=== PATIENT | female | born 1950 | race Caucasian/White ===

== ENCOUNTER 2017-08-07 10:54 | Day surgery (SDC) | payer MEDICARE, SELFPAY ==
[2017-07-31 11:01] LABS: Hematocrit 42.6 % (37-47); Hemoglobin 13.5 g/dl (12.0-15.0); Mean Corp Hgb Conc 31.7 g/gl (32-36); Mean Corpuscular Hgb 29.3 pg (27.0-32.0); Mean Corpuscular Volume 92.4 fL (81-99); Mean Platelet Vol. 10.9 fl (6.2-12.0); Platelet Count 258 K/mm3 (150-450); RBC Distribution Width CV 15.4 % (11.6-14.6); RBC Distribution Width SD 50.4 fl (35.1-43.9); Red Blood Count 4.61 M/mm3 (4.2-5.4); White Blood Count 9.8 K/mm3 (4.4-11.0)
[2017-07-31 11:04] LABS: Scan Indicated on CBC? Y/N NO
[2017-07-31 11:08] LABS: Prothrombin Time (Protime)PT. 22.9 SECONDS (11.7-14.9)
[2017-07-31 11:31] LABS: Anion Gap 5 (5-15); BUN 12 mg/dL (7-18); BUN/Creat Ratio 19.1 RATIO (10-20); Calcium,Total 9.1 mg/dL (8.5-10.1); Chloride 100 mmol/L (98-107); Creatinine, Serum 0.63 mg/dL (0.55-1.02); EST Glomerular Filtration Rate 100 mL/min (>60); Est Glom Filt Rate - Afr Amer 121 mL/min (>60); Glucose 125 mg/dL (74-106); Potassium 3.4 mmol/L (3.5-5.1); Sodium Level 140 mmol/L (136-145)
--- NOTE | 2017-08-07 | EMB_PTH ---
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 Jaelyn Low MD : [id number] BED: DIS: 08/07/2017 SPEC #: [id number] RECD: 08/07/17 14:29 STATUS: FRACISCO DELFINA #: [id number] HARLAN: 08/07/17 00:[address]: Jaelyn Low DEPT: SURGICAL PATHOLOGY RECD BY: Alberto Woods ENTERED: 08/07/17 14:29 SP TYPE: ENDOM BX/C GIANLUCA DR: Dr. Laurie Bonilla MD Tissues: Endometrium, NOS Procedures: Surgery Specimen Level IV HEADER OPERATION: Hysteroscopy, dilation and curettage PRE-OP DIAGNOSIS: Atypical mucinous proliferation on endometrial biopsy, thickened endometrium on pelvic ultrasound TISSUE SUBMITTED: Endometrial curettings MICROSCOPIC DIAGNOSIS Endometrium, curettings: Scant strips of benign superficial endometrium and ectocervix. Rare strips of benign superficial endocervix. AM:linda 08/08/17 MICROSCOPIC DESCRIPTION Slides are reviewed. GROSS DESCRIPTION Received in fixative is one container labeled with the patient's name and designated endometrial curettings. The specimen consists of multiple fragments of hemorrhagic soft tissue that in aggregate measure 1 x 0.5 x 0.1 cm. A few fragments of hemorrhagic tissue are also noted adherent to the gauze tissue. The entire specimen including gauze is submitted in one cassette. / SJ:linda 08/07/17 TC:5 CPT: 52344
[2017-08-07 11:21] LABS: Prothrombin Time Fingerstick 17.3 SEC (11.9-14.4)
[2017-08-07 11:23] VITALS: BP 147/77; PULSE 67; RESP 16; TEMP 36.8; O2SAT 96; BMI 34.0
[2017-08-07] MEDS: Ketorolac 30 MG/ML Syringe IV (11:33)
[2017-08-07] MEDS: Acetaminophen 500 MG Tablet 1000 MG PO (11:33)
[2017-08-07 11:34] LABS: International Normalized Ratio 1.5; Prothrombin Time (Protime)PT. 17.7 SECONDS (11.7-14.9)
[2017-08-07 12:11] LABS: Bedside Glucose 91 mg/dL (70-110)
--- NOTE | 2017-08-07 12:57 | DCINST_ITS ---
Discharge Diet: No Restrictions Discharge Activity: Return to Normal Activity, May Not Drive - for 2 weeks, May not drive while taking narcotic pain medications., May Shower, May Take a Tub Bath - in 7 days. May resume sexual activity in: 4-6 weeks Lifting Restrictions: 20 pounds Additional Activity Instructions:: Nothing in the vagina for 4-6 weeks. You may return to work/school in 6 weeks. Call your doctor if your incision/area has: Continuous Slow Oozing, Sudden Increased Bleeding, Increased Pain/ Swelling, Increased Redness, Foul Smelling Discharge Call your doctor if you observe: Fever of 101 or Higher, Using more than one pad per hour - for 2 hours Suture Line Care: Avoid Pulling/Pushing, Avoid Pinching/Bending Cleanse incision/area with: Keep Dressing Clean & Dry Instructions: Discharge Instructions for Dilation and Curettage (D and C) Additional Instructions: If you experience any of the following, contact your healthcare provider. * Bleeding that soaks a pad every hour for 2 hours * Fever 100.4 or higher * Unrelieved incision or abdominal pain * Swelling, redness, discharge or bleeding from your incision or episiotomy site * Your incision begins to separate * Problems urinating (including inability to urinate or burning while urinating) . * Visual changes * Severe headache * Flu-like symptoms * Pain or redness in one of both of your breasts * Pain, warmth, tenderness or swelling in your legs, especially the calf area * Frequent nausea and vomiting * Symptoms of depression or anxiety If you experience any of the following, call 911 or go to the nearest Emergency Room. * Chest pain * Problems breathing * Seizure activity * Partial or complete paralysis of a body part, slurred speech, weakness or drooping of the face, or a sudden inability to walk or hold your balance Allergies/Adverse Reactions: Allergies doxycycline Allergy (Verified 07/30/17 14:26) Unknown etodolac [Etodolac] Allergy (Verified 07/30/17 14:26) Unknown guaifenesin [From Mucinex] Allergy (Verified 07/30/17 14:26) Unknown nabumetone Allergy (Verified 07/30/17 14:26) Unknown Penicillins Allergy (Verified 07/30/17 14:26) Unknown sulfamethoxazole [From Bactrim] Allergy (Verified 07/30/17 14:26) Hives trimethoprim [From Bactrim] Allergy (Verified 07/30/17 14:26) Hives Medications to take at Discharge Albuterol Aerosols [Ventolin Aerosols] 2.5 mg INHALATION Q4HWA.RT PRN 11/01/15 Budesonide/Formoterol 160/4.5 [Symbicort 160/4.5 Mcg Inhaler (SP)] 2 puff INHALATION BID 11/01/15 Metoprolol Tartrate [Lopressor] 50 mg PO BID 11/01/15 Furosemide [Lasix] 40 mg PO PRN PRN 06/07/17 Sulfasalazine [Azulfidine] 500 mg PO BID 06/07/17 Losartan Potassium [Cozaar] 25 mg PO DAILY 07/30/17 Warfarin [Coumadin] 2.5 mg PO SUTUTHSA 07/30/17 Warfarin [Coumadin] 5 mg PO MOWEFR 07/30/17 Follow-Up: Call to make an appointment with your doctor for an incision check in 1-2 weeks. You will also need a 6 week post- follow up appointment. Please Follow Up With: Jaelyn Low MD - Call to make an appointment for an incision check in 1-2 [phone] When: You will need a post check in 6 weeks. Primary Care Physician: Laurie Bonilla MD [Primary Care Provider] -
--- NOTE | 2017-08-07 13:15 | PCM.OPRPT ---
Report of Operation Date of Procedure: 08/07/17 Pre-Operative Diagnosis: Atypical cells on endometrial biopsy, thickened endometrium on ultrasound Post-Operative Diagnosis: Same Surgery/Procedure Performed:: Hysteroscopy dilation and curettage Description of Surgical Findings:: Appearing cervix, vagina, vulva and endometrial cavity. cotton program technician: elvis Type of Anesthesia:: MAC/Supplemental/Local Anesthesiologist: Santos Trevizo Special Medications: None Specimen's removed: Endometrial curettings Drains: None Estimated Blood Loss (mL): 10 cc Fluids Replaced: 700 cc of LR Description of Procedure: The patient was taken to the OR where she was prepped and draped in dorsal lithotomy position. The weighted speculum was placed in the vagina and the anterior lip of the cervix was grasped with a single-tooth tenaculum. A paracervical block was administered with 10 cc of 1% lidocaine with 1-100,000 epinephrine solution. The cervix was dilated serially with Hegar dilators. The 5mm hysteroscope was placed into the uterine cavity and the above findings were noted. Bilateral tubal ostia were identified. The hysteroscope was removed. A gentle sharp curettage was done of the uterine cavity. The instruments were removed from the vagina. The specimen was handed off and sent to pathology. All sponge and needle counts were correct. Vaginal sweep was performed by me. The patient was awakened and taken to the recovery room in stable condition. Hysteroscopic ins: 150 cc cc normal saline Hysteroscopic outs: 125 cc Findings: Endometrial cavity: normal, no fibroids or polyps noted, thin atrophic endometrium. Cervix: normal Vagina: normal Grafts/Implants Used: None - Complications None - Admit VTE Documentation VTE Present on Admission: No VTE Mechan Device Prophylaxis: SCD's VTE Pharm Prophylaxis ordered?: No Reason prophylaxis not ordered:: Procedure Not Indicated
[2017-08-07 13:21] VITALS: BP 113/53; BP 147/77; PULSE 78; RESP 16; TEMP 36.2; O2SAT 94
[2017-08-07 13:25] VITALS: BP 102/55; BP 147/77; PULSE 72; RESP 16; O2SAT 95
[2017-08-07 13:30] VITALS: BP 106/54; BP 147/77; PULSE 80; RESP 16; O2SAT 94
[2017-08-07 13:35] VITALS: BP 104/55; BP 147/77; PULSE 70; RESP 14; TEMP 36.3; O2SAT 96
[2017-08-07 14:51] VITALS: BP 147/77
== END 2017-08-07 14:52 | disposition home or self-care (01) ==
LOC: SDC 10:55 → AC 10:55
PROVIDERS: Family Provider Internal Medicine; PCP Internal Medicine; Visit Provider Obstetrics & Gynecology
PROC: 0UDB8ZZ Extraction of Endometrium, Via Natural or Artificial Opening Endoscopic (ICD-10-PCS; CPT 58558; principal; 2017-08-07 12:20)
DX: R93.8 Abnormal findings on diagnostic imaging of other specified body structures (principal); I48.91 Unspecified atrial fibrillation; R87.619 Unspecified abnormal cytological findings in specimens from cervix uteri; J44.9 Chronic obstructive pulmonary disease, unspecified; E11.9 Type 2 diabetes mellitus without complications; K21.9 Gastro-esophageal reflux disease without esophagitis; M17.0 Bilateral primary osteoarthritis of knee; M47.9 Spondylosis, unspecified; I27.20 Pulmonary hypertension, unspecified; I10 Essential (primary) hypertension; Z79.01 Long term (current) use of anticoagulants; Z79.51 Long term (current) use of inhaled steroids; Z79.84 Long term (current) use of oral hypoglycemic drugs; Z79.899 Other long term (current) drug therapy; Z87.891 Personal history of nicotine dependence
CPT/HCPCS: 58558; 36415; 36416; 80048; 82962; 85027; 85610; 88305; J3010; J7120; J2405

== ENCOUNTER 2018-12-13 17:08 | Emergency (ER) | payer MEDICARE, SELFPAY ==
[2018-12-13 17:10] VITALS: BP 154/94; PULSE 77; RESP 20; TEMP 36.9; O2SAT 95; BMI 36.3
--- NOTE | 2018-12-13 17:31 | RAD_ITS ---
STUDY: X-RAY - PELVIS AND LEFT HIP REASON FOR EXAM: Female, 68 years old. Left hip pain TECHNIQUE: 3 views of the pelvis and hip. COMPARISON: None. FINDINGS: No acute fracture or dislocation. Age-related degenerative changes of both hips and the lower lumbar spine. Normal surrounding soft tissues RAD/HIP, UNI W/ Pelvis 2-3 Views IMPRESSION: As above Electronically Signed: Manuel José DO at 18:36 EDT Tel , Service support ,
--- NOTE | 2018-12-13 17:33 | ED.VIS.GEN ---
History of Present Illness Chief Complaint: Lower Extremity Injury Informant: Patient Onset: - Friday Context: Sudden Onset Timing: Continuous Quality: Pain Location: Left hip Current Severity: Mild Maximum Severity: Severe Worsened by: Movement and palpation Relieved by: Rest Associated Symptoms: No associated symptoms Narrative: Patient is a 68-year-old woman who presents with atraumatic left hip pain. She localizes the pain over the left greater trochanteric region and buttocks. She denies history of osteoarthritis. She denies history of long-term steroid use. She denies history of trauma. She denies fever, chills night sweats. Denies weight gain or weight loss. She has not noticed a rash. Prior similar symptoms: No Recent Illness/Hospitalization: No - Past Medical History (1) CAP (community acquired pneumonia) Status: Acute (2) Anemia Status: Chronic (3) Atrial fibrillation Status: Chronic (4) Chronic obstructive pulmonary disease Status: Chronic (5) Hypertension Status: Chronic (6) Lichen planus Status: Chronic (7) Type II diabetes mellitus Status: Chronic Past Medical History - Allergies and Home Meds Allergies/Adverse Reactions: Allergies doxycycline Allergy (Verified 12/13/18 17:09) Unknown etodolac [Etodolac] Allergy (Verified 12/13/18 17:09) Unknown guaifenesin [From Mucinex] Allergy (Verified 12/13/18 17:09) Unknown nabumetone Allergy (Verified 12/13/18 17:09) Unknown Penicillins Allergy (Verified 12/13/18 17:09) Unknown sulfamethoxazole [From Bactrim] Allergy (Verified 12/13/18 17:09) Hives trimethoprim [From Bactrim] Allergy (Verified 12/13/18 17:09) Hives Primary Care Physician: Laurie Bonilla MD [Primary Care Provider] - Surgical History: - - R Carpal tunnel surgery, tubal ligation. Smoking Status: Former smoker - Family History Maternal Family History: Reports: No pertinent history Paternal Family History: Reports: No pertinent history Review of Systems General: Denies: Chills, Fever, Malaise, Subjective, Sweats, Weight loss Eyes: Denies: Visual changes - bilaterally, Blurred Vision - bilaterally, Diplopia Cardiovascular: Denies: Chest pain, Palpitations, Heart racing Respiratory: Denies: Dyspnea, Sputum, Dyspnea on exertion, Orthopnea, Paroxysmal nocturnal dyspnea Gastrointestinal: Denies: Abdominal pain, Nausea, Vomiting, Constipation, Hematochezia Genitourinary: Denies: Dysuria, Hematuria, Frequency Musculoskeletal: Denies: Myalgias, Arthralgias, Neck pain, Back pain, Extremity Pain Skin: Denies: Rash, Abrasions, Wounds Neurological: Denies: Headache, Weakness, Parasthesia, Numbness Hematologic: Denies: Easy bruising, Easy bleeding Allergy: Denies: Uticaria, Swelling of the mouth Physical Exam Vital Signs/Narrative: Vital Signs Temp Pulse Resp BP Pulse Ox 12/13/18 17:10 98.4 F 77 20 H 154/94 H 95 Inital Vital Signs reviewed: Yes General: Well nourished, Well developed, No Acute Distress Head: Normocephalic, Atraumatic Eyes: Perrl, EOMI. Negative for: Pale conjunctiva, Scleral icterus ENT: Moist mucous membranes, No rhinorrhea, TM's clear Cardiovascular: Regular rate, Regular rhythm, No murmurs, Normal S1, Normal S2 Back: Nontender, Normal Inspection. Negative for: CVA tenderness, Spinal tenderness Extremities: No edema, Tenderness. Negative for: Nontender, Edema Skin: Normal color, No rash. Negative for: Cyanosis, Diaphoresis, Jaundice, No Trauma Neurological: Alert, Oriented x3, Cranial nerves II-XII grossly intact, Normal Strength, Normal Sensation, Normal DTR, Normal Gait Psychological: Normal affect, Normal Mood Diagnostic/Tx/Re-eval Chest X-Ray - ED: Read by ED Physician, - Three-view x-ray of the left hip reveals arthritic changes over the inferior portion of the greater trochanteric prominence. No other demise noted per my interpretation. - Medical Decision Making Patient tenderness is over the left greater trochanteric bursa. There is no pain with logrolling. Will obtain x-ray to assess for osteoarthritis, occult fracture. ED Disposition - Plan for ED Patient: Disposition: Home or Assisted Living Diagnosis: Greater trochanteric pain syndrome of right lower extremity Instructions: Osteoarthritis Prescriptions: Hydrocodone Bitart/Apap 5-325 [[place] 5MG-325MG] 1 tab PO Q6H PRN PRN 3 Days #10 tab PRN Reason: Pain Prescription Printed Referrals: Laurie Bonilla MD [Primary Care Provider] - 3-5 Days if not improving
== END 2018-12-13 19:16 | disposition home or self-care (01) ==
PROVIDERS: Emergency Provider Emergency Medicine; Family Provider Internal Medicine; PCP Internal Medicine
DX: M25.552 Pain in left hip (principal); I48.91 Unspecified atrial fibrillation; I10 Essential (primary) hypertension; E11.9 Type 2 diabetes mellitus without complications; J44.9 Chronic obstructive pulmonary disease, unspecified; Z87.891 Personal history of nicotine dependence; Z79.51 Long term (current) use of inhaled steroids; Z79.01 Long term (current) use of anticoagulants; Z79.899 Other long term (current) drug therapy
CPT/HCPCS: 73502; 99282

== ENCOUNTER → 2019-10-13 15:41 | Outpatient (CLI) | payer MEDICARE, SELFPAY ==
[2019-10-13 12:36] VITALS: BMI 38.5
--- NOTE | 2019-10-13 15:55 | RAD_ITS ---
STUDY: X-RAY CHEST REASON FOR EXAM: Female, 69 years old. Left lower chest pain for several months. History of long-standing atrial fibrillation. TECHNIQUE: PA and lateral views of the chest. COMPARISON: June 07, 2017. FINDINGS: The lungs are well expanded. There is minimal bibasilar chronic atelectasis versus scarring which appears unchanged from previous study. No acute infiltrate or mass. There is no demonstrated pleural abnormality. Normal size heart. Normal mediastinum and tiffany. Normal visualized pulmonary arteries. There is atherosclerotic calcification of the aortic arch with tortuosity. Degenerative changes and levoscoliosis of the thoracic spine. There is degenerative osteoarthritis of the bilateral shoulders. There is no demonstrated abnormality of the visualized soft tissue structures of the upper abdomen. RAD/Chest PA and Lateral IMPRESSION: No acute cardiopulmonary disease. Electronically Signed: Anand Max DO at 16:18 EDT Tel [phone], Service support ,
[2019-10-13 16:07] LABS: Absolute Lymphocyte Count 2.33 X10^3/uL (0.83-4.51); Basophil# 0.05 X10^3/uL; Basophil% 0.3 % (0-1); Eosinophils% 1.8 % (0-5); Hematocrit 42.3 % (37-47); Hemoglobin 13.2 g/dL (12.0-15.0); Lymphocyte # 2.33 X10^3/ul (4.0); Mean Corp Hgb Conc 31.2 g/dL (32-36); Mean Corpuscular Volume 89.8 fL (81-99); Mean Platelet Vol. 10.4 fl (6.2-12.0); Monocyte# 0.84 X10^3/uL; Monocyte% 5.1 % (0-10); NRBC Flagged by Analyzer 0 % (0-5); Neutrophil # 12.99 X10^3/uL (2.7-7.7); Neutrophil % 78.3 % (47-70); Platelet Count 276 K/mm3 (150-450); RBC Distribution Width CV 15.1 % (11.6-14.6); Red Blood Count 4.71 M/mm3 (4.2-5.4); White Blood Count 16.6 K/mm3 (4.4-11.0)
[2019-10-13 16:11] LABS: International Normalized Ratio 1.8
[2019-10-13 16:35] LABS: Anion Gap 4 (5-15); BUN 13 mg/dL (7-18); BUN/Creat Ratio 20.9 RATIO (10-20); Calcium,Total 9.5 mg/dL (8.5-10.1); Chloride 105 mmol/L (98-107); Creatinine, Serum 0.62 mg/dL (0.55-1.02); EST Glomerular Filtration Rate 101 mL/min (>60); Est Glom Filt Rate - Afr Amer 122 mL/min (>60); Glucose 97 mg/dL (74-106); Potassium 3.9 mmol/L (3.5-5.1); Sodium Level 141 mmol/L (136-145)
== END ==
PROVIDERS: PCP Internal Medicine; Referring Provider Internal Medicine Cardiovascular Disease; Visit Provider Internal Medicine Cardiovascular Disease
DX: I10 Essential (primary) hypertension (principal); I48.11 Longstanding persistent atrial fibrillation; R06.00 Dyspnea, unspecified; R07.9 Chest pain, unspecified
CPT/HCPCS: 36415; 71046; 80048; 85025; 85610

== ENCOUNTER → 2019-10-22 12:40 | Outpatient (CLI) | payer MEDICARE, SELFPAY ==
[2019-10-13 12:36] VITALS: BMI 38.5
--- NOTE | 2019-10-22 12:43 | ECHOCS_ITS ---
Reason For Study: A. fib Procedure This was a 2D Doppler, Color Flow transthoracic echocardiogram. The study was technically difficult. Exam performed in department. Left Ventricle Normal LV size. Left ventricular systolic function is normal. The estimated ejection fraction is 55 %. No regional wall motion abnormalities noted. Atria The left atrium is moderately enlarged. Normal right atrium. Mitral Valve There is mild mitral annular calcification. Tricuspid Valve Normal tricuspid valve. Moderate (2+) tricuspid valve insufficiency. Pulmonary artery systolic pressure is 56 mmHg. Moderate pulmonary hypertension. Aortic Valve The aortic valve is not well visualized. Pulmonic Valve The pulmonic valve is not well visualized. Great Vessels Normal aortic root. The pulmonary artery is normal size. Normal inferior vena cava. Pericardium/Pleural No pericardial effusion. Medication 22 gauge I.V. with prn adaptor inserted into right arm. Diluted definity 2ml given slow IV push to enhance endocardial definition. Given permission by Dr. Almazan to administer Definity with RVSP above 50mmHg. MMode/2D Measurements & Calculations LVIDd: 4.6 cm IVSd: 1.0 cm Ao root diam: 3.2 cm LVIDs: 2.8 cm LVPWd: 1.2 cm RVDd: 3.2 cm FS: 39.3 % LAV(MOD-bp): 89.3 ml LA A4 area: 26.8 cm2 LA dimension(2D): 4.5 cm LAV(MOD-bp) Indexed: 45.4 ml/m2 LAV(MOD-sp2): 75.4 ml LAV(MOD-sp4): 85.8 ml RA A4 area: 18.4 cm2 Doppler Measurements & Calculations MV E max parker: 117.6 cm/sec Ao V2 max: 130.6 cm/sec LV V1 max: 83.0 cm/sec Ao max P.8 mmHg LV V1 max P.8 mmHg PA V2 max: 91.1 cm/sec TR max parker: 353.7 cm/sec TR max P.2 mmHg Interpretation Summary Normal LV size. Left ventricular systolic function is normal. The estimated ejection fraction is 55 %. Pulmonary artery systolic pressure is 56 mmHg. Moderate pulmonary hypertension. Contrast injection was performed. Ordering Physician: Aristeo Almazan Referring Physician: Luarie Bonilla M.D. Performed By: Luci Armijo RDCS
== END ==
PROVIDERS: PCP Internal Medicine; Referring Provider Internal Medicine Cardiovascular Disease; Visit Provider Internal Medicine Cardiovascular Disease
DX: R06.00 Dyspnea, unspecified (principal)
CPT/HCPCS: 93306; Q9957; A4216; C8929

== ENCOUNTER 2019-10-27 07:00 | Day surgery (SDC) | payer MEDICARE, SELFPAY ==
[2019-10-13 12:36] VITALS: BMI 38.5
[2019-10-26 09:57] VITALS: BMI 38.5
[2019-10-27 07:10] LABS: Prothrombin Time Fingerstick 13.7 SEC (11.9-14.4)
[2019-10-27 09:40] LABS: Base Excess 1 mmol/L (-2 to +2); Bicarbonate 25.9 mmol/L (22-26); Blood Gas Specimen Type ART; PO2 68 mmHG (75-100); SO2 93 % (95-99); Total Carbon Dioxide 27 mmol/L; pCO2 41.1 mmHg (35-45); pH 7.41 (7.35-7.45)
--- NOTE | 2019-10-27 10:38 | CL.D_ITS ---
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 CONCLUSIONS Normal coronary arteries Normal LV size, wall motion,and systolic function Right heart pressures - severely elevated RECOMMENDATIONS Medical therapy Refer to Health Information Technician DESCRIPTION OF PROCEDURE The patient arrived to the procedure lab. The risks and benefits of the procedure as well as a full d escription of our services here and current unavailability of surgical backup were fully explained to the patient and/or their significant other prior to the catheterization. The Timeout was completed, verifying the correct patient and procedure. The patient's procedural site was prepped and draped in the usual fashion. Local anesthetic was given subcutaneously to right groin region with Lidocaine 2%. Using a modified Seldinger technique, arterial access was obtained via the right femoral artery, a 5 Fr sheath was inserted. Venous access was obtained via the right femoral vein, a 7Fr sheath was inser cipriano. A 7Fr thermal dilution catheter was inserted and right heart pressures were recorded, it was the n advanced to PA position for cardiac outputs. Thermal dilution cardiac outputs were then recorded. O 2 saturations were then obtained. The Thermal dilution catheter was then removed. Left Coronary Artery selective angiography was performed in multiple views using a 5 Fr. JL4 catheter. [facility] Coronary Artery selective angiography was then performed in multiple views using a 5 Fr. 3DRC ([facility]) catheter. Left Ventriculography was performed in HECK projection using a 5 Fr. Pigtail catheter . LV to AO pullback pressures were then recorded.Contrast was injected through the sheath and the [facility] Iliac and Femoral artery were assessed for possible closure device.The arterial sheath was pulled and a Mynx closure device was deployed for hemostasis. The venous sheath was then pulled and manual c ompression applied until hemostasis achieved CORONARY ANGIOGRAPHY DOMINANCE: Right Dominant LEFT HEART ASSESSMENT Left Ventricular Ejection Fraction: by LV Gram 60 % Normal LV wall motion Normal Left Ventricular systolic function Normal Left Ventricular systolic function RIGHT HEART ASSESSMENT Thermal CO: 5.19 Thermal CI: 2.66 Frank CO: 4.66 Frank CI: 2.39 PW: 26 PA: 77/35 50 RV: 90/5 21 RA: 20 PVR: 370 SVR: 1387 Right Heart pressures - elevated Pulmonary Hypertension Severe LEFT MAIN: Angiographically normal LEFT ANTERIOR DESCENDING ARTERY: Angiographically normal CIRCUMFLEX ARTERY: Angiographically normal RIGHT CORONARY ARTERY: Angiographically normal COMPLICATIONS No Complications PROCEDURE MEDICATIONS Versed 1 mg IV Fentanyl 50 mcg IV Oxygen: 2 L/min via nasal cannula SUMMARY OF HEMODYNAMIC DATA Time AIR REST ECG 07:35:34 RA (20) SV 09:08:43 RV 90/5, 21 09:09:01 PW / (26) PV 09:10:39 PA 77/35 (50) PA 09:10:55 PA 89/35 (56) 09:14:17 RV 70/9, 20 09:14:38 RA (19) 09:14:45 AO 157/78 (110) SA 09:16:10 LV 159/16, 28 09:22:02 LV 156/16, 28 09:22:08 LV 137/20, 22 09:22:47 LVp 145/20, 24 09:22:51 AOp 154/81 (112) 09:22:56 ECG 09:52:02 Type SV CO (l/m) CI (l/m/ HR Time AIR REST Thermal 64.90 5.19 2.66 80 07:35:34 Farnk 58.30 4.66 2.39 80 07:35:34 Label % O2 Pres/Loc Time AIR REST AO 93 PV 09:20:14 PA 64 PA 09:20:24 RA 62 SV 09:20:29 Signed By Aristeo Almazan MD On 10/27/2019 10:37:28 Aristeo Almazan MD
[2019-10-29 07:11] LABS: VBG BASE EXCESS 3 mmol/L (-1.0-3.5); VBG Bicarbonate 28 mmol/L (22-26); VBG Oxygen Content 30 mmol/L (23-33); VBG PO2 33 mmHg (25-40); VBG SO2 62 % (50-70); VBG pCO2 47.9 mmHg (41-51); VBG pH 7.38 (7.32-7.42)
[2019-10-29 07:11] LABS: VBG BASE EXCESS 4 mmol/L (-1.0-3.5); VBG Bicarbonate 29 mmol/L (22-26); VBG Oxygen Content 31 mmol/L (23-33); VBG PO2 34 mmHg (25-40); VBG SO2 64 % (50-70); VBG pCO2 48.6 mmHg (41-51); VBG pH 7.39 (7.32-7.42)
== END 2019-10-27 13:00 | disposition home or self-care (01) ==
PROVIDERS: PCP Internal Medicine; Referring Provider Internal Medicine Cardiovascular Disease; Visit Provider Internal Medicine Cardiovascular Disease
DX: R07.89 Other chest pain (principal); R06.02 Shortness of breath; R60.0 Localized edema; Z79.01 Long term (current) use of anticoagulants; E66.9 Obesity, unspecified; G47.33 Obstructive sleep apnea (adult) (pediatric); Z68.38 Body mass index [BMI] 38.0-38.9, adult; Z79.899 Other long term (current) drug therapy; Z79.02 Long term (current) use of antithrombotics/antiplatelets; Z79.82 Long term (current) use of aspirin; I48.11 Longstanding persistent atrial fibrillation; I50.32 Chronic diastolic (congestive) heart failure; I11.0 Hypertensive heart disease with heart failure; J44.9 Chronic obstructive pulmonary disease, unspecified; Z87.891 Personal history of nicotine dependence; I27.21 Secondary pulmonary arterial hypertension
CPT/HCPCS: 36416; 82803; 85610; 93460; 99152; 99153; C1760; J7040; C1751; C1769; C1894; Q9967

== ENCOUNTER → 2021-05-22 14:36 | Outpatient (CLI) | payer MEDICARE, SELFPAY ==
[2021-05-22 15:55] LABS: Anion Gap 4 (5-15); BUN 11 mg/dL (7-18); BUN/Creat Ratio 19.7 RATIO (10-20); Calcium,Total 9.2 mg/dL (8.5-10.1); Chloride 107 mmol/L (98-107); Creatinine, Serum 0.56 mg/dL (0.55-1.02); EST Glomerular Filtration Rate 114 mL/min (>60); Est Glom Filt Rate - Afr Amer 137 mL/min (>60); Glucose 92 mg/dL (74-106); Magnesium 2.1 mg/dL (1.6-2.6); Potassium 3.6 mmol/L (3.5-5.1); Sodium Level 142 mmol/L (136-145); Thyroid Stim Hormone (TSH) 0.72 uIU/mL (0.358-3.74)
== END ==
PROVIDERS: PCP Internal Medicine; Referring Provider Internal Medicine Cardiovascular Disease; Visit Provider Internal Medicine Cardiovascular Disease
DX: I48.11 Longstanding persistent atrial fibrillation (principal); I10 Essential (primary) hypertension
CPT/HCPCS: 36415; 80048; 83735; 84443

== ENCOUNTER 2021-06-06 08:59 | Outpatient (CLI) | payer MEDICARE, SELFPAY ==
--- NOTE | 2021-06-06 09:01 | ECHOD_ITS ---
Reason For Study: Afib, Aflutter Procedure This was a 2D Doppler, Color Flow transthoracic echocardiogram. Did not use Definity due to increased PAP. Exam performed in department. Left Ventricle Normal LV size. The estimated ejection fraction is 53 %. Left ventricular systolic function is lower limits of normal. Infero-Basal: Hypokinetic. Right Ventricle Normal RV size. Mild global right ventricular systolic dysfunction. Atria The left atrium is mildly enlarged. Normal right atrium. Mitral Valve There is mild mitral annular calcification. Tricuspid Valve Normal tricuspid valve. Moderately severe (3+) tricuspid valve insufficiency. Severe pulmonary hypertension. Pulmonary artery systolic pressure is 90 mmHg. Aortic Valve Trisinus/trileaflet aortic valve. Pulmonic Valve Normal pulmonic valve. Great Vessels Normal aortic root. The pulmonary artery is normal size. and does not collapse. Pericardium/Pleural No pericardial effusion. MMode/2D Measurements & Calculations LVIDd: 5.0 cm IVSd: 1.1 cm Ao root diam: 2.7 cm LVIDs: 3.3 cm LVPWd: 1.2 cm RVDd: 4.1 cm FS: 34.9 % LAV(MOD-bp): 80.5 ml LVAd ap4: 18.8 cm2 SV(MOD-sp4): 28.9 ml LAV(MOD-bp) Indexed: 43.4 ml/m2 LVLd ap4: 5.7 cm LAV(MOD-sp2): 63.2 ml EDV(MOD-sp4): 51.9 ml LAV(MOD-sp4): 83.6 ml EDV(sp4-el): 52.4 ml LVAs ap4: 11.6 cm2 LVLs ap4: 5.1 cm ESV(MOD-sp4): 23.1 ml ESV(sp4-el): 22.5 ml EF(MOD-sp4): 55.6 % EF(sp4-el): 57.0 % SV(sp4-el): 29.9 ml LA A4 area: 25.8 cm2 LA dimension(2D): 5.0 cm RA A4 area: 18.5 cm2 Doppler Measurements & Calculations MV E max parker: 113.8 cm/sec Ao V2 max: 123.8 cm/sec LV V1 max: 93.5 cm/sec Ao max P.1 mmHg LV V1 max P.5 mmHg Ao V2 mean: 85.8 cm/sec Ao mean P.2 mmHg Ao V2 VTI: 27.9 cm PA V2 max: 81.6 cm/sec TR max parker: 460.5 cm/sec TR max P.8 mmHg ECHO/Echo Complete Interpretation Summary Normal LV size. The estimated ejection fraction is 53 %. Left ventricular systolic function is lower limits of normal. Severe pulmonary hypertension. Pulmonary artery systolic pressure is 90 mmHg. Ordering Physician: Aristeo Almazan Referring Physician: Laurie Bonilla Performed By: Leana Mcdonald, GU[place], RVT
== END 2021-06-06 23:59 | disposition short-term general hospital (02) ==
LOC: CVS 09:00
PROVIDERS: PCP Internal Medicine; Referring Provider Internal Medicine Cardiovascular Disease; Visit Provider Internal Medicine Cardiovascular Disease
DX: I48.11 Longstanding persistent atrial fibrillation (principal)
CPT/HCPCS: 93306

== ENCOUNTER → 2022-02-14 | Outpatient (CLI) | payer MEDICARE, SELFPAY ==
[2022-02-14 11:28] LABS: International Normalized Ratio 1.5
== END | disposition home or self-care (01) ==
LOC: LABSPEC 11:10
PROVIDERS: PCP Internal Medicine; Visit Provider Clinical Nurse Specialist
DX: I48.20 Chronic atrial fibrillation, unspecified (principal)
CPT/HCPCS: 85610

== ENCOUNTER → 2023-03-05 | Outpatient (CLI) | payer MEDICARE, SELFPAY ==
--- NOTE | 2023-03-05 13:48 | CT_ITS ---
STUDY: CT CHEST WITH CONTRAST REASON FOR EXAM: Female, 72 years old. LEFT VOCAL CORD PARALYSIS/EVALUATE THE COURSE OF THE LEFT RECURRE RADIATION DOSAGE (If Supplied By Facility): CTDIvol = ( 12.15 ) mGy, DLP = ( 909.45 ) mGycm TECHNIQUE: Transaxial imaging was performed following intravenous administration of IV 100mL Isovue-300. Multiplanar coronal and sagittal images were reformatted. Individualized dose optimization techniques were used for this CT. COMPARISON: No relevant priors. FINDINGS: CHEST Diffuse heterogeneous enlargement of both lobes of thyroid gland with a cystic nodule in the upper pole of the left lobe of the thyroid. Mild increased markings at the lung bases suggestive of a mild degree of scarring. There is no demonstrated pleural abnormality. There are calcifications of the coronary arteries. Cardiomegaly. Enlarged precarinal lymph node measuring 1.9 cm x 2.2 cm. Mildly enlarged right hilum. Normal unenhanced pulmonary arteries. Normal aorta arch and descending thoracic aorta. There are multi-level degenerative changes of the thoracic spine. There is no demonstrated abnormality of the visualized upper abdomen. CT/Chest WITH Contrast IMPRESSION: Enlarged precarinal lymph node. Mild enlargement of right hilar lymph nodes. Electronically Signed: Hubert Etienne MD at 11:16 EDT ,
--- NOTE | 2023-03-05 13:49 | CT_ITS ---
STUDY: CT SOFT TISSUE NECK WITH CONTRAST REASON FOR EXAM: Female, 72 years old. LEFT VOCAL CORD PARALYSIS/EVALUATE THE COURSE OF THE LEFT RECURRE RADIATION DOSAGE (If Supplied By Facility): CTDIvol = ( 12.15 ) mGy, DLP = ( 909.45 ) mGycm TECHNIQUE: The patient was scanned in a multi-detector CT scanner. High resolution transaxial imaging was performed following intravenous administration of IV 100mL Isovue-300. Sagittal and coronal images were reconstructed. Individualized dose optimization techniques were used for this CT. COMPARISON: None. FINDINGS: Enlarged precarinal lymph node measuring 2.1 cm x 2 cm. Normal bilateral parotid glands. Normal bilateral cnp spaces. Normal bilateral parapharyngeal spaces. Normal bilateral carotid spaces. Normal bilateral sublingual and submandibular glands and spaces. Normal visualized nasopharynx. Normal retropharyngeal space. Normal perivertebral space. Normal visualized bilateral faucial tonsils. The visualized tongue, tongue base and oropharynx are normal. The visualized cervical lymph nodes (levels I-) are within normal size limits, and maintain normal morphology. There is no demonstrated solid or cystic mass lesion. There is no abnormal contrast enhancement. Normal epiglottis, bilateral vallecula and hypopharynx. The pre-epiglottic and paraglottic adipose spaces are normal. Normal visualized bilateral piriform sinuses, aryepiglottic folds, vocal cords, and arytenoid-cricoid articulations. Normal subglottic trachea. Diffuse heterogeneous enlargement of the thyroid gland. There is a 1.5 cm x 1.1 cm cystic nodule in the upper pole of the left lobe of the thyroid. Normal visualized pulmonary apices. Mucosal thickening of the maxillary sinuses bilaterally. There is multilevel degenerative changes of the cervical spine. CT/Soft Tissue Neck WITH Contrast IMPRESSION: Heterogeneous diffuse enlargement of the thyroid with the a 1.5 cm by 1.1 cm cystic structure in the anterior upper pole of the left lobe of the thyroid. Enlarged precarinal lymph node. Electronically Signed: Hubert Etienne MD at 11:11 EDT ,
[2023-03-05 14:22] LABS: CREATININE FINGERSTICK < 0.9 mg/dL (0.55-1.02); EGFR FINGERSTICK > 60.0000 mL/min (>60)
== END | disposition home or self-care (01) ==
PROVIDERS: PCP Internal Medicine; Referring Provider Otolaryngology; Visit Provider Otolaryngology
DX: J38.01 Paralysis of vocal cords and larynx, unilateral (principal)
CPT/HCPCS: 70491; 71260; Q9967; A4216

== ENCOUNTER → 2023-03-20 | Outpatient (CLI) | payer MEDICARE, SELFPAY ==
--- NOTE | 2023-03-20 12:34 | US_ITS ---
INDICATION: NODULE EXAMINATION: Ultrasound US Thyroid (eg thyroid, parathyroid, parotid) TECHNIQUE: Morris scale and color doppler imaging was performed of the thyroid gland. COMPARISON: Prior study dated: CT from 03/05/2023. No prior ultrasound compare. FINDINGS: RIGHT THYROID LOBE: 6.7 x 3 x 3.6 cm, volume 37.8 mL. Parenchyma: The gland echotexture is heterogeneous. Thyroid vascularity is normal. LEFT THYROID LOBE: 5.3 x 3 x 2.5 cm, volume 21 mL. Parenchyma: The gland echotexture is heterogeneous. Thyroid vascularity is normal. ISTHMUS: 1 cm in maximum AP dimension. Estimated total number of nodules greater than equal to 1 cm: 3. Newswriter nodules are described as follows: 1. Location: Right mid Size: 1.2 x 1 x 1.1 cm, volume 0.7 mL. Nodule characteristics: Composition: Solid or almost completely solid (2). Echogenicity: Hyperechoic (1). Shape: Wider than tall (0). Margins: Smooth (0). Echogenic Foci: None (0). ACR TI-RADS total points: 3. ACR TI-RADS category: 3. 2. Location: Right posterior Size: 1.3 x 1.3 x 1 cm, volume 0.8 mL. Nodule characteristics: Composition: Solid or almost completely solid (2). Echogenicity: Hypoechoic (2). Shape: Wider than tall (0). Margins: Smooth (0). Echogenic Foci: None (0). ACR TI-RADS total points: 4. ACR TI-RADS category: 4. 3. Location: Left mid Size: 0.7 x 0.9 x 0.4 cm, volume 0.1 mL. Nodule characteristics: Composition: Solid or almost completely solid (2). Echogenicity: Hypoechoic (2). Shape: Wider than tall (0). Margins: Smooth (0). Echogenic Foci: None (0). ACR TI-RADS total points: 4. ACR TI-RADS category: 4. 4. Location: Left upper Size: 1.6 x 1.4 x 1.2 cm, volume 1.4 mL. Nodule characteristics: Composition: Mixed cystic and solid (1). Echogenicity: Isoechoic (1). Shape: Wider than tall (0). Margins: Smooth (0). Echogenic Foci: None (0). ACR TI-RADS total points: 2. . ACR TI-RADS category: 2. LYMPH NODES: 0.8 cm lymph node seen in the right neck, with ovoid appearance. US/Thyroid IMPRESSION: Heterogeneous enlarged thyroid gland with multiple thyroid nodules identified. Based on the size and appearance of these nodules, nodule #2 is appropriate for follow-up ultrasound in one year. ACR TI-RADS RECOMMENDATION REFERENCE: Ultrasound-guided fine-needle aspiration, follow-up ultrasound, no further follow-up. *TR 1 (0 points) and TR 2 (2 points): No FNA or follow-up. *TR 3 (3 points): FNA if more than or equal to 2.5 cm in maximum dimension. Follow-up ultrasound in 1, 3, and 5 years if 1.5 to 2.4 cm in maximum dimension. *TR 4 (4-6 points): FNA if more than or equal to 1.5 cm in maximum dimension. Follow-up ultrasound in 1, 2, 3, and 5 years if 1 to 1.4 cm in maximum dimension. *TR 5 (more than or equal to 7 points): FNA if more than or equal to 1 cm in maximum dimension. Follow-up ultrasound every year for 5 years if 0.5 to 0.9 cm in maximum dimension. *TR 3, TR 4, or TR 5 nodules that are below the size threshold for follow-up receive no follow-up. Electronically Signed: Oleg Lamb MD at 20:52 EDT ,
== END | disposition home or self-care (01) ==
LOC: US 12:33
PROVIDERS: PCP Internal Medicine; Referring Provider Otolaryngology; Visit Provider Otolaryngology
DX: D44.0 Neoplasm of uncertain behavior of thyroid gland (principal)
CPT/HCPCS: 76536

== ENCOUNTER 2023-04-07 07:34 | Day surgery (SDC) | payer MEDICARE, SELFPAY ==
[2023-04-01 15:58] LABS: Hematocrit 38.8 % (37-47); Hemoglobin 11.7 g/dL (12.0-15.0); Mean Corp Hgb Conc 30.2 g/dL (32-36); Mean Corpuscular Hgb 27.9 pg (27.0-32.0); Mean Corpuscular Volume 92.6 fL (81-99); Mean Platelet Vol. 12.1 fl (6.2-12.0); Platelet Count 176 K/mm3 (150-450); RBC Distribution Width CV 14.8 % (11.6-14.6); RBC Distribution Width SD 50.3 fl (35.1-43.9); Red Blood Count 4.19 M/mm3 (4.2-5.4); White Blood Count 5.9 K/mm3 (4.4-11.0)
[2023-04-01 16:36] LABS: Anion Gap 2 (5-15); BUN 9 mg/dL (7-18); BUN/Creat Ratio 15.9 RATIO (10-20); Calcium,Total 8.8 mg/dL (8.5-10.1); Chloride 108 mmol/L (98-107); Creatinine, Serum 0.56 mg/dL (0.55-1.02); EST Glomerular Filtration Rate 111 mL/min (>60); Est Glom Filt Rate - Afr Amer 134 mL/min (>60); Glucose 85 mg/dL (74-106); Potassium 3.4 mmol/L (3.5-5.1); Sodium Level 144 mmol/L (136-145)
[2023-04-07] VITALS (8 sets, daily range): BP systolic 130–152; BP diastolic 52–72; PULSE 65–75; RESP 16–18; TEMP 36.2–37; O2SAT 93–99; BMI 31.8
--- OUTSIDE RECORDS SUMMARY | 2023-04-07 07:43 | XMS RPT_ITS | CCD ---
Author Name Unknown Address [address] [place] [address] Organization [facility] Care Team Providers Care Director Organizational Name Role Phone DAVID THOMPSON Unavailable Unavailable [facility] Unavailable Unavailable TALAMPAS, BRUCE Unavailable Unavailable JAY, DAVID Unavailable Unavailable JAY, DAVID Unavailable Unavailable TALAMPAS, BRUCE Unavailable Unavailable JAY, DAVID Unavailable Unavailable JAY, DAVID Unavailable Unavailable TALAMPAS, BRUCE Unavailable Unavailable JAY, DAVID E Unavailable Unavailable GABE SÁNCHEZ Unavailable Unavailable JAY, DAVID E Unavailable Unavailable JAY DAVID E Unavailable Unavailable Bruce Bonilla MD Primary Care Provider Bruce Bonilla MD Primary Care Provider Bruce Bonilla MD Primary Care Provider TALAMPAS, BRUCE D Primary Care Unavailable FERN MERCADO Referring Unavailable KEILA WHITT Attending Unavailable TALAMPAS, BRUCE D Referring Unavailable TALAMPAS, BRUCE D Primary Care Unavailable TALAMPAS, BRUCE D Attending Unavailable TALAMPAS, BRUCE D Primary Care Unavailable DENISE ACUNA Attending Unavailable TALAMPAS, BRUCE D Primary Care Unavailable DENISE ACUNA Referring Unavailable TALAMPAS, BRUCE D Primary Care Unavailable TALAMPAS, BRUCE D Primary Care Unavailable TALAMPAS, BRUCE D Primary Care Unavailable TALAMPAS, BRUCE D Primary Care Unavailable FLORA PERDOMO Referring Unavailable TALAMPAS, BRUCE D Primary Care Unavailable TALAMPAS, BRUCE D Primary Care Unavailable TALAMPAS, BRUCE D Attending Unavailable TALAMPAS, BRUCE D Primary Care Unavailable TALAMPAS, BRUCE D Referring Unavailable TALAMPAS, BRUCE D Primary Care Unavailable TALAMPAS, BRUCE D Referring Unavailable TALAMPAS, BRUCE D Primary Care Unavailable TALAMPAS, BRUCE D Primary Care Unavailable TALAMPAS, BRUCE D Referring Unavailable O'SCAR, LISA Attending Unavailable TALAMPAS, BRUCE D Primary Care Unavailable O'SCAR, LISA Referring Unavailable O'SCAR, LISA Attending Unavailable TALAMPAS, BRUCE D Primary Care Unavailable TALAMPAS, BRUCE D Primary Care Unavailable O'SCAR, LISA Referring Unavailable O'SCAR, LISA Attending Unavailable TALAMPAS, BRUCE D Referring Unavailable TALAMPAS, BRUCE D Primary Care Unavailable TALAMPAS, BRUCE D Primary Care Unavailable TALAMPAS, BRUCE D Primary Care Unavailable TALAMPAS, BRUCE D Referring Unavailable TALAMPAS, BRUCE D Primary Care Unavailable TALAMPAS, BRUCE D Primary Care Unavailable LUIS CENTENOA Attending Unavailable TALAMPAS, BRUCE D Primary Care Unavailable MERCADO, FERN Referring Unavailable MERCADO, FERN Attending Unavailable TALAMPAS, BRUCE D Primary Care Unavailable TALAMPAS, BRUCE D Primary Care Unavailable MERCADO, FERN Referring Unavailable TALAMPAS, BRUCE D Primary Care Unavailable TALAMPAS, BRUCE D Primary Care Unavailable MERCADO, FERN Attending Unavailable TALAMPAS, BRUCE D Primary Care Unavailable TALAMPAS, BRUCE D Primary Care Unavailable TALAMPAS, BRUCE D Primary Care Unavailable TALAMPAS, BRUCE D Primary Care Unavailable TALAMPAS, BRUCE D Primary Care Unavailable TEJADA, LINNEA Referring Unavailable TALAMPAS, BRUCE D Primary Care Unavailable TALAMPAS, BRUCE D Referring Unavailable TALAMPAS, BRUCE D Primary Care Unavailable TALAMPAS, BRUCE D Primary Care Unavailable MERCADO, FERN Attending Unavailable TALAMPAS, BRUCE D Primary Care Unavailable MERCADO, FERN Referring Unavailable TALAMPAS, BRUCE D Primary Care Unavailable Allergies Allergy Classification Reported Allergen(s) Allergy Type Date of Onset Reaction(s) Facility (20 sources) albuterol; Translations: [ALBUTEROL] Drug Allergy 12-08-19 14 Other: See Comments [facility] Repository (20 sources) doxycycline; Translations: [DOXYCYCLINE] Drug Allergy 01-27-20 07 [facility] Repository (20 sources) etodolac; Translations: [ETODOLAC] Drug Allergy 01-25-20 06 Shortness of Breath [facility] Repository (20 sources) guaiFENesin; Translations: [GUAIFENESIN] Drug Allergy 12-31-19 13 Rash [facility] Repository (20 sources) nabumetone; Translations: [NABUMETONE] Drug Allergy 12-27-19 06 Hives [facility] Repository (20 sources) Penicillins; Translations: [PENICILLINS] Propensity to adverse reactions (disorder) 10-01-19 06 Rash [facility] Repository (20 sources) sulfamethoxazole / trimethoprim; Translations: [SULFAMETHOXAZOLE-T RIMETHOPRIM] Drug Allergy 01-09-20 17 Hives, Itching [facility] Repository (3 sources) OTHER; Translations: [OTHER] Propensity to adverse reactions (disorder) 10-02-19 06 [facility] Repository (20 sources) levoFLOXacin; Translations: [LEVOFLOXACIN] Drug Allergy 07-21-19 21 Angioedema [facility] Work Phone: (20 sources) environmental allergies [Other] Propensity to adverse reactions 10-02-19 06 [facility] Work Phone: Medications Current Medications Medication Drug Class(es) Dates Sig (Normalized) Sig (Original) azithromycin 250 mg oral tablet (2 sources) Macrolide Antimicrobial Start: 02-07-2023 End: 02-12-2023 take 2 tablets by mouth once daily, then take 1 tablet by mouth once daily azithromycin (ZITHROMAX) 250 mg tablet Take 2 tablets by mouth once daily for 1 day, THEN 1 tablet once daily for 4 days. 6 tablet 0 02/07/2023 02/12/2023 Active Completed/Discontinued Medications Medication Drug Class(es) Dates Sig (Normalized) Sig (Original) acetaminophen 500 mg oral tablet (20 sources) Start: 12-17-2018 take 2 tablets by mouth every eight hours as needed for pain acetaminophen (TYLENOL EXTRA STRENGTH) 500 mg tablet Indications: Left hip pain , Trochanteric bursitis of left hip Take 2 tablets by mouth every 8 hours as needed for Pain. 0 12/17/2018 Active Problems Active Problems Problem Classification Problem Date Documented Da te Episodic/Chronic Abdominal pain (1 source) Upper abdominal pain; Translations: [Upper abdominal pain, unspecified] 02-07-2023 Episodic Anxiety disorders (20 sources) Anxiety; Translations: [Anxiety disorder, unspecified] Onset: 09-01-2015 09-01-2015 Chronic Asthma (20 sources) Asthma; Translations: [Unspecified asthma, uncomplicated] Onset: 10-03-2005 03-05-2016 Chronic Cardiac dysrhythmias (20 sources) Paroxysmal atrial fibrillation; Translations: [Chronic atrial fibrillation] Onset: 10-29-2013 Chronic Chronic obstructive pulmonary disease and bronchiectasis (20 sources) Pulmonary emphysema; Translations: [Emphysema, unspecified] Onset: 11-14-2015 11-14-2015 Chronic Congestive heart failure; nonhypertensive (20 sources) Chronic diastolic heart failure; Translations: [Chronic diastolic (congestive) heart failure] 04-28-2020 Chronic Diabetes mellitus without complication (20 sources) Type 2 diabetes mellitus without complication; Translations: [Type 2 diabetes mellitus without complications] Onset: 06-21-2009 11-22-2020 Chronic Diseases of white blood cells (20 sources) White blood cell disorder; Translations: [Other specified disorders of white blood cells] 06-21-2009 Chronic Diverticulosis and diverticulitis (20 sources) Diverticulum of large intestine without hemorrhage; Translations: [Diverticulosis of large intestine without perforation or abscess without bleeding] Onset: 02-11-2018 02-11-2018 Chronic Essential hypertension (20 sources) Essential (primary) hypertension; Translations: [Essential hypertension] Onset: 03-08-2015 03-08-2015 Chronic Heart valve disorders (20 sources) Rheumatic tricuspid insufficiency; Translations: [Diseases of tricuspid valve] Onset: 09-01-2015 09-01-2015 Chronic Immunizations and screening for infectious disease (5 sources) Requires varicella vaccination; Translations: [Encounter for immunization] Onset: 02-27-2023 Episodic Menopausal disorders (20 sources) Postmenopausal bleeding; Translations: [Postmenopausal bleeding] Onset: 05-28-2012 05-28-2012 Chronic Nutritional deficiencies (20 sources) Vitamin D deficiency; Translations: [Vitamin D deficiency, unspecified] Onset: 05-22-2011 05-22-2011 Chronic Other aftercare (3 sources) Anticoagulant effect; Translations: [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] 11-26-2022 Episodic Other lower respiratory disease (2 sources) Dyspnea on exertion; Translations: [Other forms of dyspnea] Episodic Other non-traumatic joint disorders (2 sources) Charcot's arthropathy; Translations: [Charcot's joint, left ankle and foot] Chronic Other non-traumatic joint disorders (1 source) Charcot's joint, left ankle and foot; Translations: [Charcot ankle, left] Onset: 04-30-2022 Chronic Other non-traumatic joint disorders (2 sources) Acute ankle pain; Translations: [Pain in left ankle and joints of left foot] Episodic Other non-traumatic joint disorders (2 sources) Hip pain; Translations: [Pain in left hip] Episodic Other non-traumatic joint disorders (17 sources) Bilateral greater trochanteric pain syndrome of lower limbs; Translations: [Pain in right hip] Onset: 12-25-2022 12-25-2022 Episodic Other non-traumatic joint disorders (1 source) Pain in right hip; Translations: [Greater trochanteric pain syndrome of both lower extremities] Onset: 12-25-2022 Episodic Other non-traumatic joint disorders (2 sources) Pain in left hip; Translations: [Greater trochanteric pain syndrome of both lower extremities] Onset: 07-04-2022 Episodic Other nutritional; endocrine; and metabolic disorders (20 sources) Obese class I; Translations: [Obesity, unspecified] Onset: 12-05-2020 12-05-2020 Chronic Other upper respiratory disease (1 source) Allergic rhinitis; Translations: [Allergic rhinitis, unspecified] Chronic Other upper respiratory disease (1 source) Nasal discharge; Translations: [Other specified disorders of nose and nasal sinuses] Episodic Other upper respiratory disease (1 source) Hoarse; Translations: [Dysphonia] 02-07-2023 Episodic Other upper respiratory infections (1 source) Acute upper respiratory infection, unspecified; Translations: [Viral URI with cough] Onset: 03-04-2023 Episodic Pulmonary heart disease (20 sources) Secondary pulmonary hypertension; Translations: [Other secondary pulmonary hypertension] 06-08-2021 Chronic Respiratory failure; insufficiency; arrest (adult) (8 sources) Acute on chronic hypoxemic respiratory failure; Translations: [Acute and chronic respiratory failure with hypoxia] Onset: 02-07-2023 02-07-2023 Chronic Thyroid disorders (20 sources) Thyrotoxicosis; Translations: [Thyrotoxicosis, unspecified without thyrotoxic crisis or storm] 03-06-2010 Chronic Unclassified (1 source) Unknown / UNK(Unknown) Onset: 03-08-2015 Unclassified (1 source) Chronic atrial fibrillation, unspecified; Translations: [Chronic atrial fibrillation (HCC)] Onset: 09-18-2017 Past or Other Problems Problem Classification Problem Date Documented Date Episodic/Chronic Allergic reactions (20 sources) Contact dermatitis; Translations: [Unspecified contact dermatitis, unspecified cause] Onset: 10-03-2005 10-03-2005 Episodic Nonspecific chest pain (20 sources) Chest pain; Translations: [Chest pain, unspecified] Onset: 02-21-2014 02-21-2014 Episodic Other aftercare (20 sources) Long-term current use of anticoagulant; Translations: [penitentiary (current) use of anticoagulants] Onset: 09-01-2015 09-01-2015 Episodic Other aftercare (1 source) 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; Translations: [Chronic anticoagulation] Onset: 09-01-2015 Episodic Other aftercare (1 source) Other usp (current) drug therapy; Translations: [Encounter for long-term current use of medication] Onset: 09-23-2022 Episodic Other and unspecified benign neoplasm (20 sources) Benign neoplasm of colon; Translations: [Benign neoplasm of colon, unspecified] Onset: 11-14-2009 11-14-2009 Episodic Other and unspecified benign neoplasm (20 sources) History of polyp of colon; Translations: [Personal history of colonic polyps] Onset: 02-11-2018 02-11-2018 Episodic Other connective tissue disease (20 sources) Enthesopathy of hip region; Translations: [Other specified enthesopathies of unspecified lower limb, excluding foot] Onset: 01-07-2006 01-07-2006 Episodic Other connective tissue disease (20 sources) Spasm; Translations: [Other muscle spasm] Onset: 09-05-2014 09-05-2014 Episodic Other connective tissue disease (20 sources) Trochanteric bursitis of left hip; Translations: [Trochanteric bursitis, left hip] Onset: 02-26-2019 02-26-2019 Episodic Other connective tissue disease (1 source) Other specified enthesopathies of right lower limb, excluding foot; Translations: [Enthesopathy of right hip region] Onset: 01-07-2006 Episodic Other inflammatory condition of skin (20 sources) Lichen planus; Translations: [Lichen planus, unspecified] Onset: 01-06-2007 01-06-2007 Episodic Other inflammatory condition of skin (20 sources) Seborrheic dermatitis; Translations: [Other seborrheic dermatitis] Onset: 01-06-2007 01-06-2007 Episodic Other non-traumatic joint disorders (1 source) Pain in left ankle and joints of left foot; Translations: [Acute left ankle pain] Onset: 04-30-2022 Episodic Other screening for suspected conditions (not mental disorders or infectious disease) (20 sources) Thallium stress test abnormal; Translations: [Abnormal result of other cardiovascular function study] Onset: 02-14-2015 02-14-2015 Episodic Spondylosis; intervertebral disc disorders; other back problems (20 sources) Neck pain; Translations: [Cervicalgia] Onset: 09-07-2014 09-07-2014 Episodic Sprains and strains (20 sources) Shoulder strain; Translations: [Strain of unspecified muscle, fascia and tendon at shoulder and upper arm level, right arm, sequela] Onset: 01-07-2006 01-14-2018 Episodic Results Test Name Value Interpretation Reference Range Facil ity Vital Signs Date Time Vital Sign Value Performing Clinician Alejandrina bang 02-07-2023 08:06-0400 Body temperature 96.4 [degF] Fern Mercado MATERIAL HANDLING WAREHOUSE SUPERVISOR[employer] Work Phone: [facility] 02-07-2023 08:06-0400 Body weight 78.47 kg Fern Eduardos MATERIAL HANDLING WAREHOUSE SUPERVISOR[employer] Work Phone: [facility] 02-07-2023 08:06-0400 Diastolic blood pressure 64 mm[Hg] Fern Mercado MATERIAL HANDLING WAREHOUSE SUPERVISOR[employer] Work Phone: [facility] 02-07-2023 08:06-0400 Heart rate 74 /min Fern Mercado MATERIAL HANDLING WAREHOUSE SUPERVISOR[employer] Work Phone: [facility] 02-07-2023 08:06-0400 Respiratory rate 16 /min Fern Mercado MATERIAL HANDLING WAREHOUSE SUPERVISOR[employer] Work Phone: [facility] 02-07-2023 08:06-0400 SaO2% (BldA) [Mass fraction] 97 % Fern Mercado MATERIAL HANDLING WAREHOUSE SUPERVISOR[employer] Work Phone: [facility] 02-07-2023 08:06-0400 Systolic blood pressure 120 mm[Hg] Fern Mercado MATERIAL HANDLING WAREHOUSE SUPERVISOR[employer] Work Phone: [facility] 11-26-2022 10:15-0400 Body temperature 98.49 [degF] Bruce Bonilla MD Work Phone: [facility] 11-26-2022 10:15-0400 Body weight 79.2 kg Brcue Bonilla MD Work Phone: [facility] 11-26-2022 10:15-0400 Diastolic blood pressure 82 mm[Hg] Bruce Bonilla MD Work Phone: [facility] 11-26-2022 10:15-0400 Heart rate 62 /min Bruce Bonilla MD Work Phone: [facility] 11-26-2022 10:15-0400 Respiratory rate 18 /min Bruce Bonilla MD Work Phone: [facility] 11-26-2022 10:15-0400 SaO2% (BldA) [Mass fraction] 96 % Bruce Bonilla MD Work Phone: [facility] 11-26-2022 10:15-0400 Systolic blood pressure 162 mm[Hg] Bruce Bonilla MD Work Phone: [facility] 06-20-2022 10:01-0500 Body temperature 98.29 [degF] Fern Mercado MATERIAL HANDLING WAREHOUSE SUPERVISOR[employer] Work Phone: [facility] 06-20-2022 10:01-0500 Body weight 79.38 kg Fern Mercado MATERIAL HANDLING WAREHOUSE SUPERVISOR[employer] Work Phone: [facility] 06-20-2022 10:01-0500 Diastolic blood pressure 68 mm[Hg] Fern Mercado MATERIAL HANDLING WAREHOUSE SUPERVISOR[employer] Work Phone: [facility] 06-20-2022 10:01-0500 Heart rate 68 /min Fern Mercado MATERIAL HANDLING WAREHOUSE SUPERVISOR.[employer] Work Phone: [facility] 06-20-2022 10:01-0500 Respiratory rate 16 /min Fern Mercado MATERIAL HANDLING WAREHOUSE SUPERVISOR[employer] Work Phone: [facility] 06-20-2022 10:01-0500 SaO2% (BldA) [Mass fraction] 96 % Fern Mercado MATERIAL HANDLING WAREHOUSE SUPERVISOR.[employer] Work Phone: [facility] 06-20-2022 10:01-0500 Systolic blood pressure 136 mm[Hg] Fern Mercado MATERIAL HANDLING WAREHOUSE SUPERVISOR.[employer] Work Phone: [facility] 12-06-2021 09:22-0400 Diastolic blood pressure 74 mm[Hg] Fern Mercado MATERIAL HANDLING WAREHOUSE SUPERVISOR.[employer] Work Phone: [facility] 12-06-2021 09:22-0400 Heart rate 71 /min Fern Mercado MATERIAL HANDLING WAREHOUSE SUPERVISOR.[employer] Work Phone: [facility] 12-06-2021 09:22-0400 Systolic blood pressure 137 mm[Hg] Fern Mercado MATERIAL HANDLING WAREHOUSE SUPERVISOR.[employer] Work Phone: [facility] 12-06-2021 09:14-0400 Body weight 84.37 kg Fern Mercado MATERIAL HANDLING WAREHOUSE SUPERVISOR.[employer] Work Phone: [facility] 12-06-2021 09:14-0400 Respiratory rate 16 /min Fern Mercado MATERIAL HANDLING WAREHOUSE SUPERVISOR.[employer] Work Phone: [facility] 12-06-2021 09:14-0400 SaO2% (BldA) [Mass fraction] 97 % Fern Mercado MATERIAL HANDLING WAREHOUSE SUPERVISOR.[employer] Work Phone: [facility] 11-22-2021 09:26-0400 Body height 157.5 cm Linnea Tejada APRN.MACHINE LOADER Work Phone: [facility] 11-22-2021 [id number] Body weight 85.28 kg Linnea Tejada APRN.MACHINE LOADER Work Phone: [facility] 11-22-2021 09:26-0400 Diastolic blood pressure 72 mm[Hg] Linnea Tejada APRN.MACHINE LOADER Work Phone: [facility] 11-22-2021 09:26-0400 Systolic blood pressure 110 mm[Hg] Linnea Tejada APRN.MACHINE LOADER Work Phone: [facility] Encounters Encounter Date Encounter Type Care Provider Facility Start: 03-21-2023 End: 03-21-2023 ambulatory BRUCE BONILLA Facility:[facility] Start: 03-21-2023 End: 03-21-2023 Anticoagulant drug monitoring Anticoag [facility] Work Phone: [facility] Procedures Date Procedure Procedure Detail Performing Clinician Start: 11-25-2022 Mammography Anticoag W str Work Phone: Start: 04-30-2022 Radex ankle complete minimum 3 views Denise Acuna Work Phone: Start: 12-06-2021 Adult depression scr eening assessment Fern Mercado MATERIAL HANDLING W[employer]HOUSE SUPERVISOR[employer] Work Phone: Start: 11-22-2021 End: 11-22-2021 Mammography Linnea Tejada APRN.MACHINE LOADER Work Phone: Start: 11-15-2020 Mammography Anticoag W str Work Phone: Start: 04-01-2019 Adult depression scr eening assessment Anticoag Wstr Work Phone: Start: 02-24-2018 Colonoscopy Anticoag W str Work Phone: Plan of Treatment Date Care Activity Detail Author Start: 12-20-2027 Urine microalbumin profile [facility] Start: 02-29-2024 Hepatitis B surface antibody level LDL Cholesterol [facility] Start: 02-28-2024 3 comp foot exam completed Diabetic Foot Exam [facility] Start: 02-28-2024 BP Controlled (<130/80) BP Controlle d (<130/80) [facility] Start: 02-28-2024 Hepatitis B Vaccine (1 of 3 - Risk 3-dose series) Hepatitis B Vaccine (1 of 3 - Risk 3-dose series) [facility] Immunizations Immunization Date Immunization Notes Care Provider Luis mcrae 08-30-2016 pneumococcal polysaccharide vaccine, 23 valent Anticoag Wstr Work Phone: [facility] 04-24-2016 influenza virus vacc ine, unspecified formulation Bruce Bonilla MD Work Phone: [facility] 08-25-2015 pneumococcal conjuga te vaccine, 13 valent Anticoag Wstr Work Phone: [facility] 03-06-2010 influenza virus vacc ine, unspecified formulation Anticoag [facility]str Work Phone: [facility] 03-28-2009 influenza virus vacc ine, unspecified formulation Anticoag Wstr Work Phone: [facility] Payers Date Payer Category Payer Medicare HUMANA MEDICARE HU[employer]NA MEDICARE PPO [id number] 2021-Present [id number] [place] [address] PPO [id number] 2021 Medicare HUMANA MEDICARE HU[employer]NA MEDICARE PPO [id number] 2021-Present [phone] [place] [address] PPO [id number] 2021 Private Health Insurance [id number] Social History Date Type Detail Facility Start: 09-11-2018 End: 06-20-2022 Tobacco smoking status NHIS Ex-smoker [facility] Work Phone: End: 06-02-1989 History of tobacco use Current smoker [facility] End: 06-02-1989 History of tobacco use Cigarette Smoker [facility] Start: 06-08-2021 End: 04-30-2022 Alcohol intake Current non-drinker of alcohol (finding) [facility] Start: 09-11-2018 End: 06-20-2022 Tobacco Comment No smoking childhood home. No other smokers in adult homes. [facility] Start: 1950 Sex Assigned At Not on file [facility] Start: 08-24-2021 End: 04-30-2022 Exposure to SARS-CoV-2 (event) Not sure [facility] Work Phone: Start: 09-11-2018 End: 10-22-2021 Cigarettes smoked current (pack per day) - Reported 1.5 [facility] Work Phone: Start: 09-11-2018 End: 06-20-2022 Tobacco use and exposure Smokeless tobacco non-user [facility] Work Phone: Start: 10-22-2021 End: 08-01-2022 Tobacco use panel [facility] Work Phone: Adult Depression Screening Assessment 0 [facility] Work Phone: Medical Equipment Procedure Code Equipment Code Equipment Origin al Text Equipment Identifier Dates Start: 12-01-2020 End: 02-07-2023 Clinical Notes 09-01-2015 to 03-21-2023 Fern Mercado APRN.CNS - 03/21/2023 3:46 PM EDAlva Kellogg RN - 03/21/2023 12:48 PM EDTTelephone Encounter - Fern Mercado APRN.CNS - 03/07/2023 3:41 PM EDTPatient Instructions Note Date & Type Note Facility 03-21-2023 Note HNO ID: [id number] Author: Fern Mercado APRN.CNS Service: ? Author Type: Nurse Specialist Type: Progress Notes Filed: 03/21/2023 3:51 PM Note Text: Continue with Coumadin dose unchanged and check INR in 4 weeks [facility] 03-21-2023 History of Presen t illness Narrative Continue with Coumadin dose unchanged and check INR in 4 weeks patient had inr completed at [facility] patients inr is 2.6 (patients inr range is 2.0-3.0) patient is currently taking 5mg Mon,Wed,Fri and 2.5mg all other days patients last dose change was on 02/21/23 due to a low level of 1.8 (dose at that time was 5mg Wed,Fri and 2.5mg all other days) patient has had no changes in medication and no missed doses and no change in diet Advised patient to continue on the same dose(s) and that they would only be contacted regarding dosage and follow up instructions after review with provider, if a change is needed. Written instructions given and patient verbalized understanding. Presently scheduled in 4 weeks (04/15/23) for follow up INR. documented in this encounter [facility] 03-21-2023 Note HNO ID: [id number] Author: Alva Fleming RN Service: ? Author Type: ? Type: Progress Notes Filed: 03/21/2023 3:51 PM Note Text: patient had inr completed at [facility] patients inr is 2.6 (patients inr range is 2.0-3.0) patient is currently taking 5mg Mon,Wed,Fri and 2.5mg all other days patients last dose change was on 02/21/23 due to a low level of 1.8 (dose at that time was 5mg Wed,Fri and 2.5mg all other days) patient has had no changes in medication and no missed doses and no change in diet Advised patient to continue on the same dose(s) and that they would only be contacted regarding dosage and follow up instructions after review with provider, if a change is needed. Written instructions given and patient verbalized understanding. Presently scheduled in 4 weeks (04/15/23) for follow up INR. [facility] 03-07-2023 Miscellaneous Notes ok patients orders for coumadin clinic inr's has at this time. new order has been pended for approval if possible so that patient can continue to get inr's completed thru the coumadin clinic. coumadin clinic nurse only needs called if order can not be approved. documented in this encounter [facility] 03-07-2023 Note HNO ID: [id number] Author: Alva Fleming RN Service: ? Author Type: ? Type: Progress Notes Filed: 03/07/2023 2:52 PM Note Text: patient had inr completed at [facility] patients inr is 2.4 (patients inr range is 2.0-3.0) patient is currently taking 5mg Mon,Wed,Fri and 2.5mg all other days patients last dose change was on 02/21/23 due to a low level of 1.8 (dose at that time was 5mg Wed,Fri and 2.5mg all other days) patient has had no changes in medication and no missed doses and no change in diet Advised patient to continue on the same dose(s) and that they would only be contacted regarding dosage and follow up instructions after review with provider, if a change is needed. Written instructions given and patient verbalized understanding. Presently scheduled in 2 weeks (03/21/23) for follow up INR since this is the first normal reading since dose change [facility] 03-07-2023 History of Presen t illness Narrative patient had inr completed at [facility] patients inr is 2.4 (patients inr range is 2.0-3.0) patient is currently taking 5mg Mon,Wed,Fri and 2.5mg all other days patients last dose change was on 02/21/23 due to a low level of 1.8 (dose at that time was 5mg Wed,Fri and 2.5mg all other days) patient has had no changes in medication and no missed doses and no change in diet Advised patient to continue on the same dose(s) and that they would only be contacted regarding dosage and follow up instructions after review with provider, if a change is needed. Written instructions given and patient verbalized understanding. Presently scheduled in 2 weeks (03/21/23) for follow up INR since this is the first normal reading since dose change documented in this encounter [facility] 03-04-2023 Note HNO ID: [id number] Author: Flora Perdomo APRN.MACHINE LOADER Service: ? Author Type: Nurse Practitioner Type: Progress Notes Filed: 03/04/2023 4:14 PM Note Text: Subjective Headache Associated symptoms include a fever, palpitations (chronic) and shortness of breath. Audrey Redd is a 72 year old female who presents with cough, chest congestion, sore throat, right ear pain. Has had these symptoms x 1 week. Has history of chronic Afib, last EKG on record here shows Afib. Patient states she is always in Afib, Coreg was recently increased to 12.5 mg. Problem list includes: Asthma Contact Dermatitis and Other Eczema, Due to Unspecified Cause Enthesopathy of Hip Region Right Shoulder Strain, Sequela Lichen Planus Other Seborrheic Dermatitis Idiopathic Urticaria Other Specified Disease of White Blood Cells Controlled Type 2 Diabetes Mellitus Without Complication, Without Long-Term Current Use of Insulin (Hcc) Benign Neoplasm of Colon Essential Hypertension Thyrotoxicosis Without Mention of Goiter Or Other Cause, Without Mention of Thyrotoxic Crisis Or Storm Vitamin D Deficiency Postmenopausal Bleeding Chronic Atrial Fibrillation (Hcc) Chest Pain of Uncertain Etiology Spasm of Muscle Cervicalgia Abnormal Nuclear Stress Test Moderate Tricuspid Regurgitation Chronic Anticoagulation Anxiety Pulmonary Emphysema (Hcc) Copd, Severe (Hcc) History of Colonic Polyps Diverticulosis of Large Intestine Without Hemorrhage Radicular Pain of Left Lower Extremity Trochanteric Bursitis of Left Hip Chronic Diastolic Heart Failure (Hcc) Other Secondary Pulmonary Hypertension (Hcc) Obesity, Class I, Bmi 30-34.9 Greater 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 Continues on OAC warfarin for atrial fibrillation.No bleeding difficulties reported. Review of Systems Constitutional: Positive for fever. HENT: Positive for ear pain, sinus pain and sore throat. Respiratory: Positive for cough, sputum production and shortness of breath. Cardiovascular: Positive for palpitations (chronic). Negative for chest pain. Neurological: Positive for headaches. BP 164/79 Pulse 81 Temp 37.2 ?C (99 ?F) Resp 22 Wt 79.8 kg (176 lb) SpO2 93% BMI 32.19 kg/m? PAST MEDICAL HISTORY Diagnosis Date Benign neoplasm of colon Chronic atrial fibrillation (HCC) 10/29/2013 [facility], 04/13/2020 Chronic diastolic heart failure (HCC) [facility], 04/13/2020 COPD, severe (HCC) Follows with Pulmonology (Dr. Nix) Degeneration of intervertebral disc, site unspecified Back DM w/o Complication Type II 06/21/2009 Endometriosis, site unspecified Esophageal reflux Essential hypertension [facility], 04/13/2020 Idiopathic urticaria Improved with cutting back significantly on Nickel in diet Lichen planus Osteoarthrosis, unspecified whether generalized or localized, other specified sites NECK, knees and back Other bursitis disorders TROCHANTERIC Other secondary pulmonary hypertension (HCC) libby Almazan MD. Other specified disease of white blood cells Other specified disorder of female genital organs Oxygen dependent 2 liters at hs only Postmenopausal bleeding 04/2001 Postmenop. bleeding Pulmonary emphysema (HCC) 11/14/2015 Pulmonary hypertension (HCC) Thyrotoxicosis without mention of goiter or other cause, without mention of thyrotoxic crisis or storm PAST SURGICAL HISTORY Procedure Laterality Date COLONOSCOPY FLX DX W/COLLJ SPEC WHEN PFRMD 11/14/2009 Colonoscopy COLONOSCOPY FLX DX W/COLLJ SPEC WHEN PFRMD 03/05/2013 Colonoscopy COLONOSCOPY FLX DX W/COLLJ SPEC WHEN PFRMD 02/24/2018 Colonoscopy - 10 yr interval HYSTEROSCOPY DX 08/07/2017 hysteroscopy DANDC LIG/TRNSXJ FLP TUBE ABDL/VAG APPR UNI/BI Tubal ligation NEUROPLASTY AND/TRANSPOS MEDIAN NRV CARPAL TUNNE Right Carpal tunnel decomp ALLERGIES Albuterol, Levaquin [Levofloxacin], Bactrim [Sulfamethoxazole-Trimethoprim], Doxycycline, Environmental Allergies [Other], Etodolac, Mucinex [Guaifenesin], Nabumetone, and Penicillins MEDICATIONS albuterol (PROVENTIL) 2.5 mg /3 mL (0.083 %) nebulizer solution Use 3 mL via nebulizer every 4 hours as needed for wheezing/shortness of breath. Use over 5-15minutes. Dispense 200 vials with 5 refills carvedilol (COREG) 12.5 mg tablet Take 1 tablet by mouth twice daily with meals. (cardiology) omeprazole (PRILOSEC) 40 mg capsule Take 1 capsule by mouth daily before breakfast. warfarin (COUMADIN) 5 mg tablet Take 1 tablet by mouth every Friday,Friday,Friday. Adjust dose as directed based on lab / INR results warfarin (COUMADIN) 2.5 mg tablet Adjust dose as directed based on INRs (Currently takes 5 mg Fri, Fri and Fri). And 2.5mg , , Fri and Sun Adjust dose as directed based on lab / INR results Nebulizer and Compressor For Neb 1 Each every 6 hour (more content not included)... [facility] 03-04-2023 Note HNO ID: [id number] Author: Nasima Linn RT(R) Service: Radiology Author Type: Technologist Type: Progress Notes Filed: 03/04/2023 3:33 PM Note Text: Radiology Service Progress Note PATIENT NAME: Audrey Redd DATE OF SERVICE: March 04, 2023 TIME: 3:22 PM PATIENT IDENTITY VERIFICATION COMPLETED USING TWO (2) IDENTIFIERS: Name and Date of confirmed by patient verbally. FALL SCREENING: Has the patient had 2 falls in the last year or 1 fall with injury or currently using an Ambulatory Assistive Device (Walker, Cane, Wheelchair, Crutches, etc.)? No PATIENT GENDER DATA: Female. status: : No status: NO. PATIENT RELEVANT IMPLANT DATA REVIEWED: Not Applicable RADIOLOGY DEPARTMENT: General X-ray: Exam(s) Completed: Chest X-Ray PERIPHERAL IV DATA: Not applicable SIGNED BY: RT Linette(R) March 04, 2023 3:22 PM [facility] 02-27-2023 Note HNO ID: [id number] Author: Fern Mercado APRN.CITY CONSTABLE Service: ? Author Type: Nurse Specialist Type: Progress Notes Filed: 02/28/2023 7:38 AM Note Text: Subjective HPI Audrey Redd is a 72 year old female. 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 Or Other Cause, Without Mention of Thyrotoxic Crisis Or Storm Vitamin D Deficiency Postmenopausal Bleeding Chronic Atrial Fibrillation (Hcc) Chest Pain of Uncertain Etiology Spasm of Muscle Cervicalgia Abnormal Nuclear Stress Test Moderate Tricuspid Regurgitation Chronic Anticoagulation Anxiety Pulmonary Emphysema (Hcc) Copd, Severe (Hcc) History of Colonic Polyps Diverticulosis of Large Intestine Without Hemorrhage Radicular Pain of Left Lower Extremity Trochanteric Bursitis of Left Hip Chronic Diastolic Heart Failure (Hcc) Other Secondary Pulmonary Hypertension (Hcc) Obesity, Class I, Bmi 30-34.9 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 Continues on OAC warfarin for atrial fibrillation.No bleeding difficulties reported. Dr. Stokes, hand woven carpet and rug mender; continues to follow Appliance Installer, Dr Solorzano, follows with him for asthma, COPD, no recent exacerbations or ER visits noted. Presents today regarding hoarseness. Present for 2 weeks Recent illness or fever: States no, no sick contacts. Cough: Increased Wheeze: Increased SOB: Increased Sputum: Increased GERD: No Heartburn: No Left upper quadrant discomfort following meals. Former smoker, [id number] history. Current smoking: States no Current engineering intern: Dr Solorzano [facility] Last visit: within last 3 months Current treatments: Cough drops seem to help She request a new nebulizer and nebulizer solution. States she does not obtain this from her engineering intern. States she has been using routinely. Wearing oxygen at night. She reports ongoing hip pain, would like to see alternate orthopedic provider. She was treated for URI / COPD exacerbation with azithromycin and prednisone at previous visits. Has noted decreased cough wheeze sputum production and shortness of breath. Followed by Dr. Solorzano engineering intern [facility]. She was started on PPI at her last visit for hoarseness. She was referred to ENT due to smoking history. She reports she has been seen and a scan has been ordered at [facility], she will then follow up with Dr Baldwin. She reports no remarkable findings and no change in medications at that visit. She reports left upper quadrant pain persists on PPI. Would like to see tractor trailer mechanic. She reports [facility] increased her dose of carvedilol, has not yet had a visit, scheduled for next week. Now with bradycardia and fatigue. Review of Systems Constitutional: Negative. HENT: Positive for ear pain and rhinorrhea. Respiratory: Positive for cough, shortness of breath and wheezing. Gastrointestinal: Positive for abdominal pain. Musculoskeletal: Positive for arthralgias and back pain. Objective BP 158/58 Pulse (!) 47 Resp 16 Wt 78.9 kg (174 lb) BMI 31.83 kg/m? Physical Exam Vitals and nursing note reviewed. Constitutional: General: She is not in acute distress. Appearance: Normal appearance. She is well-developed. She is not diaphoretic. HENT: Head: Normocephalic and atraumatic. Right Ear: Tympanic membrane and ear canal normal. Left Ear: Tympanic membrane and ear canal normal. Nose: Mucosal edema and rhinorrhea present. Mouth/Throat: Lips: [place]. Mouth: Mucous membranes are moist. Pharynx: Oropharynx is clear. Tonsils: No tonsillar exudate. Eyes: Conjunctiva/sclera: Conjunctivae normal. Cardiovascular: Rate and Rhythm: Regular rhythm. Bradycardia present. Heart sounds: Normal heart sounds. Pulmonary: Effort: Pulmonary effort is normal. No respiratory distress. Breath sounds: Normal breath sounds. Abdominal: General: Bowel sounds are normal. There is no distension. Palpations: Abdomen is soft. There is no mass. Tenderness: There is no abdominal tenderness (mild TTP LUQ). There is no guarding or rebound. Musculoskeletal: Left hip: Tenderness and bony tenderness present. Decreased range of motion. Comments: increased pain with walking, ataxic gait, TTP L trochanter, increased pain with L hip abduction, adduction Skin: General: Skin is warm and dry. Neurological: Mental St (more content not included)... [facility] 02-21-2023 Note HNO ID: [id number] Author: Alva Fleming RN Service: ? Author Type: ? Type: Progress Notes Filed: 02/21/2023 11:43 AM Note Text: pcp agrees with recommendation PATIENT NOTIFIED OF INFORMATION [facility] 02-21-2023 Note HNO ID: [id number] Author: Alva Fleming RN Service: ? Author Type: ? Type: Progress Notes Filed: 02/21/2023 11:43 AM Note Text: patient had inr completed at [facility] patients inr is 1.8 (patients inr range is 2.0-3.0) patient is currently taking 5mg Wed,Fri and 2.5mg all other days patients last dose change was on 11/26/22 due to a high level of 3.7 (dose at that time was 5mg Mon,Wed,Fri and 2.5mg all other days) patient has had no changes in medication and no missed doses and no change in diet recommend: patient change coumadin to 5mg Mon,wed,Fri and 2.5mg all other days and recheck inr in 2 weeks patient has been scheduled for a 2 week follow up inr on 03/07/23 please review and advise on recommendation [facility] 02-21-2023 History of Presen t illness Narrative pcp agrees with recommendation PATIENT NOTIFIED OF INFORMATION patient had inr completed at [facility] patients inr is 1.8 (patients inr range is 2.0-3.0) patient is currently taking 5mg Wed,Fri and 2.5mg all other days patients last dose change was on 11/26/22 due to a high level of 3.7 (dose at that time was 5mg Mon,Wed,Fri and 2.5mg all other days) patient has had no changes in medication and no missed doses and no change in diet recommend: patient change coumadin to 5mg Mon,wed,Fri and 2.5mg all other days and recheck inr in 2 weeks patient has been scheduled for a 2 week follow up inr on 03/07/23 please review and advise on recommendation documented in this encounter [facility] 02-12-2023 Miscellaneous Notes Noted. 90 day supply was sent on 02/07/23. Leana Leroy MA Patient called said she received a letter from [facility] saying they will only cover 90 days of Warfarin 5mg Please advise documented in this encounter [facility] 02-07-2023 Note HNO ID: [id number] Author: Fern Mercado APRN.CITY CONSTABLE Service: ? Author Type: Nurse Specialist Type: Progress Notes Filed: 02/07/2023 8:50 AM Note Text: Subjective HPI Audrey Redd is a 72 year old female. 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 Or Other Cause, Without Mention of Thyrotoxic Crisis Or Storm Vitamin D Deficiency Postmenopausal Bleeding Chronic Atrial Fibrillation (Hcc) Chest Pain of Uncertain Etiology Spasm of Muscle Cervicalgia Abnormal Nuclear Stress Test Moderate Tricuspid Regurgitation Chronic Anticoagulation Anxiety Pulmonary Emphysema (Hcc) Copd, Severe (Hcc) History of Colonic Polyps Diverticulosis of Large Intestine Without Hemorrhage Radicular Pain of Left Lower Extremity Trochanteric Bursitis of Left Hip Chronic Diastolic Heart Failure (Hcc) Other Secondary Pulmonary Hypertension (Hcc) Obesity, Class I, Bmi 30-34.9 Greater 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 Continues on OAC warfarin for atrial fibrillation.No bleeding difficulties reported. Dr. Stokes, hand woven carpet and rug mender; continues to follow Appliance Installer, Dr Solorzano, follows with him for asthma, COPD, no recent exacerbations or ER visits noted. Presents today regarding hoarseness. Present for 2 weeks Recent illness or fever: States no, no sick contacts. Cough: Increased Wheeze: Increased SOB: Increased Sputum: Increased GERD: No Heartburn: No Left upper quadrant discomfort following meals. Former smoker, [id number] history. Current smoking: States no Current engineering intern: Dr Solorzano [facility] Last visit: within last 3 months Current treatments: Cough drops seem to help She request a new nebulizer and nebulizer solution. States she does not obtain this from her engineering intern. States she has been using routinely. Wearing oxygen at night. She reports ongoing hip pain, would like to see alternate orthopedic provider. Hemoglobin A1C (%) Date Value 09/23/2022 5.5 10/23/2021 6.1 03/19/2021 6.0 11/24/2020 6.4 ) Review of Systems Constitutional: Negative. HENT: Positive for rhinorrhea. Respiratory: Positive for cough, shortness of breath and wheezing. Musculoskeletal: Positive for arthralgias and back pain. Objective BP 120/64 Pulse 74 Temp (!) 35.8 ?C (96.4 ?F) Resp 16 Wt 78.5 kg (173 lb) SpO2 97% BMI 31.64 kg/m? Physical Exam Vitals and nursing note reviewed. Constitutional: General: She is not in acute distress. Appearance: Normal appearance. She is well-developed. She is not diaphoretic. HENT: Head: Normocephalic and atraumatic. Right Ear: Tympanic membrane and ear canal normal. Left Ear: Tympanic membrane and ear canal normal. Nose: Mucosal edema and rhinorrhea present. Mouth/Throat: Lips: [place]. Mouth: Mucous membranes are moist. Pharynx: Oropharynx is clear. Tonsils: No tonsillar exudate. Eyes: Conjunctiva/sclera: Conjunctivae normal. Cardiovascular: Rate and Rhythm: Normal rate and regular rhythm. Pulmonary: Effort: Pulmonary effort is normal. No respiratory distress. Breath sounds: Wheezing present. Abdominal: General: Bowel sounds are normal. There is no distension. Palpations: Abdomen is soft. There is no mass. Tenderness: There is no abdominal tenderness. There is no guarding or rebound. Musculoskeletal: Left hip: Tenderness and bony tenderness present. Decreased range of motion. Comments: increased pain with walking, ataxic gait, TTP L trochanter, increased pain with L hip abduction, adduction Skin: General: Skin is warm and dry. Neurological: Mental Status: She is alert. Sensory: No sensory deficit. ALLERGIES Allergen Reactions Albuterol Other: See Comments MDI: High heart rate, high BP, dizzy. Nebulizer: tolerates well. Levaquin [Levofloxa* Angioedema face swelling, trouble breathing; did not go to ER. Itching and hives too Bactrim [Sulfametho* Hives, Itching Itching starting 15 to 20 minutes after took 1 pill; hives broke out an hour later; had tolerated in the past. Gone by next AM Doxycycline Lip and eyelid swelling Environmental Aller* Etodolac Shortness of Breath Mucinex [Guaifenesi* Rash Nabumetone Hives swelling lips,and ankles Penicillins Rash Childhood. Current Outpatient Medications Medication Sig carvedilol (COREG) 6.25 mg tablet Take 1 tablet by mouth twice daily. (cardiology) furosemide (LASIX) 20 mg tablet Take 1 tablet by mouth once brian (more content not included)... [facility] 02-07-2023 History of Presen t illness Narrative Subjective HPI Audrey Redd is a 72 year old female. 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 Or Other Cause, Without Mention of Thyrotoxic Crisis Or Storm Vitamin D Deficiency Postmenopausal Bleeding Chronic Atrial Fibrillation (Hcc) Chest Pain of Uncertain Etiology Spasm of Muscle Cervicalgia Abnormal Nuclear Stress Test Moderate Tricuspid Regurgitation Chronic Anticoagulation Anxiety Pulmonary Emphysema (Hcc) Copd, Severe (Hcc) History of Colonic Polyps Diverticulosis of Large Intestine Without Hemorrhage Radicular Pain of Left Lower Extremity Trochanteric Bursitis of Left Hip Chronic Diastolic Heart Failure (Hcc) Other Secondary Pulmonary Hypertension (Hcc) Obesity, Class I, Bmi 30-34.9 Greater 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 Continues on OAC warfarin for atrial fibrillation.No bleeding difficulties reported. Dr. Stokes, hand woven carpet and rug mender; continues to follow Appliance Installer, Dr Solorzano, follows with him for asthma, COPD, no recent exacerbations or ER visits noted. Presents today regarding hoarseness. Present for 2 weeks Recent illness or fever: States no, no sick contacts. Cough: Increased Wheeze: Increased SOB: Increased Sputum: Increased GERD: No Heartburn: No Left upper quadrant discomfort following meals. Former smoker, [id number] history. Current smoking: States no Current engineering intern: Dr Solorzano [facility] Last visit: within last 3 months Current treatments: Cough drops seem to help She request a new nebulizer and nebulizer solution. States she does not obtain this from her engineering intern. States she has been using routinely. Wearing oxygen at night. She reports ongoing hip pain, would like to see alternate orthopedic provider. Hemoglobin A1C (%) Date Value 09/23/2022 5.5 10/23/2021 6.1 03/19/2021 6.0 11/24/2020 6.4 ) Review of Systems Constitutional: Negative. HENT: Positive for rhinorrhea. Respiratory: Positive for cough, shortness of breath and wheezing. Musculoskeletal: Positive for arthralgias and back pain. Objective BP 120/64 Pulse 74 Temp (!) 35.8 C (96.4 F) Resp 16 Wt 78.5 kg (173 lb) SpO2 97% BMI 31.64 kg/m Physical Exam Vitals and nursing note reviewed. Constitutional: General: She is not in acute distress. Appearance: Normal appearance. She is well-developed. She is not diaphoretic. HENT: Head: Normocephalic and atraumatic. Right Ear: Tympanic membrane and ear canal normal. Left Ear: Tympanic membrane and ear canal normal. Nose: Mucosal edema and rhinorrhea present. Mouth/Throat: Lips: [place]. Mouth: Mucous membranes are moist. Pharynx: Oropharynx is clear. Tonsils: No tonsillar exudate. Eyes: Conjunctiva/sclera: Conjunctivae normal. Cardiovascular: Rate and Rhythm: Normal rate and regular rhythm. Pulmonary: Effort: Pulmonary effort is normal. No respiratory distress. Breath sounds: Wheezing present. Abdominal: General: Bowel sounds are normal. There is no distension. Palpations: Abdomen is soft. There is no mass. Tenderness: There is no abdominal tenderness. There is no guarding or rebound. Musculoskeletal: Left hip: Tenderness and bony tenderness present. Decreased range of motion. Comments: increased pain with walking, ataxic gait, TTP L trochanter, increased pain with L hip abduction, adduction Skin: General: Skin is warm and dry. Neurological: Mental Status: She is alert. Sensory: No sensory deficit. ALLERGIES Allergen Reactions Albuterol Other: See Comments MDI: High heart rate, high BP, dizzy. Nebulizer: tolerates well. Levaquin [Levofloxa* Angioedema face swelling, trouble breathing; did not go to ER. Itching and hives too Bactrim [Sulfametho* Hives, Itching Itching starting 15 to 20 minutes after took 1 pill; hives broke out an hour later; had tolerated in the past. Gone by next AM Doxycycline Lip and eyelid swelling Environmental Aller* Etodolac Shortness of Breath Mucinex [Guaifenesi* Rash Nabumetone Hives swelling lips,and ankles Penicillins Rash Childhood. Current Outpatient Medications Medication Sig carvedilol (COREG) 6.25 mg tablet Take 1 tablet by mouth twice daily. (cardiology) furosemide (LASIX) 20 mg tablet Take 1 tablet by mouth once daily. (Patient taking differently: Take 20 mg by mouth once daily as needed.) dupilumab (DUPIXENT PEN) 300 mg/2 mL pen Inject 300 mg subcutaneously every 2 weeks. albuterol (PROVENTIL) 2.5 mg /3 mL (0.083 %) nebulizer solution Use 3 mL via nebulizer every 4 hours as needed for wheezing/shortness of breath. Use over 5-15minutes. Dispense 200 vials with 5 refills alcohol swabs (ALCOHOL PREP PADS) Apply 1 application to affected area twice daily. Blood-Glucose Meter (TRUE METRIX GLUCOSE METER) 1 Kit as directed. Use as directed. Test blood sugar(s) 2 times daily. Dx: Type 2 DM - Controlled E11.9 Insulin: No Blood Glucose Control, Low (TRUE METRIX LEVEL 1) 1 Each as directed. Use as Directed with Jeet Metrix Meter and Strips. Dx: Type 2 DM - Controlled E11.9 Insulin: No Lancets lancets 33 gauge preferred. Test blood sugar(s) 2 times daily. Dx: Type 2 DM - Controlled E11.9 Insulin: No budesonide-formoterol (SYMBICORT) 80-4.5 mcg/actuation inhaler Inhale 2 Puffs as instructed twice daily. loratadine (CLARITIN) 10 mg tablet Take 1 tablet by mouth once daily as needed for Cold/Allergy Symptoms (also for dermatitis and itching). FOR ALLERGY SYMPTOMS acetaminophen (TYLENOL EXTRA STRENGTH) 500 mg tablet Take 2 tablets by mouth every 8 hours as needed for Pain. OXYGEN, HOME THERAPY, Inhale 2 L/min as instructed daily at bedtime. COMPOUNDED PRESCRIPTION Please perform nocturnal oximetry on room air. Fax results to [phone] Diagnosis: Hypoxia. Nebulizer and Compressor For Neb 1 Each every 6 hours as needed. warfarin (COUMADIN) 5 mg tablet Take 1 tablet by mouth every Friday,Friday,Friday. Or as directed based on labs warfarin (COUMADIN) 2.5 mg tablet Take 1 tablet by mouth once daily. Adjust dose as directed based on INRs (Currently takes 5 mg on Fridays) blood sugar diagnostic (TRUE METRIX GLUCOSE TEST STRIP) test strip Test blood sugar(s) 2 times daily. Dx: Type 2 DM - Controlled E11.9 Insulin: No azithromycin (ZITHROMAX) 250 mg tablet Take 2 tablets by mouth once daily for 1 day, THEN 1 tablet once daily for 4 days. predniSONE (DELTASONE) 10 mg tablet Take 4 tabs daily x 3 days, then 3 tabs x 3 days, 2 tabs x 3 days, then 1 tab x3 days with food. omeprazole (PRILOSEC) 20 mg capsule Take 1 capsule by mouth daily before breakfast. No current facility-administered medications for this visit. 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 Nix) Degeneration of intervertebral disc, site unspecified Back DM w/o Complication Type II 06/21/2009 Endometriosis, site unspecified Esophageal reflux Essential hypertension [facility], 04/13/2020 Idiopathic urticaria Improved with cutting back significantly on Nickel in diet Lichen planus Osteoarthrosis, unspecified whether generalized or localized, other specified sites NECK, knees and back Other bursitis disorders TROCHANTERIC Other secondary pulmonary hypertension (HCC) libby Almazan MD. Other specified disease of white blood cells Other specified disorder of female genital organs Oxygen dependent 2 liters at hs only Postmenopausal bleeding 04/2001 Postmenop. bleeding Pulmonary emphysema (HCC) 11/14/2015 Pulmonary hypertension (HCC) Thyrotoxicosis without mention of goiter or other cause, without mention of thyrotoxic crisis or storm reports that she quit smoking about 33 years ago. Her smoking use included cigarettes. She has a 30.00 pack-year smoking history. She has never used smokeless tobacco. She reports that she does not drink alcohol and does not use drugs. Component Latest Ref Rng & Units 09/23/2022 Protein, Total 6.3 - 8.0 g/dL 7.2 Albumin 3.9 - 4.9 g/dL 4.0 Calcium 8.5 - 10.2 mg/dL 9.5 Bilirubin, Total 0.2 - 1.3 mg/dL 0.4 Alkaline Phosphatase 34 - 123 U/L 99 AST 13 - 35 U/L 25 ALT 7 - 38 U/L 13 Glucose 74 - 99 mg/dL 85 BUN 7 - 21 mg/dL 9 Creatinine 0.58 - 0.96 mg/dL 0.60 Sodium 136 - 144 mmol/L 141 Potassium 3.7 - 5.1 mmol/L 4.0 Chloride 97 - 105 mmol/L 102 CO2 22 - 30 mmol/L 29 Anion Gap 9 - 18 mmol/L 10 eGFR >=60 mL/min/1.73m 94 WBC 3.70 - 11.00 k/uL 7.57 RBC 3.90 - 5.20 m/uL 4.63 Hemoglobin 11.5 - 15.5 g/dL 13.1 Hematocrit 36.0 - 46.0 % 41.8 MCV 80.0 - 100.0 fL 90.3 MCH 26.0 - 34.0 pg 28.3 MCHC 30.5 - 36.0 g/dL 31.3 RDW-CV 11.5 - 15.0 % 14.3 Platelet Count 150 - 400 k/uL 238 MPV 9.0 - 12.7 fL 11.3 Absolute nRBC <0.01 k/uL <0.01 Cholesterol, Total <200 mg/dL 144 Triglyceride <150 mg/dL 112 HDL Cholesterol >39 mg/dL 34 (L) Non HDL Cholesterol <130 mg/dL 110 Fasting Time hrs 16 VLDL Cholesterol <30 mg/dL 22 TC:HDL Ratio <5.10 4.24 LDL Cholesterol <100 mg/dL 88 LDL:HDL Ratio <2.54 2.59 (H) Creatinine, Ur Random (UCRR) 20.0 - 300.0 mg/dL 110.7 Albumin, Urine Random mg/L 13.1 Albumin/Creat Ratio <30 mg/g 12 Hemoglobin A1C 4.3 - 5.6 % 5.5 Estimated Average Glucose mg/dL 111 Vitamin D 25 Hydroxy 31.0 - 80.0 ng/mL 50.0 ASSESSMENT/PLAN: 1. Hoarseness of voice - ICD9: 784.42, ICD10: R49.0 (primary diagnosis) Unclear if this is related to exacerbation of COPD or GERD. She has increased shortness of breath wheezing and sputum production. Will treat as COPD exacerbation. Also reports left upper quadrant abdominal pain. Will add PPI for 1 to 3 months to see if this helps. If symptoms persist beyond 3 weeks with the above treatments then would recommend ENT appointment for further evaluation and treatment Former smoker, risk for cancer. - CONSULT TO ENT 2. Chronic obstructive pulmonary disease, unspecified COPD type (HCC) - ICD9: 496, ICD10: J44.9 7. RIVERA (dyspnea on exertion) - ICD9: 786.09, ICD10: R06.09 She notes increased RIVERA recently 8. Anticoagulated on Coumadin - ICD9: V58.61, ICD10: Z79.01 - WARFARIN 5 MG TABLET - WARFARIN 2.5 MG TABLET 9. Controlled type 2 diabetes mellitus without complication, without long-term current use of insulin (HCC) - ICD9: 250.00, ICD10: E11.9 - TRUE METRIX GLUCOSE TEST STRIP 10. COPD with exacerbation (HCC) - ICD9: 491.21, ICD10: J44.1 - NEBULIZER AND COMPRESSOR 11. Upper abdominal pain - ICD9: 789.09, ICD10: R10.10 This may be related to GERD, possible cause for hoarseness. PPI x1 to 3 months. 12. Greater trochanteric pain syndrome of both lower extremities - ICD9: 719.45, ICD10: M25.551, M25.552 13. Enthesopathy of right hip region - ICD9: 726.5, ICD10: M76.891 She notes persisting hip pain, would like to see alternate orthopedic provider - CONSULT TO ORTHOPAEDICS 14. Acute on chronic respiratory failure with hypoxemia ([facility]) - ICD9: 518.84, ICD10: J96.[address] Solorzano [facility] Fern Mercado APRN.[facility] Medical Decision Making: Problems: Low: Acute, uncomplicated illness or injury Moderate: 2+ stable chronic illnesses Risk: Moderate: Drug management Medical Decision Making Level: 4 - Moderate documented in this encounter [facility] 01-31-2023 Note HNO ID: [id number] Author: Alva Fleming RN Service: ? Author Type: ? Type: Progress Notes Filed: 01/31/2023 3:32 PM Note Text: pcp agrees with information [facility] 01-31-2023 History of Presen t illness Narrative pcp agrees with information patient had inr completed at [facility] patients inr is 1.9 (patients inr range is 2.0-3.0) patient is currently taking 5mg Wed,Fri and 2.5mg all other days patients last dose change was on 11/26/22 due to a high level of 3.7 (dose at that time was 5mg Mon,Wed,Fri and 2.5mg all other days) patient has had no changes in medication and no missed doses and no change in diet Recommend: patient continue on the same dose and recheck inr in 3 weeks. last inr 2 weeks ago was at the high end of normal at 3.0 patient has been scheduled for a 3 week inr on 02/20/23 please review and advise on recommendation documented in this encounter [facility] 01-31-2023 Note HNO ID: [id number] Author: Alva Fleming RN Service: ? Author Type: ? Type: Progress Notes Filed: 01/31/2023 3:32 PM Note Text: patient had inr completed at [facility] patients inr is 1.9 (patients inr range is 2.0-3.0) patient is currently taking 5mg Wed,Fri and 2.5mg all other days patients last dose change was on 11/26/22 due to a high level of 3.7 (dose at that time was 5mg Mon,Wed,Fri and 2.5mg all other days) patient has had no changes in medication and no missed doses and no change in diet Recommend: patient continue on the same dose and recheck inr in 3 weeks. last inr 2 weeks ago was at the high end of normal at 3.0 patient has been scheduled for a 3 week inr on 02/20/23 please review and advise on recommendation [facility] 01-10-2023 Note HNO ID: [id number] Author: Alva Fleming RN Service: ? Author Type: ? Type: Progress Notes Filed: 01/10/2023 11:35 AM Note Text: pcp agrees with information [facility] 01-10-2023 Note HNO ID: [id number] Author: Alva Fleming RN Service: ? Author Type: ? Type: Progress Notes Filed: 01/10/2023 11:35 AM Note Text: patient had inr completed at [facility] patients inr is 3.0 (patients inr range is 2.0-3.0) patient is currently taking 5mg Wed,Fri and 2.5mg all other days patients last dose change was on 11/26/22 due to a high level of 3.7 (dose at that time was 5mg Mon,Wed,Fri and 2.5mg all other days) patient has had no changes in medication and no missed doses and no change in diet Advised patient to continue on the same dose(s) and that they would only be contacted regarding dosage and follow up instructions after review with provider, if a change is needed. Written instructions given and patient verbalized understanding. Presently scheduled in 3 weeks (01/31/23 - due to the cc is closed at the 4-5 week jodee) for follow up INR. [facility] 01-10-2023 History of Presen t illness Narrative pcp agrees with information patient had inr completed at [facility] patients inr is 3.0 (patients inr range is 2.0-3.0) patient is currently taking 5mg Wed,Fri and 2.5mg all other days patients last dose change was on 11/26/22 due to a high level of 3.7 (dose at that time was 5mg Mon,Wed,Fri and 2.5mg all other days) patient has had no changes in medication and no missed doses and no change in diet Advised patient to continue on the same dose(s) and that they would only be contacted regarding dosage and follow up instructions after review with provider, if a change is needed. Written instructions given and patient verbalized understanding. Presently scheduled in 3 weeks (01/31/23 - due to the cc is closed at the 4-5 week jodee) for follow up INR. documented in this encounter [facility] 01-09-2023 Note HNO ID: [id number] Author: Lisa Stevenson PT Service: ? Author Type: Physical Therapist Type: Progress Notes Filed: 02/05/2023 8:45 AM Note Text: 02/05/2023 [facility] PHYSICAL THERAPY DISCONTINUANCE OF CARE Plan of Care Period: Start of Care Date: 12/25/22 Last Visit Date: 01/09/2023 Therapy Program: The following is a summary of the interventions provided for this episode of care; Therapeutic exercise, Manual therapy, Therapeutic activities, and Self-mcc management Assessment: Based on most recent visit, patient was progressing slower than expected toward functional goals based on pain levels and documented subjective information on progress. Unable to formally assess goal achievement, as patient has not returned to therapy or scheduled additional follow-up appointments. Reason for Discontinuation of Care: Patient has not returned to therapy or scheduled additional follow-up appointments. Lisa Stevenson, PT Episode Visit Count: 3 Therapist That Will Accept/Oversee The Plan Of Care: Lisa Stevenson Start of Care Date: 12/25/22 Onset Date: 06/27/22 Plan of Care Certification Date: 12/25/22 Next Certification Due Date: 01/29/23 [facility] PHYSICAL THERAPY TREATMENT NOTE ASSESSMENT: Audrey Redd tolerated the session with decreased symptoms. She demonstrated improvements in activity tolerance, with seated TA stabilization strengthening using elastic band and extremity movements as added resistance. The patient will continue to benefit from ongoing skilled physical therapy to progress toward set goals. PLAN FOR NEXT VISIT: Pt. refused manual traction today, continue lumbar stabilization strengthening in seated and progress to standing. Add seated TA exercises to HEP SUBJECTIVE: Pt. reports that the modifications to the HEP exercises provided last visit are working well. She planted shrubs yesterday (x5) and this was not good to do because of all the digging. Patient Goals: ADLs including standing and carrying items Pain: Pain Pain Level: 5 Pain Location: Low Back/Lumbar Spine - Right Description: Aching Frequency: At rest Post Treatment Pain Post Treatment Pain Level: 5 Post Treatment Pain Location: Low Back/Lumbar Spine - Right Post Treatment Pain Description: Aching OBJECTIVE MEASURES WITH LEVEL OF FUNCTION: TREATMENT: Therapeutic Exercise: 1: seated lumbar flexion 2x10 +1x10 following complaints of pulling in the right lower back with seated TA bugs 2: seated TA activation with 55 cm physioball 2x15 3: seated TA activation 5x10 sec hold, press down in to 55 cm physioball 4: seated TA activation, stir the pot 30 sec CW and 30 sec CCW each side 2 sets each side yellow elastic band 5: seated TA activation with alt LE raises in chair, 2x12 6: seated TA activation, alt UE raises 2x12 alt 7: seated TA activation, alt UE/LE raises 1x12 - dc due to pulling felt in the right lower back 8: seated HS stretch 3x30 sec each side 9: seated Sciatic nerve glides 1x5 each side Skilled Intervention: Patient was educated in proper exercise technique and purpose for exercises. Reviewed and educated patient on additions/changes for home exercise program as above (*). Skilled judgment was provided in selection of appropriate interventions. Correct performance of therapeutic exercises was facilitated with verbal, visual, and tactile cuing. Educated patient on rationale for performing exercises in regards to decreasing fatigue , increase ease of ADL, and ROM and function . Patient education as noted. Billing Therapeutic Exercise Treatment Minutes: 40 Total Treatment Time Minutes (timed/untimed): 40 Session Start Time : 929 Session Stop Time : 1009 Lisa Stevenson, PT [facility] 01-09-2023 History of Presen t illness Narrative Episode Visit Count: 3 Therapist That Will Accept/Oversee The Plan Of Care: Lisa Stevenson Start of Care Date: 12/25/22 Onset Date: 06/27/22 Plan of Care Certification Date: 12/25/22 Next Certification Due Date: 01/29/23 [facility] PHYSICAL THERAPY TREATMENT NOTE ASSESSMENT: Audrey Redd tolerated the session with decreased symptoms. She demonstrated improvements in activity tolerance, with seated TA stabilization strengthening using elastic band and extremity movements as added resistance. The patient will continue to benefit from ongoing skilled physical therapy to progress toward set goals. PLAN FOR NEXT VISIT: Pt. refused manual traction today, continue lumbar stabilization strengthening in seated and progress to standing. Add seated TA exercises to HEP SUBJECTIVE: Pt. reports that the modifications to the HEP exercises provided last visit are working well. She planted shrubs yesterday (x5) and this was not good to do because of all the digging. Patient Goals: ADLs including standing and carrying items Pain: Pain Pain Level: 5 Pain Location: Low Back/Lumbar Spine - Right Description: Aching Frequency: At rest Post Treatment Pain Post Treatment Pain Level: 5 Post Treatment Pain Location: Low Back/Lumbar Spine - Right Post Treatment Pain Description: Aching OBJECTIVE MEASURES WITH LEVEL OF FUNCTION: TREATMENT: Therapeutic Exercise: 1: seated lumbar flexion 2x10 +1x10 following complaints of pulling in the right lower back with seated TA bugs 2: seated TA activation with 55 cm physioball 2x15 3: seated TA activation 5x10 sec hold, press down in to 55 cm physioball 4: seated TA activation, stir the pot 30 sec CW and 30 sec CCW each side 2 sets each side yellow elastic band 5: seated TA activation with alt LE raises in chair, 2x12 6: seated TA activation, alt UE raises 2x12 alt 7: seated TA activation, alt UE/LE raises 1x12 - dc due to pulling felt in the right lower back 8: seated HS stretch 3x30 sec each side 9: seated Sciatic nerve glides 1x5 each side Skilled Intervention: Patient was educated in proper exercise technique and purpose for exercises. Reviewed and educated patient on additions/changes for home exercise program as above (*). Skilled judgment was provided in selection of appropriate interventions. Correct performance of therapeutic exercises was facilitated with verbal, visual, and tactile cuing. Educated patient on rationale for performing exercises in regards to decreasing fatigue , increase ease of ADL, and ROM and function . Patient education as noted. Billing Therapeutic Exercise Treatment Minutes: 40 Total Treatment Time Minutes (timed/untimed): 40 Session Start Time : 929 Session Stop Time : 1010 Lisa Stevenson PT documented in this encounter [facility] 01-01-2023 Note HNO ID: [id number] Author: Lisa Stevenson PT Service: ? Author Type: Physical Therapist Type: Progress Notes Filed: 01/01/2023 5:17 PM Note Text: Episode Visit Count: 2 Therapist That Will Accept/Oversee The Plan Of Care: Lisa Stevenson Start of Care Date: 12/25/22 Onset Date: 06/27/22 Plan of Care Certification Date: 12/25/22 Next Certification Due Date: 01/29/23 [facility] PHYSICAL THERAPY TREATMENT NOTE ASSESSMENT: Audery Redd tolerated the session with increased symptoms. She demonstrated difficulty with tolerating single KTC, BLE KTC stretch, and pelvic rotations - modifying to single bent knee fall outs which were all dc from HEP. Pt. Reports feeling some relief in the hook lying position as compared to laying supine with the B knees extended. Reports no change in low back symptoms with repeated lumbar flexion seated. The patient will continue to benefit from ongoing skilled physical therapy to progress toward set goals. PLAN FOR NEXT VISIT: Continue core stabilization in seated SUBJECTIVE: Subjective: Pt. reports no improvement. Pt. used a SC Friday and Friday but reports it does not provide any relief. She presents without a cane today. She describes her HEP exercises as rough Pain: Pain Pain Level: 8 Pain Location: Low Back/Lumbar Spine - Right Description: Aching Frequency: At rest Post Treatment Pain Post Treatment Pain Level: 7 Post Treatment Pain Location: Low Back/Lumbar Spine - Right Post Treatment Pain Description: Aching OBJECTIVE MEASURES WITH LEVEL OF FUNCTION: TREATMENT: Therapeutic Exercise: 1: single KTC 1x30 sec - no change in symptoms better or worse L side, stretch felt with the R 3x30 sec hold -- no change (keep on HEP) 2: pelvic rotations 1x10 each side - unable to tolerate and dc 3: *seated TA activation with 55 cm physioball BUE press down [id number], twice daily ( this one does'nt feel too bad. I have a ball like this one at home. ) 4: B KTC stretch 1x10 sec - dc due to increased symptoms and limited tolerance 5: seated lumbar flexion 1x10 -- reports no change in symptoms but does state that she feels a stretch in the right lumbar paraspinals (continue) 6: *seated TA activation, hands on knees [id number] reps (2nd option without ball) Skilled Intervention: Patient was educated in proper exercise technique and purpose for exercises. Skilled judgment was provided in selection of appropriate interventions. Provided written instruction for home exercise program to facilitate proper performance and compliance. Educated patient on rationale for performing exercises in regards to decreasing fatigue , increase ease of ADL, and ROM and function . Patient education as noted. Therapeutic Activity: 1: log roll 1x without need for cues Skilled Intervention: Activity progression based on professional judgment. Assisted proper completion of task with no cueing and correction of abnormal movement patterns. Billing Therapeutic Exercise Treatment Minutes: 39 Therapeutic Activity Treatment Minutes: 1 Total Treatment Time Minutes (timed/untimed): 40 Session Start Time : 1630 Session Stop Time : 1710 Lisa Stevenson, PT [facility] 01-01-2023 History of Presen t illness Narrative Episode Visit Count: 2 Therapist That Will Accept/Oversee The Plan Of Care: Lisa Stevenson Start of Care Date: 12/25/22 Onset Date: 06/27/22 Plan of Care Certification Date: 12/25/22 Next Certification Due Date: 01/29/23 [facility] PHYSICAL THERAPY TREATMENT NOTE ASSESSMENT: Audrey Redd tolerated the session with increased symptoms. She demonstrated difficulty with tolerating single KTC, BLE KTC stretch, and pelvic rotations - modifying to single bent knee fall outs which were all dc from HEP. Pt. Reports feeling some relief in the hook lying position as compared to laying supine with the B knees extended. Reports no change in low back symptoms with repeated lumbar flexion seated. The patient will continue to benefit from ongoing skilled physical therapy to progress toward set goals. PLAN FOR NEXT VISIT: Continue core stabilization in seated SUBJECTIVE: Subjective: Pt. reports no improvement. Pt. used a SC Friday and Friday but reports it does not provide any relief. She presents without a cane today. She describes her HEP exercises as rough Pain: Pain Pain Level: 8 Pain Location: Low Back/Lumbar Spine - Right Description: Aching Frequency: At rest Post Treatment Pain Post Treatment Pain Level: 7 Post Treatment Pain Location: Low Back/Lumbar Spine - Right Post Treatment Pain Description: Aching OBJECTIVE MEASURES WITH LEVEL OF FUNCTION: TREATMENT: Therapeutic Exercise: 1: single KTC 1x30 sec - no change in symptoms better or worse L side, stretch felt with the R 3x30 sec hold -- no change (keep on HEP) 2: pelvic rotations 1x10 each side - unable to tolerate and dc 3: *seated TA activation with 55 cm physioball BUE press down [id number], twice daily ( this one does'nt feel too bad. I have a ball like this one at home. ) 4: B KTC stretch 1x10 sec - dc due to increased symptoms and limited tolerance 5: seated lumbar flexion 1x10 -- reports no change in symptoms but does state that she feels a stretch in the right lumbar paraspinals (continue) 6: *seated TA activation, hands on knees [id number] reps (2nd option without ball) Skilled Intervention: Patient was educated in proper exercise technique and purpose for exercises. Skilled judgment was provided in selection of appropriate interventions. Provided written instruction for home exercise program to facilitate proper performance and compliance. Educated patient on rationale for performing exercises in regards to decreasing fatigue , increase ease of ADL, and ROM and function . Patient education as noted. Therapeutic Activity: 1: log roll 1x without need for cues Skilled Intervention: Activity progression based on professional judgment. Assisted proper completion of task with no cueing and correction of abnormal movement patterns. Billing Therapeutic Exercise Treatment Minutes: 39 Therapeutic Activity Treatment Minutes: 1 Total Treatment Time Minutes (timed/untimed): 40 Session Start Time : 1630 Session Stop Time : 1710 Lisa Stevenson PT documented in this encounter [facility] 12-25-2022 Note HNO ID: [id number] Author: Lisa Stevenson PT Service: ? Author Type: Physical Therapist Type: Progress Notes Filed: 12/25/2022 5:08 PM Note Text: Episode Visit Count: 1 Therapist That Will Accept/Oversee The Plan Of Care: Lisa Stevenson Start of Care Date: 12/25/22 Onset Date: 06/27/22 Plan of Care Certification Date: 12/25/22 Next Certification Due Date: 01/29/23 Patient Identified by Name and Date of : Yes REHABILITATION AND SPORTS THERAPY PHYSICAL THERAPY EVALUATION PLAN OF CARE: Assessment: Audrey Redd presents with diagnosis of greater trochanteric pain syndrome of both lower extremities that interferes with standing, carrying, rising from a chair, bed mobility ( walking does not bother me that much. ) . She presents with impairments in ADL's, gait, independence in exercise, joint mobility, overall function, patient reported outcome measures, range of motion, strength, and symptom management. PROMIS? (Patient-Reported Outcomes Measurement Information System) scores were reviewed and physical function domain and self efficacy domain identified as a rehabilitation concern. Prognosis for therapy is Fair due to: chronic nature of impairments, clinical presentation, multiple co- morbidities, limited tolerance to activity . She will benefit from skilled therapy services to meet the goals established for this plan of care as noted below. Classification Low Back Pain Subgroup Classification: Specific exercise subgroup: recommended visits 8. Specific Exercies Subgroup Classification based on: centralization, directional preference Goals for Episode of Care: created on 12/25/22 through 02/05/23 Independent in home exercises. Patient will decrease pain rating by 2 points to meet minimal clinical important difference for numeric pain rating scale. Restore pain-free lumbar ROM to moderate limitation AROM to allow for transitional movements. Stand 15-20 minutes without increased pain/symptoms. Sleep through night without pain/symptoms. Patient Goals: ADLs including standing and carrying items Planned Interventions, Frequency, and Duration: Current Frequency: 1x/week Duration: 6 weeks Total Number of Visits Planned: 6 Planned Treatment Interventions: Therapeutic exercise (00765), Neuromuscular re-education (89330), Manual therapy (89974), Therapeutic activities (49710), Self-mcc management (64671), Gait Training (12415) PLAN FOR NEXT VISIT: assess symptom response to repeated flexion directional preference exercises Patient demonstrates good understanding of plan of care and treatment. The above goals and plan of care were discussed and agreed upon by patient/family. SUBJECTIVE: Audrey Redd is a 72 year old female seen today for for L hip pain that onset about 6 mo. Pt. tried prednisone in 2022 that helped some. Pt. reports having right hip and low back pain that developed in September 2022. Pt. referred by PCP at her 6 mo. f/u. She now uses tylenol and a pain patch to manage her symptoms. She has had this problem in the past about 7-8 years ago. She had PT at this time and this helped. Patient Goals: ADLs including standing and carrying items Functional Limitations: standing, carrying, rising from a chair, bed mobility ( walking does not bother me that much. ) Prior Level of Function: Independent without limitations Relevant History Past Relevant Medical Conditions: Hypertension, COPD, Cardiac, Atrial Fibrillation Intake Information: Prescription present Previous Treatment: Physical Therapy , Chiropractor , Heat (prednisone) Falls Interview: No positive findings with falls interview Red Flags Vertebral Fracture Red Flags: Female, Age >70 Vertebral Fracture Clinical Reasoning: Proceed with caution due to the above (1-2) risk factors Abdominal Aortic Aneurysm Red Flags: Age >60 Abdominal Aortic Aneurysm Clinical Reasoning: Proceed with caution Cancer Red Flags: Age >50 or <20 Cancer Clinical Reasoning: Proceed with caution Infection Clinical Reasoning: No identified risk factors. Cauda Equina Syndrome Clinical Reasoning: No identified risk factors. Red Flags - Cervical Cancer Red Flags: Age >50 or <20 Cancer Clinical Reasoning: Proceed with caution Infection Clinical Reasoning: No identified risk factors. Spine History Symptoms Location at Onset: Back Symptoms Since Onset: Worsening Pain is Worse Always: Standing, Prolonged positions (lifting) Pain is Better Always: No position Sleep Affected by Pain: Not affected by pain Pain: Pain Pain Level: 7 Pain Location: Low Back/Lumbar Spine - Right Description: Aching Frequency: At rest Post Treatment Pain Post Treatment Pain Level: Better Post Treatment Pain Location: Low Back/Lumbar Spine - Right Post Treatment Pain Description: Aching Post Treatment Symptoms: denies hip pain, symptoms centralized to the low back PROMIS Scales Higher is Better 7/ (more content not included)... 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 ) . She presents with impairments in ADL's, gait, independence in exercise, joint mobility, overall function, patient reported outcome measures, range of motion, strength, and symptom management. PROMIS (Patient-Reported Outcomes Measurement Information System) scores were reviewed and physical function domain and self efficacy domain identified as a rehabilitation concern. Prognosis for therapy is Fair due to: chronic nature of impairments, clinical presentation, multiple co- morbidities, limited tolerance to activity . She will benefit from skilled therapy services to meet the goals established for this plan of care as noted below. Classification Low Back Pain Subgroup Classification: Specific exercise subgroup: recommended visits 8. Specific Exercies Subgroup Classification based on: centralization, directional preference Goals for Episode of Care: created on 12/25/22 through 02/05/23 Independent in home exercises. Patient will decrease pain rating by 2 points to meet minimal clinical important difference for numeric pain rating scale. Restore pain-free lumbar ROM to moderate limitation AROM to allow for transitional movements. Stand 15-20 minutes without increased pain/symptoms. Sleep through night without pain/symptoms. Patient Goals: ADLs including standing and carrying items Planned Interventions, Frequency, and Duration: Current Frequency: 1x/week Duration: 6 weeks Total Number of Visits Planned: 6 Planned Treatment Interventions: Therapeutic exercise (13358), Neuromuscular re-education (41916), Manual therapy (50980), Therapeutic activities (40380), Self-mcc management (97657), Gait Training (61385) PLAN FOR NEXT VISIT: assess symptom response to repeated flexion directional preference exercises Patient demonstrates good understanding of plan of care and treatment. The above goals and plan of care were discussed and agreed upon by patient/family. SUBJECTIVE: Audrey Redd is a 72 year old female seen today for for L hip pain that onset about 6 mo. Pt. tried prednisone in 2022 that helped some. Pt. reports having right hip and low back pain that developed in September 2022. Pt. referred by PCP at her 6 mo. f/u. She now uses tylenol and a pain patch to manage her symptoms. She has had this problem in the past about 7-8 years ago. She had PT at this time and this helped. Patient Goals: ADLs including standing and carrying items Functional Limitations: standing, carrying, rising from a chair, bed mobility ( walking does not bother me that much. ) Prior Level of Function: Independent without limitations Relevant History Past Relevant Medical Conditions: Hypertension, COPD, Cardiac, Atrial Fibrillation Intake Information: Prescription present Previous Treatment: Physical Therapy , Chiropractor , Heat (prednisone) Falls Interview: No positive findings with falls interview Red Flags Vertebral Fracture Red Flags: Female, Age >70 Vertebral Fracture Clinical Reasoning: Proceed with caution due to the above (1-2) risk factors Abdominal Aortic Aneurysm Red Flags: Age >60 Abdominal Aortic Aneurysm Clinical Reasoning: Proceed with caution Cancer Red Flags: Age >50 or <20 Cancer Clinical Reasoning: Proceed with caution Infection Clinical Reasoning: No identified risk factors. Cauda Equina Syndrome Clinical Reasoning: No identified risk factors. Red Flags - Cervical Cancer Red Flags: Age >50 or <20 Cancer Clinical Reasoning: Proceed with caution Infection Clinical Reasoning: No identified risk factors. Spine History Symptoms Location at Onset: Back Symptoms Since Onset: Worsening Pain is Worse Always: Standing, Prolonged positions (lifting) Pain is Better Always: No position Sleep Affected by Pain: Not affected by pain Pain: Pain Pain Level: 7 Pain Location: Low Back/Lumbar Spine - Right Description: Aching Frequency: At rest Post Treatment Pain Post Treatment Pain Level: Better Post Treatment Pain Location: Low Back/Lumbar Spine - Right Post Treatment Pain Description: Aching Post Treatment Symptoms: denies hip pain, symptoms centralized to the low back PROMIS Scales Higher is Better 12/25/2022 Phys Func - Score 35 (moderate dysfunction) Phys Func - Percentile 7 % Self-Eff Symptom - Score 40 (Average) Self-Eff Symptom - Percentile 16 % T-scores: mean of general population = 50. 5 points is clinically meaningfully difference Percentiles provide an indication of how the patient's score ranks in relation to the general population. Higher percentile rankings indicate better function/quality of life. 50th percentile is the average of the general population and indicates half of respondents had a worse score. OBJECTIVE MEASURES WITH LEVEL OF FUNCTION: Posture / Alignment Posture: Increased thoracic kyphosis, Forward head Sitting Posture: Sits on right ischial tuberosity Effects of Posture Correction: worse Spine Observations R Lumbar Spine Palpation Tenderness: Greater trochanter L Lumbar Spine Palpation Tenderness: Greater trochanter Sensation - Lumbar Sensation: Grossly Intact Lumbar Spine AROM Lumbar Flexion: Normal Lumbar Extension: Major limitation Repeated Test Movements - Lumbar RFIS - Symptoms During: centralizing Static Testing - Lumbar Sit Erect: worse LE Flexibility Flexibility: Hip Internal Rotation Flexibility, Hip External Rotation Flexibility, Piriformis Flexibility R Piriformis Flexibility: limited L Piriformis Flexibility: limited Special Tests - Hip and Spine Hip and Spine Special Tests: FADDIR Test, Scour Test, TESFAYE Test, SLR Test SLR Test: Left Positive, Right Positive TESFAYE Test: Left Negative, Right Negative FADDIR Test: Right Negative, Left Negative Scour Test: Left Positive, Right Positive (low back pain) Gait Gait: Independent Gait Distance (feet): 100 Gait Device: None Gait Deviations: General Deviations General Deviations/Observations: Shuffling Gait, Flexed trunk posture, Leena decreased, Wide base of support Education: Education Learning Preferences: Demonstration, Explanation, Printed Materials, Performance Barriers: Desire and Motivation Learning/educational needs: Plan of Care, Home exercise program, Gait Training, Posture Education Provided: Yes, see treatment interventions for education provided Education Provided To: Patient Education Mode/Type: Demonstration, Explanation/Discussion, Literature/Printed Materials, Performance Response to Education/Teach Back: Requires Review/Additional Education, States/Identifies TREATMENT: PT Treatment Interventions: Therapeutic Exercise, Self-Halfway Management, Therapeutic Activity Evaluation Therapeutic Exercise: 1: *single KTC stretch 3x30 sec each side, 3 times day 2: *hook lying pelvic rotations 2x20, 3 times daily 3: *HEP 3x/dauy 4: *double KTC stretch 3x30 sec each side, 3 times day 5: *seated lumbar flexion 2x10, 3x/day Skilled Intervention: Patient was educated in proper exercise technique and purpose for exercises. Skilled judgment was provided in selection of appropriate interventions. Provided written instruction for home exercise program to facilitate proper performance and compliance. Correct performance of therapeutic exercises was facilitated with verbal, visual, and tactile cuing. Educated patient on rationale for performing exercises in regards to decreasing fatigue , increase ease of ADL, and ROM and function . Patient education as noted. Therapeutic Activity: 1: *log roll 2x with CGA and verbal cues Skilled Intervention: Maximum verbal cues for maintaining neutral spine alignment. Activity progression based on professional judgment. Assisted proper completion of task with verbal, visual, and tactile cueing and correction of abnormal movement patterns. Self-Halfway Management: 1: *postural education 2: *discussed directional preference and spine biomechanics with flexion 3: *discussed how pain may refer from the lumbar spine to the hip, but hip muscles and other structures may cause hip pain Skilled Intervention: Skilled judgment in the selection of proper modification for activity of daily living/home management based on clinical presentation, deficits, and needs. Provided written instruction for activities of daily living techniques to facilitate proper performance and compliance. Reviewed patient specific diagnosis in relation to activities of daily living/home management. Activity progression based on professional judgement. Maximum verbal cues for maintaining neutral spine alignment. Provided written instruction for home program to facilitate proper performance and compliance. Correct performance of home program was facilitated with verbal, visual, and tactile cueing. Billing * Evaluation Low Complexity: 1 Unit Therapeutic Exercise Treatment Minutes: 10 Therapeutic Activity Treatment Minutes: 5 Self-Care/Home Management Treatment Minutes: 10 Total Treatment Time Minutes (timed/untimed): 45 Session Start Time : 1530 Session Stop Time : 1615 Lisa Stevenson, PT documented in this encounter [facility] 12-13-2022 Note HNO ID: [id number] Author: Alva Fleming RN Service: ? Author Type: ? Type: Progress Notes Filed: 12/13/2022 4:12 PM Note Text: pcp agrees with information [facility] 12-13-2022 History of Presen t illness Narrative pcp agrees with information patient had inr completed at [facility] patients inr is 2.8 (patients inr range is 2.0-3.0) patient is currently taking 5mg Wed,Fri and 2.5mg all other days patients last dose change was on 11/26/22 due to a high level of 3.7 (dose at that time was 5mg Mon,Wed,Fri and 2.5mg all other days) patient has had no changes in medication and no missed doses and no change in diet Advised patient to continue on the same dose(s) and that they would only be contacted regarding dosage and follow up instructions after review with provider, if a change is needed. Written instructions given and patient verbalized understanding. Presently scheduled in 4 weeks (01/10/23) for follow up INR. documented in this encounter [facility] 12-13-2022 Note HNO ID: [id number] Author: Alva Fleming RN Service: ? Author Type: ? Type: Progress Notes Filed: 12/13/2022 4:12 PM Note Text: patient had inr completed at [facility] patients inr is 2.8 (patients inr range is 2.0-3.0) patient is currently taking 5mg Wed,Fri and 2.5mg all other days patients last dose change was on 11/26/22 due to a high level of 3.7 (dose at that time was 5mg Mon,Wed,Fri and 2.5mg all other days) patient has had no changes in medication and no missed doses and no change in diet Advised patient to continue on the same dose(s) and that they would only be contacted regarding dosage and follow up instructions after review with provider, if a change is needed. Written instructions given and patient verbalized understanding. Presently scheduled in 4 weeks (01/10/23) for follow up INR. [facility] 12-05-2022 Note HNO ID: [id number] Author: Fern Mercado APRN.CNS Service: ? Author Type: Nurse Specialist Type: Progress Notes Filed: 12/06/2022 7:44 AM Note Text: Continue with Coumadin dose unchanged and check INR in 1 week [facility] 12-05-2022 History of Presen t illness Narrative Continue with Coumadin dose unchanged and check INR in 1 week patient had inr completed at [facility] patients inr is 2.7 (patients inr range is 2.0-3.0) patient is currently taking 5mg Wed,Fri and 2.5mg all other days patients last dose change was on 11/26/22 due to a high level of 3.7 (dose at that time was 5mg Mon,Wed,Fri and 2.5mg all other days) patient has had no changes in medication except for coumadin and no uninstructed missed doses and no change in diet Advised patient to continue on the same dose(s) and that they would only be contacted regarding dosage and follow up instructions after review with provider, if a change is needed. Written instructions given and patient verbalized understanding. Presently scheduled in 1 weeks (12/13/22) for follow up INR due to patient is out of town at the 2 week jodee and this is the first normal reading since dose change documented in this encounter [facility] 12-05-2022 Note HNO ID: [id number] Author: Alva Fleming RN Service: ? Author Type: ? Type: Progress Notes Filed: 12/06/2022 7:44 AM Note Text: patient had inr completed at [facility] patients inr is 2.7 (patients inr range is 2.0-3.0) patient is currently taking 5mg Wed,Fri and 2.5mg all other days patients last dose change was on 11/26/22 due to a high level of 3.7 (dose at that time was 5mg Mon,Wed,Fri and 2.5mg all other days) patient has had no changes in medication except for coumadin and no uninstructed missed doses and no change in diet Advised patient to continue on the same dose(s) and that they would only be contacted regarding dosage and follow up instructions after review with provider, if a change is needed. Written instructions given and patient verbalized understanding. Presently scheduled in 1 weeks (12/13/22) for follow up INR due to patient is out of town at the 2 week jodee and this is the first normal reading since dose change [facility] 11-26-2022 Note HNO ID: [id number] Author: Alva Fleming RN Service: ? Author Type: ? Type: Progress Notes Filed: 11/26/2022 5:16 PM Note Text: pcp agrees with information [facility] 11-26-2022 History of Presen t illness Narrative pcp agrees with information patient had inr completed at [facility] patients inr is 3.7 (patients inr range is 2.0-3.0) patient is currently taking 5mg Mon,Wed,Fri and 2.5mg all other days patients last dose change was on 10/31/22 due to a low level of 1.9 (dose at that time was 5mg Mon,Fri and 2.5mg all other days) patient has had no changes in medication and no missed doses and no change in diet FYI - patient has been instructed to hold coumadin until contacted Advised patient that they would be contacted regarding medication dose and when to follow up after information is reviewed by provider. After provider review please contact the patient with information and schedule follow up appointment with coumadin clinic. ok to leave a detailed message if no answer FYI- patient has been scheduled for a 1 week follow up inr on 12/05/22 documented in this encounter [facility] 11-26-2022 Note HNO ID: [id number] Author: Bruce Bonilla MD Service: ? Author Type: Physician Type: Progress Notes Filed: 12/26/2022 11:52 PM Note Text: This note was created using [employer]ahootify[employer]. Subjective Audrey Redd is a 72 year old female. Patient presents with: F/U 6 months SUBJECTIVE: Audrey Redd is a 72 year old year old lady here today for 6 month follow up appointment for review of medical conditions. Back pain and hip pain. Posterior left hip pain (buttocks) Started 5 to 6 months ago. Getting worse. Woke up one AM and could not get out of bed. Saw Fern after 3 weeks of pain. Prednisone with minimal relief. Greater trochanteric bursitis was diagnosed by Dr. Whitt but she was not told abo referral for PT. Rarely needs Symbicort. Carvedilol increased since BP was running high at cardiology appointment. Discussed issues with INR and coumadin. Eats 1 meal a day and then picks a lot. Starting to get more Vitamin K foods as instructed. Depression Screening 01/08/2017 01/14/2018 04/01/2019 11/26/2022 PHQ-2 Score 3 0 0 0 PHQ-9 Score 6 - - - CHERELLE-2 Total Score 0 - - - Depression screening tool completed and reviewed. Based on score and interview, patient is not at risk for depression. Screening tool discussed with patient, and I recommended no further intervention at this time. PAST MEDICAL HISTORY Diagnosis Date Benign neoplasm of colon Chronic atrial fibrillation (HCC) 10/29/2013 [facility], 04/13/2020 Chronic diastolic heart failure (HCC) [facility], 04/13/2020 COPD, severe (HCC) Follows with Pulmonology (Dr. 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 Other specified disease of white blood cells Other specified disorder of female genital organs Oxygen dependent 2 liters at hs only Postmenopausal bleeding 04/2001 Postmenop. bleeding Pulmonary emphysema (HCC) 11/14/2015 Pulmonary hypertension (HCC) Thyrotoxicosis without mention of goiter or other cause, without mention of thyrotoxic crisis or storm Current Outpatient Medications Medication Sig carvedilol (COREG) 3.125 mg tablet Take 3.125 mg by mouth twice daily. warfarin (COUMADIN) 2.5 mg tablet Take 1 tablet by mouth once daily. Adjust dose as directed based on INRs (Currently takes 5 mg on Fridays) furosemide (LASIX) 20 mg tablet Take 1 tablet by mouth once daily. dupilumab (DUPIXENT PEN) 300 mg/2 mL pen Inject 300 mg subcutaneously every 2 weeks. albuterol (PROVENTIL) 2.5 mg /3 mL (0.083 %) nebulizer solution Use 3 mL via nebulizer every 4 hours as needed for wheezing/shortness of breath. Use over 5-15minutes. Dispense 200 vials with 5 refills blood sugar diagnostic (TRUE METRIX GLUCOSE TEST STRIP) test strip Test blood sugar(s) 2 times daily. Dx: Type 2 DM - Controlled E11.9 Insulin: No warfarin (COUMADIN) 5 mg tablet Take 1 tablet by mouth every Friday,Friday,Friday. Or as directed based on labs (Patient taking differently: Take 5 mg by mouth every Friday. Or as directed based on labs) Blood-Glucose Meter (TRUE METRIX GLUCOSE METER) 1 Kit as directed. Use as directed. Test blood sugar(s) 2 times daily. Dx: Type 2 DM - Controlled E11.9 Insulin: No Blood Glucose Control, Low (TRUE METRIX LEVEL 1) 1 Each as directed. Use as Directed with Jeet Metrix Meter and Strips. Dx: Type 2 DM - Controlled E11.9 Insulin: No Lancets lancets 33 gauge preferred. Test blood sugar(s) 2 times daily. Dx: Type 2 DM - Controlled E11.9 Insulin: No budesonide-formoterol (SYMBICORT) 80-4.5 mcg/actuation inhaler Inhale 2 Puffs as instructed twice daily. loratadine (CLARITIN) 10 mg tablet Take 1 tablet by mouth once daily as needed for Cold/Allergy Symptoms (also for dermatitis and itching). FOR ALLERGY SYMPTOMS acetaminophen (TYLENOL EXTRA STRENGTH) 500 mg tablet Take 2 tablets by mouth every 8 hours as needed for Pain. OXYGEN, HOME THERAPY, Inhale 2 L/min as instructed daily at bedtime. COMPOUNDED PRESCRIPTION Please perform nocturnal oximetry on room air. Fax results to [phone] Diagnosis: Hypoxia. predniSONE (DELTASONE) 10 mg tablet 20 mg Daily with breakfast for 5 days, 10 mg daily with breakfast for 5 days (Patient not taking: Reported on 07/04/2022) triamcinolone acetonide (KENALOG) 0.1 % cream APPLY TO AFFECTED AREA TWICE DAILY NEEDED, NOT FOR FACE OR SKIN FOLDS (Patient not taking: Reported on 06/20/2022) alcohol swabs (ALCOHOL PREP PADS) Apply 1 application to affected area twi (more content not included)... [facility] 11-26-2022 Note HNO ID: [id number] Author: Alva Fleming RN Service: ? Author Type: ? Type: Progress Notes Filed: 11/26/2022 5:16 PM Note Text: patient had inr completed at [facility] patients inr is 3.7 (patients inr range is 2.0-3.0) patient is currently taking 5mg Mon,Wed,Fri and 2.5mg all other days patients last dose change was on 10/31/22 due to a low level of 1.9 (dose at that time was 5mg Mon,Fri and 2.5mg all other days) patient has had no changes in medication and no missed doses and no change in diet FYI - patient has been instructed to hold coumadin until contacted Advised patient that they would be contacted regarding medication dose and when to follow up after information is reviewed by provider. After provider review please contact the patient with information and schedule follow up appointment with coumadin clinic. ok to leave a detailed message if no answer FYI- patient has been scheduled for a 1 week follow up inr on 12/05/22 [facility] 11-26-2022 Instructions Bruce Bonilla MD - 11/26/2022 11:28 AM EDT Since INR up to 3.7 on 5 mg MWF and 2.5 mg rest of the week, will hold today's dose and take 2.5 mg daily except MF 5 mg Check INR as scheduled 12/05 Work on getting same amount of Vitamin K in diet on a weekly basis. Plans for 3 days a week of spinach. documented in this encounter [facility] 11-26-2022 Miscellaneous Notes November 27, 2022 PID: [id number] Audrey Redd [address] [place] [address] Dear Ms. Redd, We are pleased to inform you that the results of your recent breast imaging exam on 11/25/2022 are normal. Early detection of cancer is very important. We also understand recommendations regarding breast cancer screening are controversial. Please discuss with your primary care provider which strategy is best for you and whether a mammogram is right for you. Your imaging studies and report will be kept on file at [facility] as part of your permanent medical record and are available for your continuing care. Thank you for allowing us to help in meeting your health care needs. Sincerely, Dr. Guo Interpreting Radiologist [facility] (Normal over 40) documented in this encounter [facility] 11-26-2022 History of Presen t illness Narrative This note was created using Cahootifyriter. Subjective Audrey Redd is a 72 year old female. Patient presents with: F/U 6 months SUBJECTIVE: Audrey Redd is a 72 year old year old lady here today for 6 month follow up appointment for review of medical conditions. Back pain and hip pain. Posterior left hip pain (buttocks) Started 5 to 6 months ago. Getting worse. Woke up one AM and could not get out of bed. Saw Fern after 3 weeks of pain. Prednisone with minimal relief. Greater trochanteric bursitis was diagnosed by Dr. Whitt but she was not told abo referral for PT. Rarely needs Symbicort. Carvedilol increased since BP was running high at cardiology appointment. Discussed issues with INR and coumadin. Eats 1 meal a day and then picks a lot. Starting to get more Vitamin K foods as instructed. Depression Screening 01/08/2017 01/14/2018 04/01/2019 11/26/2022 PHQ-2 Score 3 0 0 0 PHQ-9 Score 6 - - - CHERELLE-2 Total Score 0 - - - Depression screening tool completed and reviewed. Based on score and interview, patient is not at risk for depression. Screening tool discussed with patient, and I recommended no further intervention at this time. PAST MEDICAL HISTORY Diagnosis Date Benign neoplasm of colon Chronic atrial fibrillation (HCC) 10/29/2013 [facility], 04/13/2020 Chronic diastolic heart failure (HCC) [facility], 04/13/2020 COPD, severe ([facility]) Follows with Pulmonology (Dr. 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 Other specified disease of white blood cells Other specified disorder of female genital organs Oxygen dependent 2 liters at hs only Postmenopausal bleeding 04/2001 Postmenop. bleeding Pulmonary emphysema (HCC) 11/14/2015 Pulmonary hypertension (HCC) Thyrotoxicosis without mention of goiter or other cause, without mention of thyrotoxic crisis or storm Current Outpatient Medications Medication Sig carvedilol (COREG) 3.125 mg tablet Take 3.125 mg by mouth twice daily. warfarin (COUMADIN) 2.5 mg tablet Take 1 tablet by mouth once daily. Adjust dose as directed based on INRs (Currently takes 5 mg on Fridays) furosemide (LASIX) 20 mg tablet Take 1 tablet by mouth once daily. dupilumab (DUPIXENT PEN) 300 mg/2 mL pen Inject 300 mg subcutaneously every 2 weeks. albuterol (PROVENTIL) 2.5 mg /3 mL (0.083 %) nebulizer solution Use 3 mL via nebulizer every 4 hours as needed for wheezing/shortness of breath. Use over 5-15minutes. Dispense 200 vials with 5 refills blood sugar diagnostic (TRUE METRIX GLUCOSE TEST STRIP) test strip Test blood sugar(s) 2 times daily. Dx: Type 2 DM - Controlled E11.9 Insulin: No warfarin (COUMADIN) 5 mg tablet Take 1 tablet by mouth every Friday,Friday,Friday. Or as directed based on labs (Patient taking differently: Take 5 mg by mouth every Friday. Or as directed based on labs) Blood-Glucose Meter (TRUE METRIX GLUCOSE METER) 1 Kit as directed. Use as directed. Test blood sugar(s) 2 times daily. Dx: Type 2 DM - Controlled E11.9 Insulin: No Blood Glucose Control, Low (TRUE METRIX LEVEL 1) 1 Each as directed. Use as Directed with Jeet Metrix Meter and Strips. Dx: Type 2 DM - Controlled E11.9 Insulin: No Lancets lancets 33 gauge preferred. Test blood sugar(s) 2 times daily. Dx: Type 2 DM - Controlled E11.9 Insulin: No budesonide-formoterol (SYMBICORT) 80-4.5 mcg/actuation inhaler Inhale 2 Puffs as instructed twice daily. loratadine (CLARITIN) 10 mg tablet Take 1 tablet by mouth once daily as needed for Cold/Allergy Symptoms (also for dermatitis and itching). FOR ALLERGY SYMPTOMS acetaminophen (TYLENOL EXTRA STRENGTH) 500 mg tablet Take 2 tablets by mouth every 8 hours as needed for Pain. OXYGEN, HOME THERAPY, Inhale 2 L/min as instructed daily at bedtime. COMPOUNDED PRESCRIPTION Please perform nocturnal oximetry on room air. Fax results to [phone] Diagnosis: Hypoxia. predniSONE (DELTASONE) 10 mg tablet 20 mg Daily with breakfast for 5 days, 10 mg daily with breakfast for 5 days (Patient not taking: Reported on 07/04/2022) triamcinolone acetonide (KENALOG) 0.1 % cream APPLY TO AFFECTED AREA TWICE DAILY NEEDED, NOT FOR FACE OR SKIN FOLDS (Patient not taking: Reported on 06/20/2022) alcohol swabs (ALCOHOL PREP PADS) Apply 1 application to affected area twice daily. No current facility-administered medications for this visit. Review of Systems Objective BP 162/82 Pulse 62 Temp 36.9 C (98.5 F) Resp 18 Wt 79.2 kg (174 lb 9.6 oz) SpO2 96% BMI 31.93 kg/m Physical Exam Constitutional: Appearance: Normal appearance. HENT: Head: Normocephalic. Eyes: Conjunctiva/sclera: Conjunctivae normal. Cardiovascular: Rate and Rhythm: Normal rate and regular rhythm. Heart sounds: Normal heart sounds. Pulmonary: Effort: Pulmonary effort is normal. Breath sounds: Normal breath sounds. Musculoskeletal: Right upper leg: Tenderness (Greater trochanteric area) present. Left upper leg: Tenderness (greater trochanteric area) present. Skin: General: Skin is warm and dry. Neurological: General: No focal deficit present. Mental Status: She is alert and oriented to person, place, and time. Psychiatric: Mood and Affect: Mood normal. Behavior: Behavior normal. Thought Content: Thought content normal. Judgment: Judgment normal. Tender lower rib cage below breast. Component Latest Ref Rng & Units 09/23/2022 Protein, Total 6.3 - 8.0 g/dL 7.2 Albumin 3.9 - 4.9 g/dL 4.0 Calcium 8.5 - 10.2 mg/dL 9.5 Bilirubin, Total 0.2 - 1.3 mg/dL 0.4 Alkaline Phosphatase 34 - 123 U/L 99 AST 13 - 35 U/L 25 ALT 7 - 38 U/L 13 Glucose 74 - 99 mg/dL 85 BUN 7 - 21 mg/dL 9 Creatinine 0.58 - 0.96 mg/dL 0.60 Sodium 136 - 144 mmol/L 141 Potassium 3.7 - 5.1 mmol/L 4.0 Chloride 97 - 105 mmol/L 102 CO2 22 - 30 mmol/L 29 Anion Gap 9 - 18 mmol/L 10 eGFR >=60 mL/min/1.73m 94 WBC 3.70 - 11.00 k/uL 7.57 RBC 3.90 - 5.20 m/uL 4.63 Hemoglobin 11.5 - 15.5 g/dL 13.1 Hematocrit 36.0 - 46.0 % 41.8 MCV 80.0 - 100.0 fL 90.3 MCH 26.0 - 34.0 pg 28.3 MCHC 30.5 - 36.0 g/dL 31.3 RDW-CV 11.5 - 15.0 % 14.3 Platelet Count 150 - 400 k/uL 238 MPV 9.0 - 12.7 fL 11.3 Absolute nRBC <0.01 k/uL <0.01 Cholesterol, Total <200 mg/dL 144 Triglyceride <150 mg/dL 112 HDL Cholesterol >39 mg/dL 34 (L) Non HDL Cholesterol <130 mg/dL 110 Fasting Time hrs 16 VLDL Cholesterol <30 mg/dL 22 TC:HDL Ratio <5.10 4.24 LDL Cholesterol <100 mg/dL 88 LDL:HDL Ratio <2.54 2.59 (H) Creatinine, Ur Random (UCRR) 20.0 - 300.0 mg/dL 110.7 Albumin, Urine Random mg/L 13.1 Albumin/Creat Ratio <30 mg/g 12 Hemoglobin A1C 4.3 - 5.6 % 5.5 Estimated Average Glucose mg/dL 111 Vitamin D 25 Hydroxy 31.0 - 80.0 ng/mL 50.0 Component Latest Ref Rng & Units 12/27/2016 01/13/2018 04/01/2019 01/19/2020 10/23/2021 09/23/2022 Triglyceride <150 mg/dL 89 99 104 103 76 112 Cholesterol, Total <200 mg/dL 169 164 167 172 181 144 HDL Cholesterol >39 mg/dL 47 (L) 39 (L) 45 41 49 34 (L) VLDL Cholesterol <30 mg/dL 18 20 21 21 15 22 LDL Cholesterol <100 mg/dL 104 105 (H) 101 (H) 110 (H) 117 (H) 88 Fasting Time hrs 16 12 7 12 17 16 TC:HDL Ratio <5.10 3.60 4.21 3.71 4.20 3.69 4.24 LDL:HDL Ratio <2.54 2.21 2.69 (H) 2.24 2.68 (H) 2.39 2.59 (H) Non HDL Cholesterol <130 mg/dL 122 125 122 131 (H) 132 (H) 110 Assessment and Plan Encounter Diagnosis ICD-10-CM 1. Greater trochanteric pain syndrome of both lower extremities M25.551 CONSULT TO PHYSICAL THERAPY M25.552 2. Controlled type 2 diabetes mellitus without complication, without long-term current use of insulin (HCC) E11.9 3. Anticoagulated on Coumadin Z79.01 4. Essential hypertension I10 5. COPD, severe (HCC) J44.9 6. Chronic congestive heart failure, unspecified heart failure type (HCC) I50.9 7. Chronic atrial fibrillation (HCC) I48.20 Above issues addressed with patient. Patient involved in shared decision making for management of medical issues. History and medications reviewed. Epic updated as needed Refills and/or prescriptions taken care of and meds adjusted as indicated after reviewed history, exam and labs. Health Maintenance reviewed. Updated record and/or ordered tests as recorded. Encouraged on efforts at healthy diet and regular exercise and adequate sleep. I spent a total of 42 minutes on the date of the service which included [id number] patient care, completing clinical documentation, performing a medically appropriate examination, counseling and educating the patient/family/caregiver, and ordering medications, tests, or procedures. Bruce Bonilla MD documented in this encounter [facility] 11-25-2022 Note HNO ID: [id number] Author: Madiha Cardoza Service: ? Author Type: Nutritional Services Cook Type: Progress Notes Filed: 11/25/2022 11:56 AM Note Text: Radiology Service Progress Note PATIENT NAME: Audrey Redd DATE OF SERVICE: November 25, 2022 TIME: 11:55 AM PATIENT IDENTITY VERIFICATION COMPLETED USING TWO (2) IDENTIFIERS: Name and Date of confirmed by patient verbally. FALL SCREENING: Has the patient had 2 falls in the last year or 1 fall with injury or currently using an Ambulatory Assistive Device (Walker, Cane, Wheelchair, Crutches, etc.)? No PATIENT GENDER DATA: Female. status: : No status: NO. PATIENT RELEVANT IMPLANT DATA REVIEWED: Not Applicable RADIOLOGY DEPARTMENT: Mammography PERIPHERAL IV DATA: Not applicable SIGNED BY: Madiha Cardoza November 25, 2022 11:55 AM [facility] 11-14-2022 Note HNO ID: [id number] Author: Alva Fleming RN Service: ? Author Type: ? Type: Progress Notes Filed: 11/14/2022 4:32 PM Note Text: per field application engineer provider (dr rgay's verbal order) patient is to continue same PATIENT NOTIFIED OF INFORMATION [facility] 11-14-2022 Note HNO ID: [id number] Author: Alva Fleming RN Service: ? Author Type: ? Type: Progress Notes Filed: 11/14/2022 4:32 PM Note Text: patient had inr completed at [facility] patients inr is 3.1 (patients inr range is 2.0-3.0) patient is currently taking 5mg Fri,Fri,Fri and 2.5mg all other days patients last dose change was on 10/31/22 due to a low level of 1.9 (dose at that time was 5mg Mon,Fri and 2.5mg all other days) patient has had no changes in medication except for coumadin and no missed doses and no change in diet Advised patient to continue on the same dose(s) and that they would only be contacted regarding dosage and follow up instructions after review with provider, if a change is needed. Written instructions given and patient verbalized understanding. Presently scheduled in 1.5 weeks (11/26/22 - pt has appt with pcp also this day) for follow up INR. HELENA patient will increase green slightly as she decreased them when level was low [facility] 10-31-2022 Miscellaneous Notes Patient notified of Coumadin dosage change, read back, verbalized understanding. Anticoag Tracker updated. Josselyn Pickard LPN called pt with no answer. Recommend Coumadin 5 mg Friday and 2.5 mg all other days. Recheck INR in 2 weeks Last INR: 1.9 10/31/2022 Current dose of coumadin is: . 5mg Mon,Fri and 2.5mg all other days Last date of dose change: 10/07/22 . Previous INR (date and result): 10/07/22 was 1.9 Additional Clinical Information or narrative: INR goal is 2-3. Pt findings are negative documented in this encounter [facility] 10-07-2022 Note HNO ID: [id number] Author: Alva Fleming RN Service: ? Author Type: ? Type: Progress Notes Filed: 10/07/2022 4:13 PM Note Text: per pcp patient is to go to 5mg Mon,Fri and 2.5mg all other days PATIENT NOTIFIED OF INFORMATION [facility] 10-07-2022 History of Presen t illness Narrative per pcp patient is to go to 5mg Mon,Fri and 2.5mg all other days PATIENT NOTIFIED OF INFORMATION patient had inr completed at [facility] patients inr is 1.9 (patients inr range is 2.0-3.0) patient is currently taking 5mg Fri and 2.5mg all other days patients last dose change unknown patient has had no changes in medication and no missed doses and no change in diet Advised patient that they would be contacted regarding medication dose and when to follow up after information is reviewed by provider. After provider review please contact the patient with information and schedule follow up appointment with coumadin clinic. FYI- patient has been scheduled for a 2 week follow up inron 10/22/22 documented in this encounter [facility] 10-07-2022 Note HNO ID: [id number] Author: Alva Fleming RN Service: ? Author Type: ? Type: Progress Notes Filed: 10/07/2022 4:13 PM Note Text: patient had inr completed at [facility] patients inr is 1.9 (patients inr range is 2.0-3.0) patient is currently taking 5mg Fri and 2.5mg all other days patients last dose change unknown patient has had no changes in medication and no missed doses and no change in diet Advised patient that they would be contacted regarding medication dose and when to follow up after information is reviewed by provider. After provider review please contact the patient with information and schedule follow up appointment with coumadin clinic. FYI- patient has been scheduled for a 2 week follow up inron 10/22/22 [facility] 09-23-2022 Note HNO ID: [id number] Author: Alva Fleming RN Service: ? Author Type: ? Type: Progress Notes Filed: 09/23/2022 2:12 PM Note Text: field application engineer provider dr garcia agrees with information [facility] 09-23-2022 History of Presen t illness Narrative field application engineer provider dr garcia agrees with information patient had inr completed at [facility] patients inr is 1.8 (patients inr range is 2.0-3.0) patient is currently taking 5mg Fri and 2.5mg all other days patients last dose change unknown patient has had no changes in medication and no missed doses and no change in diet FYI- patient was sick for 3 days last week Advised patient to continue on the same dose(s) and that they would only be contacted regarding dosage and follow up instructions after review with provider, if a change is needed. Written instructions given and patient verbalized understanding. Presently scheduled in 2 weeks (10/07/22) for follow up INR since patient was ill last week and level is just slightly low documented in this encounter [facility] 09-23-2022 Note HNO ID: [id number] Author: Alva Fleming RN Service: ? Author Type: ? Type: Progress Notes Filed: 09/23/2022 2:12 PM Note Text: patient had inr completed at [facility] patients inr is 1.8 (patients inr range is 2.0-3.0) patient is currently taking 5mg Fri and 2.5mg all other days patients last dose change unknown patient has had no changes in medication and no missed doses and no change in diet FYI- patient was sick for 3 days last week Advised patient to continue on the same dose(s) and that they would only be contacted regarding dosage and follow up instructions after review with provider, if a change is needed. Written instructions given and patient verbalized understanding. Presently scheduled in 2 weeks (10/07/22) for follow up INR since patient was ill last week and level is just slightly low [facility] 08-27-2022 Note HNO ID: [id number] Author: Alva Fleming RN Service: ? Author Type: ? Type: Progress Notes Filed: 08/27/2022 4:10 PM Note Text: pcp agrees [facility] 08-27-2022 History of Presen t illness Narrative pcp agrees patient had inr completed at [facility] patients inr is 2.0 (patients inr range is 2.0-3.0) patient is currently taking 5mg Fri and 2.5mg all other days patients last dose change unknowns as pt changed doses patient has had no changes in medication and no missed doses and no change in diet Advised patient to continue on the same dose(s) and that they would only be contacted regarding dosage and follow up instructions after review with provider, if a change is needed. Written instructions given and patient verbalized understanding. Presently scheduled in 4 weeks (09/24/22) for follow up INR. documented in this encounter [facility] 08-27-2022 Note HNO ID: [id number] Author: Alva Fleming RN Service: ? Author Type: ? Type: Progress Notes Filed: 08/27/2022 4:10 PM Note Text: patient had inr completed at [facility] patients inr is 2.0 (patients inr range is 2.0-3.0) patient is currently taking 5mg Fri and 2.5mg all other days patients last dose change unknowns as pt changed doses patient has had no changes in medication and no missed doses and no change in diet Advised patient to continue on the same dose(s) and that they would only be contacted regarding dosage and follow up instructions after review with provider, if a change is needed. Written instructions given and patient verbalized understanding. Presently scheduled in 4 weeks (09/24/22) for follow up INR. [facility] 07-30-2022 Note HNO ID: [id number] Author: Alva Fleming RN Service: ? Author Type: ? Type: Progress Notes Filed: 07/30/2022 4:12 PM Note Text: pcp agrees with information [facility] 07-30-2022 History of Presen t illness Narrative pcp agrees with information patient had inr completed at [facility] patients inr is 2.2 (patients inr range is 2.0-3.0) patient is currently taking 5mg Fri and 3mg all other days patients last dose change unknown patient has had no changes in medication and no missed doses and no change in diet Advised patient to continue on the same dose(s) and that they would only be contacted regarding dosage and follow up instructions after review with provider, if a change is needed. Written instructions given and patient verbalized understanding. Presently scheduled in 4 weeks (08/27/22) for follow up INR. documented in this encounter [facility] 07-30-2022 Note HNO ID: [id number] Author: Alva Fleming RN Service: ? Author Type: ? Type: Progress Notes Filed: 07/30/2022 4:12 PM Note Text: patient had inr completed at [facility] patients inr is 2.2 (patients inr range is 2.0-3.0) patient is currently taking 5mg Fri and 3mg all other days patients last dose change unknown patient has had no changes in medication and no missed doses and no change in diet Advised patient to continue on the same dose(s) and that they would only be contacted regarding dosage and follow up instructions after review with provider, if a change is needed. Written instructions given and patient verbalized understanding. Presently scheduled in 4 weeks (08/27/22) for follow up INR. [facility] 07-04-2022 Note HNO ID: [id number] Author: Keila Whitt MD Service: ? Author Type: Physician Type: Progress Notes Filed: 08/01/2022 9:52 AM Note Text: Keila Whitt MD Department of Orthopaedics Orthopaedics [address] [facility] [address] Dept: [phone] Dept July 04, 2022 CHIEF COMPLAINT: Established Patient and Pain of the Left Hip HPI Patient here today at the request of Fern Mercado for left hip pain x 1 month. Patient reports she finished prednisone yesterday and has been doing some exercises. Her pain pain has decreased. X-ray at [facility] on 06/20/2022. ASSESSMENT: M70.62 Trochanteric bursitis of left hip (primary encounter diagnosis) M25.552 Acute hip pain, left PLAN: Appears trochanteric bursitis to me. Medication, icing program, stretching and strengthening may be formal physical therapy. FOLLOW UP INSTRUCTIONS: Nonsurgical provider for possible trochanteric injection, if necessary. Ms. Audrey Redd was advised as to contrast therapies and/or to take analgesics/anti-inflammatories as needed and all contraindications were reviewed. OBJECTIVE: Ms. Audrey Redd is a pleasant 72 year old in no apparent distress. Gen:There were no vitals taken for this visit. nl development, non obese, no deformities ENT: Normocephalic, normal hearing, moist mucosa CV: Pulses:DP/PT= 2+ and symmetric, capillary refill < 2 secs, no peripheral edema/varicosities Skin: no rash, bruising or lesions. Good turgor. Psych: cooperative and appropriate, alert and oriented x 3, good mood and affect. Musculoskeletal: Patient with some mild antalgia. Tenderness to palpation over the greater trochanter and short external rotators with some mild pain on resisted abduction. Flexion and internal rotation are not painful. Neurovascular exams intact in lower extremity IMAGING: IMPRESSION: Left hip within normal limits. Nursing Tech: PSCB Transcribe Date/Time: Jun 21 2022 8:07A Dictated by : MICHELLE SAMUEL MD This examination was interpreted and the report reviewed and electronically signed by: MICHELLE SAMUEL MD on Jun 21 2022 8:09AM EST Results-Findings * * *Final Report* * * DATE OF EXAM: Jun 20 2022 11:07AM [id number] - XR HIP 3V PELV+ AP/LAT LT / PROCEDURE REASON: Acute hip pain, left * * * * Physician Interpretation * * * * HISTORY: Posterior to lateral left hip pain x 1 month without injury. Acute hip pain, left . TECHNIQUE: XR HIP 3V PELV+ AP/LAT LT Laterality: LEFT Number of different views (projections): 3 COMPARISON: None RESULT: Left hip maintained with normal shape of the femoral head. No fracture identified. Bony pelvis intact. Right hip is maintained. Degenerative changes in the lower lumbar spine. Supporting Subjective Information Below: Past Medical History: PAST MEDICAL HISTORY Diagnosis Date Benign neoplasm of colon Chronic atrial fibrillation (HCC) 10/29/2013 [facility], 04/13/2020 Chronic diastolic heart failure (HCC) [facility], 04/13/2020 COPD, severe (HCC) Follows with Pulmonology (Dr. 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 Other specified disease of white blood cells Other specified disorder of female genital organs Oxygen dependent 2 liters at hs only Postmenopausal bleeding 04/2001 Postmenop. bleeding Pulmonary emphysema (HCC) 11/14/2015 Pulmonary hypertension (HCC) Thyrotoxicosis without mention of goiter or other cause, without mention of thyrotoxic crisis or storm Past Surgical History: PAST SURGICAL HISTORY Procedure Laterality Date COLONOSCOPY FLX DX W/COLLJ SPEC WHEN PFRMD 11/14/2009 Colonoscopy COLONOSCOPY FLX DX W/COLLJ SPEC WHEN PFRMD 03/05/2013 Colonoscopy COLONOSCOPY FLX DX W/COLLJ SPEC WHEN PFRMD 02/24/2018 Colonoscopy - 10 yr interval HYSTEROSCOPY DX 08/07/2017 hysteroscopy DANDC LIG/TRNSXJ FLP TUBE ABDL/VAG APPR UNI/BI Tubal ligation NEUROPLASTY AND/TRANSPOS MEDIAN NRV CARPAL TUNNE Right Carpal tunnel decomp Family History: FAMILY HISTORY Problem Relation Age of Onset Asthma Mother Heart Father [place] COPD Sister Smoker. Lung Cancer Sister Breast Cancer Sister Age 47 other (LIVER DISEASE) Brother other (THROMBOCYTIC EVENT) Brother AMPUTATION Social History: Social History Tobacco Use Smoking status: Former Packs/day: 1.50 Years: 20.00 Pack years: 30.00 Types: Cigarettes Quit date: 06/02/1989 Years since quitt (more content not included)... [facility] 07-04-2022 History of Presen t illness Narrative Keila Whitt MD Department of Orthopaedics Orthopaedics [address] [place] [address] Dept: [phone] Dept July 04, 2022 CHIEF COMPLAINT: Established Patient and Pain of the Left Hip HPI Patient here today at the request of Fern Mercado for left hip pain x 1 month. Patient reports she finished prednisone yesterday and has been doing some exercises. Her pain pain has decreased. X-ray at [facility] on 06/20/2022. ASSESSMENT: M70.62 Trochanteric bursitis of left hip (primary encounter diagnosis) M25.552 Acute hip pain, left PLAN: Appears trochanteric bursitis to me. Medication, icing program, stretching and strengthening may be formal physical therapy. FOLLOW UP INSTRUCTIONS: Nonsurgical provider for possible trochanteric injection, if necessary. Ms. Audrey Redd was advised as to contrast therapies and/or to take analgesics/anti-inflammatories as needed and all contraindications were reviewed. OBJECTIVE: Ms. Audrey Redd is a pleasant 72 year old in no apparent distress. Gen:There were no vitals taken for this visit. nl development, non obese, no deformities ENT: Normocephalic, normal hearing, moist mucosa CV: Pulses:DP/PT= 2+ and symmetric, capillary refill < 2 secs, no peripheral edema/varicosities Skin: no rash, bruising or lesions. Good turgor. Psych: cooperative and appropriate, alert and oriented x 3, good mood and affect. Musculoskeletal: Patient with some mild antalgia. Tenderness to palpation over the greater trochanter and short external rotators with some mild pain on resisted abduction. Flexion and internal rotation are not painful. Neurovascular exams intact in lower extremity IMAGING: IMPRESSION: Left hip within normal limits. Nursing Tech: MIKE Transcribe Date/Time: Jun 21 2022 8:07A Dictated by : MICHELLE SAMUEL MD This examination was interpreted and the report reviewed and electronically signed by: MICHELLE SAMUEL MD on Jun 21 2022 8:09AM EST Results-Findings * * *Final Report* * * DATE OF EXAM: Jun 20 2022 11:07AM [id number] - XR HIP 3V PELV+ AP/LAT LT / PROCEDURE REASON: Acute hip pain, left * * * * Physician Interpretation * * * * HISTORY: Posterior to lateral left hip pain x 1 month without injury. Acute hip pain, left . TECHNIQUE: XR HIP 3V PELV+ AP/LAT LT Laterality: LEFT Number of different views (projections): 3 COMPARISON: None RESULT: Left hip maintained with normal shape of the femoral head. No fracture identified. Bony pelvis intact. Right hip is maintained. Degenerative changes in the lower lumbar spine. Supporting Subjective Information Below: Past Medical History: PAST MEDICAL HISTORY Diagnosis Date Benign neoplasm of colon Chronic atrial fibrillation (HCC) 10/29/2013 [facility], 04/13/2020 Chronic diastolic heart failure (HCC) [facility], 04/13/2020 COPD, severe (HCC) Follows with Pulmonology (Dr. 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 Other specified disease of white blood cells Other specified disorder of female genital organs Oxygen dependent 2 liters at hs only Postmenopausal bleeding 04/2001 Postmenop. bleeding Pulmonary emphysema (HCC) 11/14/2015 Pulmonary hypertension (HCC) Thyrotoxicosis without mention of goiter or other cause, without mention of thyrotoxic crisis or storm Past Surgical History: PAST SURGICAL HISTORY Procedure Laterality Date COLONOSCOPY FLX DX W/COLLJ SPEC WHEN PFRMD 11/14/2009 Colonoscopy COLONOSCOPY FLX DX W/COLLJ SPEC WHEN PFRMD 03/05/2013 Colonoscopy COLONOSCOPY FLX DX W/COLLJ SPEC WHEN PFRMD 02/24/2018 Colonoscopy - 10 yr interval HYSTEROSCOPY DX 08/07/2017 hysteroscopy D&C LIG/TRNSXJ FLP TUBE ABDL/VAG APPR UNI/BI Tubal ligation NEUROPLASTY &/TRANSPOS MEDIAN NRV CARPAL TUNNE Right Carpal tunnel decomp Family History: FAMILY HISTORY Problem Relation Age of Onset Asthma Mother Heart Father [place] COPD Sister Smoker. Lung Cancer Sister Breast Cancer Sister Age 47 other (LIVER DISEASE) Brother other (THROMBOCYTIC EVENT) Brother AMPUTATION Social History: Social History Tobacco Use Smoking status: Former Packs/day: 1.50 Years: 20.00 Pack years: 30.00 Types: Cigarettes Quit date: 06/02/1989 Years since quittin.1 Smokeless tobacco: Never Tobacco comments: No smoking childhood home. No other smokers in adult homes. Vaping Use Vaping Use: Never used Substance Use Topics Alcohol use: No Drug use: No Medications: Current Outpatient Medications Medication Sig carvedilol (COREG) 3.125 mg tablet Take 3.125 mg by mouth twice daily. fluticasone (FLONASE) 50 mcg/actuation nasal spray Use 2 Sprays in each nostril once daily. Rinse mouth after use. For nasal drainage and allergy symptoms warfarin (COUMADIN) 2.5 mg tablet Take 1 tablet by mouth once daily. Adjust dose as directed based on INRs (Currently takes 5 mg on Fridays) furosemide (LASIX) 20 mg tablet Take 1 tablet by mouth once daily. dupilumab (DUPIXENT PEN) 300 mg/2 mL pen Inject 300 mg subcutaneously every 2 weeks. albuterol (PROVENTIL) 2.5 mg /3 mL (0.083 %) nebulizer solution Use 3 mL via nebulizer every 4 hours as needed for wheezing/shortness of breath. Use over 5-15minutes. Dispense 200 vials with 5 refills warfarin (COUMADIN) 5 mg tablet Take 1 tablet by mouth every Friday,Friday,Friday. Or as directed based on labs (Patient taking differently: Take 5 mg by mouth every Friday. Or as directed based on labs) budesonide-formoterol (SYMBICORT) 80-4.5 mcg/actuation inhaler Inhale 2 Puffs as instructed twice daily. loratadine (CLARITIN) 10 mg tablet Take 1 tablet by mouth once daily as needed for Cold/Allergy Symptoms (also for dermatitis and itching). FOR ALLERGY SYMPTOMS acetaminophen (TYLENOL EXTRA STRENGTH) 500 mg tablet Take 2 tablets by mouth every 8 hours as needed for Pain. OXYGEN, HOME THERAPY, Inhale 2 L/min as instructed daily at bedtime. predniSONE (DELTASONE) 10 mg tablet 20 mg Daily with breakfast for 5 days, 10 mg daily with breakfast for 5 days (Patient not taking: Reported on 07/04/2022) triamcinolone acetonide (KENALOG) 0.1 % cream APPLY TO AFFECTED AREA TWICE DAILY NEEDED, NOT FOR FACE OR SKIN FOLDS (Patient not taking: Reported on 06/20/2022) alcohol swabs (ALCOHOL PREP PADS) Apply 1 application to affected area twice daily. blood sugar diagnostic (TRUE METRIX GLUCOSE TEST STRIP) test strip Test blood sugar(s) 2 times daily. Dx: Type 2 DM - Controlled E11.9 Insulin: No Blood-Glucose Meter (TRUE METRIX GLUCOSE METER) 1 Kit as directed. Use as directed. Test blood sugar(s) 2 times daily. Dx: Type 2 DM - Controlled E11.9 Insulin: No Blood Glucose Control, Low (TRUE METRIX LEVEL 1) 1 Each as directed. Use as Directed with Jeet Metrix Meter and Strips. Dx: Type 2 DM - Controlled E11.9 Insulin: No Lancets lancets 33 gauge preferred. Test blood sugar(s) 2 times daily. Dx: Type 2 DM - Controlled E11.9 Insulin: No COMPOUNDED PRESCRIPTION Please perform nocturnal oximetry on room air. Fax results to [phone] Diagnosis: Hypoxia. No current facility-administered medications for this visit. Allergies: Albuterol, Levaquin [Levofloxacin], Bactrim [Sulfamethoxazole-Trimethoprim], Doxycycline, Environmental Allergies [Other], Etodolac, Mucinex [Guaifenesin], Nabumetone, and Penicillins ROS: General (negative for fatigue, malaise, weight loss/gain) HEENT (negative for headache, earache, recent vision changes, sinus pain, sore throat) Respiratory (no recent shortness of breath, hemoptysis) CV (negative for chest tightness, palpitations) Musculoskeletal (see HPI) Psych (no depression, anxiety) REFERRING PHYSICIAN: Consultation requested by Fern Mercado for an opinion regarding hip pain. My final recommendations will be communicated back to the requesting physician by way of shared Medical record or letter to requesting physician via US mail. Fern Mercado [address] [facility] [id number] Bruce Bonilla MD [address] [facility] [id number] Keila Whitt MD documented in this encounter [facility] 07-02-2022 Note HNO ID: [id number] Author: Alva Fleming RN Service: ? Author Type: ? Type: Progress Notes Filed: 07/02/2022 4:54 PM Note Text: pcp agrees with information [facility] 07-02-2022 History of Presen t illness Narrative pcp agrees with information patient had inr completed at [facility] patients inr is 2.9 (patients inr range is 2.0-3.0) patient is currently taking 5mg Fri and 3mg all other days patients last dose change unknown patient has had no changes in medication and no missed doses and no change in diet Advised patient to continue on the same dose(s) and that they would only be contacted regarding dosage and follow up instructions after review with provider, if a change is needed. Written instructions given and patient verbalized understanding. Presently scheduled in 4 weeks (07/30/22) for follow up INR. documented in this encounter [facility] 07-02-2022 Note HNO ID: [id number] Author: Alva Fleming RN Service: ? Author Type: ? Type: Progress Notes Filed: 07/02/2022 4:54 PM Note Text: patient had inr completed at [facility] patients inr is 2.9 (patients inr range is 2.0-3.0) patient is currently taking 5mg Fri and 3mg all other days patients last dose change unknown patient has had no changes in medication and no missed doses and no change in diet Advised patient to continue on the same dose(s) and that they would only be contacted regarding dosage and follow up instructions after review with provider, if a change is needed. Written instructions given and patient verbalized understanding. Presently scheduled in 4 weeks (07/30/22) for follow up INR. [facility] 06-20-2022 Note HNO ID: [id number] Author: RT Hue(R) Service: Radiology Author Type: Technologist Type: Progress Notes Filed: 06/20/2022 11:07 AM Note Text: Radiology Service Progress Note PATIENT NAME: Audrey Redd DATE OF SERVICE: June 20, 2022 TIME: 10:52 AM PATIENT IDENTITY VERIFICATION COMPLETED USING TWO (2) IDENTIFIERS: Name and Date of confirmed by patient verbally. FALL SCREENING: Has the patient had 2 falls in the last year or 1 fall with injury or currently using an Ambulatory Assistive Device (Walker, Cane, Wheelchair, Crutches, etc.)? No PATIENT GENDER DATA: Female. status: : No status: NO. PATIENT RELEVANT IMPLANT DATA REVIEWED: Yes RADIOLOGY DEPARTMENT: General X-ray: Exam(s) Completed: Pelvis X-Ray: Pelvis with Hip Left PERIPHERAL IV DATA: Not applicable SIGNED BY: RT Hue(R) June 20, 2022 10:52 AM [facility] 06-20-2022 Note HNO ID: [id number] Author: Fern Mercado APRN.[employer] Service: ? Author Type: Nurse Specialist Type: Progress Notes Filed: 06/21/2022 7:20 AM Note Text: Subjective HPI Audrey Redd is a 72 year old female. 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 Or Other Cause, Without Mention of Thyrotoxic Crisis Or Storm Vitamin D Deficiency Postmenopausal Bleeding Chronic Atrial Fibrillation (Hcc) Chest Pain of Uncertain Etiology Spasm of Muscle Cervicalgia Abnormal Nuclear Stress Test Moderate Tricuspid Regurgitation Chronic Anticoagulation Anxiety Pulmonary Emphysema (Hcc) Copd, Severe (Hcc) History of Colonic Polyps Diverticulosis of Large Intestine Without Hemorrhage Radicular Pain of Left Lower Extremity Trochanteric Bursitis of Left Hip Chronic Diastolic Heart Failure (Hcc) Other Secondary Pulmonary Hypertension (Hcc) Obesity, Class I, Bmi 30-34.9 Followed by [facility] cardiology. HPI excerpted from previous visit: DM: Follows a diabetic diet. No medication. Patient's last HgA1C was Hemoglobin A1C (%) Date Value 10/23/2021 6.1 03/19/2021 6.0 11/24/2020 6.4 Due for eye exam HTN: Without report headache, chest pain, palpitations, dyspnea, peripheral edema, orthopnea, fatigue and PND. Last 3 Encounter BP Readings: Date: BP: 11/22/2021 110/72 07/31/2021 134/72 05/04/2021 130/74 Continues on OAC warfarin for atrial fibrillation.No bleeding difficulties reported. Cardiology: [facility], Dr Almazan, has recently seen him Dr. Stokes, hand woven carpet and rug mender; continues to follow Appliance Installer, Dr Solorzano, follows with him for asthma, COPD, no recent exacerbations or ER visits noted. Hypothyroidism. She is doing well on her current dose of Synthroid. TSH (uU/mL) Date Value 11/24/2020 1.220 07/21/2020 0.984 ) Hyperlipidemia. Ms. Redd reports doing well . Tries to eat a healthy diet. No prior statin use, prefers to avoid for now. Concerned about possible AEs with use, spoke with her calderon about this. Her most recent lipid panels are: Cholesterol, Total (mg/dL) Date Value 10/23/2021 181 01/19/2020 172 04/01/2019 167 HDL Cholesterol (mg/dL) Date Value 10/23/2021 49 01/19/2020 41 04/01/2019 45 LDL Cholesterol (mg/dL) Date Value 10/23/2021 117 01/19/2020 110 04/01/2019 101 Triglyceride (mg/dL) Date Value 10/23/2021 76 01/19/2020 103 04/01/2019 104 The 10-year ASCVD risk score (Donal COOPER, et al., 2019) is: 36.7% Values used to calculate the score: Age: 72 years Sex: Female Is Non- : No Diabetic: Yes Tobacco smoker: No Systolic Blood Pressure: 136 mmHg Is BP treated: Yes HDL Cholesterol: 49 mg/dL Total Cholesterol: 181 mg/dL Presents today regarding hip and back discomfort and sinus infection symptoms. Presents today reporting left lateral hip pain present for 2 weeks. States no change in activities, no fall or injury that started the discomfort. Pain is primarily achy and dull, can be sharp at times. Worse with walking. Using heating pad and Tylenol has helped. Walking with a cane at home. Notes lots of stiffness in the morning. She feels chronic back pain is worse since her hip started hurting. Separately reports pressure at the bridge of her nose present for 1 month no fever, clear nasal drainage, history of allergies taking loratadine. Review of Systems Constitutional: Negative. HENT: Positive for rhinorrhea. Musculoskeletal: Positive for arthralgias and back pain. Objective BP 136/68 Pulse 68 Temp 36.8 ?C (98.3 ?F) Resp 16 Wt 79.4 kg (175 lb) SpO2 96% BMI 32.01 kg/m? Physical Exam Vitals and nursing note reviewed. Constitutional: General: She is not in acute distress. Appearance: Normal appearance. She is well-developed. She is not diaphoretic. HENT: Head: Normocephalic and atraumatic. Eyes: Conjunctiva/sclera: Conjunctivae normal. Cardiovascular: Rate and Rhythm: Normal rate. Pulmonary: Effort: Pulmonary effort is normal. Breath sounds: Normal breath sounds. Musculoskeletal: Left hip: Tenderness and bony tenderness present. Decreased range of motion. Comments: increased pain with walking, ataxic gait, TTP L trochanter, increased pain with L hip abduction, adduction Skin: General: Skin is warm and dry. Neurological: Mental Status: She is alert. Sensory: No sensory deficit. ALLERGIES Allergen Reactions Albuterol Other: See Comments MDI: High heart rate, high BP, d (more content not included)... [facility] 06-20-2022 History of Presen t illness Narrative Subjective HPI Audrey Redd is a 72 year old female. 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 Or Other Cause, Without Mention of Thyrotoxic Crisis Or Storm Vitamin D Deficiency Postmenopausal Bleeding Chronic Atrial Fibrillation (Hcc) Chest Pain of Uncertain Etiology Spasm of Muscle Cervicalgia Abnormal Nuclear Stress Test Moderate Tricuspid Regurgitation Chronic Anticoagulation Anxiety Pulmonary Emphysema (Hcc) Copd, Severe (Hcc) History of Colonic Polyps Diverticulosis of Large Intestine Without Hemorrhage Radicular Pain of Left Lower Extremity Trochanteric Bursitis of Left Hip Chronic Diastolic Heart Failure (Hcc) Other Secondary Pulmonary Hypertension (Hcc) Obesity, Class I, Bmi 30-34.9 Followed by [facility] cardiology. HPI excerpted from previous visit: DM: Follows a diabetic diet. No medication. Patient's last HgA1C was Hemoglobin A1C (%) Date Value 10/23/2021 6.1 03/19/2021 6.0 11/24/2020 6.4 Due for eye exam HTN: Without report headache, chest pain, palpitations, dyspnea, peripheral edema, orthopnea, fatigue and PND. Last 3 Encounter BP Readings: Date: BP: 11/22/2021 110/72 07/31/2021 134/72 05/04/2021 130/74 Continues on OAC warfarin for atrial fibrillation.No bleeding difficulties reported. Cardiology: [facility], Dr Almazan, has recently seen him Dr. Stokes, hand woven carpet and rug mender; continues to follow Appliance Installer, Dr Solorzano, follows with him for asthma, COPD, no recent exacerbations or ER visits noted. Hypothyroidism. She is doing well on her current dose of Synthroid. TSH (uU/mL) Date Value 11/24/2020 1.220 07/21/2020 0.984 ) Hyperlipidemia. Ms. Redd reports doing well . Tries to eat a healthy diet. No prior statin use, prefers to avoid for now. Concerned about possible AEs with use, spoke with her calderon about this. Her most recent lipid panels are: Cholesterol, Total (mg/dL) Date Value 10/23/2021 181 01/19/2020 172 04/01/2019 167 HDL Cholesterol (mg/dL) Date Value 10/23/2021 49 01/19/2020 41 04/01/2019 45 LDL Cholesterol (mg/dL) Date Value 10/23/2021 117 01/19/2020 110 04/01/2019 101 Triglyceride (mg/dL) Date Value 10/23/2021 76 01/19/2020 103 04/01/2019 104 The 10-year ASCVD risk score (Donal COOPER, et al., 2019) is: 36.7% Values used to calculate the score: Age: 72 years Sex: Female Is Non- : No Diabetic: Yes Tobacco smoker: No Systolic Blood Pressure: 136 mmHg Is BP treated: Yes HDL Cholesterol: 49 mg/dL Total Cholesterol: 181 mg/dL Presents today regarding hip and back discomfort and sinus infection symptoms. Presents today reporting left lateral hip pain present for 2 weeks. States no change in activities, no fall or injury that started the discomfort. Pain is primarily achy and dull, can be sharp at times. Worse with walking. Using heating pad and Tylenol has helped. Walking with a cane at home. Notes lots of stiffness in the morning. She feels chronic back pain is worse since her hip started hurting. Separately reports pressure at the bridge of her nose present for 1 month no fever, clear nasal drainage, history of allergies taking loratadine. Review of Systems Constitutional: Negative. HENT: Positive for rhinorrhea. Musculoskeletal: Positive for arthralgias and back pain. Objective BP 136/68 Pulse 68 Temp 36.8 C (98.3 F) Resp 16 Wt 79.4 kg (175 lb) SpO2 96% BMI 32.01 kg/m Physical Exam Vitals and nursing note reviewed. Constitutional: General: She is not in acute distress. Appearance: Normal appearance. She is well-developed. She is not diaphoretic. HENT: Head: Normocephalic and atraumatic. Eyes: Conjunctiva/sclera: Conjunctivae normal. Cardiovascular: Rate and Rhythm: Normal rate. Pulmonary: Effort: Pulmonary effort is normal. Breath sounds: Normal breath sounds. Musculoskeletal: Left hip: Tenderness and bony tenderness present. Decreased range of motion. Comments: increased pain with walking, ataxic gait, TTP L trochanter, increased pain with L hip abduction, adduction Skin: General: Skin is warm and dry. Neurological: Mental Status: She is alert. Sensory: No sensory deficit. ALLERGIES Allergen Reactions Albuterol Other: See Comments MDI: High heart rate, high BP, dizzy. Nebulizer: tolerates well. Levaquin [Levofloxa* Angioedema face swelling, trouble breathing; did not go to ER. Itching and hives too Bactrim [Sulfametho* Hives, Itching Itching starting 15 to 20 minutes after took 1 pill; hives broke out an hour later; had tolerated in the past. Gone by next AM Doxycycline Lip and eyelid swelling Environmental Aller* Etodolac Shortness of Breath Mucinex [Guaifenesi* Rash Nabumetone Hives swelling lips,and ankles Penicillins Rash Childhood. Current Outpatient Medications Medication Sig warfarin (COUMADIN) 2.5 mg tablet Take 1 tablet by mouth once daily. Adjust dose as directed based on INRs (Currently takes 5 mg on Fridays) furosemide (LASIX) 20 mg tablet Take 1 tablet by mouth once daily. dupilumab (DUPIXENT PEN) 300 mg/2 mL pen Inject 300 mg subcutaneously every 2 weeks. albuterol (PROVENTIL) 2.5 mg /3 mL (0.083 %) nebulizer solution Use 3 mL via nebulizer every 4 hours as needed for wheezing/shortness of breath. Use over 5-15minutes. Dispense 200 vials with 5 refills alcohol swabs (ALCOHOL PREP PADS) Apply 1 application to affected area twice daily. blood sugar diagnostic (TRUE METRIX GLUCOSE TEST STRIP) test strip Test blood sugar(s) 2 times daily. Dx: Type 2 DM - Controlled E11.9 Insulin: No metoprolol tartrate, short acting, (LOPRESSOR) 25 mg tablet Take 1 tablet by mouth twice daily. Blood-Glucose Meter (TRUE METRIX GLUCOSE METER) 1 Kit as directed. Use as directed. Test blood sugar(s) 2 times daily. Dx: Type 2 DM - Controlled E11.9 Insulin: No Blood Glucose Control, Low (TRUE METRIX LEVEL 1) 1 Each as directed. Use as Directed with Jeet Metrix Meter and Strips. Dx: Type 2 DM - Controlled E11.9 Insulin: No Lancets lancets 33 gauge preferred. Test blood sugar(s) 2 times daily. Dx: Type 2 DM - Controlled E11.9 Insulin: No budesonide-formoterol (SYMBICORT) 80-4.5 mcg/actuation inhaler Inhale 2 Puffs as instructed twice daily. loratadine (CLARITIN) 10 mg tablet Take 1 tablet by mouth once daily as needed for Cold/Allergy Symptoms (also for dermatitis and itching). FOR ALLERGY SYMPTOMS acetaminophen (TYLENOL EXTRA STRENGTH) 500 mg tablet Take 2 tablets by mouth every 8 hours as needed for Pain. OXYGEN, HOME THERAPY, Inhale 2 L/min as instructed daily at bedtime. COMPOUNDED PRESCRIPTION Please perform nocturnal oximetry on room air. Fax results to [phone] Diagnosis: Hypoxia. predniSONE (DELTASONE) 10 mg tablet 20 mg Daily with breakfast for 5 days, 10 mg daily with breakfast for 5 days fluticasone (FLONASE) 50 mcg/actuation nasal spray Use 2 Sprays in each nostril once daily. Rinse mouth after use. For nasal drainage and allergy symptoms triamcinolone acetonide (KENALOG) 0.1 % cream APPLY TO AFFECTED AREA TWICE DAILY NEEDED, NOT FOR FACE OR SKIN FOLDS (Patient not taking: Reported on 06/20/2022) warfarin (COUMADIN) 5 mg tablet Take 1 tablet by mouth every Friday,Friday,Friday. Or as directed based on labs (Patient taking differently: Take 5 mg by mouth every Friday. Or as directed based on labs) No current facility-administered medications for this visit. 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 Nix) Degeneration of intervertebral disc, site unspecified Back DM w/o Complication Type II 06/21/2009 Endometriosis, site unspecified Esophageal reflux Essential hypertension [facility], 04/13/2020 Idiopathic urticaria Improved with cutting back significantly on Nickel in diet Lichen planus Osteoarthrosis, unspecified whether generalized or localized, other specified sites NECK, knees and back Other bursitis disorders TROCHANTERIC Other secondary pulmonary hypertension (HCC) libby Almazan MD. Other specified disease of white blood cells Other specified disorder of female genital organs Oxygen dependent 2 liters at hs only Postmenopausal bleeding 04/2001 Postmenop. bleeding Pulmonary emphysema (HCC) 11/14/2015 Pulmonary hypertension (HCC) Thyrotoxicosis without mention of goiter or other cause, without mention of thyrotoxic crisis or storm reports that she quit smoking about 33 years ago. Her smoking use included cigarettes. She has a 30.00 pack-year smoking history. She has never used smokeless tobacco. She reports that she does not drink alcohol and does not use drugs. Component Latest Ref Rng & Units 03/19/2021 10/23/2021 10/24/2021 12/04/2021 Protein, Total 6.3 - 8.0 g/dL 7.2 7.2 Albumin 3.9 - 4.9 g/dL 3.7 (L) 3.9 Calcium 8.5 - 10.2 mg/dL 9.2 9.7 Bilirubin, Total 0.2 - 1.3 mg/dL 0.4 0.5 Alkaline Phosphatase 34 - 123 U/L 108 95 AST 13 - 35 U/L 14 15 Glucose 74 - 99 mg/dL 110 (H) 96 BUN 7 - 21 mg/dL 10 11 Creatinine 0.58 - 0.96 mg/dL 0.53 (L) 0.54 (L) Sodium 136 - 144 mmol/L 141 141 Potassium 3.7 - 5.1 mmol/L 3.8 3.9 Chloride 97 - 105 mmol/L 105 102 CO2 22 - 30 mmol/L 29 30 Anion Gap 9 - 18 mmol/L 7 (L) 9 ALT 7 - 38 U/L 12 16 eGFR- >60 eGFR-All Other Races . >60 eGFR >=60 mL/min/1.73m 97 WBC 3.70 - 11.00 k/uL 10.22 RBC 3.90 - 5.20 m/uL 4.46 Hemoglobin 11.5 - 15.5 g/dL 12.2 Hematocrit 36.0 - 46.0 % 41.1 MCV 80.0 - 100.0 fL 92.2 MCH 26.0 - 34.0 pG 27.4 MCHC 30.5 - 36.0 g/dL 29.7 (L) RDW-CV 11.5 - 15.0 % 14.9 Platelet Count 150 - 400 k/uL 297 MPV 9.0 - 12.7 fL 11.4 Absolute nRBC <0.01 k/uL <0.01 Cholesterol, Total <200 mg/dL 181 Triglyceride <150 mg/dL 76 HDL Cholesterol >39 mg/dL 49 Non HDL Cholesterol <130 mg/dL 132 (H) Fasting Time hrs 17 VLDL Cholesterol <30 mg/dL 15 TC:HDL Ratio <5.10 3.69 LDL Cholesterol <100 mg/dL 117 (H) LDL:HDL Ratio <2.54 2.39 Creatinine, Ur Random (UCRR) 20.0 - 300.0 mg/dL 80.1 Albumin, Urine Random mg/L <12.0 Albumin/Creat Ratio <30 mg/g <15 Hemoglobin A1C 4.3 - 5.6 % 6.0 (H) 6.1 (H) Estimated Average Glucose mg/dL 126 128 INR (POCT) 0.8 - 1.2 2.8 (H) Internal Quality Check Acceptable Vitamin D 25 Hydroxy 31.0 - 80.0 ng/mL 59.9 50.0 ASSESSMENT/PLAN: 1. Acute hip pain, left - ICD9: 719.45, ICD10: M25.552 (primary diagnosis) Chronic oral anticoagulation, prefers to avoid NSAIDs, reports prior intolerance. Exam and report most consistent with arthritis versus bursitis. Recommend x-ray of hip and orthopedic visit. Prednisone x 10 days, ok to continue with Tylenol and heating pad. XR tody Orthopedic appt at her earliest convenience Continue to use cane - XR HIP GENERAL 3V PELV/AP/LAT LEFT - CONSULT TO ORTHOPAEDICS - PREDNISONE 10 MG TABLET 2. Nasal and sinus discharge - ICD9: 478.19, ICD10: J34.89 3. Allergic rhinitis, unspecified seasonality, unspecified trigger - ICD9: 477.9, ICD10: J30.9 Symptoms most consistent with allergic rhinitis, continue with loratadine and add fluticasone nasal spray. - FLUTICASONE PROPIONATE 50 MCG/ACTUATION NASAL SPRAY,SUSPENSION Check INR in 1 week Fern Mercado APRN.CNS Medical Decision Making: Problems: Low: 2+ self-limited or minor problems Data: Unique test(s) ordered: 1 Risk: Moderate: Drug management Medical Decision Making Level: 3 - Low documented in this encounter [facility] 06-04-2022 Note HNO ID: [id number] Author: Alva Fleming RN Service: ? Author Type: ? Type: Progress Notes Filed: 06/04/2022 4:35 PM Note Text: pcp agrees with information [facility] 06-04-2022 History of Presen t illness Narrative pcp agrees with information patient had inr completed at [facility] patients inr is 2.9 (patients inr range is 2.0-3.0) patient is currently taking 5mg Fri and 3mg all other days patients last dose change unknown patient has had no changes in medication and no missed doses and no change in diet Advised patient to continue on the same dose(s) and that they would only be contacted regarding dosage and follow up instructions after review with provider, if a change is needed. Written instructions given and patient verbalized understanding. Presently scheduled in 4 weeks (07/02/22) for follow up INR. documented in this encounter [facility] 06-04-2022 Note HNO ID: [id number] Author: Alva Fleming RN Service: ? Author Type: ? Type: Progress Notes Filed: 06/04/2022 4:35 PM Note Text: patient had inr completed at [facility] patients inr is 2.9 (patients inr range is 2.0-3.0) patient is currently taking 5mg Fri and 3mg all other days patients last dose change unknown patient has had no changes in medication and no missed doses and no change in diet Advised patient to continue on the same dose(s) and that they would only be contacted regarding dosage and follow up instructions after review with provider, if a change is needed. Written instructions given and patient verbalized understanding. Presently scheduled in 4 weeks (07/02/22) for follow up INR. [facility] 05-03-2022 Note HNO ID: [id number] Author: Alva Fleming RN Service: ? Author Type: ? Type: Progress Notes Filed: 05/03/2022 3:40 PM Note Text: pcp agrees with information [facility] 05-03-2022 Note HNO ID: [id number] Author: Alva Fleming RN Service: ? Author Type: ? Type: Progress Notes Filed: 05/03/2022 3:40 PM Note Text: patient had inr completed at [facility] patients inr is 2.8 (patients inr range is 2.0-3.0) patient is currently taking 5mg Fri and 3mg all other days patients last dose change is unknown patient has had no changes in medication and no missed doses and no change in diet Advised patient to continue on the same dose(s) and that they would only be contacted regarding dosage and follow up instructions after review with provider, if a change is needed. Written instructions given and patient verbalized understanding. Presently scheduled in 3 weeks (05/24/22 - since the cc is closed at the 4 week jodee) for follow up INR. [facility] 04-30-2022 Note HNO ID: [id number] Author: Nasima Linn RT(R) Service: Nuclear Medicine Author Type: Technologist Type: Progress Notes Filed: 04/30/2022 4:26 PM Note Text: Radiology Service Progress Note PATIENT NAME: Audrey Redd DATE OF SERVICE: April 30, 2022 TIME14:03 PM PATIENT IDENTITY VERIFICATION COMPLETED USING TWO (2) IDENTIFIERS: Name and Date of confirmed by patient verbally. FALL SCREENING: Has the patient had 2 falls in the last year or 1 fall with injury or currently using an Ambulatory Assistive Device (Walker, Cane, Wheelchair, Crutches, etc.)? No PATIENT GENDER DATA: Female. status: : No status: NO. PATIENT RELEVANT IMPLANT DATA REVIEWED: Not Applicable RADIOLOGY DEPARTMENT: General X-ray: Exam(s) Completed: Lower Extremity X-Ray(s): Ankle, Left and Foot, Left PERIPHERAL IV DATA: Not applicable SIGNED BY: RT Mariola(R) April 30, 2022 4:25 PM [facility] 04-30-2022 Note HNO ID: [id number] Author: Denise Acuna Service: ? Author Type: Physician Type: Progress Notes Filed: 04/30/2022 7:03 PM Note Text: Initial Office Visit Subjective: This 71 year old female presents to clinic for diabetic foot check. Patient has the following complaints: left foot pain and swelling. Patient presents to clinic for evaluation of left foot. She has pain and swelling in the left foot and ankle. This has been going on for about one week. Patient denies any injury. Patient has pain in the ankle prompting her to take tylenol. Tylenol does not appear to be helping. Patient has been trying to stay off the foot. Patient admits to being diabetic for 15+ years now . Patient -B/T/N in feet at this time. Patient -pain in legs when walking. No other pedal complaints at this time. No change in medications or medical history since last visit. PAIN EVALUATION 04/30/2022 1314 Pain Level: 7 Pain Location: Foot-Left Description: Sore Duration Amount of Time: 1 Duration Units: Weeks Frequency: Continuous Intervention/Comfort measure: Reposition;Relaxation;Medication soaking Hemoglobin A1C (%) Date Value 10/23/2021 6.1 03/19/2021 6.0 11/24/2020 6.4 07/21/2020 6.3 01/19/2020 6.2 04/01/2019 6.6 PCP: Bruce Bonilla MD PAST MEDICAL HISTORY Diagnosis Date Benign neoplasm of colon Chronic atrial fibrillation (HCC) 10/29/2013 [facility], 04/13/2020 Chronic diastolic heart failure (HCC) [facility], 04/13/2020 COPD, severe ([facility]) Follows with Pulmonology (Dr. Nix) Degeneration of intervertebral disc, site unspecified Back DM w/o Complication Type II 06/21/2009 Endometriosis, site unspecified Esophageal reflux Essential hypertension [facility], 04/13/2020 Idiopathic urticaria Improved with cutting back significantly on Nickel in diet Lichen planus Osteoarthrosis, unspecified whether generalized or localized, other specified sites NECK, knees and back Other bursitis disorders TROCHANTERIC Other secondary pulmonary hypertension (HCC) libby Almazan MD. Other specified disease of white blood cells Other specified disorder of female genital organs Oxygen dependent 2 liters at only Postmenopausal bleeding 04/2001 Postmenop. bleeding Pulmonary emphysema (HCC) 11/14/2015 Pulmonary hypertension (HCC) Thyrotoxicosis without mention of goiter or other cause, without mention of thyrotoxic crisis or storm Current Outpatient Medications Medication Sig warfarin (COUMADIN) 2.5 mg tablet Take 1 tablet by mouth once daily. Adjust dose as directed based on INRs (Currently takes 5 mg on Fridays) furosemide (LASIX) 20 mg tablet Take 1 tablet by mouth once daily. triamcinolone acetonide (KENALOG) 0.1 % cream APPLY TO AFFECTED AREA TWICE DAILY NEEDED, NOT FOR FACE OR SKIN FOLDS dupilumab (DUPIXENT PEN) 300 mg/2 mL pen Inject 300 mg subcutaneously every 2 weeks. albuterol (PROVENTIL) 2.5 mg /3 mL (0.083 %) nebulizer solution Use 3 mL via nebulizer every 4 hours as needed for wheezing/shortness of breath. Use over 5-15minutes. Dispense 200 vials with 5 refills alcohol swabs (ALCOHOL PREP PADS) Apply 1 application to affected area twice daily. blood sugar diagnostic (TRUE METRIX GLUCOSE TEST STRIP) test strip Test blood sugar(s) 2 times daily. Dx: Type 2 DM - Controlled E11.9 Insulin: No metoprolol tartrate, short acting, (LOPRESSOR) 25 mg tablet Take 1 tablet by mouth twice daily. warfarin (COUMADIN) 5 mg tablet Take 1 tablet by mouth every Friday,Friday,Friday. Or as directed based on labs (Patient taking differently: Take 5 mg by mouth every Friday. Or as directed based on labs) Blood-Glucose Meter (TRUE METRIX GLUCOSE METER) 1 Kit as directed. Use as directed. Test blood sugar(s) 2 times daily. Dx: Type 2 DM - Controlled E11.9 Insulin: No Blood Glucose Control, Low (TRUE METRIX LEVEL 1) 1 Each as directed. Use as Directed with Jeet Metrix Meter and Strips. Dx: Type 2 DM - Controlled E11.9 Insulin: No Lancets lancets 33 gauge preferred. Test blood sugar(s) 2 times daily. Dx: Type 2 DM - Controlled E11.9 Insulin: No budesonide-formoterol (SYMBICORT) 80-4.5 mcg/actuation inhaler Inhale 2 Puffs as instructed twice daily. loratadine (CLARITIN) 10 mg tablet Take 1 tablet by mouth once daily as needed for Cold/Allergy Symptoms (also for dermatitis and itching). FOR ALLERGY SYMPTOMS acetaminophen (TYLENOL EXTRA STRENGTH) 500 mg tablet Take 2 tablets by mouth every 8 hours as needed for Pain. OXYGEN, HOME THERAPY, Inhale 2 L/min as instructed daily at bedtime. COMPOUNDED PRESCRIPTION Please perform nocturnal oximetry on room air. Fax results to [phone] Diagnosis: Hypoxia. No current facility-administered medications for this visit. ALLERGIES Allergen Reactions Albuterol Other: See Comments MDI: High heart rate, high BP, dizzy. Nebulizer: tolerates well. Levaquin [Lev (more content not included)... [facility] 04-30-2022 Note HNO ID: [id number] Author: Hailey Dorantes LPN Service: ? Author Type: LICENSED NURSE Type: Progress Notes Filed: 04/30/2022 7:03 PM Note Text: AMB ROOMING INTAKE FLOWSHEET DATA Risk Screening Do you have concerns about personal safety or safety in the home?: No Pain Pain Level: 7 Pain Location: Foot-Left Description: Sore Duration Amount of Time: 1 Duration Units: Weeks Frequency: Continuous Intervention/Comfort measure: Reposition, Relaxation, Medication (soaking) Patient presents with: Left Foot - Established Patient, Pain Hailey Dorantes LPN [facility] 04-30-2022 History of Presen t illness Narrative Radiology Service Progress Note PATIENT NAME: Audrey Redd DATE OF SERVICE: April 30, 2022 TIME14:03 PM PATIENT IDENTITY VERIFICATION COMPLETED USING TWO (2) IDENTIFIERS: Name and Date of confirmed by patient verbally. FALL SCREENING: Has the patient had 2 falls in the last year or 1 fall with injury or currently using an Ambulatory Assistive Device (Walker, Cane, Wheelchair, Crutches, etc.)? No PATIENT GENDER DATA: Female. status: : No status: NO. PATIENT RELEVANT IMPLANT DATA REVIEWED: Not Applicable RADIOLOGY DEPARTMENT: General X-ray: Exam(s) Completed: Lower Extremity X-Ray(s): Ankle, Left and Foot, Left PERIPHERAL IV DATA: Not applicable SIGNED BY: RT Mariola(R) April 30, 2022 4:25 PM documented in this encounter [facility] 04-30-2022 Instructions Denise Acuna - 04/30/2022 1:35 PM EST Use boot and cane. If you develop and shortness of breath or calf pain, present to ed. Get xrays as ordered documented in this encounter [facility] 04-30-2022 History of Presen t illness Narrative Images from the original note were not included. Initial Office Visit Subjective: This 71 year old female presents to clinic for diabetic foot check. Patient has the following complaints: left foot pain and swelling. Patient presents to clinic for evaluation of left foot. She has pain and swelling in the left foot and ankle. This has been going on for about one week. Patient denies any injury. Patient has pain in the ankle prompting her to take tylenol. Tylenol does not appear to be helping. Patient has been trying to stay off the foot. Patient admits to being diabetic for 15+ years now . Patient -B/T/N in feet at this time. Patient -pain in legs when walking. No other pedal complaints at this time. No change in medications or medical history since last visit. PAIN EVALUATION 04/30/2022 1314 Pain Level: 7 Pain Location: Foot-Left Description: Sore Duration Amount of Time: 1 Duration Units: Weeks Frequency: Continuous Intervention/Comfort measure: Reposition;Relaxation;Medication soaking Hemoglobin A1C (%) Date Value 10/23/2021 6.1 03/19/2021 6.0 11/24/2020 6.4 07/21/2020 6.3 01/19/2020 6.2 04/01/2019 6.6 PCP: rBuce Bonilla MD PAST MEDICAL HISTORY Diagnosis Date Benign neoplasm of colon Chronic atrial fibrillation (HCC) 10/29/2013 [facility], 04/13/2020 Chronic diastolic heart failure (HCC) [facility], 04/13/2020 COPD, severe (HCC) Follows with Pulmonology (Dr. 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 Other specified disease of white blood cells Other specified disorder of female genital organs Oxygen dependent 2 liters at hs only Postmenopausal bleeding 04/2001 Postmenop. bleeding Pulmonary emphysema (HCC) 11/14/2015 Pulmonary hypertension (HCC) Thyrotoxicosis without mention of goiter or other cause, without mention of thyrotoxic crisis or storm Current Outpatient Medications Medication Sig warfarin (COUMADIN) 2.5 mg tablet Take 1 tablet by mouth once daily. Adjust dose as directed based on INRs (Currently takes 5 mg on Fridays) furosemide (LASIX) 20 mg tablet Take 1 tablet by mouth once daily. triamcinolone acetonide (KENALOG) 0.1 % cream APPLY TO AFFECTED AREA TWICE DAILY NEEDED, NOT FOR FACE OR SKIN FOLDS dupilumab (DUPIXENT PEN) 300 mg/2 mL pen Inject 300 mg subcutaneously every 2 weeks. albuterol (PROVENTIL) 2.5 mg /3 mL (0.083 %) nebulizer solution Use 3 mL via nebulizer every 4 hours as needed for wheezing/shortness of breath. Use over 5-15minutes. Dispense 200 vials with 5 refills alcohol swabs (ALCOHOL PREP PADS) Apply 1 application to affected area twice daily. blood sugar diagnostic (TRUE METRIX GLUCOSE TEST STRIP) test strip Test blood sugar(s) 2 times daily. Dx: Type 2 DM - Controlled E11.9 Insulin: No metoprolol tartrate, short acting, (LOPRESSOR) 25 mg tablet Take 1 tablet by mouth twice daily. warfarin (COUMADIN) 5 mg tablet Take 1 tablet by mouth every Friday,Friday,Friday. Or as directed based on labs (Patient taking differently: Take 5 mg by mouth every Friday. Or as directed based on labs) Blood-Glucose Meter (TRUE METRIX GLUCOSE METER) 1 Kit as directed. Use as directed. Test blood sugar(s) 2 times daily. Dx: Type 2 DM - Controlled E11.9 Insulin: No Blood Glucose Control, Low (TRUE METRIX LEVEL 1) 1 Each as directed. Use as Directed with Jeet Metrix Meter and Strips. Dx: Type 2 DM - Controlled E11.9 Insulin: No Lancets lancets 33 gauge preferred. Test blood sugar(s) 2 times daily. Dx: Type 2 DM - Controlled E11.9 Insulin: No budesonide-formoterol (SYMBICORT) 80-4.5 mcg/actuation inhaler Inhale 2 Puffs as instructed twice daily. loratadine (CLARITIN) 10 mg tablet Take 1 tablet by mouth once daily as needed for Cold/Allergy Symptoms (also for dermatitis and itching). FOR ALLERGY SYMPTOMS acetaminophen (TYLENOL EXTRA STRENGTH) 500 mg tablet Take 2 tablets by mouth every 8 hours as needed for Pain. OXYGEN, HOME THERAPY, Inhale 2 L/min as instructed daily at bedtime. COMPOUNDED PRESCRIPTION Please perform nocturnal oximetry on room air. Fax results to [phone] Diagnosis: Hypoxia. No current facility-administered medications for this visit. ALLERGIES Allergen Reactions Albuterol Other: See Comments MDI: High heart rate, high BP, dizzy. Nebulizer: tolerates well. Levaquin [Levofloxa* Angioedema face swelling, trouble breathing; did not go to ER. Itching and hives too Bactrim [Sulfametho* Hives, Itching Itching starting 15 to 20 minutes after took 1 pill; hives broke out an hour later; had tolerated in the past. Gone by next AM Doxycycline Lip and eyelid swelling Environmental Aller* Etodolac Shortness of Breath Mucinex [Guaifenesi* Rash Nabumetone Hives swelling lips,and ankles Penicillins Rash Childhood. PAST SURGICAL HISTORY Procedure Laterality Date COLONOSCOPY FLX DX W/COLLJ SPEC WHEN PFRMD 11/14/2009 Colonoscopy COLONOSCOPY FLX DX W/COLLJ SPEC WHEN PFRMD 03/05/2013 Colonoscopy COLONOSCOPY FLX DX W/COLLJ SPEC WHEN PFRMD 02/24/2018 Colonoscopy - 10 yr interval HYSTEROSCOPY DX 08/07/2017 hysteroscopy D&C LIG/TRNSXJ FLP TUBE ABDL/VAG APPR UNI/BI Tubal ligation NEUROPLASTY &/TRANSPOS MEDIAN NRV CARPAL TUNNE Right Carpal tunnel decomp FAMILY HISTORY Problem Relation Age of Onset Asthma Mother Heart Father [place] COPD Sister Smoker. Lung Cancer Sister Breast Cancer Sister Age 47 other (LIVER DISEASE) Brother other (THROMBOCYTIC EVENT) Brother AMPUTATION Social History Tobacco Use Smoking status: Former Packs/day: 1.50 Years: 20.00 Pack years: 30.00 Types: Cigarettes Quit date: 06/02/1989 Years since quittin.9 Smokeless tobacco: Never Tobacco comments: No smoking childhood home. No other smokers in adult homes. Vaping Use Vaping Use: Never used Substance Use Topics Alcohol use: No Drug use: No REVIEW OF SYSTEMS GENERAL: Negative for Malaise, significant weight loss, fever RESPIRATORY: Negative for cough, wheezing and shortness of breath CARDIOVASCULAR: Negative for chest pain, leg swelling and palpitations GI: Negative for abdominal discomfort, blood in stools or black stools and change in bowel habits : Negative for dysuria, frequency and incontinence MUSCULOSKELETAL: Negative for joint pain or swelling, back pain, and muscle pain. SKIN: Negative for lesions, rash, and itching. HEMATOLOGY/LYMPHOLOGY Negative for prolonged bleeding, bruising easily, and swollen nodes. ENDOCRINE: Negative for cold or heat intolerance, polyuria, polydipsia and goiter. NEURO: negative The remainder of the review of systems is noncontributory. Objective: Patient presents to clinic ambulating in [facility] Constitutional: Pt is a well developed 71 year old female who is alert, oriented, cooperative and in no apparent distress. Eyes: Following during examination. No redness or drainage. Respiratory: RR normal and nonlabored. Even breathing. No evidence of distress. Psychology: Patient is engaged during conversation. Normal affect and mood. Does not appear depressed or anxious. Vasc: DP and PT pulses are palpable bilateral. CFT is less than 5 seconds bilateral. Skin temperature is warm to warm proximal to distal bilateral. There is + edema or varicosities noted. Hair growth present. Neuro: Protective sensation is intact to the foot and toes when tested with the 5.07 SWM bilateral. Vibratory sensation is intact at the hallux bilateral. No Significant neurological defecits. Derm: Inspection and palpation performed. Nails 1-5 b/l are normal in length and thickness. Skin is of normal turgor and texture. Hyperkeratosis noted to not present. NO ulcerations, scars, verruca or other lesions noted. Ortho: Ankle joint DF is full with the knee extended and full with knee flexed. No pain or crepitus noted. STJ, MTJ ROM are full and free of pain or crepitus. Muscle strength is 5/5 for dorsiflexors, plantarflexors, inverters, everters. + pain to lateral aspect of left calcaneus and left ankle Temperature of right foot: 89 degrees Temperature of left foot: 90 degrees. Assessment: (M25.572) Acute left ankle pain (primary encounter diagnosis) (M14.672) Charcot ankle, left (E11.9) Type 2 diabetes mellitus without (mention of) complications (HCC) Plan: 1. Patient was seen and evaluated. 2. Patient was instructed on the continued importance of diabetic foot care along with proper diet and keeping their blood sugar under control to prevent complications. Instructions given both oral and written. 3. Discussed this patien'ts acute lower extremity pain, swelling and redness. I have low index of suspicion for infection especially given the redness improves with elevation. I will place her on antbiiotic as precaution but I have low index to suspect an infection. I do have concerns however for possible underlying bony injury not limited to stress fracture vs possible charcot. Will place her in a boot. Will have her use cane for balance. Will get baseline xrays. 4. F/u in 2 weeks 5. Will call with results. Denise Acuna DPM AMB ROOMING INTAKE FLOWSHEET DATA Risk Screening Do you have concerns about personal safety or safety in the home?: No Pain Pain Level: 7 Pain Location: Foot-Left Description: Sore Duration Amount of Time: 1 Duration Units: Weeks Frequency: Continuous Intervention/Comfort measure: Reposition, Relaxation, Medication (soaking) Patient presents with: Left Foot - Established Patient, Pain Hailey Dorantes LPN documented in this encounter [facility] 04-02-2022 Note HNO ID: [id number] Author: Bruce Bonilla MD Service: ? Author Type: Physician Type: Progress Notes Filed: 04/28/2022 11:17 PM Note Text: This note was created using Cahootifyriter. Subjective Audrey Redd is a 71 year old female. Patient presents with: Follow Up SUBJECTIVE: Audrey Redd is a 71 year old year old lady here today for follow up appointment for review of medical conditions. Ongoing right sided pain behind right ear. Associated neck pain with stiff neck. Started 15 months ago with stiff neck; ear pain comes and goes. Pain come and goes. Discussed 01/19/2020. Then 06/28/2020. Right side of nose stays stuffed up a lot. Neck pain not associated with radiating pain to back or arm. Hard to turn neck. Heating pad does alleviate it. Rubs not helping Does have back lower back. Stable on current meds for a fib/CHF. PAST MEDICAL HISTORY Diagnosis Date Benign neoplasm of colon Chronic atrial fibrillation (HCC) 10/29/2013 [facility], 04/13/2020 Chronic diastolic heart failure (HCC) [facility], 04/13/2020 COPD, severe (HCC) Follows with Pulmonology (Dr. 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 Other specified disease of white blood cells Other specified disorder of female genital organs Oxygen dependent 2 liters at hs only Postmenopausal bleeding 04/2001 Postmenop. bleeding Pulmonary emphysema (HCC) 11/14/2015 Pulmonary hypertension (HCC) Thyrotoxicosis without mention of goiter or other cause, without mention of thyrotoxic crisis or storm Current Outpatient Medications Medication Sig warfarin (COUMADIN) 5 mg tablet Take 1 tablet by mouth every Friday,Friday,Friday. Or as directed based on labs (Patient taking differently: Take 5 mg by mouth every Friday. Or as directed based on labs) warfarin (COUMADIN) 2.5 mg tablet Take 1 tablet by mouth once daily. Adjust dose as directed based on INRs (Currently takes 5 mg on Fridays) furosemide (LASIX) 20 mg tablet Take 1 tablet by mouth once daily. triamcinolone acetonide (KENALOG) 0.1 % cream APPLY TO AFFECTED AREA TWICE DAILY NEEDED, NOT FOR FACE OR SKIN FOLDS albuterol (PROVENTIL) 2.5 mg /3 mL (0.083 %) nebulizer solution Use 3 mL via nebulizer every 4 hours as needed for wheezing/shortness of breath. Use over 5-15minutes. Dispense 200 vials with 5 refills alcohol swabs (ALCOHOL PREP PADS) Apply 1 application to affected area twice daily. blood sugar diagnostic (TRUE METRIX GLUCOSE TEST STRIP) test strip Test blood sugar(s) 2 times daily. Dx: Type 2 DM - Controlled E11.9 Insulin: No metoprolol tartrate, short acting, (LOPRESSOR) 25 mg tablet Take 1 tablet by mouth twice daily. Blood-Glucose Meter (TRUE METRIX GLUCOSE METER) 1 Kit as directed. Use as directed. Test blood sugar(s) 2 times daily. Dx: Type 2 DM - Controlled E11.9 Insulin: No Blood Glucose Control, Low (TRUE METRIX LEVEL 1) 1 Each as directed. Use as Directed with Jeet Metrix Meter and Strips. Dx: Type 2 DM - Controlled E11.9 Insulin: No Lancets lancets 33 gauge preferred. Test blood sugar(s) 2 times daily. Dx: Type 2 DM - Controlled E11.9 Insulin: No budesonide-formoterol (SYMBICORT) 80-4.5 mcg/actuation inhaler Inhale 2 Puffs as instructed twice daily. loratadine (CLARITIN) 10 mg tablet Take 1 tablet by mouth once daily as needed for Cold/Allergy Symptoms (also for dermatitis and itching). FOR ALLERGY SYMPTOMS acetaminophen (TYLENOL EXTRA STRENGTH) 500 mg tablet Take 2 tablets by mouth every 8 hours as needed for Pain. OXYGEN, HOME THERAPY, Inhale 2 L/min as instructed daily at bedtime. COMPOUNDED PRESCRIPTION Please perform nocturnal oximetry on room air. Fax results to [phone] Diagnosis: Hypoxia. No current facility-administered medications for this visit. Review of Systems Objective BP 130/78 Pulse 82 Wt 82.6 kg (182 lb) SpO2 96% BMI 33.29 kg/m? Physical Exam * * *Final Report* * * DATE OF EXAM: Sep 05 2014 11:14AM WOX 1358 - XR CERVICAL AP/LAT/OBL / PROCEDURE REASON: Cervicalgia * * * * Physician Interpretation * * * * RESULT: EXAM:XR CERVICAL AP/LAT/OBL HISTORY: Cervicalgia COMPARISON:None IMPRESSION: The alignment of the vertebra is anatomic. There is no loss of vertebral body height or evidence of destructive lesion. There are multilevel discogenic degenerative changes with narrowing of the disk spaces, endplate sclerosis and osteophyte format (more content not included)... [facility] 03-29-2022 Note HNO ID: [id number] Author: Fern Mercado APRN.[employer] [employer] Service: ? Author Type: Nurse Specialist Type: Progress Notes Filed: 03/29/2022 3:53 PM Note Text: Continue coumadin dose unchanged, check INR one month. [facility] 03-29-2022 History of Presen t illness Narrative Continue coumadin dose unchanged, check INR one month. patient had inr completed at [facility] patients inr is 2.6 (patients inr range is 2.0-3.0) patient is currently taking 5mg Fri and 3mg all other days patients last dose change unknown patient has had no changes in medication and no missed doses and no change in diet Advised patient to continue on the same dose(s) and that they would only be contacted regarding dosage and follow up instructions after review with provider, if a change is needed. Written instructions given and patient verbalized understanding. Presently scheduled in 1 month (05/03/22) for follow up INR. documented in this encounter [facility] 03-29-2022 Note HNO ID: [id number] Author: Alva Fleming RN Service: ? Author Type: ? Type: Progress Notes Filed: 03/29/2022 3:53 PM Note Text: patient had inr completed at [facility] patients inr is 2.6 (patients inr range is 2.0-3.0) patient is currently taking 5mg Fri and 3mg all other days patients last dose change unknown patient has had no changes in medication and no missed doses and no change in diet Advised patient to continue on the same dose(s) and that they would only be contacted regarding dosage and follow up instructions after review with provider, if a change is needed. Written instructions given and patient verbalized understanding. Presently scheduled in 1 month (05/03/22) for follow up INR. [facility] 03-06-2022 Miscellaneous Notes Patient has been identified by name and date of : Yes Patient phones for refill(s): Requested Prescriptions Pending Prescriptions Disp Refills albuterol (PROVENTIL) 2.5 mg /3 mL (0.083 %) nebulizer solution 3 mL 3 Sig: Use 3 mL via nebulizer every 4 hours as needed for wheezing/shortness of breath. Use over 5-15minutes. Dispense 150 vials with 5 refills alcohol swabs (ALCOHOL PREP PADS) 200 Each 3 Sig: Apply 1 application to affected area twice daily. blood sugar diagnostic (TRUE METRIX GLUCOSE TEST STRIP) test strip 200 Strip 3 Sig: Test blood sugar(s) 2 times daily. Dx: Type 2 DM - Controlled E11.9 Insulin: No Date of last office visit in primary care: 12/06/2021, has appt 04/02/2022 Last 2 Encounter Wt Readings: Date: Wt: 12/06/2021 84.4 kg (186 lb) 11/22/2021 85.3 kg (188 lb) Previous labs/tests for medication: Diabetes: Hemoglobin A1C (%) Date Value 10/23/2021 6.1 03/19/2021 6.0 11/24/2020 6.4 Please advise. Thank you. Francisca Silva LPN documented in this encounter [facility] 03-01-2022 History of Presen t illness Narrative Continue current dosing Coumadin check INR in 4 weeks patient had inr completed at [facility] patients inr is 2.2 (patients inr range is 2.0-3.0) patient is currently taking 3mg daily patients last dose change was on 02/06/22 due to a high level of 4.8 (dose at that time was 6mg Fri and 3mg all other days) patient has had no changes in medication and no missed doses and no change in diet Advised patient to continue on the same dose(s) and that they would only be contacted regarding dosage and follow up instructions after review with provider, if a change is needed. Written instructions given and patient verbalized understanding. Presently scheduled in 4 weeks (03/29/22) for follow up INR. documented in this encounter [facility] 03-01-2022 Miscellaneous Notes Filed order patients orders for coumadin clinic inr's has at this time. new order has been pended for approval if possible so that patient can continue to get inr's completed thru the coumadin clinic. coumadin clinic nurse only needs called if order can not be approved. documented in this encounter [facility] 02-16-2022 Miscellaneous Notes Patient called and provider instructions reviewed. Patient verbalizes understanding. Appointment scheduled for INR on 03/01/2022. Ryann Nicholas RN Take 6 mg today then resume 3ng daily Recheck in 2 weeks. Discussed that since held 2 doses and stopped the two days of 6 mg, taking time to see where her INR will end up on the 3 mg daily. Make sure gets INR scheduled in 2 weeks Patient asking for INR instructions. Please advise patient. Patient had INR drawn at [facility] Patient's INR is 1.5 range is 2.0-3.0 Patient's current dose 3mg Mon,Tues,Thurs,Fri,Sat; 6mg Wed,Sun No missed doses, no change in diet Patient advised last week to hold Coumadin for 2 days then take 3mg daily New med-Dupixent 300mg every 14 days, due to take again tomorrow 02/15/2022 Advised Patient office will be calling her this afternoon regarding medication dose and when to follow-up with Coumadin Clinic. Josselyn Pickard LPN documented in this encounter [facility] 01-22-2022 History of Presen t illness Narrative per pcp she agrees with information patient had inr completed at [facility] patients inr is 2.3 (patients inr range is 2.0-3.0) patient is currently taking 6mg Sun Wed and 3mg all other days patients last dose change was on 01/08/22 due to a low level of 1.8 (dose at that time was 6mg Sun and 3mg all other days) patient has had no changes in medication and no missed doses and no change in diet Advised patient to continue on the same dose(s) and that they would only be contacted regarding dosage and follow up instructions after review with provider, if a change is needed. Written instructions given and patient verbalized understanding. Presently scheduled in 2 weeks (02/06/22) for follow up INR since this is the first normal reading since dose change documented in this encounter [facility] 01-08-2022 History of Presen t illness Narrative per pcp patient is to take 6mg Sun Wed and 3mg all other days PATIENT NOTIFIED OF INFORMATION patient had inr completed at [facility] patients inr is 1.8 (patients inr range is 2.0-3.0) patient is currently taking 6mg Sun and 3mg all other days patients last dose change was on 11/26/21 due to a high level of 3.5 (dose at that time was 5mg Mon,Wed,Fri and 2.5mg all other days) patient has had a change in medication as pt was started on dupixent and no missed doses and no change in diet Advised patient that they would be contacted regarding medication dose and when to follow up after information is reviewed by provider. After provider review please contact the patient with information and schedule follow up appointment with coumadin clinic. FYI- patient has been scheduled for a 2 week follow up inr on 01/22/22 documented in this encounter [facility] 12-26-2021 History of Presen t illness Narrative POPULATION HEALTH NAVIGATION OUTREACH Action/FYI unable to lm, mychart sent for pt to call to schedule carmen, added notes to upcoming ov Pt identified by name and : NO Outreach Outcome/Action Unable to reach patient: Phone number not valid / voicemail full DocuTAPhart message sent Did you use a PCP flex slot to schedule this appointment? N/A Reason for Outreach Care Gap or Scheduling/Wellness visits Payer: Payor: [employer] MEDICARE / Plan: [employer] MEDICARE PPO / Product Type: PPO / Care Gap Reviewed:: Diabetic Eye Exam Reminder: Reminder note to check Health Maintenance for items below Health Maintenance items due: ALPHA-1 ANTITRYPSIN DEFICIENCY SCREENING Never done DILATED RETINAL EXAM due on 09/15/2021 Message Sent to Practice: No Navigation Signature: Courtney Cyr MA December 26, 2021 12:24 PM documented in this encounter [facility] 12-17-2021 History of Presen t illness Narrative Continue with Coumadin dose unchanged and check INR in 4 weeks patient had inr completed at [facility] patients inr is 2.8 (patients inr range is 2.0-3.0) patient is currently taking 6mg Sun and 3mg all other days patients last dose change was on 11/26/21 due to a high level of 3.5 (dose at that time was 5mg Mon,Wed,Fri and 2.5mg all other days) patient has had no changes in medication and no missed doses and no change in diet Advised patient to continue on the same dose(s) and that they would only be contacted regarding dosage and follow up instructions after review with provider, if a change is needed. Written instructions given and patient verbalized understanding. Presently scheduled in 4 weeks (01/14/22) for follow up INR. documented in this encounter [facility] 12-06-2021 History of Presen t illness Narrative Subjective HPI Audrey Redd is a 71 year old female. 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 Or Other Cause, Without Mention of Thyrotoxic Crisis Or Storm Vitamin D Deficiency Postmenopausal Bleeding Chronic Atrial Fibrillation (Hcc) Chest Pain of Uncertain Etiology Spasm of Muscle Cervicalgia Abnormal Nuclear Stress Test Moderate Tricuspid Regurgitation Chronic Anticoagulation Anxiety Pulmonary Emphysema (Hcc) Copd, Severe (Hcc) History of Colonic Polyps Diverticulosis of Large Intestine Without Hemorrhage Radicular Pain of Left Lower Extremity Trochanteric Bursitis of Left Hip Chronic Diastolic Heart Failure (Hcc) Other Secondary Pulmonary Hypertension (Hcc) Obesity, Class I, Bmi 30-34.9 DM: Follows a diabetic diet. No medication. Patient's last HgA1C was Hemoglobin A1C (%) Date Value 10/23/2021 6.1 03/19/2021 6.0 11/24/2020 6.4 Due for eye exam HTN: Without report headache, chest pain, palpitations, dyspnea, peripheral edema, orthopnea, fatigue and PND. Last 3 Encounter BP Readings: Date: BP: 11/22/2021 110/72 07/31/2021 134/72 05/04/2021 130/74 Continues on OAC warfarin for atrial fibrillation.No bleeding difficulties reported. Cardiology: [facility], Dr Almazan, has recently seen him Dr. Stokes, hand woven carpet and rug mender; continues to follow Appliance Installer, Dr Solorzano, follows with him for asthma, COPD, no recent exacerbations or ER visits noted. Hypothyroidism. She is doing well on her current dose of Synthroid. TSH (uU/mL) Date Value 11/24/2020 1.220 07/21/2020 0.984 ) Hyperlipidemia. Ms. Redd reports doing well . Tries to eat a healthy diet. No prior statin use, prefers to avoid for now. Concerned about possible AEs with use, spoke with her calderon about this. Her most recent lipid panels are: Cholesterol, Total (mg/dL) Date Value 10/23/2021 181 01/19/2020 172 04/01/2019 167 HDL Cholesterol (mg/dL) Date Value 10/23/2021 49 01/19/2020 41 04/01/2019 45 LDL Cholesterol (mg/dL) Date Value 10/23/2021 117 01/19/2020 110 04/01/2019 101 Triglyceride (mg/dL) Date Value 10/23/2021 76 01/19/2020 103 04/01/2019 104 The 10-year ASCVD risk score (Davion WILKERSON Jr., et al., 2013) is: 33.9% Values used to calculate the score: Age: 71 years Sex: Female Is Non- : No Diabetic: Yes Tobacco smoker: No Systolic Blood Pressure: 137 mmHg Is BP treated: Yes HDL Cholesterol: 49 mg/dL Total Cholesterol: 181 mg/dL Review of Systems Constitutional: Negative. Objective BP 137/74 Pulse 71 Resp 16 Wt 84.4 kg (186 lb) SpO2 97% BMI 34.02 kg/m Physical Exam Vitals and nursing note reviewed. Constitutional: General: She is not in acute distress. Appearance: She is well-developed. She is not diaphoretic. HENT: Head: Normocephalic and atraumatic. Eyes: Conjunctiva/sclera: Conjunctivae normal. Cardiovascular: Rate and Rhythm: Normal rate. Pulmonary: Effort: Pulmonary effort is normal. Neurological: Mental Status: She is alert. Sensory: No sensory deficit. ALLERGIES Allergen Reactions Albuterol Other: See Comments MDI: High heart rate, high BP, dizzy. Nebulizer: tolerates well. Levaquin [Levofloxa* Angioedema face swelling, trouble breathing; did not go to ER. Itching and hives too Bactrim [Sulfametho* Hives, Itching Itching starting 15 to 20 minutes after took 1 pill; hives broke out an hour later; had tolerated in the past. Gone by next AM Doxycycline Lip and eyelid swelling Environmental Aller* Etodolac Shortness of Breath Mucinex [Guaifenesi* Rash Nabumetone Hives swelling lips,and ankles Penicillins Rash Childhood. Current Outpatient Medications Medication Sig warfarin (COUMADIN) 5 mg tablet Take 1 tablet by mouth every Friday,Friday,Friday. Or as directed based on labs warfarin (COUMADIN) 2.5 mg tablet Take 1 tablet by mouth every Friday, Friday,Friday, Friday,Friday. Adjust dose as directed based on INRs furosemide (LASIX) 40 mg tablet Take 1-2 tablets by mouth twice daily. As directed albuterol (PROVENTIL) 2.5 mg /3 mL (0.083 %) nebulizer solution Use 3 mL via nebulizer every 4 hours as needed for wheezing/shortness of breath. Use over 5-15minutes. Dispense 150 vials with 5 refills Blood-Glucose Meter (TRUE METRIX GLUCOSE METER) 1 Kit as directed. Use as directed. Test blood sugar(s) 2 times daily. Dx: Type 2 DM - Controlled E11.9 Insulin: No blood sugar diagnostic (TRUE METRIX GLUCOSE TEST STRIP) test strip Test blood sugar(s) 2 times daily. Dx: Type 2 DM - Controlled E11.9 Insulin: No Blood Glucose Control, Low (TRUE METRIX LEVEL 1) 1 Each as directed. Use as Directed with Jeet Metrix Meter and Strips. Dx: Type 2 DM - Controlled E11.9 Insulin: No alcohol swabs (ALCOHOL PREP PADS) Apply 1 application to affected area twice daily. Lancets lancets 33 gauge preferred. Test blood sugar(s) 2 times daily. Dx: Type 2 DM - Controlled E11.9 Insulin: No metoprolol tartrate, short acting, (LOPRESSOR) 25 mg tablet Take 1 tablet by mouth twice daily. budesonide-formoterol (SYMBICORT) 80-4.5 mcg/actuation inhaler Inhale 2 Puffs as instructed twice daily. loratadine (CLARITIN) 10 mg tablet Take 1 tablet by mouth once daily as needed for Cold/Allergy Symptoms (also for dermatitis and itching). FOR ALLERGY SYMPTOMS triamcinolone acetonide (KENALOG) 0.1 % cream APPLY TO AFFECTED AREA TWICE DAILY NEEDED, NOT FOR FACE OR SKIN FOLDS (Dermatology fills now) acetaminophen (TYLENOL EXTRA STRENGTH) 500 mg tablet Take 2 tablets by mouth every 8 hours as needed for Pain. OXYGEN, HOME THERAPY, Inhale 2 L/min as instructed daily at bedtime. COMPOUNDED PRESCRIPTION Please perform nocturnal oximetry on room air. Fax results to [phone] Diagnosis: Hypoxia. No current facility-administered medications for this visit. PAST MEDICAL HISTORY Diagnosis Date Benign neoplasm of colon Chronic atrial fibrillation (HCC) 10/29/2013 [facility], 04/13/2020 Chronic diastolic heart failure (HCC) [facility], 04/13/2020 COPD, severe (HCC) Follows with Pulmonology (Dr. 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 Other specified disease of white blood cells Other specified disorder of female genital organs Oxygen dependent 2 liters at hs only Postmenopausal bleeding 04/2001 Postmenop. bleeding Pulmonary emphysema (HCC) 11/14/2015 Pulmonary hypertension (HCC) Thyrotoxicosis without mention of goiter or other cause, without mention of thyrotoxic crisis or storm reports that she quit smoking about 32 years ago. Her smoking use included cigarettes. She has a 30.00 pack-year smoking history. She has never used smokeless tobacco. She reports that she does not drink alcohol and does not use drugs. Component Latest Ref Rng & Units 03/19/2021 10/23/2021 10/24/2021 12/04/2021 Protein, Total 6.3 - 8.0 g/dL 7.2 7.2 Albumin 3.9 - 4.9 g/dL 3.7 (L) 3.9 Calcium 8.5 - 10.2 mg/dL 9.2 9.7 Bilirubin, Total 0.2 - 1.3 mg/dL 0.4 0.5 Alkaline Phosphatase 34 - 123 U/L 108 95 AST 13 - 35 U/L 14 15 Glucose 74 - 99 mg/dL 110 (H) 96 BUN 7 - 21 mg/dL 10 11 Creatinine 0.58 - 0.96 mg/dL 0.53 (L) 0.54 (L) Sodium 136 - 144 mmol/L 141 141 Potassium 3.7 - 5.1 mmol/L 3.8 3.9 Chloride 97 - 105 mmol/L 105 102 CO2 22 - 30 mmol/L 29 30 Anion Gap 9 - 18 mmol/L 7 (L) 9 ALT 7 - 38 U/L 12 16 eGFR- >60 eGFR-All Other Races . >60 eGFR >=60 mL/min/1.73m 97 WBC 3.70 - 11.00 k/uL 10.22 RBC 3.90 - 5.20 m/uL 4.46 Hemoglobin 11.5 - 15.5 g/dL 12.2 Hematocrit 36.0 - 46.0 % 41.1 MCV 80.0 - 100.0 fL 92.2 MCH 26.0 - 34.0 pG 27.4 MCHC 30.5 - 36.0 g/dL 29.7 (L) RDW-CV 11.5 - 15.0 % 14.9 Platelet Count 150 - 400 k/uL 297 MPV 9.0 - 12.7 fL 11.4 Absolute nRBC <0.01 k/uL <0.01 Cholesterol, Total <200 mg/dL 181 Triglyceride <150 mg/dL 76 HDL Cholesterol >39 mg/dL 49 Non HDL Cholesterol <130 mg/dL 132 (H) Fasting Time hrs 17 VLDL Cholesterol <30 mg/dL 15 TC:HDL Ratio <5.10 3.69 LDL Cholesterol <100 mg/dL 117 (H) LDL:HDL Ratio <2.54 2.39 Creatinine, Ur Random (UCRR) 20.0 - 300.0 mg/dL 80.1 Albumin, Urine Random mg/L <12.0 Albumin/Creat Ratio <30 mg/g <15 Hemoglobin A1C 4.3 - 5.6 % 6.0 (H) 6.1 (H) Estimated Average Glucose mg/dL 126 128 INR (POCT) 0.8 - 1.2 2.8 (H) Internal Quality Check Acceptable Vitamin D 25 Hydroxy 31.0 - 80.0 ng/mL 59.9 50.0 Assessment and Plan ASSESSMENT/PLAN 1. Uncomplicated asthma, un6. COPD, severe (HCC) - ICD9: 496, ICD10: J44.9 7. Pulmonary emphysema, unspecified emphysema type (HCC) - ICD9: 492.8, ICD10: J43.9specified asthma severity, unspecified whether persistent - ICD9: 493.90, ICD10: J45.909 (primary diagnosis) Stable, currently controlled, continue to monitor. Followed by engineering intern, Dr Solorzano 2. Need for shingles vaccine - ICD9: V04.89, ICD10: Z23 declined; reviewed 3. Screening for diabetic retinopathy - ICD9: V80.2, ICD10: Z13.5 4. Controlled type 2 diabetes mellitus without complication, without long-term current use of insulin (HCC) - ICD9: 250.00, ICD10: E11.9 good control, continue current treatment unchanged for now, continue to monitor. 5. Essential hypertension - ICD9: 401.9, ICD10: I10 Stable, currently controlled, continue to monitor. 8. Chronic anticoagulation - ICD9: V58.61, ICD10: Z79.01 No bleeding difficulties. INR (POCT) Date Value Ref Range Status 12/04/2021 2.8 (H) 0.8 - 1.2 Final follow up Apr 2022 PCP with labs Fern Mercado APRN.CNS Medical Decision Making: Problems: Moderate: 2+ stable chronic illnesses Risk: Moderate: Drug management Medical Decision Making Level: 4 - Moderate documented in this encounter [facility] 12-04-2021 History of Presen t illness Narrative per verbal order by field application engineer provider dr gray she agrees with information patient had inr completed at [facility] patients inr is 2.8 (patients inr range is 2.0-3.0) patient is currently taking 6mg Sun and 3mg all other days patients last dose change was on 11/26/21 due to a high level of 3.5 (dose at that time was 5mg Mon,Wed,Fri and 2.5mg all other days) patient has had no changes in medication except for coumadin and no missed doses and no change in diet Advised patient to continue on the same dose(s) and that they would only be contacted regarding dosage and follow up instructions after review with provider, if a change is needed. Written instructions given and patient verbalized understanding. Presently scheduled in 2 weeks (12/17/21) for follow up INR since this is the first normal reading since dose change documented in this encounter [facility] 11-26-2021 History of Presen t illness Narrative per pcp patient is to take 6mg Sun and 3mg all other days PATIENT NOTIFIED OF INFORMATION patient had inr completed at [facility] patients inr is 3.5 (patients inr range is 2.0-3.0) patient is currently taking 5mg Mon,Wed,Fri and 2.5mg all other days patients last dose change was on 10/01/21 due to a low level of 1.7 (dose at that time was 5mg Tues,Thurs and 2.5mg all other days) patient has had no changes in medication and no missed doses and mo change in diet Advised patient that they would be contacted regarding medication dose and when to follow up after information is reviewed by provider. After provider review please contact the patient with information and schedule follow up appointment with coumadin clinic. FYI- patient has been scheduled for a 1 week follow up inr on 12/04/21 documented in this encounter [facility] 11-22-2021 Miscellaneous Notes November 22, 2021 PID: [id number] Audrey Redd [address] [place] [address] Dear Ms. Redd, We are pleased to inform you that the results of your recent breast imaging exam on 11/22/2021 are normal. Early detection of cancer is very important. We also understand recommendations regarding breast cancer screening are controversial. Please discuss with your primary care provider which strategy is best for you and whether a mammogram is right for you. Your imaging studies and report will be kept on file at [facility] as part of your permanent medical record and are available for your continuing care. Thank you for allowing us to help in meeting your health care needs. Sincerely, Dr. Hirsch Interpreting Radiologist [facility] (Normal over 40) documented in this encounter [facility] 11-22-2021 History of Presen t illness Narrative Radiology Service Progress Note PATIENT NAME: Audrey Redd DATE OF SERVICE: November 22, 2021 TIME: 10:17 AM PATIENT IDENTITY VERIFICATION COMPLETED USING TWO (2) IDENTIFIERS: Name and Date of confirmed by patient verbally. FALL SCREENING: Has the patient had 2 falls in the last year or 1 fall with injury or currently using an Ambulatory Assistive Device (Walker, Cane, Wheelchair, Crutches, etc.)? No PATIENT GENDER DATA: Female. status: : No status: NO. PATIENT RELEVANT IMPLANT DATA REVIEWED: Not Applicable RADIOLOGY DEPARTMENT: Mammography PERIPHERAL IV DATA: Not applicable SIGNED BY: RT Levar(R) November 22, 2021 10:17 AM documented in this encounter [facility] 11-22-2021 History of Presen t illness Narrative Audrey is a 71 year old who presents for an annual gynecologic exam without complaints. Postmenopausal: Yes since age 46 HRT use: No. Last Pap: 2014 normal History of abnormal pap: No Last mammogram: today, pending History of abnormal mammogram: No Sexually active: No Hot flashes: No Night sweats: No Vaginal dryness: No Documentation from previous visit of 11/15/2020 was copied and pasted, documentation has been reviewed and edited as necessary for today's visit. OB History T3 L3 SAB0 IAB0 Ectopic0 Multiple0 Live Births0 [employer] History LMP: Postmenopausal Age at Menarche: Age at First : Age at Menopause: [employer] History Comments: Sexual Activity: Not Currently; Male; btl Contraception: Surgical PAST MEDICAL HISTORY Diagnosis Date Benign neoplasm of colon Chronic atrial fibrillation (HCC) 10/29/2013 [facility], 04/13/2020 Chronic diastolic heart failure (HCC) [facility], 04/13/2020 COPD, severe (HCC) Follows with Pulmonology (Dr. 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 Other specified disease of white blood cells Other specified disorder of female genital organs Oxygen dependent 2 liters at hs only Postmenopausal bleeding 04/2001 Postmenop. bleeding Pulmonary emphysema (HCC) 11/14/2015 Pulmonary hypertension (HCC) Thyrotoxicosis without mention of goiter or other cause, without mention of thyrotoxic crisis or storm PAST SURGICAL HISTORY Procedure Laterality Date COLONOSCOPY FLX DX W/COLLJ SPEC WHEN PFRMD 11/14/2009 Colonoscopy COLONOSCOPY FLX DX W/COLLJ SPEC WHEN PFRMD 03/05/2013 Colonoscopy COLONOSCOPY FLX DX W/COLLJ SPEC WHEN PFRMD 02/24/2018 Colonoscopy - 10 yr interval HYSTEROSCOPY DX 08/07/2017 hysteroscopy D&C LIG/TRNSXJ FLP TUBE ABDL/VAG APPR UNI/BI Tubal ligation NEUROPLASTY &/TRANSPOS MEDIAN NRV CARPAL TUNNE Right Carpal tunnel decomp FAMILY HISTORY Problem Relation Age of Onset Asthma Mother Heart Father FL COPD Sister Smoker. Lung Cancer Sister Breast Cancer Sister Age 47 other (LIVER DISEASE) Brother other (THROMBOCYTIC EVENT) Brother AMPUTATION SOCIAL HISTORY Social History Tobacco Use Smoking status: Former Smoker Packs/day: 1.50 Years: 20.00 Pack years: 30.00 Types: Cigarettes Quit date: 06/02/1989 Years since quittin.4 Smokeless tobacco: Never Used Tobacco comment: No smoking childhood home. No other smokers in adult homes. Vaping Use Vaping Use: Never used Substance Use Topics Alcohol use: No Drug use: No REVIEW OF SYSTEMS Abdomen: No abdominal pain, nausea, vomiting, diarrhea, or constipation. No bloating, early satiety, indigestion, or increased flatulence. Bladder: No dysuria, gross hematuria, urinary frequency, urinary urgency, or incontinence Breast: No breast lumps, nipple d/c, overlying skin changes, redness or skin retraction Allergies and current medication updated:Yes EXAM: BP 110/72 Ht 5' 2 (1.58m) Wt 188 lb (85.3kg) BMI 34.38 kg/(m^2). GENERAL: pleasant, female in no apparent distress HEENT: Normocephalic, mucus membranes moist and no lesions NECK: Supple, full range of motion, no adenopathy and thyroid normal DERMATOLOGY: Normal, without lesions, non-icteric and non-hirsute BREAST: soft, non-tender, symmetric, no dominant mass, normal nipple-areolar complex, no lymphadenopathy and no nipple discharge CHEST: Normal inspiratory effort ABDOMEN: soft, non-tender and no masses PELVIC: external genitalia normal, normal Bartholin's glands, urethra, Hemet's glands, no vulvar lesions, no cervical lesions, physiologic discharge present, normal appearing perineal body and perianal region BIMANUAL: uterus normal size, shape and consistency, no adnexal masses and non-tender RECTOVAGINAL: deferred. NEURO: alert and oriented x3,exam grossly non-focal EXTREMITIES: normal ASSESSMENT/PLAN: 1) Health maintenance: Pap/HPV screening no longer needed Mammogram ordered Mammogram up to date Nutrition, exercise and routine health maintenance exams reviewed. Calcium/Vitamin D supplementation information provided. Colon cancer screening: up to date with screening BMD: up to date, pt would like follow-up next year 2) Follow up one year or sooner as needed Linnea Tejada APRN.EMELIA documented in this encounter [facility] 11-05-2021 History of Presen t illness Narrative pcp agrees with information patient had inr completed at [facility] patients inr is 2.4 (patients inr range is 20.-3.0) patient is currently taking 5mg mon,Wed,Fri and 2.5mg all other days patients last dose change was on 10/01/21 due to a low level of 1.7 (dose at that time was 5mg Tues,Thurs and 2.5mg all other days) patient has had no changes in medication and no missed doses and no change in diet Advised patient to continue on the same dose(s) and that they would only be contacted regarding dosage and follow up instructions after review with provider, if a change is needed. Written instructions given and patient verbalized understanding. Presently scheduled in 3 weeks (11/26/21) for follow up INR. documented in this encounter [facility] 10-15-2021 History of Presen t illness Narrative pcp agrees with information patient had inr completed at [facility] patients inr is 2.9 (patients inr range is 2.0-3.0) patient is currently taking 5mg Mon,Wed,Fri and 2.5mg all other days patients last dose change was on 10/01/21 due to a low level of 1.7 (dose at that time was 5mg Tues,Thurs and 2.5mg all other days) patient has had no changes in medication except for coumadin and no missed doses and no change in diet Advised patient to continue on the same dose(s) and that they would only be contacted regarding dosage and follow up instructions after review with provider, if a change is needed. Written instructions given and patient verbalized understanding. Presently scheduled in 3 weeks (11/05/21) for follow up INR. documented in this encounter [facility] 10-01-2021 History of Presen t illness Narrative per pcp patient is to take 5mg Mon,Wed,Fri and 2.5mg all other days and eat green vegetables twice a week PATIENT NOTIFIED OF INFORMATION patient had inr completed at [facility] patients inr is 1.7 (patients inr range is 2.0-3.0) patient is currently taking 5mg Tues,Thurs, and 2.5mg all other days patients last dose change was on 09/21/21 due to a high level of 3.2 (dose at that time was 5mg Tues,Thurs,Sun and 2.5mg all other days) patient has had no changes in medication except for coumadin and no missed doses and no change in diet Advised patient that they would be contacted regarding medication dose and when to follow up after information is reviewed by provider. After provider review please contact the patient with information and schedule follow up appointment with coumadin clinic. FYI- patient has been scheduled for a 2 week follow up inr on 10/15/21 documented in this encounter [facility] 09-21-2021 History of Presen t illness Narrative per pcp pt is to take 5mg Tues,thurs and 2.5mg all other days PATIENT NOTIFIED OF INFORMATION patient had inr completed at [facility] patients inr is 3.2 (patients inr range is 2.0-3.0) patient is currently taking 5mg Tues,Thurs,Sun and 2.5mg all otherd days patients last dose change was on 07/03/21 due to patient changed dose due to high level of 4.3 (dose at that time was 2.5mg Mon,Wed,Fri and 5mg all other days) patient has had no changes in medication and no missed doses and no change in diet Advised patient that they would be contacted regarding medication dose and when to follow up after information is reviewed by provider. After provider review please contact the patient with information and schedule follow up appointment with coumadin clinic. ok to leave a detailed message if no answer FYI- patient has been scheduled for a 1 week follow up inr on 10/01/21 documented in this encounter [facility] 09-03-2021 History of Presen t illness Narrative per pcp she agrees with information patient had inr completed at [facility] patients inr is 1.9 (patients inr range is 2.0-3.0) patient is currently taking 5mg Tues,Thurs,Sun and 2.5mg all other days patients last dose change was on 07/31/21 due to a high level of 4.3 (dose at that time was 2.5mg Mon,Wed,Fri and 5mg all other days) patient has had no changes in medication and no missed doses and no change in diet Advised patient to continue on the same dose(s) and that they would only be contacted regarding dosage and follow up instructions after review with provider, if a change is needed. Written instructions given and patient verbalized understanding. Presently scheduled in 2 weeks (09/17/21) for follow up INR since level is just slightly low documented in this encounter [facility] documented as of this encounter (statuses as of 09/03/2021) [facility] History of Past illness Narrative* Problem Noted Date Resolved Date Obesity (BMI 30-39.9) 09/01/2015 07/27/2021 Pulmonary hypertension 02/21/2014 1 Atrial fibrillation 10/29/2013 11/22/2020 Overview: [facility], 04/21/20. Observation for suspected malignant neoplasm 11/22/2020 documented as of this encounter (statuses as of 09/21/2021) [facility] History of Past illness Narrative* Problem Noted Date Resolved Date Obesity (BMI 30-39.9) 09/01/2015 07/27/2021 Pulmonary hypertension 02/21/2014 1 Atrial fibrillation 10/29/2013 11/22/2020 Overview: [facility], 04/21/20. Observation for suspected malignant neoplasm 11/22/2020 documented as of this encounter (statuses as of 10/01/2021) [facility] History of Past illness Narrative* Problem Noted Date Resolved Date Obesity (BMI 30-39.9) 09/01/2015 07/27/2021 Pulmonary hypertension 02/21/2014 1 Atrial fibrillation 10/29/2013 11/22/2020 Overview: [facility], 04/21/20. Observation for suspected malignant neoplasm 11/22/2020 documented as of this encounter (statuses as of 10/15/2021) [facility] History of Past illness Narrative* Problem Noted Date Resolved Date Obesity (BMI 30-39.9) 09/01/2015 07/27/2021 Pulmonary hypertension 02/21/2014 1 Atrial fibrillation 10/29/2013 11/22/2020 Overview: [facility], 04/21/20. Observation for suspected malignant neoplasm 11/22/2020 documented as of this encounter (statuses as of 11/05/2021) [facility] History of Past illness Narrative* Problem Noted Date Resolved Date Obesity (BMI 30-39.9) 09/01/2015 07/27/2021 Pulmonary hypertension 02/21/2014 1 Atrial fibrillation 10/29/2013 11/22/2020 Overview: [facility], 04/21/20. Observation for suspected malignant neoplasm 11/22/2020 documented as of this encounter (statuses as of 11/22/2021) [facility] History of Past illness Narrative* Problem Noted Date Resolved Date Obesity (BMI 30-39.9) 09/01/2015 07/27/2021 Pulmonary hypertension 02/21/2014 1 Atrial fibrillation 10/29/2013 11/22/2020 Overview: [facility], 04/21/20. Observation for suspected malignant neoplasm 11/22/2020 documented as of this encounter (statuses as of 11/23/2021) [facility] History of Past illness Narrative* Problem Noted Date Resolved Date Obesity (BMI 30-39.9) 09/01/2015 07/27/2021 Pulmonary hypertension 02/21/2014 1 Atrial fibrillation 10/29/2013 11/22/2020 Overview: [facility], 04/21/20. Observation for suspected malignant neoplasm 11/22/2020 documented as of this encounter (statuses as of 11/24/2021) [facility] History of Past illness Narrative* Problem Noted Date Resolved Date Obesity (BMI 30-39.9) 09/01/2015 07/27/2021 Pulmonary hypertension 02/21/2014 1 Atrial fibrillation 10/29/2013 11/22/2020 Overview: [facility], 04/21/20. Observation for suspected malignant neoplasm 11/22/2020 documented as of this encounter (statuses as of 11/26/2021) [facility] History of Past illness Narrative* Problem Noted Date Resolved Date Obesity (BMI 30-39.9) 09/01/2015 07/27/2021 Pulmonary hypertension 02/21/2014 1 Atrial fibrillation 10/29/2013 11/22/2020 Overview: [facility], 04/21/20. Observation for suspected malignant neoplasm 11/22/2020 documented as of this encounter (statuses as of 12/04/2021) [facility] History of Past illness Narrative* Problem Noted Date Resolved Date Obesity (BMI 30-39.9) 09/01/2015 07/27/2021 Pulmonary hypertension 02/21/2014 1 Atrial fibrillation 10/29/2013 11/22/2020 Overview: [facility], 04/21/20. Observation for suspected malignant neoplasm 11/22/2020 documented as of this encounter (statuses as of 12/06/2021) [facility] History of Past illness Narrative* Problem Noted Date Resolved Date Obesity (BMI 30-39.9) 09/01/2015 07/27/2021 Pulmonary hypertension 02/21/2014 1 Atrial fibrillation 10/29/2013 11/22/2020 Overview: [facility], 04/21/20. Observation for suspected malignant neoplasm 11/22/2020 documented as of this encounter (statuses as of 12/17/2021) [facility] History of Past illness Narrative* Problem Noted Date Resolved Date Obesity (BMI 30-39.9) 09/01/2015 07/27/2021 Pulmonary hypertension 02/21/2014 1 Atrial fibrillation 10/29/2013 11/22/2020 Overview: [facility], 04/21/20. Observation for suspected malignant neoplasm 11/22/2020 documented as of this encounter (statuses as of 12/26/2021) [facility] History of Past illness Narrative* Problem Noted Date Resolved Date Obesity (BMI 30-39.9) 09/01/2015 07/27/2021 Pulmonary hypertension 02/21/2014 1 Atrial fibrillation 10/29/2013 11/22/2020 Overview: [facility], 04/21/20. Observation for suspected malignant neoplasm 11/22/2020 documented as of this encounter (statuses as of 01/08/2022) [facility] History of Past illness Narrative* Problem Noted Date Resolved Date Obesity (BMI 30-39.9) 09/01/2015 07/27/2021 Pulmonary hypertension 02/21/2014 1 Atrial fibrillation 10/29/2013 11/22/2020 Overview: [facility], 04/21/20. Observation for suspected malignant neoplasm 11/22/2020 documented as of this encounter (statuses as of 01/22/2022) [facility] History of Past illness Narrative* Problem Noted Date Resolved Date Obesity (BMI 30-39.9) 09/01/2015 07/27/2021 Pulmonary hypertension 02/21/2014 1 Atrial fibrillation 10/29/2013 11/22/2020 Overview: [facility], 04/21/20. Observation for suspected malignant neoplasm 11/22/2020 documented as of this encounter (statuses as of 02/14/2022) [facility] History of Past illness Narrative* Problem Noted Date Resolved Date Obesity (BMI 30-39.9) 09/01/2015 07/27/2021 Pulmonary hypertension 02/21/2014 1 Atrial fibrillation 10/29/2013 11/22/2020 Overview: [facility], 04/21/20. Observation for suspected malignant neoplasm 11/22/2020 documented as of this encounter (statuses as of 02/16/2022) [facility] History of Past illness Narrative* Problem Noted Date Resolved Date Obesity (BMI 30-39.9) 09/01/2015 07/27/2021 Pulmonary hypertension 02/21/2014 1 Atrial fibrillation 10/29/2013 11/22/2020 Overview: [facility], 04/21/20. Observation for suspected malignant neoplasm 11/22/2020 documented as of this encounter (statuses as of 03/01/2022) [facility] History of Past illness Narrative* Problem Noted Date Resolved Date Obesity (BMI 30-39.9) 09/01/2015 07/27/2021 Pulmonary hypertension 02/21/2014 1 Atrial fibrillation 10/29/2013 11/22/2020 Overview: [facility], 04/21/20. Observation for suspected malignant neoplasm 11/22/2020 documented as of this encounter (statuses as of 03/01/2022) [facility] History of Past illness Narrative* Problem Noted Date Resolved Date Obesity (BMI 30-39.9) 09/01/2015 07/27/2021 Pulmonary hypertension 02/21/2014 1 Atrial fibrillation 10/29/2013 11/22/2020 Overview: [facility], 04/21/20. Observation for suspected malignant neoplasm 11/22/2020 documented as of this encounter (statuses as of 03/07/2022) [facility] History of Past illness Narrative* Problem Noted Date Resolved Date Obesity (BMI 30-39.9) 09/01/2015 07/27/2021 Pulmonary hypertension 02/21/2014 1 Atrial fibrillation 10/29/2013 11/22/2020 Overview: [facility], 04/21/20. Observation for suspected malignant neoplasm 11/22/2020 documented as of this encounter (statuses as of 03/29/2022) [facility] of Past illness Narrative* Problem Noted Date Resolved Date Obesity (BMI 30-39.9) 09/01/2015 07/27/2021 Pulmonary hypertension 02/21/2014 1 Atrial fibrillation 10/29/2013 11/22/2020 Overview: [facility], 04/21/20. Observation for suspected malignant neoplasm 11/22/2020 documented as of this encounter (statuses as of 04/30/2022) [facility] History of Past illness Narrative* Problem Noted Date Resolved Date Obesity (BMI 30-39.9) 09/01/2015 07/27/2021 Pulmonary hypertension 02/21/2014 1 Atrial fibrillation 10/29/2013 11/22/2020 Overview: [facility], 04/21/20. Observation for suspected malignant neoplasm 11/22/2020 documented as of this encounter (statuses as of 06/06/2022) [facility] History of Past illness Narrative* Problem Noted Date Resolved Date Obesity (BMI 30-39.9) 09/01/2015 07/27/2021 Pulmonary hypertension 02/21/2014 1 Atrial fibrillation 10/29/2013 11/22/2020 Overview: [facility], 04/21/20. Observation for suspected malignant neoplasm 11/22/2020 documented as of this encounter (statuses as of 06/21/2022) [facility] History of Past illness Narrative* Problem Noted Date Resolved Date Obesity (BMI 30-39.9) 09/01/2015 07/27/2021 Pulmonary hypertension 02/21/2014 1 Atrial fibrillation 10/29/2013 11/22/2020 Overview: [facility], 04/21/20. Observation for suspected malignant neoplasm 11/22/2020 documented as of this encounter (statuses as of 07/03/2022) [facility] History of Past illness Narrative* Problem Noted Date Resolved Date Obesity (BMI 30-39.9) 09/01/2015 07/27/2021 Pulmonary hypertension 02/21/2014 1 Atrial fibrillation 10/29/2013 11/22/2020 Overview: [facility], 04/21/20. Observation for suspected malignant neoplasm 11/22/2020 documented as of this encounter (statuses as of 07/31/2022) [facility] History of Past illness Narrative* Problem Noted Date Resolved Date Obesity (BMI 30-39.9) 09/01/2015 07/27/2021 Pulmonary hypertension 02/21/2014 1 Atrial fibrillation 10/29/2013 11/22/2020 Overview: [facility], 04/21/20. Observation for suspected malignant neoplasm 11/22/2020 documented as of this encounter (statuses as of 08/01/2022) [facility] History of Past illness Narrative* Problem Noted Date Resolved Date Obesity (BMI 30-39.9) 09/01/2015 07/27/2021 Pulmonary hypertension 02/21/2014 1 Atrial fibrillation 10/29/2013 11/22/2020 Overview: [facility], 04/21/20. Observation for suspected malignant neoplasm 11/22/2020 documented as of this encounter (statuses as of 08/27/2022) [facility] History of Past illness Narrative* Problem Noted Date Resolved Date Obesity (BMI 30-39.9) 09/01/2015 07/27/2021 Pulmonary hypertension 02/21/2014 1 Atrial fibrillation 10/29/2013 11/22/2020 Overview: [facility], 04/21/20. Observation for suspected malignant neoplasm 11/22/2020 documented as of this encounter (statuses as of 09/23/2022) [facility] History of Past illness Narrative* Problem Noted Date Resolved Date Obesity (BMI 30-39.9) 09/01/2015 07/27/2021 Pulmonary hypertension 02/21/2014 1 Atrial fibrillation 10/29/2013 11/22/2020 Overview: [facility], 04/21/20. Observation for suspected malignant neoplasm 11/22/2020 documented as of this encounter (statuses as of 10/08/2022) [facility] History of Past illness Narrative* Problem Noted Date Resolved Date Obesity (BMI 30-39.9) 09/01/2015 07/27/2021 Pulmonary hypertension 02/21/2014 1 Atrial fibrillation 10/29/2013 11/22/2020 Overview: [facility], 04/21/20. Observation for suspected malignant neoplasm 06/ 11/22/2020 documented as of this encounter (statuses as of 11/01/2022) [facility] History of Past illness Narrative* Problem Noted Date Resolved Date Obesity (BMI 30-39.9) 09/01/2015 07/27/2021 Pulmonary hypertension 02/21/2014 Atrial fibrillation 10/29/2013 11/22/2020 Overview: [facility], 04/21/20. Observation for suspected malignant neoplasm 11/22/2020 documented as of this encounter (statuses as of 11/27/2022) [facility] History of Past illness Narrative* Problem Noted Date Resolved Date Obesity (BMI 30-39.9) 09/01/2015 07/27/2021 Pulmonary hypertension 02/21/2014 Atrial fibrillation 10/29/2013 11/22/2020 Overview: [facility], 04/21/20. Observation for suspected malignant neoplasm 11/22/2020 documented as of this encounter (statuses as of 11/28/2022) [facility] History of Past illness Narrative* Problem Noted Date Resolved Date Obesity (BMI 30-39.9) 09/01/2015 07/27/2021 Pulmonary hypertension 02/21/2014 Atrial fibrillation 10/29/2013 11/22/2020 Overview: [facility], 04/21/20. Observation for suspected malignant neoplasm 11/22/2020 documented as of this encounter (statuses as of 12/06/2022) [facility] History of Past illness Narrative* Problem Noted Date Diagnosed Date Resolved Date Obesity (BMI 30-39.9) 09/01/20152021 Pulmonary hypertension 02/21/201411/22 Atrial fibrillation 10/29/2013 11/23/19 21 Overview: [facility], 04/21/20. Observation for suspected malignant neoplasm 0 11/22/2020 documented as of this encounter (statuses as of 12/14/2022) [facility] History of Past illness Narrative* Problem Noted Date Diagnosed Date Resolved Date Obesity (BMI 30-39.9) 09/01/20152021 Pulmonary hypertension 02/21/201411/22 Atrial fibrillation 10/29/2013 11/23/19 21 Overview: [facility], 04/21/20. Observation for suspected malignant neoplasm 0 11/22/2020 documented as of this encounter (statuses as of 12/26/2022) [facility] History of Past illness Narrative* Problem Noted Date Diagnosed Date Resolved Date Obesity (BMI 30-39.9) 09/01/20152021 Pulmonary hypertension 02/21/201411/22 Atrial fibrillation 10/29/2013 11/23/19 21 Overview: [facility], 04/21/20. Observation for suspected malignant neoplasm 0 11/22/2020 documented as of this encounter (statuses as of 12/27/2022) [facility] History of Past illness Narrative* Problem Noted Date Diagnosed Date Resolved Date Obesity (BMI 30-39.9) 09/01/20152021 Pulmonary hypertension 02/21/201411/22 Atrial fibrillation 10/29/2013 11/23/19 21 Overview: [facility], 04/21/20. Observation for suspected malignant neoplasm 0 11/22/2020 documented as of this encounter (statuses as of 01/02/2023) [facility] History of Past illness Narrative* Problem Noted Date Diagnosed Date Resolved Date Obesity (BMI 30-39.9) 09/01/20152021 Pulmonary hypertension 02/21/201411/22 Atrial fibrillation 10/29/2013 11/23/19 21 Overview: [facility], 04/21/20. Observation for suspected malignant neoplasm 0 11/22/2020 documented as of this encounter (statuses as of 01/09/2023) [facility] History of Past illness Narrative* Problem Noted Date Diagnosed Date Resolved Date Obesity (BMI 30-39.9) 09/01/20152021 Pulmonary hypertension 02/21/201411/22 Atrial fibrillation 10/29/2013 11/23/19 21 Overview: [facility], 04/21/20. Observation for suspected malignant neoplasm 0 11/22/2020 documented as of this encounter (statuses as of 01/11/2023) [facility] History of Past illness Narrative* Problem Noted Date Diagnosed Date Resolved Date Obesity (BMI 30-39.9) 09/01/20152021 Pulmonary hypertension 02/21/201411/22 Atrial fibrillation 10/29/2013 11/23/19 21 Overview: [facility], 04/21/20. Observation for suspected malignant neoplasm 0 11/22/2020 documented as of this encounter (statuses as of 01/31/2023) [facility] History of Past illness Narrative* Problem Noted Date Diagnosed Date Resolved Date Obesity (BMI 30-39.9) 09/01/20152021 Pulmonary hypertension 02/21/201411/22 Atrial fibrillation 10/29/2013 11/23/19 21 Overview: [facility], 04/21/20. Observation for suspected malignant neoplasm 0 11/22/2020 documented as of this encounter (statuses as of 02/07/2023) [facility] History of Past illness Narrative* Problem Noted Date Diagnosed Date Resolved Date Obesity (BMI 30-39.9) 09/01/20152021 Pulmonary hypertension 02/21/201411/22 Atrial fibrillation 10/29/2013 11/23/19 21 Overview: [facility], 04/21/20. Observation for suspected malignant neoplasm 0 11/22/2020 documented as of this encounter (statuses as of 02/12/2023) [facility] History of Past illness Narrative* Problem Noted Date Diagnosed Date Resolved Date Obesity (BMI 30-39.9) 09/01/20152021 Pulmonary hypertension 02/21/201411/22 Atrial fibrillation 10/29/2013 11/23/19 21 Overview: [facility], 04/21/20. Observation for suspected malignant neoplasm 0 11/22/2020 documented as of this encounter (statuses as of 02/21/2023) [facility] History of Past illness Narrative* Problem Noted Date Diagnosed Date Resolved Date Obesity (BMI 30-39.9) 09/01/20152021 Pulmonary hypertension 02/21/201411/22 Atrial fibrillation 10/29/2013 11/23/19 21 Overview: [facility], 04/21/20. Observation for suspected malignant neoplasm 0 11/22/2020 documented as of this encounter (statuses as of 03/08/2023) [facility] History of Past illness Narrative* Problem Noted Date Diagnosed Date Resolved Date Obesity (BMI 30-39.9) 09/01/20152021 Pulmonary hypertension 02/21/201411/22 Atrial fibrillation 10/29/2013 11/23/19 21 Overview: [facility], 04/21/20. Observation for suspected malignant neoplasm 0 11/22/2020 documented as of this encounter (statuses as of 03/21/2023) [facility] History of Past illness Narrative* Problem Noted Date Diagnosed Date Resolved Date Obesity (BMI 30-39.9) 09/01/20152021 Pulmonary hypertension 02/21/201411/22 Atrial fibrillation 10/29/2013 11/23/19 21 Overview: [facility], 04/21/20. Observation for suspected malignant neoplasm 0 11/22/2020 documented as of this encounter (statuses as of 04/05/2023) [facility] note* Diagnosis Chronic atrial fibrillation (HCC) Atrial fibrillation [facility] Diagnosis Chronic atrial fibrillation (HCC) Atrial fibrillation [facility] Diagnosis Encounter for routine gynecologic examination in Medicare patient- Primary Encounter for screening mammogram for breast cancer [facility] Diagnosis Encounter for screening mammogram for breast cancer [facility] Diagnosis Uncomplicated asthma, unspecified asthma severity, unspecified whether persistent- Primary Need for shingles vaccine Need for prophylactic vaccination and inoculation against other viral diseases Screening for diabetic retinopathy Screening for other eye conditions Controlled type 2 diabetes mellitus without complication, without long-term current use of insulin (HCC) Essential hypertension Unspecified essential hypertension COPD, severe (HCC) Chronic airway obstruction, not elsewhere classified Pulmonary emphysema, unspecified emphysema type (HCC) Chronic anticoagulation Long-term (current) use of anticoagulants documented [facility] Diagnosis Chronic atrial fibrillation (HCC) Atrial fibrillation [facility] Diagnosis Chronic atrial fibrillation (HCC)- Primary Atrial fibrillation [facility] Diagnosis Chronic atrial fibrillation (HCC)- Primary Atrial fibrillation Chronic anticoagulation Long-term (current) use of anticoagulants [facility] Diagnosis RIVERA (dyspnea on exertion) Other dyspnea and respiratory abnormality Controlled type 2 diabetes mellitus without complication, without long-term current use of insulin (HCC) [facility] Diagnosis Acute left ankle pain- Primary Charcot ankle, left Type 2 diabetes mellitus without (mention of) complications (HCC) Type II or unspecified type diabetes mellitus without mention of complication, not stated as uncontrolled [facility] Diagnosis Chronic atrial fibrillation (HCC) Atrial fibrillation [facility] Diagnosis Acute hip pain, left- Primary Nasal and sinus discharge Other diseases of nasal cavity and sinuses Allergic rhinitis, unspecified seasonality, unspecified trigger [facility] Diagnosis Chronic atrial fibrillation (HCC) Atrial fibrillation [facility] Diagnosis Trochanteric bursitis of left hip- Primary Enthesopathy of hip region Acute hip pain, left [facility] Diagnosis Chronic atrial fibrillation (HCC) Atrial fibrillation [facility] Diagnosis Chronic atrial fibrillation (HCC)- Primary Atrial fibrillation [facility] Diagnosis Greater trochanteric pain syndrome of both lower extremities- Primary [facility] Diagnosis Greater trochanteric pain syndrome of both lower extremities- Primary Controlled type 2 diabetes mellitus without complication, without long-term current use of insulin (HCC) Anticoagulated on Coumadin Encounter for therapeutic drug monitoring Essential hypertension Unspecified essential hypertension COPD, severe (HCC) Chronic airway obstruction, not elsewhere classified Chronic congestive heart failure, unspecified heart failure type (HCC) Chronic atrial fibrillation (HCC) Atrial fibrillation [facility] Diagnosis Greater trochanteric pain syndrome of both lower extremities- Primary [facility] Diagnosis Greater trochanteric pain syndrome of both lower extremities- Primary [facility]* Diagnosis Chronic atrial fibrillation (HCC)- Primary Atrial fibrillation [facility] Diagnosis Hoarseness of voice- Primary Dysphonia Chronic obstructive pulmonary disease, unspecified COPD type (HCC) Need for shingles vaccine Need for prophylactic vaccination and inoculation against other viral diseases Screening for diabetic retinopathy Screening for other eye conditions Encounter for immunization Need for other specified prophylactic vaccination against single bacterial disease Screening for colon cancer Special screening for malignant neoplasms, colon RIVERA (dyspnea on exertion) Other dyspnea and respiratory abnormality Anticoagulated on Coumadin Encounter for therapeutic drug monitoring Controlled type 2 diabetes mellitus without complication, without long-term current use of insulin (HCC) COPD with exacerbation (HCC) Obstructive chronic bronchitis with exacerbation Upper abdominal pain Abdominal pain, other specified site Greater trochanteric pain syndrome of both lower extremities Enthesopathy of right hip region Acute on chronic respiratory failure with hypoxemia (HCC) [facility] Diagnosis Anticoagulated on Coumadin Encounter for therapeutic drug monitoring [facility] Diagnosis Chronic atrial fibrillation (HCC)- Primary Atrial fibrillation [facility] Diagnosis Chronic anticoagulation- Primary Long-term (current) use of anticoagulants [facility] Diagnosis Chronic atrial fibrillation (HCC)- Primary Atrial fibrillation documented in this encounter [facility] note* Diagnosis Acute left ankle pain Charcot ankle, left documented in this encounter [facility] for referral (narrative)* Diagnostic Procedure Only (Routine) - Authorized Specialty Diagnoses / Procedures Referred By Contac t Referred To Contact [facility] Diagnoses Encounter for routine gynecologic examination in Medicare patient Encounter for screening mammogram for breast cancer Procedures KALE SCREENING SCREENING MAMMOGRAPHY BI 2-VIEW BREAST INC Linnea Khoury APRN.CNP [address] [place] [address] [facility] [address] [place] [address] Referral ID Status Reason Start Date Expiration Date Visits Requested Visits Authorized [id number] Authorized Auto-Generat ed Referral 11/22/2021 12/22/2022 1 1 [facility] for referral (narrative)* Diagnostic Procedure Only (Routine) - Closed Specialty Diagnoses / Procedures Referred By Contac t Referred To Contact XR IMAGING Diagnoses Acute left ankle pain Charcot ankle, left Procedures XR ANKLE GENERAL 3V AP/LAT/OBL LEFT RADEX ANKLE COMPLETE MINIMUM 3 VIEWS Denise Acuna[address] [place] [address] Xr Imaging Referral ID Status Reason Start Date Expiration Date V isits Requested Visits Authorized [id number] Closed Auto-Generate d Referral 04/30/2022 05/30/2023 1 1 * Diagnostic Procedure Only (Routine) - Closed Specialty Diagnoses / Procedures Referred By Contac t Referred To Contact XR IMAGING Diagnoses Acute left ankle pain Charcot ankle, left Procedures XR FOOT GENERAL 3V AP/LAT/OBL LEFT RADEX FOOT COMPLETE MINIMUM 3 VIEWS Denise Acuna [address] [place] [address] Xr Imaging Referral ID Status Reason Start Date Expiration Date V isits Requested Visits Authorized [id number] Closed Auto-Generate d Referral 04/30/2022 05/30/2023 1 1 [facility] for referral (narrative)* Diagnostic Procedure Only (Routine) - Closed Specialty Diagnoses / Procedures Referred By Contac t Referred To Contact XR IMAGING Diagnoses Acute left ankle pain Charcot ankle, left Procedures XR ANKLE GENERAL 3V AP/LAT/OBL LEFT RADEX ANKLE COMPLETE MINIMUM 3 VIEWS Denise [address] [place] [address] [place] [address] Referral ID Status Reason Start Date Expiration Date V isits Requested Visits Authorized [id number] Closed Auto-Generate d Referral 04/30/2022 05/30/2023 1 1 * Diagnostic Procedure Only (Routine) - Closed Specialty Diagnoses / Procedures Referred By Contac t Referred To Contact XR IMAGING Diagnoses Acute left ankle pain Charcot ankle, left Procedures XR FOOT GENERAL 3V AP/LAT/OBL LEFT RADEX FOOT COMPLETE MINIMUM 3 VIEWS Denise [address] [place] [address] [place] [address] Referral ID Status Reason Start Date Expiration Date V isits Requested Visits Authorized [id number] Closed Auto-Generate d Referral 04/30/2022 05/30/2023 1 1 [facility] for visit Narrative* Diagnostic Procedure Only (Routine) - Closed Specialty Diagnoses / Procedures Referred By Contac t Referred To Contact XR IMAGING Diagnoses Acute left ankle pain Charcot ankle, left Procedures XR ANKLE GENERAL 3V AP/LAT/OBL LEFT RADEX ANKLE COMPLETE MINIMUM 3 VIEWS Denise [address] [place] [address] [place] [address] Referral ID Status Reason Start Date Expiration Date V isits Requested Visits Authorized [id number] Closed Auto-Generate d Referral 04/30/2022 05/30/2023 1 1 [facility] Summary Purpose Family History No Family History Records FoundNo Family History Records FoundNo Family History Records Found Advance Directives Documents on File Type Date Recorded 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 Advance Directive(s) 02/24/2018 6:10 AM Documents on File Type Date Recorded 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 Advance Directive(s) 02/24/2018 6:10 AM Reason for Referral Specialty Diagnoses / Procedures Referred By Contac t Referred To Contact Orthopedics Diagnoses Acute hip pain, left Procedures CONSULT TO ORTHOPAEDICS OFFICE/OUTPATIENT [facility] MDM 60-74 MINUTES Fern Mercado, [employer] SUPER[employer]OR[employer] [address] [place] [address] Referral ID Status Reason Start Date Expiration Date Visits Requested Visits Authorized [id number] Authorized PCP Requested Referral 06/20/2022 06/20/2023 1 1 Specialty Diagnoses / Procedures Referred By Contac t Referred To Contact XR IMAGING Diagnoses Acute hip pain, left Procedures XR HIP GENERAL 3V PELV/AP/LAT LEFT RADEX HIP UNILATERAL WITH PELVIS 2-3 VIEWS Fern Mercado, [employer] SUPER[employer]OR[employer] [address] [place] [address] Xr Imaging Referral ID Status Reason Start Date Expiration Date V isits Requested Visits Authorized [id number] Closed Auto-Generate d Referral 06/20/2022 07/20/2023 1 1 Specialty Diagnoses / Procedures Referred By Contac t Referred To Contact [facility] Diagnoses Greater trochanteric pain syndrome of both lower extremities Procedures PT REHAB FOLLOW UP ORDER THERAPEUTIC EXERCISES RE, EA 15 MIN. Lisa Stevenson, PT [facility] [address] [place] [address] Referral ID Status Reason Start Date Expiration Date Visits Requested Visits Authorized [id number] Pending Review PCP Requested Referral Auto-Generate d Referral 12/25/2022 03/25/2023 1 1 Specialty Diagnoses / Procedures Referred By Contac t Referred To Contact [facility] Diagnoses Greater trochanteric pain syndrome of both lower extremities Procedures CONSULT TO PHYSICAL THERAPY PHYSICAL THERAPY [facility] COMPLEX 45 MINS Bruce Bonilla MD [address] [place] [address] [facility] [address] [place] [address] Referral ID Status Reason Start Date Expiration Date V isits Requested Visits Authorized [id number] Closed Auto-Generate d Referral 11/28/2022 01/30/2023 1 1 Specialty Diagnoses / Procedures Referred By Contac t Referred To Contact Diagnoses Controlled type 2 diabetes mellitus without complication, without long-term current use of insulin (HCC) Fern Mercado, [employer] SUPER[employer]OR[employer] [address] [place] [address] Referral ID Status Reason Start Date Expiration Date V isits Requested Visits Authorized [id number] Pending Review 1 1 Specialty Diagnoses / Procedures Referred By Contac t Referred To Contact Diagnoses Anticoagulated on Coumadin Fern Mercado, [employer] SUPER[employer]OR[employer] [address] [place] [address] Referral ID Status Reason Start Date Expiration Date Visits Re quested Visits Authorized [id number] Denied 1 1 Specialty Diagnoses / Procedures Referred By Contac t Referred To Contact Orthopedics Diagnoses Greater trochanteric pain syndrome of both lower extremities Enthesopathy of right hip region Procedures CONSULT TO ORTHOPAEDICS OFFICE/OUTPATIENT [facility] 60-74 MINUTES Fern Mercado, [employer] SUPER[employer]OR[employer] [address] [place] [address] Referral ID Status Reason Start Date Expiration Date Visits Requested Visits Authorized [id number] Authorized PCP Requested Referral 02/07/2023 02/07/2024 1 1 Specialty Diagnoses / Procedures Referred By Contac t Referred To Contact Ent - Otolaryngology Diagnoses Hoarseness of voice Procedures CONSULT TO ENT OFFICE/OUTPATIENT [facility] 60-74 MINUTES Fern Mercado, [employer] SUPER[employer]OR[employer] [address] [place] [address] Referral ID Status Reason Start Date Expiration Date Visits Requested Visits Authorized [id number] Authorized PCP Requested Referral 02/07/2023 02/07/2024 1 1 Additional Source Comments INFORMATION SOURCE (unrecogn ized section and content) DATE CREATED AUTHOR AUTHOR'S ORGANIZ ATION 11/20/2017 [facility] DATE CREATED AUTHOR AUTHOR'S MIGUEL SZYMANSKI 03/23/2023 [facility] Source Comments (unrecognize d section and content) In the event this informatio n is protected by the Federal Confidentiality of Alcohol and Drug Abuse Patient Records regulations: The Federal rules restrict any use of the information to criminally investigate or prosecute any alcohol or drug abuse patient.[facility] the event this information is protected by the Federal Confidentiality of Alcohol and Drug Abuse Patient Records regulations: The Federal rules restrict any use of the information to criminally investigate or prosecute any alcohol or drug abuse patient.[facility] CenterIn the event this information is protected by the Federal Confidentiality of Alcohol and Drug Abuse Patient Records regulations: The Federal rules restrict any use of the information to criminally investigate or prosecute any alcohol or drug abuse patient.[facility] CenterIn the event this information is protected by the Federal Confidentiality of Alcohol and Drug Abuse Patient Records regulations: The Federal rules restrict any use of the information to criminally investigate or prosecute any alcohol or drug abuse patient.[facility] CenterIn the event this information is protected by the Federal Confidentiality of Alcohol and Drug Abuse Patient Records regulations: The Federal rules restrict any use of the information to criminally investigate or prosecute any alcohol or drug abuse patient.[facility] CenterIn the event this information is protected by the Federal Confidentiality of Alcohol and Drug Abuse Patient Records regulations: The Federal rules restrict any use of the information to criminally investigate or prosecute any alcohol or drug abuse patient.[facility] CenterIn the event this information is protected by the Federal Confidentiality of Alcohol and Drug Abuse Patient Records regulations: The Federal rules restrict any use of the information to criminally investigate or prosecute any alcohol or drug abuse patient.[facility] CenterIn the event this information is protected by the Federal Confidentiality of Alcohol and Drug Abuse Patient Records regulations: The Federal rules restrict any use of the information to criminally investigate or prosecute any alcohol or drug abuse patient.[facility] CenterIn the event this information is protected by the Federal Confidentiality of Alcohol and Drug Abuse Patient Records regulations: The Federal rules restrict any use of the information to criminally investigate or prosecute any alcohol or drug abuse patient.[facility] CenterIn the event this information is protected by the Federal Confidentiality of Alcohol and Drug Abuse Patient Records regulations: The Federal rules restrict any use of the information to criminally investigate or prosecute any alcohol or drug abuse patient.[facility] CenterIn the event this information is protected by the Federal Confidentiality of Alcohol and Drug Abuse Patient Records regulations: The Federal rules restrict any use of the information to criminally investigate or prosecute any alcohol or drug abuse patient.[facility] CenterIn the event this information is protected by the Federal Confidentiality of Alcohol and Drug Abuse Patient Records regulations: The Federal rules restrict any use of the information to criminally investigate or prosecute any alcohol or drug abuse patient.[facility] CenterIn the event this information is protected by the Federal Confidentiality of Alcohol and Drug Abuse Patient Records regulations: The Federal rules restrict any use of the information to criminally investigate or prosecute any alcohol or drug abuse patient.[facility] CenterIn the event this information is protected by the Federal Confidentiality of Alcohol and Drug Abuse Patient Records regulations: The Federal rules restrict any use of the information to criminally investigate or prosecute any alcohol or drug abuse patient.[facility] CenterIn the event this information is protected by the Federal Confidentiality of Alcohol and Drug Abuse Patient Records regulations: The Federal rules restrict any use of the information to criminally investigate or prosecute any alcohol or drug abuse patient.[facility] CenterIn the event this information is protected by the Federal Confidentiality of Alcohol and Drug Abuse Patient Records regulations: The Federal rules restrict any use of the information to criminally investigate or prosecute any alcohol or drug abuse patient.[facility] CenterIn the event this information is protected by the Federal Confidentiality of Alcohol and Drug Abuse Patient Records regulations: The Federal rules restrict any use of the information to criminally investigate or prosecute any alcohol or drug abuse patient.[facility] CenterIn the event this information is protected by the Federal Confidentiality of Alcohol and Drug Abuse Patient Records regulations: The Federal rules restrict any use of the information to criminally investigate or prosecute any alcohol or drug abuse patient.[facility] CenterIn the event this information is protected by the Federal Confidentiality of Alcohol and Drug Abuse Patient Records regulations: The Federal rules restrict any use of the information to criminally investigate or prosecute any alcohol or drug abuse patient.[facility] CenterIn the event this information is protected by the Federal Confidentiality of Alcohol and Drug Abuse Patient Records regulations: The Federal rules restrict any use of the information to criminally investigate or prosecute any alcohol or drug abuse patient.[facility] CenterIn the event this information is protected by the Federal Confidentiality of Alcohol and Drug Abuse Patient Records regulations: The Federal rules restrict any use of the information to criminally investigate or prosecute any alcohol or drug abuse patient.[facility] CenterIn the event this information is protected by the Federal Confidentiality of Alcohol and Drug Abuse Patient Records regulations: The Federal rules restrict any use of the information to criminally investigate or prosecute any alcohol or drug abuse patient.[facility] CenterIn the event this information is protected by the Federal Confidentiality of Alcohol and Drug Abuse Patient Records regulations: The Federal rules restrict any use of the information to criminally investigate or prosecute any alcohol or drug abuse patient.[facility] CenterIn the event this information is protected by the Federal Confidentiality of Alcohol and Drug Abuse Patient Records regulations: The Federal rules restrict any use of the information to criminally investigate or prosecute any alcohol or drug abuse patient.[facility] CenterIn the event this information is protected by the Federal Confidentiality of Alcohol and Drug Abuse Patient Records regulations: The Federal rules restrict any use of the information to criminally investigate or prosecute any alcohol or drug abuse patient.[facility] CenterIn the event this information is protected by the Federal Confidentiality of Alcohol and Drug Abuse Patient Records regulations: The Federal rules restrict any use of the information to criminally investigate or prosecute any alcohol or drug abuse patient.[facility] CenterIn the event this information is protected by the Federal Confidentiality of Alcohol and Drug Abuse Patient Records regulations: The Federal rules restrict any use of the information to criminally investigate or prosecute any alcohol or drug abuse patient.[facility] CenterIn the event this information is protected by the Federal Confidentiality of Alcohol and Drug Abuse Patient Records regulations: The Federal rules restrict any use of the information to criminally investigate or prosecute any alcohol or drug abuse patient.[facility] CenterIn the event this information is protected by the Federal Confidentiality of Alcohol and Drug Abuse Patient Records regulations: The Federal rules restrict any use of the information to criminally investigate or prosecute any alcohol or drug abuse patient.[facility] CenterIn the event this information is protected by the Federal Confidentiality of Alcohol and Drug Abuse Patient Records regulations: The Federal rules restrict any use of the information to criminally investigate or prosecute any alcohol or drug abuse patient.[facility] CenterIn the event this information is protected by the Federal Confidentiality of Alcohol and Drug Abuse Patient Records regulations: The Federal rules restrict any use of the information to criminally investigate or prosecute any alcohol or drug abuse patient.[facility] CenterIn the event this information is protected by the Federal Confidentiality of Alcohol and Drug Abuse Patient Records regulations: The Federal rules restrict any use of the information to criminally investigate or prosecute any alcohol or drug abuse patient.[facility] CenterIn the event this information is protected by the Federal Confidentiality of Alcohol and Drug Abuse Patient Records regulations: The Federal rules restrict any use of the information to criminally investigate or prosecute any alcohol or drug abuse patient.[facility] CenterIn the event this information is protected by the Federal Confidentiality of Alcohol and Drug Abuse Patient Records regulations: The Federal rules restrict any use of the information to criminally investigate or prosecute any alcohol or drug abuse patient.[facility] CenterIn the event this information is protected by the Federal Confidentiality of Alcohol and Drug Abuse Patient Records regulations: The Federal rules restrict any use of the information to criminally investigate or prosecute any alcohol or drug abuse patient.[facility] CenterIn the event this information is protected by the Federal Confidentiality of Alcohol and Drug Abuse Patient Records regulations: The Federal rules restrict any use of the information to criminally investigate or prosecute any alcohol or drug abuse patient.[facility] CenterIn the event this information is protected by the Federal Confidentiality of Alcohol and Drug Abuse Patient Records regulations: The Federal rules restrict any use of the information to criminally investigate or prosecute any alcohol or drug abuse patient.[facility] CenterIn the event this information is protected by the Federal Confidentiality of Alcohol and Drug Abuse Patient Records regulations: The Federal rules restrict any use of the information to criminally investigate or prosecute any alcohol or drug abuse patient.[facility] CenterIn the event this information is protected by the Federal Confidentiality of Alcohol and Drug Abuse Patient Records regulations: The Federal rules restrict any use of the information to criminally investigate or prosecute any alcohol or drug abuse patient.[facility] CenterIn the event this information is protected by the Federal Confidentiality of Alcohol and Drug Abuse Patient Records regulations: The Federal rules restrict any use of the information to criminally investigate or prosecute any alcohol or drug abuse patient.[facility] CenterIn the event this information is protected by the Federal Confidentiality of Alcohol and Drug Abuse Patient Records regulations: The Federal rules restrict any use of the information to criminally investigate or prosecute any alcohol or drug abuse patient.[facility] CenterIn the event this information is protected by the Federal Confidentiality of Alcohol and Drug Abuse Patient Records regulations: The Federal rules restrict any use of the information to criminally investigate or prosecute any alcohol or drug abuse patient.[facility] CenterIn the event this information is protected by the Federal Confidentiality of Alcohol and Drug Abuse Patient Records regulations: The Federal rules restrict any use of the information to criminally investigate or prosecute any alcohol or drug abuse patient.[facility] CenterIn the event this information is protected by the Federal Confidentiality of Alcohol and Drug Abuse Patient Records regulations: The Federal rules restrict any use of the information to criminally investigate or prosecute any alcohol or drug abuse patient.[facility] CenterIn the event this information is protected by the Federal Confidentiality of Alcohol and Drug Abuse Patient Records regulations: The Federal rules restrict any use of the information to criminally investigate or prosecute any alcohol or drug abuse patient.[facility] CenterIn the event this information is protected by the Federal Confidentiality of Alcohol and Drug Abuse Patient Records regulations: The Federal rules restrict any use of the information to criminally investigate or prosecute any alcohol or drug abuse patient.[facility] CenterIn the event this information is protected by the Federal Confidentiality of Alcohol and Drug Abuse Patient Records regulations: The Federal rules restrict any use of the information to criminally investigate or prosecute any alcohol or drug abuse patient.[facility] CenterIn the event this information is protected by the Federal Confidentiality of Alcohol and Drug Abuse Patient Records regulations: The Federal rules restrict any use of the information to criminally investigate or prosecute any alcohol or drug abuse patient.[facility] Reason for Visit (unrecogniz ed section and content) Reason Comments Yearly Exam With Mammogram Reason Comments 4 month f/u Reason Onset Date Comments Population Health Navigation Outreach 12/26/2021 [facility] gaps Reason Comments Orders protime Reason Onset Date Comments Refill Request 03/06/2022 Reason Comments Established Patient Pain Reason Comments Left Hip Pain x 2 weeks Reason Comments Established Patient Pain Specialty Diagnoses / Procedures Referred By Kimo gibbs Referred To Contact Orthopedics Diagnoses Acute hip pain, left Procedures CONSULT TO ORTHOPAEDICS OFFICE/OUTPATIENT [facility] MDM 60-74 MINUTES Fern Mercado, [employer]PER[employer] [address] [place] [address] Referral ID Status Reason Start Date Expiration Date V isits Requested Visits Authorized [id number] Closed PCP Requested Referral 06/20/2022 06/20/2023 1 1 Reason Onset Date Comments Anticoagulation 10/31/2022 Reason Comments PT Eval Specialty Diagnoses / Procedures Referred By Contac t Referred To Contact [facility] Diagnoses Greater trochanteric pain syndrome of both lower extremities Procedures CONSULT TO PHYSICAL THERAPY PHYSICAL THERAPY EVALUATION HIGH COMPLEX 45 MINS Bruce Bonilla MD [facility] [place] [address] [facility] [address] [place] [address] Referral ID Status Reason Start Date Expiration Date V isits Requested Visits Authorized [id number] Closed Auto-Generate d Referral 11/28/2022 01/30/2023 1 1 Reason Comments F/U 6 months Reason Comments Physical Therapy Specialty Diagnoses / Procedures Referred By Contac t Referred To Contact [facility] Diagnoses Greater trochanteric pain syndrome of both lower extremities Procedures PT REHAB FOLLOW UP ORDER THERAPEUTIC EXERCISES RE, EA 15 MIN. Lisa Stevenson, PT [facility] [address] [place] [address] Referral ID Status Reason Start Date Expiration Date Visits Requested Visits Authorized [id number] Authorized PCP Requested Referral Auto-Generate d Referral 12/27/2022 03/29/2023 6 6 Reason Comments losing voice Reason Comments Patient Question Care Teams (unrecognized sec tion and content) Director Organizational Relationship Specialty Start Date End Date Bruce Bonilla MD [facility] [place] [address] PCP - General 09/09/05 Director Organizational Relationship Specialty Start Date End Date Bruce Bonilla MD [address] [place] [address] PCP - General 09/09/05 Director Organizational Relationship Specialty Start Date End Date Bruce Bonilla MD [facility] [place] [address] PCP - General 09/09/05 Director Organizational Relationship Specialty Start Date End Date Bruce Bonilla MD [address] [place] [address] [id number] PCP - General 09/09/05 Director Organizational Relationship Specialty Start Date End Date Bruce Bonilla MD [address] [facility] [place] [address] PCP - General 09/09/05 Director Organizational Relationship Specialty Start Date End Date Bruce Bonilla MD [address] [facility] [place] [address] PCP - General 09/09/05 Director Organizational Relationship Specialty Start Date End Date Bruce Bonilla MD [address] [place] [address], [place] [address] PCP - General 09/09/05 Director Organizational Relationship Specialty Start Date End Date Bruce Bonilla MD [address] [place] [address], [place] [address] PCP - General 09/09/05 Director Organizational Relationship Specialty Start Date End Date Bruce Bonilla MD [address] [place] [address], [place] [address] PCP - General 09/09/05 Director Organizational Relationship Specialty Start Date End Date Bruce Bonilla MD [address] [place] [address], [place] [address] PCP - General 09/09/05 Director Organizational Relationship Specialty Start Date End Date Bruce Bonilla MD [address] [place] [address], [place] [address] PCP - General 09/09/05 Director Organizational Relationship Specialty Start Date End Date Bruce Bonilla MD [address] [place] [address], [place] [address] PCP - General 09/09/05 Director Organizational Relationship Specialty Start Date End Date Bruce Bonilla MD [address] [place] [address], [place] [address] PCP - General 09/09/05 Director Organizational Relationship Specialty Start Date End Date Bruce Bonilla MD [address] [place] [address] PCP - General 09/09/05 Director Organizational Relationship Specialty Start Date End Date Bruce Bonilla MD [address] [place] [address] PCP - General 09/09/05 Director Organizational Relationship Specialty Start Date End Date Bruce Bonilla MD [address] [place] [address] PCP - General 09/09/05 Director Organizational Relationship Specialty Start Date End Date Bruce Bonilla MD [address] [place] [address] PCP - General 09/09/05 Director Organizational Relationship Specialty Start Date End Date Bruce Bonilla MD [address] [place] [address] PCP - General 09/09/05 Director Organizational Relationship Specialty Start Date End Date Bruce Bonilla MD [address] [place] [address] PCP - General 09/09/05 Director Organizational Relationship Specialty Start Date End Date Bruce Bonilla MD [address] [place] [address] PCP - General 09/09/05 Director Organizational Relationship Specialty Start Date End Date Bruce Bonilla MD [address] [place] [address] PCP - General 09/09/05 Director Organizational Relationship Specialty Start Date End Date Bruce Bonilla MD [address] [place] [address] PCP - General 09/09/05 FOR RECORDS PERTAINING TO PATIENTS WHO ARE OR HAVE BEEN ENROLLED IN A CHEMICAL DEPENDENCY/SUBSTANCEABUSE PROGRAM, SOME INFORMATION MAY BE OMITTED. This clinical summary was aggregated from multiple sources. Caution should be exercised in using it in the provision of clinical care. This summary normalizes information from multiple sources, and as a consequence, information in this document may materially change the coding, format and clinical context of patient data. In addition, data may be omitted in some cases. CLINICAL DECISIONS SHOULD BE BASED ON THE PRIMARY CLINICAL RECORDS. [facility] [employer] [facility]. provides no warranty or guarantee of the accuracy or completeness of information in this document.
[2023-04-07 08:16] LABS: INR Fingerstick 1.3; Prothrombin Time Fingerstick 14.3 SEC (11.7-14.9)
[2023-04-07] MEDS: Lactated Ringers 1,000 ML 15 ML IV (08:52)
[2023-04-07 09:12] LABS: Bedside Glucose 102 mg/dL (74-106)
--- NOTE | 2023-04-07 09:30 | DS.PCM_ITS ---
Providers Primary Care Physician: Dr. Laurei Bonilla MD Reason For Visit: LARYNGOPLASTY LEFT SIDE Medications at Discharge Home Medications oxygen-air delivery systems ##1 10/12/19 budesonide-formoterol HFA 160 mcg-4.5 mcg/actuation aerosol inhaler 2 puff inhalation BID COPD 10/13/19 albuterol sulfate 2.5 mg/3 mL (0.083 %) solution for nebulization 2.5 mg continuous nebulization Q6H 05/22/21 warfarin 2.5 mg tablet 2.5 mg PO SUTUTHSA AFIB 05/22/21 warfarin 5 mg tablet 5 mg PO MOWEFR BLOOD THINNER 05/22/21 furosemide 40 mg tablet 40 mg PO DAILY Swelling 01/22/22 potassium chloride 10 mEq capsule,extended release 10 meq PO DAILY #90 caps 01/22/22 dupilumab 300 mg/2 mL subcutaneous pen injector (Dupixent) 300 mg subcut Q3W 11/22/22 carvedilol 12.5 mg tablet 12.5 mg PO BID this is a dose increase #180 tabs 02/06/23 loratadine 10 mg tablet (Allergy Relief (loratadine)) 10 mg PO DAILY 03/31/23 omeprazole 40 mg capsule,delayed release 40 mg PO DAILY 03/31/23 Weight / BMI Weight Weight: 79 kg Body Mass Index (BMI) 31.8 ABG / Lab / Microbiology Data 04/01/23 14:35 04/01/23 14:35 Laboratory: Laboratory Results - last 24 hr 04/07/23 08:33: POC Glucose 102 04/07/23 09:14: POC PT 14.3, INR 1.3 D/C Instructions Discharge Diet: Soft diet Additional Instructions: voice rest for 3 days Please Follow Up With: Ted Baldwin MD When: 2 weeks Meaningful Use Info Meaningful Use Diagnoses (Choose all that apply): None applicable Discharge Plan Admission Attending Provider: Ted Baldwin Primary Care Provider: Laurie Bonilla Discharge Orders/Prescriptions Prescriptions: No Action (DME) oxygen-air delivery systems device See Rx Instructions .ROUTE .MEDSUPPLY Qty: 1 Rx Instructions: As directed albuterol sulfate 2.5 mg /3 mL (0.083 %) solution for nebulization 2.5 mg continuous nebulization Q6H furosemide 40 mg tablet 40 mg PO DAILY potassium chloride 10 mEq capsule, extended release 10 meq PO DAILY Qty: 90 3RF Dupixent Pen 300 mg/2 mL pen injector 300 mg subcut Q3W budesonide-formoterol 160-4.5 mcg/actuation HFA aerosol inhaler 2 puff INHALATION BID Patient Comments: inhaler warfarin 5 mg tablet 5 mg PO MOWEFR Patient Comments: PCP managing Rx Instructions: PCP managing warfarin 2.5 mg tablet 2.5 mg PO [facility] Patient Comments: PCP managing Rx Instructions: PCP managing loratadine [Allergy Relief (loratadine)] 10 mg tablet 10 mg PO DAILY omeprazole 40 mg capsule,delayed release(DR/EC) 40 mg PO DAILY carvedilol 12.5 mg tablet 12.5 mg PO BID Qty: 180 3RF Rx Instructions: must administer with a meal/food Referrals / Follow Up: Laurie Bonilla MD [Primary Care Provider] - Disposition Disposition (needs filled in before D/C Order can be placed): Home, Self Care
--- NOTE | 2023-04-07 09:42 | PCM.OPRPT ---
Report of Operation Date of Procedure: 04/07/23 Pre-Operative Diagnosis: left vocal cord paralysis Post-Operative Diagnosis: same Surgery/Procedure Performed:: Microdirect laryngoscopy with Left vocal cord injection laryngoplasty Surgeon: Ted Baldwin Type of Anesthesia: General Anesthesiologist: Joseph Galaviz Estimated Blood Loss (mL): minimal Description of Procedure: The patient was taken to the operating room on 04/07/23. She was placed in the supine position on the OR table. She was given sufficient general endotracheal anesthesia. The table was turned 90 degrees clockwise. The patient was draped steriley. A gum guard was placed on the maxillary gingiva. A Dedo laryngoscope was inserted into the pharynx. The larynx was exposed and examined. No abnormalities were identified. A then placed the patient in supension with a Lewy suspension on a Lackey stand. The microscope was brought into use. I then examined the larynx. I inserted the needle of the Prolaryn plus into the mucosa just anterior and lateral to the left vocal process. I then injected 1 cc. This provided excellent medialization of the left vocal cord. Hemostasis was achieved with adrenaline pledgets. All instrumentation was then removed. She was turned back to the regular anesthesia position and awoken. She was brought the recovery room in stable condition. Blood loss minimal, replacement none. Sponge, needle and instrument count were correct at the end of the procedure.
== END 2023-04-07 12:41 | disposition home or self-care (01) ==
LOC: SDC 07:36 → AC 07:38
PROVIDERS: PCP Internal Medicine; Referring Provider Otolaryngology; Visit Provider Otolaryngology
PROC: (CPT 31571; principal; 2023-04-07 09:05)
DX: J38.01 Paralysis of vocal cords and larynx, unilateral (principal); I11.0 Hypertensive heart disease with heart failure; I50.32 Chronic diastolic (congestive) heart failure; I48.11 Longstanding persistent atrial fibrillation; E11.9 Type 2 diabetes mellitus without complications; R49.0 Dysphonia; K21.9 Gastro-esophageal reflux disease without esophagitis; G47.30 Sleep apnea, unspecified; Z79.01 Long term (current) use of anticoagulants; Z79.899 Other long term (current) drug therapy; Z87.891 Personal history of nicotine dependence; Z99.81 Dependence on supplemental oxygen
CPT/HCPCS: 31571; 00320; 36415; 36416; 80048; 82962; 85027; 85610; J7120; J2405

== ENCOUNTER → 2023-08-11 | Outpatient (CLI) | payer MEDICARE, SELFPAY ==
--- NOTE | 2023-08-11 06:51 | ECHOD_ITS ---
Reason For Study: Pre-op clearance Procedure This was a 2D Doppler, Color Flow transthoracic echocardiogram. Exam performed in department. Left Ventricle Normal LV size. The estimated ejection fraction is 55 %. Unable to assess diastolic dysfunction. No regional wall motion abnormalities noted. Right Ventricle Normal RV size. Normal systolic function. Atria The left atrium is moderately enlarged. The right atrium is mildly enlarged. No doppler evidence for ASD. Mitral Valve There is moderate mitral annular calcification. There is no mitral valve stenosis. Mild-Moderate (1- 2+) mitral valve insufficiency. Tricuspid Valve There is no tricuspid stenosis. Moderately severe (3+) tricuspid valve insufficiency. Severe pulmonary hypertension. Pulmonary artery systolic pressure is 85-90 mmHg. Aortic Valve Trisinus/trileaflet aortic valve. There is no aortic stenosis. No aortic valve insufficiency. Pulmonic Valve There is no pulmonic valvular stenosis. No pulmonic valve insufficiency. Great Vessels Normal aortic root. Pericardium/Pleural No pericardial effusion. MMode/2D Measurements & Calculations LVIDd: 4.7 cm IVSd: 0.78 cm Ao root diam: 2.6 cm LVIDs: 2.8 cm LVPWd: 1.3 cm RVDd: 4.2 cm FS: 40.5 % LAV(MOD-bp): 92.7 ml LVAd ap4: 24.2 cm2 SV(MOD-sp4): 45.1 ml LAV(MOD-bp) Indexed: 52.1 ml/m2 LVLd ap4: 6.1 cm LAV(MOD-sp2): 76.0 ml EDV(MOD-sp4): 82.3 ml LAV(MOD-sp4): 92.5 ml EDV(sp4-el): 80.8 ml LVAs ap4: 14.8 cm2 LVLs ap4: 5.4 cm ESV(MOD-sp4): 37.1 ml ESV(sp4-el): 34.2 ml EF(MOD-sp4): 54.9 % EF(sp4-el): 57.7 % SV(sp4-el): 46.6 ml LA A4 area: 27.8 cm2 LA dimension(2D): 4.5 cm RA A4 area: 19.8 cm2 Doppler Measurements & Calculations MV E max parker: 116.1 cm/sec Ao V2 max: 114.8 cm/sec LV V1 max: 87.6 cm/sec Ao max P.3 mmHg LV V1 max P.1 mmHg PA V2 max: 74.1 cm/sec TR max parker: 443.0 cm/sec TR max P.5 mmHg ECHO/Echo Complete Interpretation Summary The estimated ejection fraction is 55 %. Unable to assess diastolic dysfunction. The left atrium is moderately enlarged. The right atrium is mildly enlarged. Mild-Moderate (1-2+) mitral valve insufficiency. Severe pulmonary hypertension. Ordering Physician: BERRY MAY Referring Physician: Laurie Bonilla M.D. Performed By: Luci Armijo RDCS
--- OUTSIDE RECORDS SUMMARY | 2023-08-11 06:55 | XMS RPT_ITS | CCD ---
Author Name Unknown Address [address] [place] [address] Organization [facility] Care Team Providers Care Acetylene Gas Compressor Name Role Phone DAVID THOMPSON Unavailable Unavailable [facility] Unavailable Unavailable TALAMPAS, BRUCE Unavailable Unavailable JAY, DAVID Unavailable Unavailable JAY, DAVID Unavailable Unavailable TALAMPAS, BRUCE Unavailable Unavailable JAY, DAVID Unavailable Unavailable JAY, DAVID Unavailable Unavailable TALAMPAS, BRUCE Unavailable Unavailable JAY DAVID E Unavailable Unavailable GABE SÁNCHEZ Unavailable Unavailable JAY, DAVID E Unavailable Unavailable JAY, DAVID E Unavailable Unavailable Bruce Bonilla MD Primary Care Provider Bruce Bonilla MD Primary Care Provider Bruce Bonilla MD Primary Care Provider BERRY MAY Admitting Unavailable BERRY MAY Attending Unavailable TALAMPAS, BRUCE D Primary Care Unavailable TALAMPAS, BRUCE D Primary Care Unavailable TALAMPAS, BRUCE D Primary Care Unavailable TALAMPAS, BRUCE D Primary Care Unavailable MERCADO, JONNY Referring Unavailable O'SCAR, LATRICIA Referring Unavailable O'SCAR, LATRICIA Attending Unavailable TALAMPAS, BRUCE D Primary Care Unavailable TALAMPAS, BRUCE D Primary Care Unavailable TALAMPAS, BRUCE D Primary Care Unavailable TALAMPAS, BRUCE D Primary Care Unavailable TALAMPAS, BRUCE D Primary Care Unavailable FLORA PERDOMO Referring Unavailable TALAMPAS, BRUCE D Primary Care Unavailable TALAMPAS, BRUCE D Primary Care Unavailable O'SCAR, LATRICIA Referring Unavailable O'SCAR, LATRICIA Attending Unavailable TALAMPAS, BRUCE D Primary Care Unavailable MERCADO, JONNY Referring Unavailable TALAMPAS, BRUCE D Primary Care Unavailable ADRIANA CENTENO Attending Unavailable MERCDAO, JONNY Referring Unavailable TALAMPAS, BRUCE D Primary Care Unavailable TALAMPAS, BRUCE D Primary Care Unavailable TALAMPAS, BRUCE D Primary Care Unavailable LINNEA TEJADA Referring Unavailable TALAMPAS, BRUCE D Primary Care [...] Unavailable TALAMPAS, BRUCE D Primary Care Unavailable LATRICIA BLANK Attending Unavailable TALAMPAS, BRUCE D Primary Care Unavailable TALAMPAS, BRUCE D Referring Unavailable TALAMPAS, BRUCE D Attending Unavailable TALAMPAS, BRUCE D Primary Care Unavailable TALAMPAS, BRUCE D Primary Care Unavailable TALAMPAS, BRUCE D Primary Care Unavailable TALAMPAS, BRUCE D Primary Care Unavailable MERCADO, JONNY Attending Unavailable TALAMPAS, BRUCE D Primary Care Unavailable TALAMPAS, BRUCE D Primary Care Unavailable TALAMPAS, BRUCE D Referring Unavailable TALAMPAS, BRUCE D Primary Care Unavailable TALAMPAS, BRUCE D Primary Care Unavailable TALAMPAS, BRUCE D Primary Care Unavailable MERCADOJONNY Attending Unavailable TALAMPAS, BRUCE D Primary Care Unavailable Allergies Allergy Classification Reported Allergen(s) Allergy Type Date of Onset Reaction(s) Facility (20 sources) albuterol; Translations: [ALBUTEROL] Drug Allergy 12-08-19 14 Other: See Comments [facility] Repository (20 sources) doxycycline; Translations: [DOXYCYCLINE] Drug Allergy 01-27-20 07 [facility] Repository (20 sources) etodolac; Translations: [ETODOLAC] Drug Allergy 01-25-20 06 Shortness of Breath [facility] Repository (20 sources) guaiFENesin; Translations: [GUAIFENESIN] Drug Allergy 12-31-19 13 Rash [facility] Repository (20 sources) nabumetone; Translations: [NABUMETONE] Drug Allergy 12-27-19 06 Hives [facility] Repository (20 sources) Penicillins; Translations: [PENICILLINS] Propensity to adverse reactions (disorder) 10-01-19 06 Rash [facility] Repository (20 sources) sulfamethoxazole / trimethoprim; Translations: [SULFAMETHOXAZOLE-T RIMETHOPRIM] Drug Allergy 01-09-20 17 Hives, Itching [facility] Repository (3 sources) OTHER; Translations: [OTHER] Propensity to adverse reactions (disorder) 10-02-19 06 [facility] (20 sources) levoFLOXacin; Translations: [LEVOFLOXACIN] Drug Allergy 07-21-19 21 Angioedema [facility] Work Phone: (20 sources) environmental allergies [Other] Propensity to adverse reactions 10-02-19 06 [facility] Work Phone: Medications Current Medications Medication Drug [...] failure; Translations: [Chronic diastolic (congestive) heart failure] Onset: 07-01-2023 04-28-2020 Chronic Diabetes mellitus without complication (20 [...] Chronic Immunizations and screening for infectious disease (6 sources) Requires varicella vaccination; Translations: [Encounter for immunization] Onset: 02-27-2023 Episodic Menopausal disorders (20 sources) Postmenopausal bleeding; Translations: [Postmenopausal bleeding] Onset: 05-28-2012 05-28-2012 Chronic Nutritional deficiencies (20 sources) Vitamin D deficiency; Translations: [Vitamin D deficiency, unspecified] Onset: 05-22-2011 05-22-2011 Chronic Other aftercare (3 sources) Anticoagulant 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; 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] 11-26-2022 Episodic Other lower respiratory disease (2 sources) Dyspnea on exertion; Translations: [Other forms of dyspnea] Episodic Other lower respiratory disease (1 source) Dyspnea; Translations: [Dyspnea, unspecified] 08-01-2023 Episodic Other lower respiratory disease (1 source) Dyspnea, unspecified; Translations: [Dyspnea and respiratory abnormalities] Onset: 07-01-2023 Episodic Other lower respiratory disease (1 source) Other abnormalities of breathing; Translations: [Dyspnea and respiratory abnormalities] Onset: 07-01-2023 Episodic Other nervous system disorders (2 sources) Other chronic pain; Translations: [Chronic left SI joint pain] Onset: 07-01-2023 Chronic Other non-traumatic joint disorders (2 sources) Charcot's arthropathy; Translations: [Charcot's joint, left ankle and foot] Chronic Other non-traumatic joint disorders (2 sources) Acute ankle pain; Translations: [Pain in left ankle and joints of left foot] Episodic Other non-traumatic joint disorders (2 sources) Hip pain; Translations: [Pain in left hip] Episodic Other non-traumatic joint disorders (1 source) Greater trochanteric pain syndrome of left lower limb; Translations: [Pain in left hip] 08-01-2023 Episodic Other non-traumatic joint disorders (2 sources) Pain in left hip; Translations: [Greater trochanteric pain syndrome of left lower extremity] Onset: 12-25-2022 Episodic Other nutritional; endocrine; and metabolic disorders [...] Translations: [Dysphonia] 02-07-2023 Episodic Other upper respiratory disease (2 sources) Dysphonia; Translations: [Dysphonia] Onset: 07-28-2023 Episodic Pulmonary heart disease (20 sources) Secondary pulmonary hypertension; Translations: [Other secondary pulmonary hypertension] 06-08-2021 Chronic Residual codes; unclassified (2 sources) Encounter for procedure for purposes other than remedying health state, unspecified; Translations: [Encounter for procedure for purposes other than remedying health state, unspecified] Onset: 08-01-2023 Episodic Respiratory failure; insufficiency; arrest (adult) (16 sources) Acute on chronic hypoxemic respiratory failure; Translations: [Acute and chronic respiratory failure with hypoxia] Onset: 02-07-2023 02-07-2023 Chronic Spondylosis; intervertebral disc disorders; other back problems (20 sources) Neck pain; Translations: [Cervicalgia] Onset: 09-07-2014 09-07-2014 Episodic Thyroid disorders (20 sources) Thyrotoxicosis; Translations: [Thyrotoxicosis, unspecified without thyrotoxic crisis or storm] Onset: 05-16-2023 03-06-2010 Chronic Unclassified (1 source) Unknown / [...] sources) Long-term current use of anticoagulant; Translations: [correction (current) use of anticoagulants] Onset: 09-01-2015 09-01-2015 Episodic Other aftercare (1 source) 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; Translations: [Chronic anticoagulation] Onset: 09-01-2015 Episodic Other aftercare (1 source) 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; Translations: [Encounter for long-term [...] 01-06-2007 01-06-2007 Episodic Other non-traumatic joint disorders (20 sources) Bilateral greater trochanteric pain syndrome of lower limbs; Translations: [Pain in right hip] Onset: 12-25-2022 12-25-2022 Episodic Other non-traumatic joint disorders (1 source) Pain in right hip; Translations: [Greater trochanteric pain syndrome of both lower extremities] Onset: 12-25-2022 Episodic Other screening for suspected conditions (not mental disorders or infectious disease) (20 sources) Thallium stress test abnormal; Translations: [Abnormal result of other cardiovascular function study] Onset: 02-14-2015 02-14-2015 Episodic Other upper respiratory infections (1 source) Acute upper respiratory infection, unspecified; Translations: [Viral URI with cough] Onset: 03-04-2023 Episodic Sprains and strains (20 sources) Shoulder strain; Translations: [Strain of unspecified muscle, fascia and tendon at shoulder and upper arm level, right arm, sequela] Onset: 01-07-2006 01-14-2018 Episodic Results Test Name Value Interpretation Reference Range Facil ity Vital Signs Date Time Vital Sign Value Performing Clinician Alejandrina bang 07-01-2023 17:20-0500 Body height 157.5 cm Bruce Bonilla MD Work Phone: [facility] 07-01-2023 17:20-0500 Body temperature 98.1 [degF] Bruce Bonilla MD Work Phone: [facility] 07-01-2023 17:20-0500 Body weight 75.3 kg Bruce Bonilla MD Work Phone: [facility] 07-01-2023 17:20-0500 Diastolic blood pressure 82 mm[Hg] Bruce Bonilla MD Work Phone: [facility] 07-01-2023 17:20-0500 Heart rate 94 /min Bruce Bonilla MD Work Phone: [facility] 07-01-2023 17:20-0500 Respiratory rate 12 /min Bruce Bonilla MD Work Phone: [facility] 07-01-2023 17:20-0500 SaO2% (BldA) [Mass fraction] 95 % Bruce Bonilla MD Work Phone: [facility] 07-01-2023 17:20-0500 Systolic blood pressure 160 mm[Hg] Bruce Bonilla MD Work Phone: [facility] 02-07-2023 08:06-0400 Body temperature 96.4 [degF] Jonny Mercado INSURANCE WRITER.CD TECHNICIAN Work Phone: [facility] 02-07-2023 08:06-0400 Body weight 78.47 kg Jonny Mercado INSURANCE WRITER.CD TECHNICIAN Work Phone: [facility] 02-07-2023 08:06-0400 Diastolic blood pressure 64 mm[Hg] Jonny Mercado INSURANCE WRITER.CD TECHNICIAN Work Phone: [facility] 02-07-2023 08:06-0400 Heart rate 74 /min Jonny Mercado INSURANCE WRITER.CD TECHNICIAN Work Phone: [facility] 02-07-2023 08:06-0400 Respiratory rate 16 /min Jonny Mercado INSURANCE WRITER.CD TECHNICIAN Work Phone: [facility] 02-07-2023 08:06-0400 SaO2% (BldA) [Mass fraction] 97 % Jonny Mercado INSURANCE WRITER.CD TECHNICIAN Work Phone: [facility] 02-07-2023 08:06-0400 Systolic blood pressure 120 mm[Hg] Jonny Mercado INSURANCE WRITER.CD TECHNICIAN Work Phone: [facility] 11-26-2022 10:15-0400 Body temperature 98.49 [degF] Bruce Bonilla MD Work Phone: [facility] 11-26-2022 10:15-0400 Body weight 79.2 kg Bruce Bonilla MD Work Phone: [facility] 11-26-2022 10:15-0400 Diastolic blood pressure 82 mm[Hg] Bruce Bonilla MD Work Phone: [facility] 11-26-2022 10:15-0400 Heart rate 62 /min Bruce Bonilla MD Work Phone: [facility] 11-26-2022 10:15-0400 Respiratory rate 18 /min Bruce Bonilla MD Work Phone: [facility] 11-26-2022 10:15-0400 SaO2% (BldA) [Mass fraction] 96 % Bruce Bonilla MD Work Phone: [facility] 11-26-2022 10:15-0400 Systolic blood pressure 162 mm[Hg] Bruce Bonilla MD Work Phone: [facility] 06-20-2022 10:01-0500 Body temperature 98.29 [degF] Jonny Mercado INSURANCE WRITER.CD TECHNICIAN Work Phone: [facility] 06-20-2022 10:01-0500 Body weight 79.38 kg Jonny Mercado INSURANCE WRITER.CD TECHNICIAN Work Phone: [facility] 06-20-2022 10:01-0500 Diastolic blood pressure 68 mm[Hg] Jonny Mercado INSURANCE WRITER.CD TECHNICIAN Work Phone: [facility] 06-20-2022 10:01-0500 Heart rate 68 /min Jonny Mercado INSURANCE WRITER.CD TECHNICIAN Work Phone: [facility] 06-20-2022 10:01-0500 Respiratory rate 16 /min Jonny Mercado INSURANCE WRITER.CD TECHNICIAN Work Phone: [facility] 06-20-2022 10:01-0500 SaO2% (BldA) [Mass fraction] 96 % Jonny Mercado INSURANCE WRITER.CD TECHNICIAN Work Phone: [facility] 06-20-2022 10:01-0500 Systolic blood pressure 136 mm[Hg] Jonny Mercado INSURANCE WRITER.CD TECHNICIAN Work Phone: [facility] 12-06-2021 09:22-0400 Diastolic blood pressure 74 mm[Hg] Jonny Mercado INSURANCE WRITER.CD TECHNICIAN Work Phone: [facility] 12-06-2021 09:22-0400 Heart rate 71 /min Jonny Mercado INSURANCE WRITER.CD TECHNICIAN Work Phone: [facility] 12-06-2021 09:22-0400 Systolic blood pressure 137 mm[Hg] Jonny Mercado INSURANCE WRITER.CD TECHNICIAN Work Phone: [facility] 12-06-2021 09:14-0400 Body weight 84.37 kg Jonny Mercado INSURANCE WRITER.CD TECHNICIAN Work Phone: [facility] 12-06-2021 09:14-0400 Respiratory rate 16 /min Jonny Mercado INSURANCE WRITER.CD TECHNICIAN Work Phone: [facility] 12-06-2021 09:14-0400 SaO2% (BldA) [Mass fraction] 97 % Jonny Mercado INSURANCE WRITER.CD TECHNICIAN Work Phone: [facility] 11-22-2021 09:26-0400 Body height 157.5 cm Linnea Tejada APRN.EVENT OPERATIONS MANAGER Work Phone: [facility] 11-22-2021 09:26-0400 Body weight 85.28 kg Linnea Tejada APRN.EVENT OPERATIONS MANAGER Work Phone: [facility] 11-22-2021 09:26-0400 Diastolic blood pressure 72 mm[Hg] Linnea Tejada APRN.EVENT OPERATIONS MANAGER Work Phone: [facility] 11-22-2021 09:26-0400 Systolic blood pressure 110 mm[Hg] Linnea Tejada APRN.EVENT OPERATIONS MANAGER Work Phone: [facility] Encounters Encounter Date Encounter Type Care Provider Facility Start: 08-05-2023 End: 08-05-2023 ambulatory BRUCE BONILLA Facility:[facility] Start: 08-01-2023 Telephone encounter Bruce pressley MD Work Phone: [facility] [place] Procedures Date Procedure Procedure Detail Performing Clinician Start: 11-25-2022 Mammography Anticoag W str Work Phone: Start: 04-30-2022 Radex ankle complete minimum 3 views Edil Gibson Work Phone: Start: 12-06-2021 Adult depression scr eening assessment Jonnygiancarlo Mercado INSURANCE WRITER.CD TECHNICIAN Work Phone: Start: 11-22-2021 End: 11-22-2021 Mammography Linnea Tejada INSURANCE WRITER.EVENT OPERATIONS MANAGER Work Phone: Start: 11-15-2020 Mammography Anticoag W str Work Phone: Start: 04-01-2019 Adult depression scr eening assessment Anticoag Wstr Work Phone: Start: 02-24-2018 Colonoscopy Anticoag W str Work Phone: Plan of Treatment Date Care Activity Detail Author Start: 12-20-2027 Urine microalbumin profile [facility] Start: 07-01-2024 Annual PCP Team Consumer Electronics Merchandiser lacey Disease Visit Annual PCP Team Chronic Disease Visit [facility] Start: 05-30-2024 Glaucoma screening Dilated Retinal E xam [facility] Start: 02-29-2024 Hepatitis B surface antibody level LDL Cholesterol [facility] Start: 02-28-2024 3 comp foot exam completed Diabetic Foot Exam [facility] Start: 02-28-2024 BP Controlled (<130/80) BP Controlle d (<130/80) [facility] Start: 02-28-2024 Diabetic foot examination Diabetic F oot Exam [facility] Start: 02-28-2024 Glaucoma screening Dilated Retinal E xam [facility] Start: 02-28-2024 Hepatitis B Vaccine (1 of 3 - Risk 3-dose series) Hepatitis B Vaccine (1 of 3 - Risk 3-dose series) [facility] Immunizations Immunization Date Immunization Notes Care Provider Luis mcrae 08-30-2016 pneumococcal polysaccharide vaccine, 23 valent Anticoag Wstr Work Phone: [facility] 04-24-2016 influenza virus vacc ine, unspecified formulation Bruce Bonilla MD Work Phone: [facility] 08-25-2015 pneumococcal conjuga te vaccine, 13 valent Anticoag Wstr Work Phone: [facility] 03-06-2010 influenza virus vacc ine, unspecified formulation Anticoag Wstr Work Phone: [facility] 03-28-2009 influenza virus vacc ine, unspecified formulation Anticoag Wstr Work Phone: [facility] Payers Date Payer Category Payer Medicare HUMANA MEDICARE HU[employer]NA MEDICARE PPO [id number] 2021-Present [phone] [address] [place] [address] PPO [id number] 2021 Medicare HUMANA MEDICARE HU[employer]NA MEDICARE PPO [id number] 2021-Present [phone] [place] [address] PPO [id number] 2019 Private Health Insurance [id number] 1950 Unknown [id number] Social History Date Type Detail Facility Start: 09-11-2018 End: 06-20-2022 Tobacco smoking status NHIS Ex-smoker [facility] Work Phone: End: 06-02-1989 History of tobacco use Current smoker [facility] End: 06-02-1989 History of tobacco use Cigarette Smoker [facility] Start: 06-08-2021 End: 07-01-2023 Alcohol intake Current non-drinker of alcohol (finding) [facility] Start: 09-11-2018 End: 06-20-2022 Tobacco Comment No smoking childhood home. No other smokers in adult homes. [facility] Start: 1950 Sex Assigned At Not on file [facility] Start: 08-24-2021 End: 04-30-2022 Exposure to SARS-CoV-2 (event) Not sure [facility] Work Phone: Start: 09-11-2018 End: 10-07-2022 Cigarettes smoked current (pack per day) - Reported 1.5 [facility] Work Phone: Start: 09-11-2018 End: 06-20-2022 Tobacco use and exposure Smokeless tobacco non-user [facility] Work Phone: Start: 08-01-2022 End: 10-07-2022 Tobacco use panel [facility] Work Phone: Adult Depression Screening Assessment 0 [facility] Work Phone: Medical Equipment Procedure Code Equipment Code Equipment Origin al Text Equipment Identifier Dates Start: 12-01-2020 End: 02-07-2023 Clinical Notes 09-01-2015 to 08-05-2023 Telephone Encounter - Alex Caputo RN - 08/02/2023 8:58 AM ESTTelephone Encounter - Bruce Bonilla MD - 08/01/2023 6:48 PM Divya Espinoza RN - 07/29/2023 4:10 PM EST Note Date & Type Note Facility 08-05-2023 Note HNO ID: [id number] Author: DIVYA FLEMING RN Service: ? Author Type: Registered Nurse Type: Progress Notes Filed: 08/05/2023 16:12 Note Text: pcp agrees with information [facility] 08-05-2023 Note HNO ID: [id number] Author: DIVYA FLEMING RN Service: ? Author Type: Registered Nurse Type: Progress Notes Filed: 08/05/2023 16:12 Note Text: patient had inr completed at [facility] patients inr is 3.1 (patients inr range is 2.0-3.0) patient is currently taking 3mg Wed, and 5mg all other days patients last dose change was on 07/29/23 due to a high level of 3.1 (dose at that time was 3.75mg Wed and 5mg all other days) patient has had no changes in medication except for coumadin and no missed doses and no change in diet recommend: patient wants to increase greens and stay on same dose. patient is scheduled for surgery on 08/17 and will need to stop her coumadin for 2 days prior to procedure and 1 day after patient has been scheduled for a 1 week follow up inr on 08/13/23 to make sure level is coming down with diet and before procedure please review and advise on recommendation [facility] 08-02-2023 Miscellaneous Notes Left detailed vm on identified vm with provider's message below. Okay to follow the surgeon's protocol for holding coumadin 48 hours prior and 48 hours after procedure. Divya CAGE with [facility] calls to ask about recommendation for anticoagulation directions pre and post operatively for Microlaryngoscopy with fat injection which is scheduled for August 18. She said the procedure is scheduled to be about 60 minutes to move some fat around to help improve voice quality. The surgeon recommends to stop the Coumadin 48 hours prior to surgery with no bridging and resume the Coumadin 48 hours after the surgery but since provider manages anticoagulation they wanted providers recommendation. Please contact them back at [phone] Ok to leave a message with office as it is a secure voicemail. Ryann Nicholas RN documented in this encounter [facility] 07-29-2023 Note HNO ID: [id number] Author: DIVYA FLEMING RN Service: ? Author Type: Registered Nurse Type: Progress Notes Filed: 07/29/2023 16:10 Note Text: pcp agrees with information PATIENT NOTIFIED OF INFORMATION [facility] 07-29-2023 Note HNO ID: [id number] Author: DIVYA FLEMING RN Service: ? Author Type: Registered Nurse Type: Progress Notes Filed: 07/29/2023 16:10 Note Text: patient had inr completed at [facility] patients inr is 3.1 (patients inr range is 2.0-3.0) patient is currently taking 3.75mg Wed and 5mg all other days patients last dose change was on 06/23/23 due to a low level of 1.9 (dose at that time was 2.5mg Wed and 5mg all other days) patient has had no changes in medication and no missed doses and no change in diet recommend: patient change coumadin dose to 3mg Wed and 5mg all other days and recheck in 1 week patient has been scheduled for a 1 week follow up inr on 08/05/23 please review and advise on recommendation [facility] 07-29-2023 History of Presen t illness Narrative pcp agrees with information PATIENT NOTIFIED OF INFORMATION patient had inr completed at [facility] patients inr is 3.1 (patients inr range is 2.0-3.0) patient is currently taking 3.75mg Wed and 5mg all other days patients last dose change was on 06/23/23 due to a low level of 1.9 (dose at that time was 2.5mg Wed and 5mg all other days) patient has had no changes in medication and no missed doses and no change in diet recommend: patient change coumadin dose to 3mg Wed and 5mg all other days and recheck in 1 week patient has been scheduled for a 1 week follow up inr on 08/05/23 please review and advise on recommendation documented in this encounter [facility] 07-15-2023 Note HNO ID: [id number] Author: DIVYA FLEMING RN Service: ? Author Type: Registered Nurse Type: Progress Notes Filed: 07/15/2023 15:57 Note Text: pcp agrees with information [facility] 07-15-2023 Note HNO ID: [id number] Author: DIVYA FLEMING RN Service: ? Author Type: Registered Nurse Type: Progress Notes Filed: 07/15/2023 15:57 Note Text: patient had inr completed at [facility] patients inr is 2.6 (patients inr range is 2.0-3.0) patient is currently taking 3.75mg Wed and 5mg all other days patients last dose change was on 06/23/23 due to a low level of 1.9 (dose at that time was 2.5mg Wed and 5mg all other days) patient has [...] verbalized understanding. Presently scheduled in 2 weeks (07/29/23) for follow up INR since this is the first normal reading since dose change [facility] 07-15-2023 History of Presen t illness Narrative pcp agrees with information patient had inr completed at [facility] patients inr is 2.6 (patients inr range is 2.0-3.0) patient is currently taking 3.75mg Wed and 5mg all other days patients last dose change was on 06/23/23 due to a low level of 1.9 (dose at that time was 2.5mg Wed and 5mg all other days) patient has [...] verbalized understanding. Presently scheduled in 2 weeks (07/29/23) for follow up INR since this is the first normal reading since dose change documented in this encounter [facility] 07-07-2023 Note HNO ID: [id number] Author: ANGELA OVERTON RT(R) Service: ? Author Type: Channel Layer Type: Progress Notes Filed: 07/07/2023 11:22 Note Text: Radiology Service Progress Note PATIENT NAME: Audrey Draper DATE OF SERVICE: July 07, 2023 TIME: 11:01 AM PATIENT IDENTITY VERIFICATION COMPLETED USING TWO (2) IDENTIFIERS: Name and Date of confirmed by patient verbally. FALL SCREENING: Has the patient had 2 falls in the last year or 1 fall with injury or currently using an Ambulatory Assistive Device (Walker, Cane, Wheelchair, Crutches, etc.)? No PATIENT GENDER DATA: Female. status: : No status: NO. PATIENT RELEVANT IMPLANT DATA REVIEWED: Yes PATIENT PRESENTS WITH AN IMPLANTABLE OR ATTACHED CABIN CREW: No RADIOLOGY DEPARTMENT: General X-ray: Exam(s) Completed: Spine X-Ray(s): Lumbar AP / LAT / L5-S1 / FLEX-EXT No L5-S1 ordered PERIPHERAL IV DATA: Not applicable SIGNED BY: RT Brianna(R) July 07, 2023 11:01 AM [facility] 07-07-2023 History of Presen t illness Narrative Radiology Service Progress Note PATIENT NAME: Audrey Draper DATE OF SERVICE: July 07, 2023 TIME: 11:01 AM PATIENT IDENTITY VERIFICATION COMPLETED USING TWO (2) IDENTIFIERS: Name and Date of confirmed by patient verbally. FALL SCREENING: Has the patient had 2 falls in the last year or 1 fall with injury or currently using an Ambulatory Assistive Device (Walker, Cane, Wheelchair, Crutches, etc.)? No PATIENT GENDER DATA: Female. status: : No status: NO. PATIENT RELEVANT IMPLANT DATA REVIEWED: Yes PATIENT PRESENTS WITH AN IMPLANTABLE OR ATTACHED CABIN CREW: No RADIOLOGY DEPARTMENT: General X-ray: Exam(s) Completed: Spine X-Ray(s): Lumbar AP / LAT / L5-S1 / FLEX-EXT No L5-S1 ordered PERIPHERAL IV DATA: Not applicable SIGNED BY: RT Brianna(R) July 07, 2023 11:01 AM documented in this encounter [facility] 07-01-2023 Note HNO ID: [id number] Author: BRUCE BONILLA MD Service: ? Author Type: Physician Type: Progress Notes Filed: 08/01/2023 01:28 Note Text: Audrey Draper is a 73 year old female here for a Medicare wellness visit. Medicare Health Risk Assessment General Health Fair Exercise: Minutes/Day No due to back pain Exercise: Days/Week None Alcohol: Daily Use No Alcohol: Drinks/Day No Alcohol: 6 or more drinks No Feel off balance Yes Concerns: Teeth/Dentures Yes Concerns: Sexual function No Troubled by feelings None of the above Frequency: Eating healthy diet Several days ADLs requiring help None of the above Safety precautions in home/vehicle Yes Smoke, vape, chews tobacco No Difficulty hearing No Difficulty seeing Yes--getting cataract on left taken care of Current Providers Specialists: I have reviewed specialist-related care of the patient in the medical record. Outside specialists seen: Dr. Menjivar ([facility] Dr. Butler (instructional support technician) Medical/Family history review Reviewed and updated problem list, medical/surgical/family/social history, medications, and allergies. Opioid use review Opioid Medications (last 90 days) Some values may be hidden. Unless noted otherwise, only the newest values recorded on each date are displayed. Opioid Medications No data to display. Depression screening Depression Screening PHQ-2 Score PHQ-9 Score CHERELLE-2 Total Score 11/26/2022 0 - - Depression screening tool completed and reviewed. Based on score and interview, patient is not at risk for depression. Screening tool discussed with patient, and I recommended no further intervention at this time. Cognitive screening Mini Cog Score: 5 Cognitive screening reviewed and no further action needed (score 3-5) Functional Observation Was the patient's Timed Up AND Go test unsteady or ? 12 seconds? No Advance Care Planning Surrogate decision maker and/or advance care plan documented Daughter Bisi Hodges is her surrogate decision maker. Measurements BP 160/82 Pulse 94 Temp 98.1 Resp 12 Ht 5' 2 (1.58m) Wt 166 lb (75.3kg) SpO2 95% BMI 30.35 kg/(m2). Additional screenings: No results found. Assessment/Plan Medicare annual wellness visit, subsequent (Z00.00) - Counseled on healthy diet and regular exercise - Fall avoidance information provided - Personalized prevention plan provided Additional Concerns The following concerns were also discussed with the patient: HISTORY Audrey Draper is a 73 year old lady here for yearly exam and follow up appointment. Dr. Menjivar taking care lf left cataract in July. 4 nodules on thyroid found. Biopsy done on two. Will monitor with follow up Ultrasound with the surgeon in [place]. Will see someone in as referred by Dr. Baldwin for issues with voice. No cause for hoarseness and voice being too quiet. Low back pain ongoing. Worse on left than right. Muscle spasm and tightness noted worse on left. SI pain worse on left. Needs cane to get to bathroom. Hurts iin SI are of hip and in back. Already had PT and no help. Prednisone had helpd but just a little. Heat helps. Does not like cold. Dupixent routinely for rash on back--is better. Still has some itchy spots noted on back on exam. PAST MEDICAL HISTORY Diagnosis Date Benign neoplasm of colon Chronic atrial fibrillation (HCC) 10/29/2013 [facility], 04/13/2020 Chronic diastolic heart failure (HCC) [facility], 04/13/2020 COPD, severe ([facility]) Follows with Pulmonology (Dr. Nix) Degeneration of intervertebral disc, site unspecified Back DM w/o Complication Type II 06/21/2009 Endometriosis, site unspecified Esophageal reflux Essential hypertension [facility], 04/13/2020 Idiopathic urticaria Improved with [...] or storm Current Outpatient Medications Medication Sig albuterol (PROVENTIL) 2.5 mg /3 mL (0.083 [...] 5 mg tablet Take 1 tablet by mo (more content not included)... [facility] 07-01-2023 Instructions Bruce Bonilla MD - 07/01/2023 7:01 PM EST Screening schedule The following prevention plan is recommended: Shingrix Vaccine(1 of 2) Never done RSV Vaccine(1 - 1-dose 60+ series) Never done Advance Directive Discussion due on 06/02/2023 Depression Assessment due on 06/02/2023 WHAT YOU CAN DO TO PREVENT FALLS Many falls can be prevented. By making some changes, you can lower your chances of falling. Four things YOU can do to prevent falls for you* and your caregiver 1. Begin a regular exercise program Exercise is one of the most important ways to lower your chances of falling. It makes you stronger and helps you feel better. Exercises that improve balance and coordination (like David Chi) are the most helpful. Lack of exercise leads to weakness and increases your chances of falling. Ask your doctor or health care provider about the best type of exercise program for you. 2. Have your health care provider review your medicines Have your doctor or pharmacist review all the medicines you take, even uruv-see-vsejgzz medicines. As you get older, the way medicines work in your body can change. Some medicines, or combinations of medicines, can make you sleepy or dizzy and can cause you to fall. 3. Have your vision checked Have your eyes checked by an eye doctor at least once a year. You may be wearing the wrong glasses or have a condition like glaucoma or cataracts that limits your vision. Poor vision can increase your chances of falling. 4. Make your home safer About half of all falls happen at home. To make your home safer: Remove things you can trip over (like papers, books, clothes, and shoes) from stairs and places where you walk. Remove small throw rugs or use double-sided tape to keep the rugs from slipping. Keep items you use often in cabinets you can reach easily without using a step stool. Have grab bars put in next to your toilet and in the tub or shower. Use non-slip mats in the bathtub and on shower floors. Improve the lighting in your home. As you get older, you need brighter lights to see well. Hang light-weight curtains or shades to reduce glare. Have handrails and lights put in on all staircases. Wear shoes both inside and outside the house. Avoid going barefoot or wearing slippers. For more information, contact: Centers for Disease Control and Prevention www.cdc.gov/injury * This information may not apply if you have certain medical conditions. documented in this encounter [facility] 07-01-2023 History of Presen t illness Narrative Audrey Draper is a 73 year old female here for a Medicare wellness visit. Medicare Health Risk Assessment General Health Fair Exercise: Minutes/Day No due to back pain Exercise: Days/Week None Alcohol: Daily Use No Alcohol: Drinks/Day No Alcohol: 6 or more drinks No Feel off balance Yes Concerns: Teeth/Dentures Yes Concerns: Sexual function No Troubled by feelings None of the above Frequency: Eating healthy diet Several days ADLs requiring help None of the above Safety precautions in home/vehicle Yes Smoke, vape, chews tobacco No Difficulty hearing No Difficulty seeing Yes--getting cataract on left taken care of Current Providers Specialists: I have reviewed specialist-related care of the patient in the medical record. Outside specialists seen: Dr. Menjivar ([facility]). Dr. Butler (instructional support technician) Medical/Family history review Reviewed and updated problem list, medical/surgical/family/social history, medications, and allergies. Opioid use review Opioid Medications (last 90 days) Some values may be hidden. Unless noted otherwise, only the newest values recorded on each date are displayed. Opioid Medications No data to display. Depression screening Depression Screening PHQ-2 Score PHQ-9 Score CHERELLE-2 Total Score 11/26/2022 0 - - Depression screening tool completed and reviewed. Based on score and interview, patient is not at risk for depression. Screening tool discussed with patient, and I recommended no further intervention at this time. Cognitive screening Mini Cog Score: 5 Cognitive screening reviewed and no further action needed (score 3-5) Functional Observation Was the patient's Timed Up & Go test unsteady or ? 12 seconds? No Advance Care Planning Surrogate decision maker and/or advance care plan documented Daughter Bisi Hodges is her surrogate decision maker. Measurements BP 160/82 Pulse 94 Temp 98.1 Resp 12 Ht 5' 2 (1.58m) Wt 166 lb (75.3kg) SpO2 95% BMI 30.35 kg/(m^2). Additional screenings: No results found. Assessment/Plan Medicare annual wellness visit, subsequent (Z00.00) - Counseled on healthy diet and regular exercise - Fall avoidance information provided - Personalized prevention plan provided Additional Concerns The following concerns were also discussed with the patient: HISTORY Audrey Draper is a 73 year old lady here for yearly exam and follow up appointment. Dr. Menjivar taking care lf left cataract in July. 4 nodules on thyroid found. Biopsy done on two. Will monitor with follow up Ultrasound with the surgeon in [place]. Will see someone in as referred by Dr. Baldwin for issues with voice. No cause for hoarseness and voice being too quiet. Low back pain ongoing. Worse on left than right. Muscle spasm and tightness noted worse on left. SI pain worse on left. Needs cane to get to bathroom. Hurts iin SI are of hip and in back. Already had PT and no help. Prednisone had helpd but just a little. Heat helps. Does not like cold. Dupixent routinely for rash on back--is better. Still has some itchy spots noted on back on exam. PAST MEDICAL HISTORY Diagnosis Date Benign neoplasm of colon Chronic atrial fibrillation (HCC) 10/29/2013 [facility], 04/13/2020 Chronic diastolic heart failure (HCC) [facility], 04/13/2020 COPD, severe (HCC) Follows with Pulmonology (Dr. Nix) Degeneration of intervertebral disc, site unspecified Back DM w/o Complication Type II 06/21/2009 Endometriosis, site unspecified Esophageal reflux Essential hypertension [facility], 04/13/2020 Idiopathic urticaria Improved with [...] or storm Current Outpatient Medications Medication Sig albuterol (PROVENTIL) 2.5 mg /3 mL (0.083 [...] Fri). And 2.5mg , , Fri and Fri Adjust dose as directed based on lab / INR results Nebulizer and Compressor For Neb 1 Each every 6 hours as needed. blood sugar diagnostic (TRUE METRIX GLUCOSE TEST STRIP) test strip Test blood sugar(s) 2 times daily. Dx: Type 2 DM - Controlled E11.9 Insulin: No furosemide (LASIX) 20 mg tablet Take 1 tablet by mouth once daily. (Patient taking differently: Take 20 mg by mouth once daily as needed.) dupilumab (DUPIXENT PEN) 300 mg/2 mL pen Inject 300 mg subcutaneously every 2 weeks. alcohol swabs (ALCOHOL PREP PADS) Apply 1 [...] oximetry on room air. Fax results to [phone] Diagnosis: Hypoxia. No current facility-administered medications for [...] Hives swelling lips,and ankles Penicillins Rash Childhood. FAMILY HISTORY Problem Relation Age of Onset Asthma Mother Heart Father CA COPD Sister Smoker. Lung Cancer Sister Breast Cancer Sister Age 47 other (LIVER DISEASE) Brother other (THROMBOCYTIC EVENT) Brother AMPUTATION Social History Tobacco Use Smoking status: Former Packs/day: 1.50 Years: 20.00 Additional pack years: 0.00 Total pack years: 30.00 Types: Cigarettes Quit date: 06/02/1989 Years since quittin.1 Smokeless tobacco: Never Tobacco comments: No smoking childhood home. No other smokers in adult homes. Vaping Use Vaping Use: Never used Substance Use Topics Alcohol use: No Drug use: No PHYSICAL EXAM BP 160/82 (BP Site: Left Arm, BP Position: Sitting, BP Cuff Size: Large Adult) Pulse 94 Temp 36.7 C (98.1 F) Resp 12 Ht 157.5 cm (5' 2 ) Wt 75.3 kg (166 lb) SpO2 95% BMI 30.36 kg/m GENERAL: well appearing, alert, in no acute distress CARDIOVASCULAR: regular rate and rhythm. No murmur, rubs or gallops. PULMONARY: clear to auscultation, no wheezing, rhonchi, or crackles ABDOMEN: soft, non-tender, non-distended, no masses or organomegaly EXTREMITY: no lower extremity edema. No skin discoloration. Encounter Diagnosis ICD-10-CM 1. Medicare annual wellness visit, subsequent Z00.00 2. Chronic congestive heart failure, unspecified heart failure type (HCC) I50.9 furosemide (LASIX) 20 mg tablet Continue management. Lasix as discussed 3. Dyspnea and respiratory abnormalities R06.00 furosemide (LASIX) 20 mg tablet R06.89 Monitor and treat as indicated for issues with CHF, etc 4. Chronic left SI joint pain M53.3 XR LUMBAR MOTION 4V AP/LAT/ FLEX/EXT G89.29 Discussed management 5. Chronic left-sided low back pain with left-sided sciatica M54.42 XR LUMBAR MOTION 4V AP/LAT/ FLEX/EXT G89.29 Pain into SI joint area 6. Greater trochanteric pain syndrome of left lower extremity M25.552 Discussed management through PT and meds as needed 7. Encounter for immunization Z23 RSV PRINTED PHARMACY INSTRUCTIONS Patient here for Medicare wellness, yearly exam and follow up. Above issues addressed with patient. Patient involved in shared decision making for management of medical issues. History and medications reviewed. Epic updated as needed Refills taken care of and meds adjusted as indicated after reviewed history, exam and labs. Health Maintenance reviewed. Updated record and/or ordered tests as recorded. Encouraged on efforts at healthy diet and regular exercise and adequate sleep. Bruce Bonilla MD documented in this encounter [facility] 07-01-2023 Nurse Note Seeing tomorrow for cataract surgery left eye. Seen approx 2 weeks for routine eye exam documented in this encounter [facility] 06-23-2023 Note HNO ID: [id number] Author: DIVYA FLEMING RN Service: ? Author Type: Registered Nurse Type: Progress Notes Filed: 06/23/2023 16:15 Note Text: pcp agrees PATIENT NOTIFIED OF INFORMATION [facility] 06-23-2023 Note HNO ID: [id number] Author: DIVYA FLEMING RN Service: ? Author Type: Registered Nurse Type: Progress Notes Filed: 06/23/2023 16:15 Note Text: patient had inr completed at [facility] patients inr is 1.9 (patients inr range is 2.0-3.0) patient is currently taking 2.5mg Wed and 5mg all other days patients last dose change was on 06/03/23 due to a low level of 1.7 (dose at that time was 2.5mg Wed,Fri and 5mg all other days) patient has had no changes in medication except for coumadin and no missed doses and no change in diet recommend: patient change coumadin dose to 3.75mg Wed and 5mg all other days and recheck in 2 weeks patient has been scheduled for a 2 week follow up inr on 07/07/23 please review and advise on recommendation [facility] 06-05-2023 Note HNO ID: [id number] Author: ?, ?, ? Service: ? Author Type: ? Type: Progress Notes Filed: 06/05/2023 13:56 Note Text: POPULATION HEALTH NAVIGATION OUTREACH Action/HELENA ta Patient due for the following: Colorectal Cancer Screening Advance Directive discussion Call made to patient and she declined any scheduling needs Patient Identified by Name and : NO Outreach Outcome/Action Spoke to patient / parent / legal guardian: Patient declined. Busy, will call back later to schedule or asks for a call back Did you use a PCP flex slot to schedule this appointment? N/A Reason for Outreach Care Gap or Scheduling/Wellness visits Payer: Payor: [employer] MEDICARE / Plan: [employer] MEDICARE PPO / Product Type: PPO / Care Gap Reviewed:: Colorectal Cancer Screening Reminder: Reminder note to check Health Maintenance for items below Health Maintenance items due: Shingrix Vaccine(1 of 2) Never done RSV Vaccine(1 - 1-dose 60+ series) Never done Colorectal Cancer Screening due on 02/24/2023 Advance Directive Discussion due on 06/02/2023 Depression Assessment due on 06/02/2023 Navigation Signature: Aislinn Faustin June 05, 2023 1:42 PM [facility] 06-05-2023 Note Patient Outreach (NE TNAV) AUDREY DRAPER ([id number]) 1950 F Date Time Provider Department 06/05/23 AISLINN FAUSTIN During your visit today, we recorded the following information about you: Aislinn Faustin 06/05/2023 1:56 PM Signed POPULATION HEALTH NAVIGATION OUTREACH Action/HELENA ta Patient due for the following: Colorectal Cancer Screening Advance Directive discussion Call made to patient and she declined any scheduling needs Patient Identified by Name and : NO Outreach Outcome/Action Spoke to patient / parent / legal guardian: Patient declined. Busy, will call back later to schedule or asks for a call back Did you use a PCP flex slot to schedule this appointment? N/A Reason for Outreach Care Gap or Scheduling/Wellness visits Payer: Payor: [employer] MEDICARE / Plan: [employer] MEDICARE PPO / Product Type: PPO / Care Gap Reviewed:: Colorectal Cancer Screening Reminder: Reminder note to check Health Maintenance for items below Health Maintenance items due: Shingrix Vaccine(1 of 2) Never done RSV Vaccine(1 - 1-dose 60+ series) Never done Colorectal Cancer Screening due on 02/24/2023 Advance Directive Discussion due on 06/02/2023 Depression Assessment due on 06/02/2023 Navigation Signature: Aislinn Faustin June 05, 2023 1:42 PM Allergies As of Date: 06/05/2023 Noted Allergy Reaction ALBUTEROL 12/07/2013 14 - Other: See Comments Comments: MDI: High heart rate, high BP, dizzy. Nebulizer: tolerates well. LEVAQUIN (LEVOFLOXACIN) 07/21/2020 18 - Angioedema Comments: face swelling, trouble breathing; did not go to ER. Itching and hives too BACTRIM (SULFAMETHOXAZOLE-TRIMETH*2016 4 - Hives 9 - Itching Comments: Itching starting 15 to 20 minutes after took 1 pill; hives broke out an hour later; had tolerated in the past. Gone by next AM DOXYCYCLINE 01/26/2007 Comments: Lip and eyelid swelling environmental allergies [Other] 10/01/2005 ETODOLAC 01/24/2006 12 - Shortness of Breath MUCINEX (GUAIFENESIN) 12/30/2012 2 - Rash NABUMETONE 12/26/2005 4 - Hives Comments: swelling lips,and ankles PENICILLINS 09/30/2005 2 - Rash Comments: Childhood. Date Reviewed: 03/04/2023 Reviewed by: Yarely Moreno LPN - Fully Assessed Reason for Visit: Population Health Navigation Outreach [3910] Cmt: [employer] Medicare Prescriptions as of 06/05/2023 - albuterol (PROVENTIL) 2.5 mg /3 mL (0.083 %) nebulizer solution Use 3 mL via nebulizer every 4 hours as needed for wheezing/shortness of breath. Use over 5-15minutes. Dispense 200 vials with 5 refills - carvedilol (COREG) 12.5 mg tablet Take 1 tablet by mouth twice daily with meals. (cardiology) - omeprazole (PRILOSEC) 40 mg capsule Take 1 capsule by mouth daily before breakfast. - warfarin (COUMADIN) 5 mg tablet Take 1 tablet by mouth every Friday,Friday,Friday. Adjust dose as directed based on lab / INR results - warfarin (COUMADIN) 2.5 mg tablet Adjust dose as directed based on INRs (Currently takes 5 mg Fri, Fri and Fri). And 2.5mg , , Fri and Sun Adjust dose as directed based on lab / INR results - Nebulizer and Compressor For Neb 1 Each every 6 hours as needed. - blood sugar diagnostic (TRUE METRIX GLUCOSE TEST STRIP) test strip Test blood sugar(s) 2 times daily. Dx: Type 2 DM - Controlled E11.9 Insulin: No - furosemide (LASIX) 20 mg tablet Take 1 tablet by mouth once daily. - dupilumab (DUPIXENT PEN) 300 mg/2 mL pen Inject 300 mg subcutaneously every 2 weeks. - alcohol swabs (ALCOHOL PREP PADS) Apply 1 application to affected area twice daily. - Blood-Glucose Meter (TRUE METRIX GLUCOSE METER) 1 Kit as directed. Use as directed. Test blood sugar(s) 2 times daily. Dx: Type 2 DM - Controlled E11.9 Insulin: No - Blood Glucose Control, Low (TRUE METRIX LEVEL 1) 1 Each as directed. Use as Directed with Jeet Metrix Meter and Strips. Dx: Type 2 DM - Controlled E11.9 Insulin: No - Lancets lancets 33 gauge preferred. Test blood sugar(s) 2 times daily. Dx: Type 2 DM - Controlled E11.9 Insulin: No - budesonide-formoterol (SYMBICORT) 80-4.5 mcg/actuation inhaler Inhale 2 Puffs as instructed twice daily. - loratadine (CLARITIN) 10 mg tablet Take 1 tablet by mouth once daily as needed for Cold/Allergy Symptoms (also for dermatitis and itching). FOR ALLERGY SYMPTOMS - acetaminophen (TYLENOL EXTRA STRENGTH) 500 mg tablet Take 2 tablets by mouth every 8 hours as needed for Pain. - OXYGEN, HOME THERAPY, Inhale 2 L/min as instructed daily at bedtime. - COMPOUNDED PRESCRIPTION Please perform nocturnal oximetry on room air. Fax results to [phone] Diagnosis: Hypoxia. Problem List As Of Date 06/05/2023 Noted Resolved Asthma [J45.909] 10/03/2005 DERMATITIS NOS [L25.9] 10/03/2005 ENTHESOPATHY OF HIP [M76.899] 01/07/2006 Right shoulder strain, sequela [S46.911S] 01/07/2006 (more content not included)... [facility] 06-03-2023 Note HNO ID: [id number] Author: Divya Flemnig RN Service: ? Author Type: Registered Nurse Type: Progress Notes Filed: 06/03/2023 4:55 PM Note Text: pcp agrees with information PATIENT NOTIFIED OF INFORMATION [facility] 06-03-2023 Note HNO ID: [id number] Author: Divya Fleming RN Service: ? Author Type: Registered Nurse Type: Progress Notes Filed: 06/03/2023 4:55 PM Note Text: patient had inr completed at [facility] patients inr is 1.7 (patients inr range is 2.0-3.0) patient is currently taking 2.5mg Wed,Fri and 5mg all other days patients last dose change was on 05/12/23 due to a low level of 1.7 (dose at that time was 2.5mg Mon,Wed,Fri and 5mg all other days) patient has had no changes in medication and no missed doses and no change in diet recommend: patient change coumadin to 2.5mg Wed and 5mg all other days and recheck inr in 2 weeks patient has been scheduled for a 2 week follow up inr on 06/17/23 please review and advise on recommendation [facility] 05-19-2023 Note HNO ID: [id number] Author: Divya Fleming RN Service: ? Author Type: ? Type: Progress Notes Filed: 05/19/2023 4:35 PM Note Text: pcp agrees with information [facility] 05-19-2023 Note HNO ID: [id number] Author: Divya Fleming RN Service: ? Author Type: ? Type: Progress Notes Filed: 05/19/2023 4:35 PM Note Text: patient had inr completed at [facility] patients inr is 2.2 (patients inr range is 2.0-3.0) patient is currently taking 2.5mg Wed,Fri and 5mg all other days patients last dose change was on 05/12/23 due to a low level of 1.7 (dose at that time was 2.5mg Mon,Wed,Fri [...] verbalized understanding. Presently scheduled in 2 weeks (06/03/23) for follow up INR since this is the first normal reading since dose change [facility] 05-17-2023 Miscellaneous Notes Patient aware to remain on Coumadin 2.5mg on Wed/Fri and 5mg on other days and re-check INR in 3 days. Verbalizes understanding. Jacey Marshall LPN Continue Coumadin dose. INR in 3 days as scheduled. Last INR: PT INR 3.2 05/16/2023 Current dose of coumadin is: 2.5 mg on Wed and Fri and 5 mg all other days. Last date of dose change: 05/12/2023. Previous INR (date and result): 05/12/2023 1.7 Additional Clinical Information or narrative: Goal 2.0-3.0 Spoke with patient and confirmed dose. INR is 3.2. Please check current dose of Coumadin, any medication changes, any missed doses. She does have Friday Coumadin clinic appointment documented in this encounter [facility] 05-12-2023 Note HNO ID: [id number] Author: Divya Fleming RN Service: ? Author Type: ? Type: Progress Notes Filed: 05/12/2023 3:48 PM Note Text: pcp agrees with information PATIENT NOTIFIED OF INFORMATION [facility] 05-12-2023 History of Presen t illness Narrative pcp agrees with information PATIENT NOTIFIED OF INFORMATION patient had inr completed at [facility] patients inr is 1.7 (patients inr range is 2.0-3.0) patient is currently taking 2.5mg Mon,Wed,Fri and 5mg all other days patients last dose change was on 04/29/23 due to a low level of 1.8 (dose at that time was 5mg Mon,Wed,Fri and 2.5mg all other days) patient has had no changes in medication except for coumadin and no missed doses and no change in diet recommend: patient change coumadin to 2.5mg Wed,Fri and 5mg all other days and recheck inr in 1 week due to the holiday in 2 weeks patient has been scheduled for a 1 week follow up inr on 05/19/23 please review and advise on reocmmendation documented in this encounter [facility] 05-12-2023 Note HNO ID: [id number] Author: Divya Fleming RN Service: ? Author Type: ? Type: Progress Notes Filed: 05/12/2023 3:48 PM Note Text: patient had inr completed at [facility] patients inr is 1.7 (patients inr range is 2.0-3.0) patient is currently taking 2.5mg Mon,Wed,Fri and 5mg all other days patients last dose change was on 04/29/23 due to a low level of 1.8 (dose at that time was 5mg Mon,Wed,Fri and 2.5mg all other days) patient has had no changes in medication except for coumadin and no missed doses and no change in diet recommend: patient change coumadin to 2.5mg Wed,Fri and 5mg all other days and recheck inr in 1 week due to the holiday in 2 weeks patient has been scheduled for a 1 week follow up inr on 05/19/23 please review and advise on reocmmendation [facility] 04-29-2023 Note HNO ID: [id number] Author: Divya Fleming RN Service: ? Author Type: ? Type: Progress Notes Filed: 04/29/2023 4:25 PM Note Text: pcp agrees with information PATIENT NOTIFIED OF INFORMATION [facility] 04-29-2023 Note HNO ID: [id number] Author: Divya Fleming RN Service: ? Author Type: ? Type: Progress Notes Filed: 04/29/2023 4:25 PM Note Text: patient had inr completed at [facility] patients inr is 1.8 (patients inr range [...] change in diet recommend: patient change coumadin dose to 2.5mg Mon,Wed,Fri and 5mg all other days and recheck in 2 weeks patient is scheduled for a 2 week follow up inr on 05/12/23 please review and advise on recommendation [facility] 04-15-2023 Note HNO ID: [id number] Author: Divya Fleming RN Service: ? Author Type: ? Type: Progress Notes Filed: 04/15/2023 5:00 PM Note Text: pcp agrees with information PATIENT NOTIFIED OF INFORMATION [facility] 04-15-2023 Note HNO ID: [id number] Author: Divya Fleming RN Service: ? Author Type: ? Type: Progress Notes Filed: 04/15/2023 5:00 PM Note Text: patient had inr completed at [facility] patients inr is 1.6 (patients inr range is 2.0-3.0) patient is currently taking 5mg Mon,Wed,Fri and 2.5mg all other days patients last dose change was on 02/21/23 due to a low level of 1.8 (dose at that time was 5mg Wed,Fri and 2.5mg all other days) patient has had no changes in medication and patient missed 2 dose and no change in diet recommend: patient take 5mg coumadin today and then resume normal dosing schedule as listed above since patient missed 2 doses and recheck in 2 weeks patient has been scheduled for a 2 week follow up inr on 04/29/23 please review and advise on recommendation [facility] 04-15-2023 History of Presen t illness Narrative pcp agrees with information PATIENT NOTIFIED OF INFORMATION patient had inr completed at [facility] patients inr is 1.6 (patients inr range is 2.0-3.0) patient is currently taking 5mg Mon,Wed,Fri and 2.5mg all other days patients last dose change was on 02/21/23 due to a low level of 1.8 (dose at that time was 5mg Wed,Fri and 2.5mg all other days) patient has had no changes in medication and patient missed 2 dose and no change in diet recommend: patient take 5mg coumadin today and then resume normal dosing schedule as listed above since patient missed 2 doses and recheck in 2 weeks patient has been scheduled for a 2 week follow up inr on 04/29/23 please review and advise on recommendation documented in this encounter [facility] 03-21-2023 Note HNO ID: [id number] Author: Jonny Mercado APRN.CNS Service: ? Author Type: Nurse Specialist Type: Progress Notes Filed: 03/21/2023 3:51 PM Note Text: Continue with Coumadin dose unchanged and check INR in 4 weeks [facility] 03-21-2023 History of Presen t illness Narrative Continue with Coumadin dose unchanged and check INR in 4 weeks patient had inr completed at [facility] patients inr is 2.6 (patients inr [...] follow up INR. documented in this encounter [facility] 03-21-2023 Note HNO ID: [id number] Author: Divya Fleming RN Service: ? Author Type: ? Type: Progress Notes Filed: 03/21/2023 3:51 PM Note Text: patient had inr completed at [facility] patients inr is 2.6 (patients inr [...] 4 weeks (04/15/23) for follow up INR. [facility] 03-07-2023 Miscellaneous Notes ok patients orders for coumadin clinic inr's has at this time. new order has been pended for approval if possible so that patient can continue to get inr's completed thru the coumadin clinic. coumadin clinic nurse only needs called if order can not be approved. documented in this encounter [facility] 03-07-2023 Note HNO ID: [id number] Author: Divya Fleming RN Service: ? Author Type: ? Type: Progress Notes Filed: 03/07/2023 2:52 PM Note Text: patient had inr completed at [facility] patients inr is 2.4 (patients inr [...] the first normal reading since dose change [facility] 03-07-2023 History of Presen t illness Narrative patient had inr completed at [facility] patients inr is 2.4 (patients inr [...] since dose change documented in this encounter [facility] 03-04-2023 Note HNO ID: [id number] Author: Flora Perdomo APRN.EVENT OPERATIONS MANAGER Service: ? Author Type: Nurse Practitioner Type: Progress Notes Filed: 03/04/2023 4:14 PM Note Text: Subjective Headache Associated symptoms include a fever, palpitations (chronic) and shortness of breath. Audrey Draper is a 72 year old female who [...] Syndrome of Both Lower Extremities Followed by [facility] cardiology. Continues on OAC warfarin for atrial [...] of colon Chronic atrial fibrillation (HCC) 10/29/2013 [facility], 04/13/2020 Chronic diastolic heart failure (HCC) [facility], 04/13/2020 COPD, severe (HCC) Follows with Pulmonology (Dr. Nix) Degeneration of intervertebral disc, site unspecified Back DM w/o Complication Type II 06/21/2009 Endometriosis, site unspecified Esophageal reflux Essential hypertension [facility], 04/13/2020 Idiopathic urticaria Improved with [...] every 6 hour (more content not included)... [facility] 03-04-2023 Note HNO ID: [id number] Author: Nasima Linn RT(R) Service: Radiology Author Type: Technologist Type: Progress Notes Filed: 03/04/2023 3:33 PM Note Text: Radiology Service Progress Note PATIENT NAME: Audrey Draper DATE OF SERVICE: March 04, 2023 TIME: [...] RT Linette(R) March 04, 2023 3:22 PM [facility] 02-27-2023 Note HNO ID: [id number] Author: Jonny Mercado APRN.CD TECHNICIAN Service: ? Author Type: Nurse Specialist Type: Progress Notes Filed: 02/28/2023 7:38 AM Note Text: Subjective HPI Audrey Draper is a 72 year old female. PMH [...] HPI excerpted from previous visit: Followed by [facility] cardiology. Continues on OAC warfarin for atrial fibrillation.No bleeding difficulties reported. Dr. Stokes, director video; continues to follow Shield Installer, Dr Solorzano, follows with him for asthma, COPD, no recent exacerbations or ER visits noted. Presents today regarding hoarseness. Present for 2 weeks Recent illness or fever: States no, no sick contacts. Cough: Increased Wheeze: Increased SOB: Increased Sputum: Increased GERD: No Heartburn: No Left upper quadrant discomfort following meals. Former smoker, 68-[id number]-rjrb history. Current smoking: States no Current arc welder: Dr Rashad OLIVER Last visit: within last 3 months Current treatments: Cough drops seem to help She request a new nebulizer and nebulizer solution. States she does not obtain this from her arc welder. States she has been using routinely. Wearing oxygen at night. She reports ongoing hip pain, would like to see alternate orthopedic provider. She was treated for URI / COPD exacerbation with azithromycin and prednisone at previous visits. Has noted decreased cough wheeze sputum production and shortness of breath. Followed by Dr. Solorzano arc welder [facility]. She was started on PPI at her last visit for hoarseness. She was referred to ENT due to smoking history. She reports she has been seen and a scan has been ordered at [facility], she will then follow up with Dr Baldwin. She reports no remarkable findings and no change in medications at that visit. She reports left upper quadrant pain persists on PPI. Would like to see gluing pressman. She reports [facility] increased her dose of carvedilol, has not [...] Mucosal edema and rhinorrhea present. Mouth/Throat: Lips: [place]. Mouth: Mucous membranes are moist. Pharynx: Oropharynx [...] Neurological: Mental St (more content not included)... [facility] 02-21-2023 Note HNO ID: [id number] Author: Divya Fleming RN Service: ? Author Type: ? Type: Progress Notes Filed: 02/21/2023 11:43 AM Note Text: pcp agrees with recommendation PATIENT NOTIFIED OF INFORMATION [facility] 02-21-2023 Note HNO ID: [id number] Author: Divya Fleming RN Service: ? Author Type: ? Type: Progress Notes Filed: 02/21/2023 11:43 AM Note Text: patient had inr completed at [facility] patients inr is 1.8 (patients inr [...] 03/07/23 please review and advise on recommendation [facility] 02-21-2023 History of Presen t illness Narrative pcp agrees with recommendation PATIENT NOTIFIED OF INFORMATION patient had inr completed at [facility] patients inr is 1.8 (patients inr range [...] advise on recommendation documented in this encounter [facility] 02-12-2023 Miscellaneous Notes Noted. 90 day supply was sent on 02/07/23. Leana Leroy MA Patient called said she received a letter from ins saying they will only cover 90 days of Warfarin 5mg Please advise documented in this encounter [facility] 02-07-2023 Note HNO ID: [id number] Author: Jonny Mercado APRN.CD TECHNICIAN Service: ? Author Type: Nurse Specialist Type: Progress Notes Filed: 02/07/2023 8:50 AM Note Text: Subjective HPI Audrey Draper is a 72 year old female. PMH [...] Syndrome of Both Lower Extremities Followed by [facility] cardiology. Continues on OAC warfarin for atrial fibrillation.No bleeding difficulties reported. Dr. Stokes, director video; continues to follow Shield Installer, Dr Solorzano, follows with him for asthma, COPD, no recent exacerbations or ER visits noted. Presents today regarding hoarseness. Present for 2 weeks Recent illness or fever: States no, no sick contacts. Cough: Increased Wheeze: Increased SOB: Increased Sputum: Increased GERD: No Heartburn: No Left upper quadrant discomfort following meals. Former smoker, 16-esjf-kobf history. Current smoking: States no Current arc welder: Dr Solorzano [facility] Last visit: within last 3 months Current treatments: Cough drops seem to help She request a new nebulizer and nebulizer solution. States she does not obtain this from her arc welder. States she has been using routinely. Wearing [...] Mucosal edema and rhinorrhea present. Mouth/Throat: Lips: [place]. Mouth: Mucous membranes are moist. Pharynx: Oropharynx [...] mouth once brian (more content not included)... [facility] 02-07-2023 History of Presen t illness Narrative Subjective HPI Audrey Draper is a 72 year old female. PMH [...] Syndrome of Both Lower Extremities Followed by [facility] cardiology. Continues on OAC warfarin for atrial fibrillation.No bleeding difficulties reported. Dr. Stokes, director video; continues to follow Shield Installer, Dr Solorzano, follows with him for asthma, COPD, no recent exacerbations or ER visits noted. Presents today regarding hoarseness. Present for 2 weeks Recent illness or fever: States no, no sick contacts. Cough: Increased Wheeze: Increased SOB: Increased Sputum: Increased GERD: No Heartburn: No Left upper quadrant discomfort following meals. Former smoker, 12-ldpt-ryvt history. Current smoking: States no Current arc welder: Dr Solorzano [facility] Last visit: within last 3 months Current treatments: Cough drops seem to help She request a new nebulizer and nebulizer solution. States she does not obtain this from her arc welder. States she has been using routinely. Wearing [...] Mucosal edema and rhinorrhea present. Mouth/Throat: Lips: [place]. Mouth: Mucous membranes are moist. Pharynx: Oropharynx [...] oximetry on room air. Fax results to [phone] Diagnosis: Hypoxia. Nebulizer and Compressor For Neb [...] of colon Chronic atrial fibrillation (HCC) 10/29/2013 [facility], 04/13/2020 Chronic diastolic heart failure (HCC) [facility], 04/13/2020 COPD, severe (HCC) Follows with Pulmonology (Dr. Nix) Degeneration of intervertebral disc, site unspecified Back DM w/o Complication Type II 06/21/2009 Endometriosis, site unspecified Esophageal reflux Essential hypertension [facility], 04/13/2020 Idiopathic urticaria Improved with [...] on chronic respiratory failure with hypoxemia (HCC) - ICD9: 518.84, ICD10: J96.[address] Solorzano [facility] Jonny Mercado APRN.CD TECHNICIAN Medical Decision Making: Problems: Low: Acute, uncomplicated illness or injury Moderate: 2+ stable chronic illnesses Risk: Moderate: Drug management Medical Decision Making Level: 4 - Moderate documented in this encounter [facility] 01-31-2023 Note HNO ID: [id number] Author: Divya Fleming RN Service: ? Author Type: ? Type: Progress Notes Filed: 01/31/2023 3:32 PM Note Text: pcp agrees with information [facility] 01-31-2023 History of Presen t illness Narrative pcp agrees with information patient had inr completed at [facility] patients inr is 1.9 (patients inr [...] advise on recommendation documented in this encounter [facility] 01-31-2023 Note HNO ID: [id number] Author: Divya Fleming RN Service: ? Author Type: ? Type: Progress Notes Filed: 01/31/2023 3:32 PM Note Text: patient had inr completed at [facility] patients inr is 1.9 (patients inr [...] 02/20/23 please review and advise on recommendation [facility] 01-10-2023 Note HNO ID: [id number] Author: Divya Fleming RN Service: ? Author Type: ? Type: Progress Notes Filed: 01/10/2023 11:35 AM Note Text: pcp agrees with information [facility] 01-10-2023 Note HNO ID: [id number] Author: Divya Fleming RN Service: ? Author Type: ? Type: Progress Notes Filed: 01/10/2023 11:35 AM Note Text: patient had inr completed at [facility] patients inr is 3.0 (patients inr [...] 4-5 week jodee) for follow up INR. [facility] 01-10-2023 History of Presen t illness Narrative pcp agrees with information patient had inr completed at [facility] patients inr is 3.0 (patients inr [...] follow up INR. documented in this encounter [facility] 01-09-2023 Note HNO ID: [id number] Author: Latricia Blank PT Service: ? Author Type: Physical Therapist Type: Progress Notes Filed: 02/05/2023 8:45 AM Note Text: 02/05/2023 [facility] PHYSICAL THERAPY DISCONTINUANCE OF CARE Plan of Care Period: Start of Care Date: 12/25/22 Last Visit Date: 01/09/2023 Therapy Program: The following is a summary of the interventions provided for this episode of care; Therapeutic exercise, Manual therapy, Therapeutic activities, and Self-longterm management Assessment: Based on most recent visit, patient was progressing slower than expected toward functional goals based on pain levels and documented subjective information on progress. Unable to formally assess goal achievement, as patient has not returned to therapy or scheduled additional follow-up appointments. Reason for Discontinuation of Care: Patient has not returned to therapy or scheduled additional follow-up appointments. Latricia Blank, PT Episode Visit Count: 3 Therapist That Will Accept/Oversee The Plan Of Care: Latricia Blank Start of Care Date: 12/25/22 Onset Date: 06/27/22 Plan of Care Certification Date: 12/25/22 Next Certification Due Date: 01/29/23 [facility] PHYSICAL THERAPY TREATMENT NOTE ASSESSMENT: Audrey Draper tolerated the session with decreased symptoms. She [...] : 929 Session Stop Time : 1010 Latricia Blank, PT [facility] 01-09-2023 History of Presen t illness Narrative Episode Visit Count: 3 Therapist That Will Accept/Oversee The Plan Of Care: Latricia Blank Start of Care Date: 12/25/22 Onset Date: 06/27/22 Plan of Care Certification Date: 12/25/22 Next Certification Due Date: 01/29/23 [facility] PHYSICAL THERAPY TREATMENT NOTE ASSESSMENT: Audrey Draper tolerated the session with decreased symptoms. She [...] Time : 929 Session Stop Time : 0 Latricia Blank PT documented in this encounter [facility] 01-01-2023 Note HNO ID: [id number] Author: Latricia Blank PT Service: ? Author Type: Physical Therapist Type: Progress Notes Filed: 01/01/2023 5:17 PM Note Text: Episode Visit Count: 2 Therapist That Will Accept/Oversee The Plan Of Care: Latricia Blank Start of Care Date: 12/25/22 Onset Date: 06/27/22 Plan of Care Certification Date: 12/25/22 Next Certification Due Date: 01/29/23 [facility] PHYSICAL THERAPY TREATMENT NOTE ASSESSMENT: Audrey Draper tolerated the session with increased symptoms. She [...] with 55 cm physioball BUE press down [id number], twice daily ( this one does'nt feel [...] 6: *seated TA activation, hands on knees [id number] reps (2nd option without ball) Skilled Intervention: [...] Time : 1630 Session Stop Time : 0 Latricia Blank, PT [facility] 01-01-2023 History of Presen t illness Narrative Episode Visit Count: 2 Therapist That Will Accept/Oversee The Plan Of Care: Latricia Blank Start of Care Date: 12/25/22 Onset Date: 06/27/22 Plan of Care Certification Date: 12/25/22 Next Certification Due Date: 01/29/23 REHABIL[facility]ATION [facility]TS [facility] PHYSICAL THERAPY TREATMENT NOTE ASSESSMENT: Audrey Draper tolerated the session with increased symptoms. She [...] with 55 cm physioball BUE press down [id number], twice daily ( this one does'nt feel [...] 6: *seated TA activation, hands on knees [id number] reps (2nd option without ball) Skilled Intervention: [...] : 1630 Session Stop Time : 1710 Latricia Blank PT documented in this encounter [facility] 12-25-2022 Note HNO ID: [id number] Author: Latricia Blank PT Service: ? Author Type: Physical Therapist Type: Progress Notes Filed: 12/25/2022 5:08 PM Note Text: Episode Visit Count: 1 Therapist That Will Accept/Oversee The Plan Of Care: Latricia Blank Start of Care Date: 12/25/22 Onset Date: 06/27/22 Plan of Care Certification Date: 12/25/22 Next Certification Due Date: 01/29/23 Patient Identified by Name and Date of : Yes REHABILITATION AND SPORTS THERAPY PHYSICAL THERAPY EVALUATION PLAN OF CARE: Assessment: Audrey Draper presents with diagnosis of greater trochanteric pain [...] Planned: 6 Planned Treatment Interventions: Therapeutic exercise (52507), Neuromuscular re-education (05178), Manual therapy (35590), Therapeutic activities (08305), Self-longterm management (77823), Gait Training (01723) PLAN FOR NEXT VISIT: assess symptom response to repeated flexion directional preference exercises Patient demonstrates good understanding of plan of care and treatment. The above goals and plan of care were discussed and agreed upon by patient/family. SUBJECTIVE: Audrey Draper is a 72 year old female seen [...] is Better 7/ (more content not included)... [facility] 12-25-2022 History of Presen t illness Narrative Episode Visit Count: 1 Therapist That Will Accept/Oversee The Plan Of Care: Latricia Blank Start of Care Date: 12/25/22 Onset Date: 06/27/22 Plan of Care Certification Date: 12/25/22 Next Certification Due Date: 01/29/23 Patient Identified by Name and Date of : Yes REHABILITATION AND SPORTS THERAPY PHYSICAL THERAPY EVALUATION PLAN OF CARE: Assessment: Audrey Draper presents with diagnosis of greater trochanteric pain [...] Planned: 6 Planned Treatment Interventions: Therapeutic exercise (98418), Neuromuscular re-education (33288), Manual therapy (03137), Therapeutic activities (32300), Self-longterm management (62816), Gait Training (61393) PLAN FOR NEXT VISIT: assess symptom response to repeated flexion directional preference exercises Patient demonstrates good understanding of plan of care and treatment. The above goals and plan of care were discussed and agreed upon by patient/family. SUBJECTIVE: Audrey Draper is a 72 year old female seen [...] States/Identifies TREATMENT: PT Treatment Interventions: Therapeutic Exercise, Self-Group Home Management, Therapeutic Activity Evaluation Therapeutic Exercise: 1: [...] cueing and correction of abnormal movement patterns. Self-Group Home Management: 1: *postural education 2: *discussed directional [...] : 1530 Session Stop Time : 1615 Latricia Blank PT documented in this encounter [facility] 12-13-2022 Note HNO ID: [id number] Author: Divya Fleming RN Service: ? Author Type: ? Type: Progress Notes Filed: 12/13/2022 4:12 PM Note Text: pcp agrees with information [facility] 12-13-2022 History of Presen t illness Narrative pcp agrees with information patient had inr completed at [facility] patients inr is 2.8 (patients inr [...] follow up INR. documented in this encounter [facility] 12-13-2022 Note HNO ID: [id number] Author: Divya Fleming RN Service: ? Author Type: ? Type: Progress Notes Filed: 12/13/2022 4:12 PM Note Text: patient had inr completed at [facility] patients inr is 2.8 (patients inr [...] 4 weeks (01/10/23) for follow up INR. [facility] 12-05-2022 Note HNO ID: [id number] Author: Jonny Mercado APRN.DAFNE Service: ? Author Type: Nurse Specialist Type: Progress Notes Filed: 12/06/2022 7:44 AM Note Text: Continue with Coumadin dose unchanged and check INR in 1 week [facility] 12-05-2022 History of Presen t illness Narrative Continue with Coumadin dose unchanged and check INR in 1 week patient had inr completed at [facility] patients inr is 2.7 (patients inr [...] since dose change documented in this encounter [facility] 12-05-2022 Note HNO ID: [id number] Author: Divya Fleming RN Service: ? Author Type: ? Type: Progress Notes Filed: 12/06/2022 7:44 AM Note Text: patient had inr completed at [facility] patients inr is 2.7 (patients inr [...] the first normal reading since dose change [facility] 11-26-2022 Note HNO ID: [id number] Author: Divya Fleming RN Service: ? Author Type: ? Type: Progress Notes Filed: 11/26/2022 5:16 PM Note Text: pcp agrees with information [facility] 11-26-2022 History of Presen t illness Narrative pcp agrees with information patient had inr completed at [facility] patients inr is 3.7 (patients inr [...] inr on 12/05/22 documented in this encounter [facility] 11-26-2022 Note HNO ID: [id number] Author: Bruce Bonilla MD Service: ? Author Type: Physician Type: Progress Notes Filed: 12/26/2022 11:52 PM Note Text: This note was created using NoteWriter. Subjective Audrey Draper is a 72 year old female. Patient presents with: F/U 6 months SUBJECTIVE: Audrey Draper is a 72 year old year old lady here today for 6 month follow up appointment for review of medical conditions. Back pain and hip pain. Posterior left hip pain (buttocks) Started 5 to 6 months ago. Getting worse. Woke up one AM and could not get out of bed. Saw Jonny after 3 weeks of pain. Prednisone with minimal relief. Greater trochanteric bursitis was diagnosed by Dr. Crawford but she was not told abo referral [...] of colon Chronic atrial fibrillation (HCC) 10/29/2013 [facility], 04/13/2020 Chronic diastolic heart failure (HCC) [facility], 04/13/2020 COPD, severe (HCC) Follows with Pulmonology (Dr. Nix) Degeneration of intervertebral disc, site unspecified Back DM w/o Complication Type II 06/21/2009 Endometriosis, site unspecified Esophageal reflux Essential hypertension [facility], 04/13/2020 Idiopathic urticaria Improved with [...] oximetry on room air. Fax results to [phone] Diagnosis: Hypoxia. predniSONE (DELTASONE) 10 mg tablet [...] affected area twi (more content not included)... [facility] 11-26-2022 Note HNO ID: [id number] Author: Divya Fleming RN Service: ? Author Type: ? Type: Progress Notes Filed: 11/26/2022 5:16 PM Note Text: patient had inr completed at [facility] patients inr is 3.7 (patients inr [...] 1 week follow up inr on 12/05/22 [facility] 11-26-2022 Instructions Bruce Bonilla MD - 11/26/2022 [...] week of spinach. documented in this encounter [facility] 11-26-2022 Miscellaneous Notes November 27, 2022 PID: [id number] Audrey Draper [address] [place] [address] Dear Ms. Draper, We are pleased to inform you that [...] report will be kept on file at [facility] as part of your permanent medical record and are available for your continuing care. Thank you for allowing us to help in meeting your health care needs. Sincerely, Dr. Guo Interpreting Radiologist [facility] (Normal over 40) documented in this encounter [facility] 11-26-2022 History of Presen t illness Narrative This note was created using VIVAter. Subjective Audrey Draper is a 72 year old female. Patient presents with: F/U 6 months SUBJECTIVE: Audrey Draper is a 72 year old year old lady here today for 6 month follow up appointment for review of medical conditions. Back pain and hip pain. Posterior left hip pain (buttocks) Started 5 to 6 months ago. Getting worse. Woke up one AM and could not get out of bed. Saw Jonny after 3 weeks of pain. Prednisone with minimal relief. Greater trochanteric bursitis was diagnosed by Dr. 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 Nix) Degeneration of intervertebral disc, site unspecified Back DM w/o Complication Type II 06/21/2009 Endometriosis, site unspecified Esophageal reflux Essential hypertension [facility], 04/13/2020 Idiopathic urticaria Improved with [...] bleeding Pulmonary emphysema (HCC) 11/14/2015 Pulmonary hypertension ([facility]) Thyrotoxicosis without mention of goiter or other [...] oximetry on room air. Fax results to [phone] Diagnosis: Hypoxia. predniSONE (DELTASONE) 10 mg tablet [...] complication, without long-term current use of insulin ([facility]) E11.9 3. Anticoagulated on Coumadin Z79.01 4. Essential hypertension I10 5. 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 Chronic congestive heart failure, unspecified heart failure type ([facility]) I50.9 7. Chronic atrial fibrillation ([facility]) I48.20 Above issues addressed with patient. Patient [...] the date of the service which included [id number] patient care, completing clinical documentation, performing a medically appropriate examination, counseling and educating the patient/family/caregiver, and ordering medications, tests, or procedures. Bruce Bonilla MD documented in this encounter [facility] 11-25-2022 Note HNO ID: [id number] Author: Madiha Cardoza Service: ? Author Type: Channel Layer Type: Progress Notes Filed: 11/25/2022 11:56 AM Note Text: Radiology Service Progress Note PATIENT NAME: Audrey Draper DATE OF SERVICE: November 25, 2022 TIME: [...] Madiha Cardoza November 25, 2022 11:55 AM [facility] 11-14-2022 Note HNO ID: [id number] Author: Divya Fleming RN Service: ? Author Type: ? Type: Progress Notes Filed: 11/14/2022 4:32 PM Note Text: per acquisition specialist provider (dr gray's verbal order) patient is to continue same PATIENT NOTIFIED OF INFORMATION [facility] 11-14-2022 Note HNO ID: [id number] Author: Divya Fleming RN Service: ? Author Type: ? Type: Progress Notes Filed: 11/14/2022 4:32 PM Note Text: patient had inr completed at [facility] patients inr is 3.1 (patients inr [...] also this day) for follow up INR. FYI patient will increase green slightly as she decreased them when level was low [facility] 10-31-2022 Miscellaneous Notes Patient notified of Coumadin [...] findings are negative documented in this encounter [facility] 10-07-2022 Note HNO ID: [id number] Author: Divya Fleming RN Service: ? Author Type: ? Type: Progress Notes Filed: 10/07/2022 4:13 PM Note Text: per pcp patient is to go to 5mg Mon,Fri and 2.5mg all other days PATIENT NOTIFIED OF INFORMATION [facility] 10-07-2022 History of Presen t illness Narrative per pcp patient is to go to 5mg Mon,Fri and 2.5mg all other days PATIENT NOTIFIED OF INFORMATION patient had inr completed at [facility] patients inr is 1.9 (patients inr [...] up inron 10/22/22 documented in this encounter [facility] 10-07-2022 Note HNO ID: [id number] Author: Divya Fleming RN Service: ? Author Type: ? Type: Progress Notes Filed: 10/07/2022 4:13 PM Note Text: patient had inr completed at [facility] patients inr is 1.9 (patients inr [...] a 2 week follow up inron 10/22/22 [facility] 09-23-2022 Note HNO ID: [id number] Author: Divya Fleming RN Service: ? Author Type: ? Type: Progress Notes Filed: 09/23/2022 2:12 PM Note Text: acquisition specialist provider dr garcia agrees with information [facility] 09-23-2022 History of Presen t illness Narrative acquisition specialist provider dr garcia agrees with information patient had inr completed at [facility] patients inr is 1.8 (patients inr [...] just slightly low documented in this encounter [facility] 09-23-2022 Note HNO ID: [id number] Author: Divya Fleming RN Service: ? Author Type: ? Type: Progress Notes Filed: 09/23/2022 2:12 PM Note Text: patient had inr completed at [facility] patients inr is 1.8 (patients inr [...] week and level is just slightly low [facility] 08-27-2022 Note HNO ID: [id number] Author: Divya Fleming RN Service: ? Author Type: ? Type: Progress Notes Filed: 08/27/2022 4:10 PM Note Text: pcp agrees [facility] 08-27-2022 History of Presen t illness Narrative pcp agrees patient had inr completed at [facility] patients inr is 2.0 (patients inr [...] follow up INR. documented in this encounter [facility] 08-27-2022 Note HNO ID: [id number] Author: Divya Fleming RN Service: ? Author Type: ? Type: Progress Notes Filed: 08/27/2022 4:10 PM Note Text: patient had inr completed at [facility] patients inr is 2.0 (patients inr [...] 4 weeks (09/24/22) for follow up INR. [facility] 07-30-2022 History of Presen t illness Narrative pcp agrees with information patient had inr completed at [facility] patients inr is 2.2 (patients inr [...] follow up INR. documented in this encounter [facility] 07-04-2022 History of Presen t illness Narrative Blake Crawford MD Department of Orthopaedics [facility] [address] [facility] [address] Dept: [phone] Dept July 04, 2022 CHIEF COMPLAINT: Established Patient and Pain of the Left Hip HPI Patient here today at the request of Jonny Mercado for left hip pain x 1 month. Patient reports she finished prednisone yesterday and has been doing some exercises. Her pain pain has decreased. X-ray at [facility] on 06/20/2022. ASSESSMENT: M70.62 Trochanteric bursitis of left hip (primary encounter diagnosis) M25.552 Acute hip pain, left PLAN: Appears trochanteric bursitis to me. Medication, icing program, stretching and strengthening may be formal physical therapy. FOLLOW UP INSTRUCTIONS: Nonsurgical provider for possible trochanteric injection, if necessary. Ms. Audrey Draper was advised as to contrast therapies and/or to take analgesics/anti-inflammatories as needed and all contraindications were reviewed. OBJECTIVE: Ms. Audrey Draper is a pleasant 72 year old in [...] IMAGING: IMPRESSION: Left hip within normal limits. Mail Manager: PSCB Transcribe Date/Time: Jun 21 2022 8:07A [...] of colon Chronic atrial fibrillation (HCC) 10/29/2013 [facility], 04/13/2020 Chronic diastolic heart failure (HCC) [facility], 04/13/2020 COPD, severe ([facility]) Follows with Pulmonology (Dr. Nix) Degeneration of intervertebral disc, site unspecified Back DM w/o Complication Type II 06/21/2009 Endometriosis, site unspecified Esophageal reflux Essential hypertension [facility], 04/13/2020 Idiopathic urticaria Improved with [...] Age of Onset Asthma Mother Heart Father CA COPD Sister Smoker. Lung Cancer Sister Breast [...] oximetry on room air. Fax results to [phone] Diagnosis: Hypoxia. No current facility-administered medications for [...] depression, anxiety) REFERRING PHYSICIAN: Consultation requested by Jonny Mercado for an opinion regarding hip pain. My final recommendations will be communicated back to the requesting physician by way of shared Medical record or letter to requesting physician via US mail. Jonny Mercado [address] [facility] [address] Bruce Bonilla MD [address] [facility] [address] Blake Crawford MD documented in this encounter [facility] 07-02-2022 History of Presen t illness Narrative pcp agrees with information patient had inr completed at [facility] patients inr is 2.9 (patients inr [...] follow up INR. documented in this encounter [facility] 06-20-2022 History of Presen t illness Narrative Subjective HPI Audrey Draper is a 72 year old female. PMH [...] Obesity, Class I, Bmi 30-34.9 Followed by [facility] cardiology. HPI excerpted from previous visit: DM: [...] for atrial fibrillation.No bleeding difficulties reported. Cardiology: [facility], Dr Almazan, has recently seen him Dr. Stokes, director video; continues to follow Shield Installer, Dr Solorzano, follows with him for asthma, COPD, no recent exacerbations or ER visits noted. Hypothyroidism. She is doing well on her current dose of Synthroid. TSH (uU/mL) Date Value 11/24/2020 1.220 07/21/2020 0.984 ) Hyperlipidemia. Ms. Draper reports doing well . Tries to eat [...] oximetry on room air. Fax results to [phone] Diagnosis: Hypoxia. 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 Nix) Degeneration of intervertebral disc, site unspecified Back DM w/o Complication Type II 06/21/2009 Endometriosis, site unspecified Esophageal reflux Essential hypertension [facility], 04/13/2020 Idiopathic urticaria Improved with [...] NASAL SPRAY,SUSPENSION Check INR in 1 week Jonny Mercado APRN.CNS Medical Decision Making: Problems: Low: 2+ self-limited or minor problems Data: Unique test(s) ordered: 1 Risk: Moderate: Drug management Medical Decision Making Level: 3 - Low documented in this encounter [facility] 06-04-2022 History of Presen t illness Narrative pcp agrees with information patient had inr completed at [facility] patients inr is 2.9 (patients inr [...] follow up INR. documented in this encounter [facility] 04-30-2022 History of Presen t illness Narrative Radiology Service Progress Note PATIENT NAME: Audrey Draper DATE OF SERVICE: April 30, 2022 TIME14:03 [...] PERIPHERAL IV DATA: Not applicable SIGNED BY: Karon Vegas RT(R) April 30, 2022 4:25 PM documented in this encounter [facility] 04-30-2022 Instructions Edil Gibson - 04/30/2022 1:35 PM EST Use boot and cane. If you develop and shortness of breath or calf pain, present to ed. Get xrays as ordered documented in this encounter [facility] 04-30-2022 History of Presen t illness Narrative [...] of colon Chronic atrial fibrillation (HCC) 10/29/2013 [facility], 04/13/2020 Chronic diastolic heart failure (HCC) [facility], 04/13/2020 COPD, severe ([facility]) Follows with Pulmonology (Dr. Nix) Degeneration of intervertebral disc, site unspecified Back DM w/o Complication Type II 06/21/2009 Endometriosis, site unspecified Esophageal reflux Essential hypertension [facility], 04/13/2020 Idiopathic urticaria Improved with [...] oximetry on room air. Fax results to [phone] Diagnosis: Hypoxia. No current facility-administered medications for [...] Age of Onset Asthma Mother Heart Father CA COPD Sister Smoker. Lung Cancer Sister Breast [...] Objective: Patient presents to clinic ambulating in [facility] Constitutional: Pt is a well developed 71 [...] 2 weeks 5. Will call with results. Edil Gibson DPM AMB ROOMING INTAKE FLOWSHEET DATA Risk Screening Do you have concerns about personal safety or safety in the home?: No Pain Pain Level: 7 Pain Location: Foot-Left Description: Sore Duration Amount of Time: 1 Duration Units: Weeks Frequency: Continuous Intervention/Comfort measure: Reposition, Relaxation, Medication (soaking) Patient presents with: Left Foot - Established Patient, Pain Hailey Dorantes LPN documented in this encounter [facility] 03-29-2022 History of Presen t illness Narrative Continue coumadin dose unchanged, check INR one month. patient had inr completed at [facility] patients inr is 2.6 (patients inr [...] follow up INR. documented in this encounter [facility] 03-06-2022 Miscellaneous Notes Patient has been identified [...] Francisca Silva LPN documented in this encounter [facility] 03-01-2022 History of Presen t illness Narrative Continue current dosing Coumadin check INR in 4 weeks patient had inr completed at [facility] patients inr is 2.2 (patients inr range is 2.0-3.0) patient is currently taking 3mg daily patients last dose change was on 02/06/22 due to a high level of 4.8 (dose at that time was 6mg Wed Fri and 3mg all other days) patient [...] follow up INR. documented in this encounter [facility] 03-01-2022 Miscellaneous Notes Filed order patients orders for coumadin clinic inr's has at this time. new order has been pended for approval if possible so that patient can continue to get inr's completed thru the coumadin clinic. coumadin clinic nurse only needs called if order can not be approved. documented in this encounter [facility] 02-16-2022 Miscellaneous Notes Patient called and provider [...] advise patient. Patient had INR drawn at [facility] Patient's INR is 1.5 range is [...] Josselyn Pickard LPN documented in this encounter [facility] 01-22-2022 History of Presen t illness Narrative per pcp she agrees with information patient had inr completed at [facility] patients inr is 2.3 (patients inr [...] since dose change documented in this encounter [facility] 01-08-2022 History of Presen t illness Narrative per pcp patient is to take 6mg Sun Wed and 3mg all other days PATIENT NOTIFIED OF INFORMATION patient had inr completed at [facility] patients inr is 1.8 (patients inr [...] inr on 01/22/22 documented in this encounter [facility] 12-26-2021 History of Presen t illness Narrative POPULATION HEALTH NAVIGATION OUTREACH Action/FYI unable to lm, mychart sent for pt to call to schedule carmen, added notes to upcoming ov Pt identified by name and : NO Outreach Outcome/Action Unable to reach patient: Phone number not valid / voicemail full [employer] System[employer] message sent Did you use a PCP [...] 2021 12:24 PM documented in this encounter [facility] 12-17-2021 History of Presen t illness Narrative Continue with Coumadin dose unchanged and check INR in 4 weeks patient had inr completed at [facility] patients inr is 2.8 (patients inr [...] follow up INR. documented in this encounter [facility] 12-06-2021 History of Presen t illness Narrative Subjective HPI Audrey Draper is a 71 year old female. PMH [...] for atrial fibrillation.No bleeding difficulties reported. Cardiology: [facility], Dr Almazan, has recently seen him Dr. Stokes, director video; continues to follow Shield Installer, Dr Solorzano, follows with him for asthma, COPD, no recent exacerbations or ER visits noted. Hypothyroidism. She is doing well on her current dose of Synthroid. TSH (uU/mL) Date Value 11/24/2020 1.220 07/21/2020 0.984 ) Hyperlipidemia. Ms. Draper reports doing well . Tries to eat [...] 104 The 10-year ASCVD risk score (Davion ROCK Jr., et al., 2013) is: 33.9% Values [...] oximetry on room air. Fax results to [phone] Diagnosis: Hypoxia. No current facility-administered medications for this visit. PAST MEDICAL HISTORY Diagnosis Date Benign neoplasm of colon Chronic atrial fibrillation (HCC) 10/29/2013 [facility], 04/13/2020 Chronic diastolic heart failure (HCC) [facility], 04/13/2020 COPD, severe ([facility]) Follows with Pulmonology (Dr. Nix) Degeneration of intervertebral disc, site unspecified Back DM w/o Complication Type II 06/21/2009 Endometriosis, site unspecified Esophageal reflux Essential hypertension [facility], 04/13/2020 Idiopathic urticaria Improved with cutting back significantly on Nickel in diet Lichen planus Osteoarthrosis, unspecified whether generalized or localized, other specified sites NECK, knees and back Other bursitis disorders TROCHANTERIC Other secondary pulmonary hypertension (HCC) libyb Almazan MD. Other specified disease of white [...] currently controlled, continue to monitor. Followed by arc welder, Dr Solorzano 2. Need for shingles vaccine [...] follow up Apr 2022 PCP with labs Jonny Mercado APRN.CNS Medical Decision Making: Problems: Moderate: 2+ stable chronic illnesses Risk: Moderate: Drug management Medical Decision Making Level: 4 - Moderate documented in this encounter [facility] 12-04-2021 History of Presen t illness Narrative per verbal order by acquisition specialist provider dr gray she agrees with information patient had inr completed at [facility] patients inr is 2.8 (patients inr [...] since dose change documented in this encounter [facility] 11-26-2021 History of Presen t illness Narrative per pcp patient is to take 6mg Sun and 3mg all other days PATIENT NOTIFIED OF INFORMATION patient had inr completed at [facility] patients inr is 3.5 (patients inr [...] inr on 12/04/21 documented in this encounter [facility] 11-22-2021 Miscellaneous Notes November 22, 2021 PID: [id number] Audrey Draper [address] [place] [address] Dear Ms. Draper, We are pleased to inform you that [...] report will be kept on file at [facility] as part of your permanent medical record and are available for your continuing care. Thank you for allowing us to help in meeting your health care needs. Sincerely, Dr. 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 Nix) Degeneration of intervertebral disc, site unspecified Back DM w/o Complication Type II 06/21/2009 Endometriosis, site unspecified Esophageal reflux Essential hypertension [facility], 04/13/2020 Idiopathic urticaria Improved with [...] Age of Onset Asthma Mother Heart Father CA COPD Sister Smoker. Lung Cancer Sister Breast [...] external genitalia normal, normal Bartholin's glands, urethra, [place]'s glands, no vulvar lesions, no cervical lesions, [...] Linnea Tejada APRN.EMELIA documented in this encounter [facility] 11-05-2021 History of Presen t illness Narrative pcp agrees with information patient had inr completed at [facility] patients inr is 2.4 (patients inr [...] follow up INR. documented in this encounter [facility] 10-15-2021 History of Presen t illness Narrative pcp agrees with information patient had inr completed at [facility] patients inr is 2.9 (patients inr [...] follow up INR. documented in this encounter [facility] 10-01-2021 History of Presen t illness Narrative per pcp patient is to take 5mg Mon,Wed,Fri and 2.5mg all other days and eat green vegetables twice a week PATIENT NOTIFIED OF INFORMATION patient had inr completed at [facility] patients inr is 1.7 (patients inr [...] inr on 10/15/21 documented in this encounter [facility] 09-21-2021 History of Presen t illness Narrative per pcp pt is to take 5mg Tues,thurs and 2.5mg all other days PATIENT NOTIFIED OF INFORMATION patient had inr completed at [facility] patients inr is 3.2 (patients inr range [...] inr on 10/01/21 documented in this encounter [facility] 09-03-2021 History of Presen t illness Narrative per pcp she agrees with information patient had inr completed at [facility] patients inr is 1.9 (patients inr [...] just slightly low documented in this encounter [facility] documented as of this encounter (statuses as of 09/03/2021) [facility]2016 History of Past illness Narrative* Problem Noted Date Resolved Date Obesity (BMI 30-39.9) 09/01/2015 07/27/2021 Pulmonary hypertension 02/21/2014 Atrial fibrillation 10/29/2013 11/22/2020 Overview: [facility], 04/21/20. Observation for suspected malignant neoplasm 11/22/2020 documented as of this encounter (statuses as of 09/21/2021) [facility] History of Past illness Narrative* Problem Noted Date Resolved Date Obesity (BMI 30-39.9) 09/01/2015 07/27/2021 Pulmonary hypertension 02/21/2014 1 Atrial fibrillation 10/29/2013 11/22/2020 Overview: [facility], 04/21/20. Observation for suspected malignant neoplasm 11/22/2020 documented as of this encounter (statuses as of 10/01/2021) [facility] History of Past illness Narrative* Problem Noted Date Resolved Date Obesity (BMI 30-39.9) 09/01/2015 07/27/2021 Pulmonary hypertension 02/21/2014 1 Atrial fibrillation 10/29/2013 11/22/2020 Overview: [facility], 04/21/20. Observation for suspected malignant neoplasm 11/22/2020 documented as of this encounter (statuses as of 10/15/2021) [facility] History of Past illness Narrative* Problem Noted Date Resolved Date Obesity (BMI 30-39.9) 09/01/2015 07/27/2021 Pulmonary hypertension 02/21/2014 1 Atrial fibrillation 10/29/2013 11/22/2020 Overview: [facility], 04/21/20. Observation for suspected malignant neoplasm 11/22/2020 documented as of this encounter (statuses as of 11/05/2021) [facility] History of Past illness Narrative* Problem Noted Date Resolved Date Obesity (BMI 30-39.9) 09/01/2015 07/27/2021 Pulmonary hypertension 02/21/2014 1 Atrial fibrillation 10/29/2013 11/22/2020 Overview: [facility], 04/21/20. Observation for suspected malignant neoplasm 11/22/2020 documented as of this encounter (statuses as of 11/22/2021) [facility] History of Past illness Narrative* Problem Noted Date Resolved Date Obesity (BMI 30-39.9) 09/01/2015 07/27/2021 Pulmonary hypertension 02/21/2014 1 Atrial fibrillation 10/29/2013 11/22/2020 Overview: [facility], 04/21/20. Observation for suspected malignant neoplasm 11/22/2020 documented as of this encounter (statuses as of 11/23/2021) [facility] History of Past illness Narrative* Problem Noted Date Resolved Date Obesity (BMI 30-39.9) 09/01/2015 07/27/2021 Pulmonary hypertension 02/21/2014 1 Atrial fibrillation 10/29/2013 11/22/2020 Overview: [facility], 04/21/20. Observation for suspected malignant neoplasm 11/22/2020 documented as of this encounter (statuses as of 11/24/2021) [facility] History of Past illness Narrative* Problem Noted Date Resolved Date Obesity (BMI 30-39.9) 09/01/2015 07/27/2021 Pulmonary hypertension 02/21/2014 1 Atrial fibrillation 10/29/2013 11/22/2020 Overview: [facility], 04/21/20. Observation for suspected malignant neoplasm 11/22/2020 documented as of this encounter (statuses as of 11/26/2021) [facility] History of Past illness Narrative* Problem Noted Date Resolved Date Obesity (BMI 30-39.9) 09/01/2015 07/27/2021 Pulmonary hypertension 02/21/2014 1 Atrial fibrillation 10/29/2013 11/22/2020 Overview: [facility], 04/21/20. Observation for suspected malignant neoplasm 11/22/2020 documented as of this encounter (statuses as of 12/04/2021) [facility] History of Past illness Narrative* Problem Noted Date Resolved Date Obesity (BMI 30-39.9) 09/01/2015 07/27/2021 Pulmonary hypertension 02/21/2014 1 Atrial fibrillation 10/29/2013 11/22/2020 Overview: [facility], 04/21/20. Observation for suspected malignant neoplasm 11/22/2020 documented as of this encounter (statuses as of 12/06/2021) [facility] History of Past illness Narrative* Problem Noted Date Resolved Date Obesity (BMI 30-39.9) 09/01/2015 07/27/2021 Pulmonary hypertension 02/21/2014 1 Atrial fibrillation 10/29/2013 11/22/2020 Overview: [facility], 04/21/20. Observation for suspected malignant neoplasm 11/22/2020 documented as of this encounter (statuses as of 12/17/2021) [facility] History of Past illness Narrative* Problem Noted Date Resolved Date Obesity (BMI 30-39.9) 09/01/2015 07/27/2021 Pulmonary hypertension 02/21/2014 1 Atrial fibrillation 10/29/2013 11/22/2020 Overview: [facility], 04/21/20. Observation for suspected malignant neoplasm 11/22/2020 documented as of this encounter (statuses as of 12/26/2021) [facility] History of Past illness Narrative* Problem Noted Date Resolved Date Obesity (BMI 30-39.9) 09/01/2015 07/27/2021 Pulmonary hypertension 02/21/2014 1 Atrial fibrillation 10/29/2013 11/22/2020 Overview: [facility], 04/21/20. Observation for suspected malignant neoplasm 11/22/2020 documented as of this encounter (statuses as of 01/08/2022) [facility] History of Past illness Narrative* Problem Noted Date Resolved Date Obesity (BMI 30-39.9) 09/01/2015 07/27/2021 Pulmonary hypertension 02/21/2014 1 Atrial fibrillation 10/29/2013 11/22/2020 Overview: [facility], 04/21/20. Observation for suspected malignant neoplasm 11/22/2020 documented as of this encounter (statuses as of 01/22/2022) [facility] History of Past illness Narrative* Problem Noted Date Resolved Date Obesity (BMI 30-39.9) 09/01/2015 07/27/2021 Pulmonary hypertension 02/21/2014 1 Atrial fibrillation 10/29/2013 11/22/2020 Overview: [facility], 04/21/20. Observation for suspected malignant neoplasm 11/22/2020 documented as of this encounter (statuses as of 02/14/2022) [facility] History of Past illness Narrative* Problem Noted Date Resolved Date Obesity (BMI 30-39.9) 09/01/2015 07/27/2021 Pulmonary hypertension 02/21/2014 1 Atrial fibrillation 10/29/2013 11/22/2020 Overview: [facility], 04/21/20. Observation for suspected malignant neoplasm 11/22/2020 documented as of this encounter (statuses as of 02/16/2022) [facility] History of Past illness Narrative* Problem Noted Date Resolved Date Obesity (BMI 30-39.9) 09/01/2015 07/27/2021 Pulmonary hypertension 02/21/2014 1 Atrial fibrillation 10/29/2013 11/22/2020 Overview: [facility], 04/21/20. Observation for suspected malignant neoplasm 11/22/2020 documented as of this encounter (statuses as of 03/01/2022) [facility] History of Past illness Narrative* Problem Noted Date Resolved Date Obesity (BMI 30-39.9) 09/01/2015 07/27/2021 Pulmonary hypertension 02/21/2014 1 Atrial fibrillation 10/29/2013 11/22/2020 Overview: [facility], 04/21/20. Observation for suspected malignant neoplasm 11/22/2020 documented as of this encounter (statuses as of 03/01/2022) [facility] History of Past illness Narrative* Problem Noted Date Resolved Date Obesity (BMI 30-39.9) 09/01/2015 07/27/2021 Pulmonary hypertension 02/21/2014 1 Atrial fibrillation 10/29/2013 11/22/2020 Overview: [facility], 04/21/20. Observation for suspected malignant neoplasm 11/22/2020 documented as of this encounter (statuses as of 03/07/2022) [facility] History of Past illness Narrative* Problem Noted Date Resolved Date Obesity (BMI 30-39.9) 09/01/2015 07/27/2021 Pulmonary hypertension 02/21/2014 1 Atrial fibrillation 10/29/2013 11/22/2020 Overview: [facility], 04/21/20. Observation for suspected malignant neoplasm 11/22/2020 documented as of this encounter (statuses as of 03/29/2022) [facility] History of Past illness Narrative* Problem Noted Date Resolved Date Obesity (BMI 30-39.9) 09/01/2015 07/27/2021 Pulmonary hypertension 02/21/2014 1 Atrial fibrillation 10/29/2013 11/22/2020 Overview: [facility], 04/21/20. Observation for suspected malignant neoplasm 11/22/2020 documented as of this encounter (statuses as of 04/30/2022) [facility] History of Past illness Narrative* Problem Noted Date Resolved Date Obesity (BMI 30-39.9) 09/01/2015 07/27/2021 Pulmonary hypertension 02/21/2014 1 Atrial fibrillation 10/29/2013 11/22/2020 Overview: [facility], 04/21/20. Observation for suspected malignant neoplasm 11/22/2020 documented as of this encounter (statuses as of 06/06/2022) [facility] History of Past illness Narrative* Problem Noted Date Resolved Date Obesity (BMI 30-39.9) 09/01/2015 07/27/2021 Pulmonary hypertension 02/21/2014 1 Atrial fibrillation 10/29/2013 11/22/2020 Overview: [facility], 04/21/20. Observation for suspected malignant neoplasm 11/22/2020 documented as of this encounter (statuses as of 06/21/2022) [facility] History of Past illness Narrative* Problem Noted Date Resolved Date Obesity (BMI 30-39.9) 09/01/2015 07/27/2021 Pulmonary hypertension 02/21/2014 1 Atrial fibrillation 10/29/2013 11/22/2020 Overview: [facility], 04/21/20. Observation for suspected malignant neoplasm 11/22/2020 documented as of this encounter (statuses as of 07/03/2022) [facility] History of Past illness Narrative* Problem Noted Date Resolved Date Obesity (BMI 30-39.9) 09/01/2015 07/27/2021 Pulmonary hypertension 02/21/2014 1 Atrial fibrillation 10/29/2013 11/22/2020 Overview: [facility], 04/21/20. Observation for suspected malignant neoplasm 11/22/2020 documented as of this encounter (statuses as of 07/31/2022) [facility] History of Past illness Narrative* Problem Noted Date Resolved Date Obesity (BMI 30-39.9) 09/01/2015 07/27/2021 Pulmonary hypertension 02/21/2014 1 Atrial fibrillation 10/29/2013 11/22/2020 Overview: [facility], 04/21/20. Observation for suspected malignant neoplasm 11/22/2020 documented as of this encounter (statuses as of 08/01/2022) [facility] History of Past illness Narrative* Problem Noted Date Resolved Date Obesity (BMI 30-39.9) 09/01/2015 07/27/2021 Pulmonary hypertension 02/21/2014 1 Atrial fibrillation 10/29/2013 11/22/2020 Overview: [facility], 04/21/20. Observation for suspected malignant neoplasm 11/22/2020 documented as of this encounter (statuses as of 08/27/2022) [facility] History of Past illness Narrative* Problem Noted Date Resolved Date Obesity (BMI 30-39.9) 09/01/2015 07/27/2021 Pulmonary hypertension 02/21/2014 1 Atrial fibrillation 10/29/2013 11/22/2020 Overview: [facility], 04/21/20. Observation for suspected malignant neoplasm 11/22/2020 documented as of this encounter (statuses as of 09/23/2022) [facility] History of Past illness Narrative* Problem Noted Date Resolved Date Obesity (BMI 30-39.9) 09/01/2015 07/27/2021 Pulmonary hypertension 02/21/2014 1 Atrial fibrillation 10/29/2013 11/22/2020 Overview: [facility], 04/21/20. Observation for suspected malignant neoplasm 11/22/2020 documented as of this encounter (statuses as of 10/08/2022) [facility] History of Past illness Narrative* Problem Noted Date Resolved Date Obesity (BMI 30-39.9) 09/01/2015 07/27/2021 Pulmonary hypertension 02/21/2014 1 Atrial fibrillation 10/29/2013 11/22/2020 Overview: [facility], 04/21/20. Observation for suspected malignant neoplasm 11/22/2020 documented as of this encounter (statuses as of 11/01/2022) [facility] History of Past illness Narrative* Problem Noted Date Resolved Date Obesity (BMI 30-39.9) 09/01/2015 07/27/2021 Pulmonary hypertension 02/21/2014 Atrial fibrillation 10/29/2013 11/22/2020 Overview: [facility], 04/21/20. Observation for suspected malignant neoplasm 11/22/2020 documented as of this encounter (statuses as of 11/27/2022) [facility] History of Past illness Narrative* Problem Noted Date Resolved Date Obesity (BMI 30-39.9) 09/01/2015 07/27/2021 Pulmonary hypertension 02/21/2014 Atrial fibrillation 10/29/2013 11/22/2020 Overview: [facility], 04/21/20. Observation for suspected malignant neoplasm 11/22/2020 documented as of this encounter (statuses as of 11/28/2022) [facility] History of Past illness Narrative* Problem Noted Date Resolved Date Obesity (BMI 30-39.9) 09/01/2015 07/27/2021 Pulmonary hypertension 02/21/2014 Atrial fibrillation 10/29/2013 11/22/2020 Overview: [facility], 04/21/20. Observation for suspected malignant neoplasm 11/22/2020 documented as of this encounter (statuses as of 12/06/2022) [facility] History of Past illness Narrative* Problem Noted Date Diagnosed Date Resolved Date Obesity (BMI 30-39.9) 09/01/20152021 Pulmonary hypertension 02/21/201411/22 Atrial fibrillation 10/29/2013 11/23/19 21 Overview: [facility], 04/21/20. Observation for suspected malignant neoplasm 0 11/22/2020 documented as of this encounter (statuses as of 12/14/2022) [facility] History of Past illness Narrative* Problem Noted Date Diagnosed Date Resolved Date Obesity (BMI 30-39.9) 09/01/20152021 Pulmonary hypertension 02/21/201411/22 Atrial fibrillation 10/29/2013 11/23/19 21 Overview: [facility], 04/21/20. Observation for suspected malignant neoplasm 0 11/22/2020 documented as of this encounter (statuses as of 12/26/2022) [facility] History of Past illness Narrative* Problem Noted Date Diagnosed Date Resolved Date Obesity (BMI 30-39.9) 09/01/20152021 Pulmonary hypertension 02/21/201411/22 Atrial fibrillation 10/29/2013 11/23/19 21 Overview: [facility], 04/21/20. Observation for suspected malignant neoplasm 0 11/22/2020 documented as of this encounter (statuses as of 12/27/2022) [facility] History of Past illness Narrative* Problem Noted Date Diagnosed Date Resolved Date Obesity (BMI 30-39.9) 09/01/20152021 Pulmonary hypertension 02/21/201411/22 Atrial fibrillation 10/29/2013 11/23/19 21 Overview: [facility], 04/21/20. Observation for suspected malignant neoplasm 0 11/22/2020 documented as of this encounter (statuses as of 01/02/2023) [facility] History of Past illness Narrative* Problem Noted Date Diagnosed Date Resolved Date Obesity (BMI 30-39.9) 09/01/20152021 Pulmonary hypertension 02/21/201411/22 Atrial fibrillation 10/29/2013 11/23/19 21 Overview: [facility], 04/21/20. Observation for suspected malignant neoplasm 0 11/22/2020 documented as of this encounter (statuses as of 01/09/2023) [facility] History of Past illness Narrative* Problem Noted Date Diagnosed Date Resolved Date Obesity (BMI 30-39.9) 09/01/20152021 Pulmonary hypertension 02/21/201411/22 Atrial fibrillation 10/29/2013 11/23/19 21 Overview: [facility], 04/21/20. Observation for suspected malignant neoplasm 0 11/22/2020 documented as of this encounter (statuses as of 01/11/2023) [facility] History of Past illness Narrative* Problem Noted Date Diagnosed Date Resolved Date Obesity (BMI 30-39.9) 09/01/20152021 Pulmonary hypertension 02/21/201411/22 Atrial fibrillation 10/29/2013 11/23/19 21 Overview: [facility], 04/21/20. Observation for suspected malignant neoplasm 0 11/22/2020 documented as of this encounter (statuses as of 01/31/2023) [facility] History of Past illness Narrative* Problem Noted Date Diagnosed Date Resolved Date Obesity (BMI 30-39.9) 09/01/20152021 Pulmonary hypertension 02/21/201411/22 Atrial fibrillation 10/29/2013 11/23/19 21 Overview: [facility], 04/21/20. Observation for suspected malignant neoplasm 0 11/22/2020 documented as of this encounter (statuses as of 02/07/2023) [facility] History of Past illness Narrative* Problem Noted Date Diagnosed Date Resolved Date Obesity (BMI 30-39.9) 09/01/20152021 Pulmonary hypertension 02/21/201411/22 Atrial fibrillation 10/29/2013 11/23/19 21 Overview: [facility], 04/21/20. Observation for suspected malignant neoplasm 0 11/22/2020 documented as of this encounter (statuses as of 02/12/2023) [facility] History of Past illness Narrative* Problem Noted Date Diagnosed Date Resolved Date Obesity (BMI 30-39.9) 09/01/20152021 Pulmonary hypertension 02/21/201411/22 Atrial fibrillation 10/29/2013 11/23/19 21 Overview: [facility], 04/21/20. Observation for suspected malignant neoplasm 0 11/22/2020 documented as of this encounter (statuses as of 02/21/2023) [facility] History of Past illness Narrative* Problem Noted Date Diagnosed Date Resolved Date Obesity (BMI 30-39.9) 09/01/20152021 Pulmonary hypertension 02/21/201411/22 Atrial fibrillation 10/29/2013 11/23/19 21 Overview: [facility], 04/21/20. Observation for suspected malignant neoplasm 0 11/22/2020 documented as of this encounter (statuses as of 03/08/2023) [facility] History of Past illness Narrative* Problem Noted Date Diagnosed Date Resolved Date Obesity (BMI 30-39.9) 09/01/20152021 Pulmonary hypertension 02/21/201411/22 Atrial fibrillation 10/29/2013 11/23/19 21 Overview: [facility], 04/21/20. Observation for suspected malignant neoplasm 0 11/22/2020 documented as of this encounter (statuses as of 03/21/2023) [facility] History of Past illness Narrative* Problem Noted Date Diagnosed Date Resolved Date Obesity (BMI 30-39.9) 09/01/20152021 Pulmonary hypertension 02/21/201411/22 Atrial fibrillation 10/29/2013 11/23/19 21 Overview: [facility], 04/21/20. Observation for suspected malignant neoplasm 0 11/22/2020 documented as of this encounter (statuses as of 04/05/2023) [facility] History of Past illness Narrative* Problem Noted Date Diagnosed Date Resolved Date Obesity (BMI 30-39.9) 09/01/20152021 Pulmonary hypertension 02/21/201411/22 Atrial fibrillation 10/29/2013 11/23/19 21 Overview: [facility], 04/21/20. Observation for suspected malignant neoplasm 0 11/22/2020 documented as of this encounter (statuses as of 04/16/2023) [facility] History of Past illness Narrative* Problem Noted Date Diagnosed Date Resolved Date Obesity (BMI 30-39.9) 09/01/20152021 Pulmonary hypertension 02/21/201411/22 Atrial fibrillation 10/29/2013 11/23/19 21 Overview: [facility], 04/21/20. Observation for suspected malignant neoplasm 0 11/22/2020 documented as of this encounter (statuses as of 05/13/2023) [facility] History of Past illness Narrative* Problem Noted Date Diagnosed Date Resolved Date Obesity (BMI 30-39.9) 09/01/20152021 Pulmonary hypertension 02/21/201411/22 Atrial fibrillation 10/29/2013 11/23/19 21 Overview: [facility], 04/21/20. Observation for suspected malignant neoplasm 0 11/22/2020 documented as of this encounter (statuses as of 05/17/2023) [facility] History of Past illness Narrative* Problem Noted Date Diagnosed Date Resolved Date Obesity (BMI 30-39.9) 09/01/20152021 Pulmonary hypertension 02/21/201411/22 Atrial fibrillation 10/29/2013 11/23/19 21 Overview: [facility], 04/21/20. Observation for suspected malignant neoplasm 0 11/22/2020 documented as of this encounter (statuses as of 07/08/2023) [facility] History of Past illness Narrative* Problem Noted Date Diagnosed Date Resolved Date Obesity (BMI 30-39.9) 09/01/20152021 Pulmonary hypertension 02/21/201411/22 Atrial fibrillation 10/29/2013 11/23/19 21 Overview: [facility], 04/21/20. Observation for suspected malignant neoplasm 0 11/22/2020 documented as of this encounter (statuses as of 07/15/2023) [facility] History of Past illness Narrative* Problem Noted Date Diagnosed Date Resolved Date Obesity (BMI 30-39.9) 09/01/20152021 Pulmonary hypertension 02/21/201411/22 Atrial fibrillation 10/29/2013 11/23/19 21 Overview: [facility], 04/21/20. Observation for suspected malignant neoplasm 0 11/22/2020 documented as of this encounter (statuses as of 07/30/2023) [facility] History of Past illness Narrative* Problem Noted Date Diagnosed Date Resolved Date Obesity (BMI 30-39.9) 09/01/20152021 Pulmonary hypertension 02/21/201411/22 Atrial fibrillation 10/29/2013 11/23/19 21 Overview: [facility], 04/21/20. Observation for suspected malignant neoplasm 0 11/22/2020 documented as of this encounter (statuses as of 08/01/2023) [facility] History of Past illness Narrative* Problem Noted Date Diagnosed Date Resolved Date Obesity (BMI 30-39.9) 09/01/20152021 Pulmonary hypertension 02/21/201411/22 Atrial fibrillation 10/29/2013 11/23/19 21 Overview: [facility], 04/21/20. Observation for suspected malignant neoplasm 0 11/22/2020 documented as of this encounter (statuses as of 08/02/2023) [facility] note* Diagnosis Chronic atrial fibrillation (HCC) Atrial [facility] Diagnosis Chronic atrial fibrillation (HCC) Atrial fibrillation [facility]* Diagnosis Encounter for routine gynecologic examination in Medicare patient- Primary Encounter for screening mammogram for breast cancer [facility]* Diagnosis En[facility] for screening mammogram for breast cancer [facility] Diagnosis Uncomplicated asthma, unspecified asthma severity, [...] use of anticoagulants [facility] Diagnosis Chronic atrial fibrillation (HCC) [facility]rial fibrillation [facility] Diagnosis Chronic atrial fibrillation (HCC)- Primary Atrial fibrillation [facility]* Diagnosis Chronic atrial fibrillation (HCC)- Primary Atrial fibrillation Chronic anticoagulation Long-term (current) use of anticoagulants documented in this encounter [facility] note* Diagnosis RIVERA (dyspnea on exertion) Other dyspnea and respiratory abnormality Controlled type 2 diabetes mellitus without complication, without long-term current use of insulin (HCC) documented in this encounter [facility] [facility] Diagnosis Acute left ankle pain- Primary Charcot ankle, left Type 2 diabetes mellitus without (mention of) complications (HCC) Type II or unspecified type diabetes mellitus without mention of complication, not stated as uncontrolled documented in this encounter [facility] note* Diagnosis Chronic atrial fibrillation (HCC) Atrial fibrillation [facility] Diagnosis Acute hip pain, left- Primary Nasal and sinus discharge Other diseases of nasal cavity and sinuses Allergic rhinitis, unspecified seasonality, unspecified trigger [facility] Diagnosis Chronic atrial fibrillation (HCC) Atrial fibrillation [facility] Diagnosis Trochanteric bursitis of left hip- [...] (HCC) Atrial fibrillation [facility] Diagnosis Greater trochanteric pain syndrome of [...] with hypoxemia (HCC) [facility] Diagnosis Anticoagulated on Coumadin Encounter for therapeutic drug monitoring [facility] Diagnosis Chronic atrial fibrillation (HCC)- Primary Atrial fibrillation [facility] Diagnosis Chronic anticoagulation- Primary Long-term (current) use of anticoagulants documented in this encounter [facility] note* Diagnosis Chronic atrial fibrillation (HCC)- Primary Atrial fibrillation documented in this encounter [facility] note* Diagnosis Acute left ankle pain Charcot ankle, left documented in this encounter [facility] note* Diagnosis Chronic atrial fibrillation (HCC)- Primary Atrial fibrillation [facility] Diagnosis 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 documented [facility] Diagnosis Medicare annual wellness visit, subsequent- Primary Routine general medical examination at a [facility] care facility Chronic congestive heart failure, unspecified heart failure type (HCC) Dyspnea and respiratory abnormalities Other dyspnea and respiratory abnormality 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 Encounter for immunization Need for other specified prophylactic vaccination against single bacterial disease [facility] Diagnostic Procedure Only (Routine) - Authorized Specialty Diagnoses / Procedures Referred By Kimo gibbs Referred To Contact [facility] Diagnoses Encounter for routine gynecologic examination in Medicare patient Encounter for screening mammogram for breast cancer Procedures KALE SCREENING SCREENING MAMMOGRAPHY BI 2-VIEW BREAST INC Linnea Khoury APRN.CNP [address] [place] [address] [facility] [address] [place] [id number] Referral ID Status Reason Start Date Expiration Date Visits Requested Visits Authorized [id number] Authorized Auto-Generat ed Referral 11/22/2021 12/22/2022 1 1 [facility] for referral (narrative)* Diagnostic Procedure Only (Routine) - Closed Specialty Diagnoses / Procedures Referred By Contac sai Referred To Contact XR IMAGING Diagnoses Acute left ankle pain Charcot ankle, left Procedures XR ANKLE GENERAL 3V AP/LAT/OBL LEFT RADEX ANKLE COMPLETE MINIMUM 3 VIEWS Edil Gibson [address] [place] [address] X[facility] Imaging Referral ID Status Reason Start Date Expiration Date V isits Requested Visits Authorized [id number] Closed Auto-Generate d Referral 04/30/2022 05/30/2023 1 1 * Diagnostic Procedure Only (Routine) - Closed Specialty Diagnoses / Procedures Referred By Contac t Referred To Contact XR IMAGING Diagnoses Acute left ankle pain Charcot ankle, left Procedures XR FOOT GENERAL 3V AP/LAT/OBL LEFT RADEX FOOT COMPLETE MINIMUM 3 VIEWS Edil [address] [place] [address] Xr Imaging Referral ID Status Reason Start Date Expiration Date V isits Requested Visits Authorized [id number] Closed Auto-Generate d Referral 04/30/2022 05/30/2023 1 1 [facility] for referral (narrative)* Diagnostic Procedure Only (Routine) - Closed Specialty Diagnoses / Procedures Referred By Contac t Referred To Contact XR IMAGING Diagnoses Acute left ankle pain Charcot ankle, left Procedures XR ANKLE GENERAL 3V AP/LAT/OBL LEFT RADEX ANKLE COMPLETE MINIMUM 3 [address] [place] [address] [place] [address] Referral ID Status Reason Start Date Expiration Date V isits Requested Visits Authorized [id number] Closed Auto-Generate d Referral 04/30/2022 05/30/2023 1 1 * Diagnostic Procedure Only (Routine) - Closed Specialty Diagnoses / Procedures Referred By Contac t Referred To Contact XR IMAGING Diagnoses Acute left ankle pain Charcot ankle, left Procedures XR FOOT GENERAL 3V AP/LAT/OBL LEFT RADEX FOOT COMPLETE MINIMUM 3 VIEWS Edil [address] [place] [address] [place] [address] Referral ID Status Reason Start Date Expiration Date V isits Requested Visits Authorized [id number] Closed Auto-Generate d Referral 04/30/2022 05/30/2023 1 1 [facility] for referral (narrative)* Diagnostic Procedure Only (Routine) - Closed Specialty Diagnoses / Procedures Referred By Contac t Referred To Contact XR IMAGING Diagnoses 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 Procedures XR LUMBAR MOTION 4V AP/LAT/ FLEX/EXT RADEX SPINE LUMBOSACRAL MINIMUM 4 VIEWS Bruce Bonilla MD [address] [place] [address] [place] [address] Referral ID Status Reason Start Date Expiration Date V isits Requested Visits Authorized [id number] Closed Auto-Generate d Referral 07/01/2023 07/30/2024 1 1 [facility] for visit Narrative* Diagnostic Procedure Only (Routine) - Closed Specialty Diagnoses / Procedures Referred By Contac t Referred To Contact XR IMAGING Diagnoses Acute left ankle pain Charcot ankle, left Procedures XR ANKLE GENERAL 3V AP/LAT/OBL LEFT RADEX ANKLE COMPLETE MINIMUM 3 VIEWS Edil Gibson [address] [place] [address] [place] [address] Referral ID Status Reason Start Date Expiration Date V isits Requested Visits Authorized [id number] Closed Auto-Generate d Referral 04/30/2022 05/30/2023 1 1 [facility] for visit Narrative* Diagnostic Procedure Only (Routine) - Closed Specialty Diagnoses / Procedures Referred By Contac t Referred To Contact XR IMAGING Diagnoses 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 Procedures XR LUMBAR MOTION 4V AP/LAT/ FLEX/EXT RADEX SPINE LUMBOSACRAL MINIMUM 4 VIEWS Bruce Bonilla MD [address] [place] [address] [place] [address] Referral ID Status Reason Start Date Expiration Date V isits Requested Visits Authorized [id number] Closed Auto-Generate d Referral 07/01/2023 07/30/2024 1 1 [facility] Summary Purpose Family History No Family History Records FoundNo Family History Records FoundNo Family History Records FoundNo Family History Records Found Advance Directives No Advanced Directives Records FoundDocuments on File Type Date Recorded 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 60-74 MINUTES Jonny Mercado, ROSAURA.CD TECHNICIAN [address] [place] [address] Referral ID Status Reason Start Date Expiration Date Visits Requested Visits Authorized [id number] Authorized PCP Requested Referral 06/20/2022 06/20/2023 1 1 Specialty Diagnoses / Procedures Referred By Contac t Referred To Contact XR IMAGING Diagnoses Acute hip pain, left Procedures XR HIP GENERAL 3V PELV/AP/LAT LEFT RADEX HIP UNILATERAL WITH PELVIS 2-3 VIEWS Jonny Mercado, ROSAURA.CD TECHNICIAN [address] [place] [address] Xr Imaging Referral ID Status Reason Start Date Expiration Date V isits Requested Visits Authorized [id number] Closed Auto-Generate d Referral 06/20/2022 07/20/2023 1 1 Specialty Diagnoses / Procedures Referred By Contac t Referred To Contact [facility] Diagnoses Greater trochanteric pain syndrome of both lower extremities Procedures PT REHAB FOLLOW UP ORDER THERAPEUTIC EXERCISES RE, EA 15 MIN. Latricia Blank, PT [facility] [place] [address] [place] [address] Referral ID Status Reason Start Date Expiration Date Visits Requested Visits Authorized [id number] Pending Review PCP Requested Referral Auto-Generate d Referral 12/25/2022 03/25/2023 1 1 Specialty Diagnoses / Procedures Referred By Contac t Referred To Contact [facility] Diagnoses Greater trochanteric pain syndrome of both lower extremities Procedures CONSULT TO PHYSICAL THERAPY PHYSICAL THERAPY EVALUATION HIGH COMPLEX 45 MINS Bruce Bonilla MD [address] [place] [address] [facility] [place] [address] [place] [address] Referral ID Status Reason Start Date Expiration Date V isits Requested Visits Authorized [id number] Closed Auto-Generate d Referral 11/28/2022 01/30/2023 1 1 Specialty Diagnoses / Procedures Referred By Contac t Referred To Contact Diagnoses Controlled type 2 diabetes mellitus without complication, without long-term current use of insulin (HCC) Jonny Mercado, INSURANCE WRITER.CD TECHNICIAN [address] [place] [address] Referral ID Status Reason Start Date Expiration Date V isits Requested Visits Authorized [id number] Pending Review 1 1 Specialty Diagnoses / Procedures Referred By Contac t Referred To Contact Diagnoses Anticoagulated on Coumadin Jonny Mercado, INSURANCE WRITER.CD TECHNICIAN [address] [place] [address] Referral ID Status Reason Start Date Expiration Date Visits Re quested Visits Authorized [id number] Denied 1 1 Specialty Diagnoses / Procedures Referred By Contac t Referred To Contact Orthopedics Diagnoses Greater trochanteric pain syndrome of both lower extremities Enthesopathy of right hip region Procedures CONSULT TO ORTHOPAEDICS OFFICE/OUTPATIENT [facility] 60-74 MINUTES Jonny Mercado, INSURANCE WRITER.CD TECHNICIAN [address] [place] [address] Referral ID Status Reason Start Date Expiration Date Visits Requested Visits Authorized [id number] Authorized PCP Requested Referral 02/07/2023 02/07/2024 1 1 Specialty Diagnoses / Procedures Referred By Contac t Referred To Contact Ent - Otolaryngology Diagnoses Hoarseness of voice Procedures CONSULT TO ENT OFFICE/OUT[facility]IENT [facility] 60-74 MINUTES Jonny Mercado, INSURANCE WRITER.CD TECHNICIAN [address] [place] [address] Referral ID Status Reason Start Date Expiration Date Visits Requested Visits Authorized [id number] Authorized PCP Requested Referral 02/07/2023 02/07/2024 1 1 Additional Source Comments INFORMATION SOURCE (unrecogn ized section and content) DATE CREATED AUTHOR AUTHOR'S ORGANIZ ATION 11/20/2017 [facility] DATE CREATED AUTHOR AUTHOR'S ORGANIZ ATION 08/04/2023 [facility] DATE CREATED AUTHOR AUTHOR'S ORGANIZ ATION 08/05/2023 [facility] Source Comments (unrecognize d section and content) In the event this informatio n is protected by the Federal Confidentiality of Alcohol and Drug Abuse Patient Records regulations: The Federal rules restrict any use of the information to criminally investigate or prosecute any alcohol or drug abuse patient.[facility] the event this information is protected by the Federal Confidentiality of Alcohol and Drug Abuse Patient Records regulations: The Federal rules restrict any use of the information to criminally investigate or prosecute any alcohol or drug abuse patient.[facility] the event this information is protected by the Federal Confidentiality of Alcohol and Drug Abuse Patient Records regulations: The Federal rules restrict any use of the information to criminally investigate or prosecute any alcohol or drug abuse patient.[facility] the event this information is protected by the Federal Confidentiality of Alcohol and Drug Abuse Patient Records regulations: The Federal rules restrict any use of the information to criminally investigate or prosecute any alcohol or drug abuse patient.[facility] the event this information is protected by the Federal Confidentiality of Alcohol and Drug Abuse Patient Records regulations: The Federal rules restrict any use of the information to criminally investigate or prosecute any alcohol or drug abuse patient.[facility] the event this information is protected by the Federal Confidentiality of Alcohol and Drug Abuse Patient Records regulations: The Federal rules restrict any use of the information to criminally investigate or prosecute any alcohol or drug abuse patient.[facility]In the event this information is protected by the Federal Confidentiality of Alcohol and Drug Abuse Patient Records regulations: The Federal rules restrict any use of the information to criminally investigate or prosecute any alcohol or drug abuse patient.[facility] the event this information is protected by the Federal Confidentiality of Alcohol and Drug Abuse Patient Records regulations: The Federal rules restrict any use of the information to criminally investigate or prosecute any alcohol or drug abuse patient.[facility] the event this information is protected by the Federal Confidentiality of Alcohol and Drug Abuse Patient Records regulations: The Federal rules restrict any use of the information to criminally investigate or prosecute any alcohol or drug abuse patient.[facility] the event this information is protected by the Federal Confidentiality of Alcohol and Drug Abuse Patient Records regulations: The Federal rules restrict any use of the information to criminally investigate or prosecute any alcohol or drug abuse patient.[facility]In the event this information is protected by the Federal Confidentiality of Alcohol and Drug Abuse Patient Records regulations: The Federal rules restrict any use of the information to criminally investigate or prosecute any alcohol or drug abuse patient.[facility] the event this information is protected by the Federal Confidentiality of Alcohol and Drug Abuse Patient Records regulations: The Federal rules restrict any use of the information to criminally investigate or prosecute any alcohol or drug abuse patient.[facility] the event this information is protected by the Federal Confidentiality of Alcohol and Drug Abuse Patient Records regulations: The Federal rules restrict any use of the information to criminally investigate or prosecute any alcohol or drug abuse patient.[facility] the event this information is protected by the Federal Confidentiality of Alcohol and Drug Abuse Patient Records regulations: The Federal rules restrict any use of the information to criminally investigate or prosecute any alcohol or drug abuse patient.[facility] CampusIn the event this information is protected by the Federal Confidentiality of Alcohol and Drug Abuse Patient Records regulations: The Federal rules restrict any use of the information to criminally investigate or prosecute any alcohol or drug abuse patient.[facility] CampusIn the event this information is protected by the Federal Confidentiality of Alcohol and Drug Abuse Patient Records regulations: The Federal rules restrict any use of the information to criminally investigate or prosecute any alcohol or drug abuse patient.[facility] CampusIn the event this information is protected by the Federal Confidentiality of Alcohol and Drug Abuse Patient Records regulations: The Federal rules restrict any use of the information to criminally investigate or prosecute any alcohol or drug abuse patient.[facility]In the event this information is protected by the Federal Confidentiality of Alcohol and Drug Abuse Patient Records regulations: The Federal rules restrict any use of the information to criminally investigate or prosecute any alcohol or drug abuse patient.[facility] CampusIn the event this information is protected by the Federal Confidentiality of Alcohol and Drug Abuse Patient Records regulations: The Federal rules restrict any use of the information to criminally investigate or prosecute any alcohol or drug abuse patient.[facility] CampusIn the event this information is protected by the Federal Confidentiality of Alcohol and Drug Abuse Patient Records regulations: The Federal rules restrict any use of the information to criminally investigate or prosecute any alcohol or drug abuse patient.[facility] CampusIn the event this information is protected by the Federal Confidentiality of Alcohol and Drug Abuse Patient Records regulations: The Federal rules restrict any use of the information to criminally investigate or prosecute any alcohol or drug abuse patient.[facility] CampusIn the event this information is protected by the Federal Confidentiality of Alcohol and Drug Abuse Patient Records regulations: The Federal rules restrict any use of the information to criminally investigate or prosecute any alcohol or drug abuse patient.[facility] CampusIn the event this information is protected by the Federal Confidentiality of Alcohol and Drug Abuse Patient Records regulations: The Federal rules restrict any use of the information to criminally investigate or prosecute any alcohol or drug abuse patient.[facility]In the event this information is protected by the Federal Confidentiality of Alcohol and Drug Abuse Patient Records regulations: The Federal rules restrict any use of the information to criminally investigate or prosecute any alcohol or drug abuse patient.[facility] CampusIn the event this information is protected by the Federal Confidentiality of Alcohol and Drug Abuse Patient Records regulations: The Federal rules restrict any use of the information to criminally investigate or prosecute any alcohol or drug abuse patient.[facility]In the event this information is protected by the Federal Confidentiality of Alcohol and Drug Abuse Patient Records regulations: The Federal rules restrict any use of the information to criminally investigate or prosecute any alcohol or drug abuse patient.[facility]In the event this information is protected by the Federal Confidentiality of Alcohol and Drug Abuse Patient Records regulations: The Federal rules restrict any use of the information to criminally investigate or prosecute any alcohol or drug abuse patient.[facility]In the event this information is protected by the Federal Confidentiality of Alcohol and Drug Abuse Patient Records regulations: The Federal rules restrict any use of the information to criminally investigate or prosecute any alcohol or drug abuse patient.[facility]In the event this information is protected by the Federal Confidentiality of Alcohol and Drug Abuse Patient Records regulations: The Federal rules restrict any use of the information to criminally investigate or prosecute any alcohol or drug abuse patient.[facility] CampusIn the event this information is protected by the Federal Confidentiality of Alcohol and Drug Abuse Patient Records regulations: The Federal rules restrict any use of the information to criminally investigate or prosecute any alcohol or drug abuse patient.[facility]In the event this information is protected by the Federal Confidentiality of Alcohol and Drug Abuse Patient Records regulations: The Federal rules restrict any use of the information to criminally investigate or prosecute any alcohol or drug abuse patient.[facility] CampusIn the event this information is protected by the Federal Confidentiality of Alcohol and Drug Abuse Patient Records regulations: The Federal rules restrict any use of the information to criminally investigate or prosecute any alcohol or drug abuse patient.[facility] CampusIn the event this information is protected by the Federal Confidentiality of Alcohol and Drug Abuse Patient Records regulations: The Federal rules restrict any use of the information to criminally investigate or prosecute any alcohol or drug abuse patient.[facility] CampusIn the event this information is protected by the Federal Confidentiality of Alcohol and Drug Abuse Patient Records regulations: The Federal rules restrict any use of the information to criminally investigate or prosecute any alcohol or drug abuse patient.[facility] CampusIn the event this information is protected by the Federal Confidentiality of Alcohol and Drug Abuse Patient Records regulations: The Federal rules restrict any use of the information to criminally investigate or prosecute any alcohol or drug abuse patient.[facility] CampusIn the event this information is protected by the Federal Confidentiality of Alcohol and Drug Abuse Patient Records regulations: The Federal rules restrict any use of the information to criminally investigate or prosecute any alcohol or drug abuse patient.[facility] CampusIn the event this information is protected by the Federal Confidentiality of Alcohol and Drug Abuse Patient Records regulations: The Federal rules restrict any use of the information to criminally investigate or prosecute any alcohol or drug abuse patient.[facility] CampusIn the event this information is protected by the Federal Confidentiality of Alcohol and Drug Abuse Patient Records regulations: The Federal rules restrict any use of the information to criminally investigate or prosecute any alcohol or drug abuse patient.[facility] CampusIn the event this information is protected by the Federal Confidentiality of Alcohol and Drug Abuse Patient Records regulations: The Federal rules restrict any use of the information to criminally investigate or prosecute any alcohol or drug abuse patient.[facility] CampusIn the event this information is protected by the Federal Confidentiality of Alcohol and Drug Abuse Patient Records regulations: The Federal rules restrict any use of the information to criminally investigate or prosecute any alcohol or drug abuse patient.[facility] CampusIn the event this information is protected by the Federal Confidentiality of Alcohol and Drug Abuse Patient Records regulations: The Federal rules restrict any use of the information to criminally investigate or prosecute any alcohol or drug abuse patient.[facility] CampusIn the event this information is protected by the Federal Confidentiality of Alcohol and Drug Abuse Patient Records regulations: The Federal rules restrict any use of the information to criminally investigate or prosecute any alcohol or drug abuse patient.[facility] CampusIn the event this information is protected by the Federal Confidentiality of Alcohol and Drug Abuse Patient Records regulations: The Federal rules restrict any use of the information to criminally investigate or prosecute any alcohol or drug abuse patient.[facility] CampusIn the event this information is protected by the Federal Confidentiality of Alcohol and Drug Abuse Patient Records regulations: The Federal rules restrict any use of the information to criminally investigate or prosecute any alcohol or drug abuse patient.[facility] CampusIn the event this information is protected by the Federal Confidentiality of Alcohol and Drug Abuse Patient Records regulations: The Federal rules restrict any use of the information to criminally investigate or prosecute any alcohol or drug abuse patient.[facility] CampusIn the event this information is protected by the Federal Confidentiality of Alcohol and Drug Abuse Patient Records regulations: The Federal rules restrict any use of the information to criminally investigate or prosecute any alcohol or drug abuse patient.[facility] CampusIn the event this information is protected by the Federal Confidentiality of Alcohol and Drug Abuse Patient Records regulations: The Federal rules restrict any use of the information to criminally investigate or prosecute any alcohol or drug abuse patient.[facility] CampusIn the event this information is protected by the Federal Confidentiality of Alcohol and Drug Abuse Patient Records regulations: The Federal rules restrict any use of the information to criminally investigate or prosecute any alcohol or drug abuse patient.[facility] CampusIn the event this information is protected by the Federal Confidentiality of Alcohol and Drug Abuse Patient Records regulations: The Federal rules restrict any use of the information to criminally investigate or prosecute any alcohol or drug abuse patient.[facility] CampusIn the event this information is protected by the Federal Confidentiality of Alcohol and Drug Abuse Patient Records regulations: The Federal rules restrict any use of the information to criminally investigate or prosecute any alcohol or drug abuse patient.[facility] the event this information is protected by the Federal Confidentiality of Alcohol and Drug Abuse Patient Records regulations: The Federal rules restrict any use of the information to criminally investigate or prosecute any alcohol or drug abuse patient.[facility] CampusIn the event this information is protected by the Federal Confidentiality of Alcohol and Drug Abuse Patient Records regulations: The Federal rules restrict any use of the information to criminally investigate or prosecute any alcohol or drug abuse patient.[facility] CampusIn the event this information is protected by the Federal Confidentiality of Alcohol and Drug Abuse Patient Records regulations: The Federal rules restrict any use of the information to criminally investigate or prosecute any alcohol or drug abuse patient.[facility]In the event this information is protected by the Federal Confidentiality of Alcohol and Drug Abuse Patient Records regulations: The Federal rules restrict any use of the information to criminally investigate or prosecute any alcohol or drug abuse patient.[facility] CampusIn the event this information is protected by the Federal Confidentiality of Alcohol and Drug Abuse Patient Records regulations: The Federal rules restrict any use of the information to criminally investigate or prosecute any alcohol or drug abuse patient.[facility] CampusIn the event this information is protected by the Federal Confidentiality of Alcohol and Drug Abuse Patient Records regulations: The Federal rules restrict any use of the information to criminally investigate or prosecute any alcohol or drug abuse patient.[facility] Reason for Visit (unrecogniz ed section and [...] Specialty Diagnoses / Procedures Referred By Kimo t Referred To Contact Orthopedics Diagnoses Acute hip pain, left Procedures CONSULT TO ORTHOPAEDICS OFFICE/OUTPATIENT NEW HIGH MDM 60-74 MINUTES Jonny Mercado, [employer] TECHNICIAN [address] [place] [address] Referral ID Status Reason Start Date Expiration Date V isits Requested Visits Authorized [id number] Closed PCP Requested Referral 06/20/2022 06/20/2023 1 1 Reason Onset Date Comments Anticoagulation 10/31/2022 Reason Comments PT Eval Specialty Diagnoses / Procedures Referred By Contac t Referred To Contact [facility] Diagnoses Greater trochanteric pain syndrome of both lower extremities Procedures CONSULT TO PHYSICAL THERAPY PHYSICAL THERAPY EVALUATION HIGH COMPLEX 45 MINS Bruce Bonilla MD [address] [place] [address] [facility] [address] [place] [address] Referral ID Status Reason Start Date Expiration Date V isits Requested Visits Authorized [id number] Closed Auto-Generate d Referral 11/28/2022 01/30/2023 1 1 Reason Comments F/U 6 months Reason Comments Physical Therapy Specialty Diagnoses / Procedures Referred By Contac t Referred To Contact [facility] Diagnoses Greater trochanteric pain syndrome of both lower extremities Procedures PT REHAB FOLLOW UP ORDER THERAPEUTIC EXERCISES RE, EA 15 MIN. Latricia Blank, PT [facility] [address] [place] [address] Referral ID Status Reason Start Date Expiration Date Visits Requested Visits Authorized [id number] Authorized PCP Requested Referral Auto-Generate d Referral 12/27/2022 03/29/2023 6 6 Reason Comments losing voice Reason Comments Patient Question Reason Onset Date Comments Anticoagulation 05/16/2023 Reason Comments Medicare Wellness Exam Care Teams (unrecognized sec tion and content) [employer] Relationship Specialty Start Date End Date Bruce Bonilla MD [address] [place], [place] [id number] PCP - General 09/09/05 [employer] Relationship Specialty Start Date End Date Bruce Bonilla MD [address] [place], [place] [id number] PCP - General 09/09/05 [employer]ylene [employer] Relationship Specialty Start Date End Date Bruce Bonilla MD [address] [place] [address] PCP - General 09/09/05 Acetylene Gas Compressor Relationship Specialty Start Date End Date Bruce Bonilla MD [address] [place] [address] PCP - General 09/09/05 Acetylene Gas Compressor Relationship Specialty Start Date End Date Bruce Bonilla MD [address] [place] [address] PCP - General 09/09/05 Ac[employer]ylene Gas Comp[employer] Relationship Specialty Start Date End Date Bruce Bonilla MD [address] [place] [address], [place] [address] PCP - General 09/09/05 Acetylene Gas Comp[employer] Relationship Specialty Start Date End Date Bruce Bonilla MD [facility] [place] [address] PCP - General 09/09/05 Acetylene Gas Compressor Relationship Specialty Start Date End Date Bruce Bonilla MD [address] [place] [address] PCP - General 09/09/05 Acetylene Gas Compressor Relationship Specialty Start Date End Date Bruce Bonilla MD [facility] [place] [address] PCP - General 09/09/05 Acetylene Gas Compressor Relationship Specialty Start Date End Date Bruce Bonilla MD [facility] [place] [address] PCP - General 09/09/05 Acetylene Gas Comp[employer] Relationship Specialty Start Date End Date Bruce Bonilla MD [address] [place] [address], [place] [address] PCP - General 09/09/05 Acetylene Gas Comp[employer] Relationship Specialty Start Date End Date Bruce Bonilla MD [address] [place] [address] PCP - General 09/09/05 Acetylene Gas Compressor Relationship Specialty Start Date End Date Bruce Bonilla MD [address] [place] [address] PCP - General 09/09/05 Acetylene Gas Compressor Relationship Specialty Start Date End Date Bruce Bonilla MD [address] [place] [address] PCP - General 09/09/05 Acetylene Gas Compressor Relationship Specialty Start Date End Date Bruce Bonilla MD [address] [place] [address] PCP - General 09/09/05 Ac[employer]ylene Gas Comp[employer] Relationship Specialty Start Date End Date Bruce Bonilla MD [address] [place] [address] PCP - General 09/09/05 Acetylene Gas Comp[employer] Relationship Specialty Start Date End Date Bruce Bonilla MD [address] [place] [address] PCP - General 09/09/05 Acetylene Gas Comp[employer] Relationship Specialty Start Date End Date Bruce Bonilla MD [address] [place] [address] PCP - General 09/09/05 Acetylene Gas Comp[employer] Relationship Specialty Start Date End Date Bruce Bonilla MD [address] [place] [address] PCP - General 09/09/05 Acetylene Gas Comp[employer] Relationship Specialty Start Date End Date Bruce Bonilla MD [address] [place] [address] PCP - General 09/09/05 Acetylene Gas Compressor Relationship Specialty Start Date End Date Bruce Bonilla MD [address] [place] [address] PCP - General 09/09/05 Acetylene Gas Compressor Relationship Specialty Start Date End Date Bruce oBnilla MD [address] [place] [address] PCP - General 09/09/05 Acetylene Gas Comp[employer] Relationship Specialty Start Date End Date Bruce Bonilla MD [address] [place] [address] PCP - General 09/09/05 Acetylene Gas Comp[employer] Relationship Specialty Start Date End Date Bruce Bonilla MD [address] [place] [address] PCP - General 09/09/05 Acetylene Gas Comp[employer] Relationship Specialty Start Date End Date Bruce Bonilla MD [address] [place] [address] PCP - General 09/09/05 Acetylene Gas Comp[employer] Relationship Specialty Start Date End Date Bruce Bonilla MD [address] [place] [address] PCP - General 09/09/05 FOR RECORDS PERTAINING [...] BE BASED ON THE PRIMARY CLINICAL RECORDS. [email or web address] [facility]. provides no warranty or guarantee of the accuracy or completeness of information in this document.
== END | disposition home or self-care (01) ==
LOC: CVS 06:51
PROVIDERS: PCP Internal Medicine; Referring Provider Otolaryngology; Visit Provider Otolaryngology
DX: Z01.818 Encounter for other preprocedural examination (principal)
CPT/HCPCS: 93306

== ENCOUNTER → 2024-03-10 | Outpatient (CLI) | payer MEDICARE, SELFPAY ==
[2024-03-10 12:06] LABS: Absolute Lymphocyte Count 0.98 X10^3/uL (0.83-4.51); Basophil# 0.03 X10^3/uL; Basophil% 0.4 % (0-1); Eosinophil# 0.12 X10^3/uL; Eosinophils% 1.8 % (0-5); Hematocrit 36.3 % (37-47); Hemoglobin 11.1 g/dL (12.0-15.0); Lymphocyte # 0.98 X10^3/ul (0.83-4.51); Lymphocyte % 14.5 % (19-41); Mean Corp Hgb Conc 30.6 g/dL (32-36); Mean Corpuscular Hgb 28.1 pg (27.0-32.0); Mean Corpuscular Volume 91.9 fL (81-99); Mean Platelet Vol. 11.4 fl (6.2-12.0); Monocyte# 0.58 X10^3/uL; Monocyte% 8.6 % (0-10); NRBC Flagged by Analyzer 0 % (0-5); Neutrophil # 5.01 X10^3/uL (2.7-7.7); Neutrophil % 74.3 % (47-70); Platelet Count 160 K/mm3 (150-450); RBC Distribution Width CV 15.7 % (11.6-14.6); RBC Distribution Width SD 53.1 fl (35.1-43.9); Red Blood Count 3.95 M/mm3 (4.2-5.4); Reticulocyte Count 1.51 % (0.5-1.5); White Blood Count 6.8 K/mm3 (4.4-11.0)
[2024-03-10 12:53] LABS: Vitamin B12 656 pg/mL (211-911)
[2024-03-10 12:55] LABS: Ferritin 73 ng/mL (8-252); Iron 32 ug/dL (50-170); Iron Binding Capacity,Total 298 ug/dL (250-450); LDH 170 U/L (84-246)
[2024-03-11 16:10] LABS: Albumin 3.5 g/dL (2.9-4.4); Alpha-1-Globulins 0.4 g/dL (0.0-0.4); Alpha-2-Globulins 0.7 g/dL (0.4-1.0); Endomysial Antibody IgA Negative (Negative); Haptoglobin 100 mg/dL (42-346); Immunoglobulin A 248 mg/dL (64-422); Immunoglobulin G 1078 mg/dL (586-1602); Immunoglobulin M 53 mg/dL (26-217); PROEL- TOTAL PROTEIN 6.5 g/dL (6.0-8.5); t-Transglutaminase IgA <2 U/mL (0-3)
== END | disposition home or self-care (01) ==
LOC: LAB 11:45
PROVIDERS: PCP Internal Medicine
DX: E46 Unspecified protein-calorie malnutrition (principal)
CPT/HCPCS: 36415; 82607; 82728; 82784; 83010; 83516; 83540; 83550; 83615; 84165; 85025; 85045; 86255; 86334

== ENCOUNTER 2024-05-26 15:09 | Inpatient (IN) | payer MEDICARE, SELFPAY ==
[2024-05-26] VITALS (10 sets, daily range): BP systolic 110–133; BP diastolic 61–73; PULSE 57–108; RESP 16–26; TEMP 36.1–37.2; O2SAT 88–98; BMI 32.7; BMI 30.7
--- NOTE | 2024-05-26 15:24 | EKG12_ITS ---
Test Reason : SOB Blood Pressure : */* mmHG Vent. Rate : 98 BPM Atrial Rate : * BPM P-R Int : * ms QRS Dur : 82 ms QT Int : 350 ms P-R-T Axes : * 20 1 degrees QTcB Int : 446 ms Atrial fibrillation with premature ventricular or aberrantly conducted complexes Low voltage QRS Nonspecific T wave abnormality Abnormal ECG Confirmed by DEBRA HOGUE, EBENEZER ([id number]), marketing editor ANDREA BAEZ ([id number]) on 05/28/2024 9:36:40 AM Referred By: Confirmed By: EBENEZER RICHARDSON MD
--- NOTE | 2024-05-26 15:26 | EDS_ITS ---
HPI History of Present Illness Chief Complaint: Shortness of Breath Informant: patient Onset/Context/Timing Onset: Days Context: gradual Timing: Continuous Quality: Positive for Dyspnea on exertion and Wheezing Current Severity: Mild Maximum Severity: Mild Worsened by: Coughing Relieved by: Oxygen Associated Symptoms cough, chills and green sputum Chest Pain: Positive for None Narrative Narrative: 73-year-old female history of diabetes, A-fib on warfarin, CHF, COPD on 2 L of oxygen as needed at home. Said she has been short of breath for approximately a week. Cough of greenish sputum. Chills without fever. No vomiting or diarrhea. Says she has mild increased swelling in her legs with a history of CHF. She is also having some wheezing. Shortness of breath is worse with exertion. PE Risk Factors: Negative for Cancer, OCP + Smoking + > 35, Prior DVT or PE, Recent immobilization, Recent surgery or Recent travel Prior similar symptoms: Yes Recent Illness/Hospitalization: No PFSH PFSH Medical History Wears dentures Rash Injury of back Dietary restriction History of diverticulitis Gastric reflux Former smoker On home oxygen therapy CPAP (continuous positive airway pressure) dependence Sleep apnea Shortness of breath on exertion Hoarseness History of edema History of atrial fibrillation History of echocardiogram Cardiology follow-up encounter Nocturnal hypoxemia Chronic diastolic (congestive) heart failure 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 Thyrotoxicosis with diffuse goiter without thyrotoxic crisis or storm History of colon polyps Diverticulosis Non-rheumatic tricuspid valve insufficiency Secondary pulmonary arterial hypertension Longstanding persistent atrial fibrillation Essential (primary) hypertension Obesity (BMI 30-39.9) Anemia Lichen planus Chronic obstructive pulmonary disease Type II diabetes mellitus Home Medications ?Medication ?Instructions ?Recorded ?Last Taken ?Type oxygen-air delivery systems ##1 10/12/19 Unknown History budesonide-formoterol HFA 160 2 puff inhalation BID COPD 10/13/19 Unknown History mcg-4.5 mcg/actuation aerosol inhaler albuterol sulfate 2.5 mg/3 mL 2.5 mg continuous nebulization Q6H 05/22/21 04/07/23 04:00 History (0.083 %) solution for nebulization warfarin 2.5 mg tablet 2.5 mg PO SUTUTHSA AFIB 05/22/21 04/01/23 History warfarin 5 mg tablet 5 mg PO MOWEFR BLOOD THINNER 05/22/21 04/01/23 History loratadine 10 mg tablet (Allergy 10 mg PO DAILY 03/31/23 Unknown History Relief (loratadine)) dupilumab 300 mg/2 mL subcutaneous 300 mg subcut Q2W 10/14/23 Unknown History pen injector (Dupixent) hydralazine 50 mg tablet 50 mg PO BID #180 tabs 10/14/23 Unknown Rx carvedilol 12.5 mg tablet 12.5 mg PO BID #180 TABLETS 01/15/24 Unknown Rx furosemide 40 mg tablet 40 mg PO DAILY PRN Swelling 01/15/24 Unknown History Allergy/AdvReac Type Severity Reaction Status Date / Time albuterol Allergy Other Verified 05/26/24 15:10 doxycycline Allergy Unknown Verified 05/26/24 15:10 etodolac (Etodolac) Allergy Unknown Verified 05/26/24 15:10 guaifenesin (From Mucinex) Allergy Unknown Verified 05/26/24 15:10 nabumetone Allergy Unknown Verified 05/26/24 15:10 Penicillins Allergy Unknown Verified 05/26/24 15:10 sulfamethoxazole (From Allergy Hives Verified 05/26/24 15:10 Bactrim) trimethoprim (From Bactrim) Allergy Hives Verified 05/26/24 15:10 amlodipine (From Norvasc) AdvReac swelling Verified 05/26/24 15:10 spironolactone AdvReac rib pain Verified 05/26/24 15:10 Family History Father Myocardial infarction Sister Breast cancer Mother Asthma Surgical History History of left cataract extraction History of colonoscopy History of right and left heart catheterization (10/27/19) History of dilatation and curettage History of tubal ligation History of carpal tunnel release Social History Smoking Status: Former smoker quit date: 06/02/89 pack-years: 30 alcohol intake: never substance use type: does not use caffeine: Yes Type: coffee Number of servings: 1 ROS ROS ED ROS Narrative Cough. Shortness of breath. Chills. Wheezing. Constitutional Constitutional ED: Reports chills; Denies fever(s) Eyes Eyes: Denies blurry vision ENT ENT ED: Denies ear pain Cardiovascular Cardiovascular: Denies chest pain Respiratory/Chest Respiratory/Chest: Reports cough, dyspnea, dyspnea on exertion and sputum Gastrointestinal Gastrointestinal: Denies abdominal pain, constipation or diarrhea Genitourinary Genitourinary ED: Denies dysuria or hematuria Musculoskeletal Musculoskeletal: Denies arthralgias Integumentary Denies abscess Neurologic Neurologic: Denies headache(s) Psychiatric Psychiatric: Denies anxiety Endocrine Endocrinology: Denies cold intolerance Hematologic/Lymphatic Hematologic/Lymphatic: Denies easy bleeding Allergic/Immunologic Allergic/Immunologic ED: Denies mouth swelling or tongue swelling EXAM Physical Exam Narrative Exam Narrative: 73-year-old female sitting upright in bed with oxygen on on 2 L she is 94% without oxygen she is 88%. She does not look septic or toxic. Family at bedside. H EENT exam pupils round reactive light. No facial droop. Normal speech. Moist mucous membranes. Neck nontender no JVD. Lungs few scattered expiratory wheezes. Equal and symmetrical. No rales or rhonchi. Heart irregularly irregular rate about 90. No murmur. Chest wall nontender. Abdomen soft nontender. Moving all 4 extremities. Nontender. No cords. Trace ankle edema. Neurologically she is awake alert no focal motor deficits. Answering questions and following commands. Const Vital Signs: 05/26/24 15:10 05/26/24 15:10 05/26/24 15:46 Temperature 97 F L Temperature Source Temporal Pulse Rate 81 Respiratory Rate 22 H Respiratory Effort Blood Pressure 132/61 H Blood Pressure Mean 84 Pulse Ox 88 94 94 Oxygen Delivery Method Room Air Nasal Cannula Nasal Cannula Oxygen Flow Rate (L/min) 2 2 05/26/24 15:50 05/26/24 15:50 05/26/24 16:07 Temperature Temperature Source Pulse Rate 93 Respiratory Rate 18 Respiratory Effort Short of Breath Blood Pressure Blood Pressure Mean Pulse Ox 97 Oxygen Delivery Method Nasal Cannula Nasal Cannula Oxygen Flow Rate (L/min) 2 2 Positive well nourished and well developed; Negative for cachectic, contractures or unkempt General Appearance ED: well developed and NAD; Negative for unkempt, cachectic, contractures or pallor Nutritional Appearance: Negative for cachectic HEENT Reports moist mucous membranes atraumatic Eyes PERRL and EOMs intact bilaterally Neck no lymphadenopathy, supple, no meningeal signs and no JVD Resp normal respiratory effort and No clear to auscultation bilaterally Auscultation: wheezes Cardio Negative for regular rhythm Cardio Narrative: A-fib rate about 90. Rhythm: abnormal rhythm GI non-tender, non-distended and no masses Palpation: soft; Negative for tender, guarding or rebound tenderness present Back/Spine no CVA tenderness and normal to inspection Extremity Negative for normal to inspection Extremity Narrative: Trace bilateral ankle edema. General Extremety ED: Yes edema General Extremity: edema Neuro oriented x3 and CN's II-XII intact bilaterally Sensorium / Orientation: alert, oriented to person, oriented to place and oriented to time Speech: speech normal Motor Exam: strength 5/5 throughout Psych mental status grossly normal Appearance: Negative for unkempt Thought Process: normal thought process Skin no wounds General Skin Exam: Negative for jaundice or pallor Lesions: no lesions Rashes: no rashes Trauma: Negative for abrasion or laceration MDM MDM MDM Narrative Medical decision making narrative: 73-year-old female history of COPD, A-fib and CHF. URI symptoms for a week complaining of shortness of breath. No chest pain. She undergo a cardiac workup. She is also on warfarin as I will get an INR. Differential would include CHF, COPD exacerbation pneumonia versus viral URI. She will be treated with DuoNeb aerosol due to her wheezing. Repeat exam no significant change. Her wheezing is improved with the aerosol. We went over her test results. She has no prior history of pleural effusion or any prior thoracentesis that she remembers. We discussed treatment options and plan she preferred to be admitted and have further evaluation in the hospital and go home and try to do this and palpation. I have the hospitalist on page. History & Record Review Discussion w/independent historian: Patient Additional record(s) reviewed:: Prior inpatient record, Prior outpatient record, Prior ED visit and Prior labs Lab Data Attestation: I reviewed the patient's lab results. Lab results narrative: CBC shows a white count 7. H&H 10.7 and 35. Platelets 188. PT/INR of 26 and 2.5 she is on Coumadin. BMP shows a gap of 4. Normal BUN of 14 creatinine 0.91. Glucose 118. Troponin is normal at 9. BNP is 466. Labs: Laboratory Results - last 24 hr 05/26/24 15:52 WBC 7.1 RBC 3.81 L Hgb 10.7 L Hct 35.4 L MCV 92.9 MCH 28.1 MCHC 30.2 L RDW Std Deviation 56.7 H RDW Coeff of Tano 16.5 H Plt Count 188 MPV 11.9 Immature Gran % (Auto) 0.300 Neut % (Auto) 71.3 H Lymph % (Auto) 16.6 L Johnston % (Auto) 10.3 H Eos % (Auto) 1.1 Baso % (Auto) 0.4 Absolute Neuts (auto) 5.1 Absolute Lymphs (auto) 1.18 Nucleated RBC % 0 PT 26.7 H INR 2.5 Sodium 140 Potassium 3.6 Chloride 105 Carbon Dioxide 31.0 Anion Gap 4 L BUN 14 Creatinine 0.91 Estim Creat Clear Calc 52.70 Est GFR (MDRD) Af Amer 78 Est GFR (MDRD) Non-Af 64 BUN/Creatinine Ratio 15.4 Glucose 118 H Calcium 8.8 Troponin I High Sens 9 B-Natriuretic Peptide 466.3 H Radiography Chest X-Ray - ED: Read by ED Physician, Bony Structures, Chronic Changes and Left Effusion Diagnostic Testing: Clinical Impression(s) from Imaging Studies Chest X-Ray 05/26/24 16:00 IMPRESSION: Moderate left pleural effusion. Electronically Signed: Blair Pena MD at 16:24 EST , Chest x-ray, 2 views, AP and lateral, interpreted myself shows a moderate-sized left pleural effusion. Chronic changes. Rhythm Strip Rhythm Strip: A-fib Rate: 98 Ectopy: PVC(s) EKG Initial EKG: Attestation: I personally reviewed and interpreted this EKG as follows: Interpretation: No Acute Injury Pattern and Atrial Fibrillation Comments: A-fib rate of 98 with PVCs. No acute WI or ischemia. Prior EKG tracings: available for review Prior: Unchanged Discharge Plan Triage Chief Complaint: Shortness of Breath ED Provider: Naveen Knowles Dx/Rx/DC Orders Clinical Impression: Acute dyspnea, Chronic anticoagulation, Pleural effusion on left, A-fib, CHF (congestive heart failure), History of diabetes mellitus, History of COPD Prescriptions: No Action (DME) oxygen-air delivery systems Device See Rx Instructions .ROUTE .MEDSUPPLY Qty: 1 Rx Instructions: As directed albuterol sulfate 2.5 mg /3 mL (0.083 %) solution for nebulization 2.5 mg continuous nebulization Q6H furosemide 40 mg tablet 40 mg PO DAILY PRN (Reason: Swelling) Dupixent Pen 300 mg/2 mL pen injector 300 mg subcut Q2W hydralazine 50 mg tablet 50 mg PO BID Qty: 180 3RF carvedilol 12.5 mg tablet 12.5 mg PO BID Qty: 180 3RF budesonide-formoterol 160-4.5 mcg/actuation HFA aerosol inhaler 2 puff INHALATION BID Patient Comments: inhaler warfarin 5 mg tablet 5 mg PO MOWEFR Patient Comments: PCP managing Rx Instructions: PCP managing warfarin 2.5 mg tablet 2.5 mg PO SUTUTHSA Patient Comments: PCP managing Rx Instructions: PCP managing loratadine [Allergy Relief (loratadine)] 10 mg tablet 10 mg PO DAILY Primary Care Provider: Laurie Bonilla Referrals: Laurie Bonilla MD [Primary Care Provider] - Print Language: Greek Disposition Disposition: Acute Care Hospital [facility]
[2024-05-26] MEDS: Ipratropium/Albuterol Sulfate 3 ML AMPUL.NEB INHALATION (15:49)
--- NOTE | 2024-05-26 16:00 | RAD_ITS ---
INDICATION: dyspnea EXAMINATION/TECHNIQUE: X-RAY - XR Chest 2 Views COMPARISON: 10/13/2019. FINDINGS: Chronic lung changes. No definite acute lung findings. Tortuous and calcified thoracic aorta. The heart is moderately enlarged. Moderate left pleural effusion. No pneumothorax. Degenerative changes of the thoracic spine. RAD/Chest PA and Lateral IMPRESSION: Moderate left pleural effusion. Electronically Signed: Blair Pena MD at 16:24 EST ,
[2024-05-26 16:11] LABS: Absolute Lymphocyte Count 1.18 X10^3/uL (0.83-4.51); Absolute Neutrophil Count 5.1 X10^3/uL (2.0-7.7); Basophil# 0.03 X10^3/uL; Basophil% 0.4 % (0-1); Eosinophil# 0.08 X10^3/uL; Eosinophils% 1.1 % (0-5); Hematocrit 35.4 % (37-47); Hemoglobin 10.7 g/dL (12.0-15.0); Lymphocyte # 1.18 X10^3/ul (0.83-4.51); Lymphocyte % 16.6 % (19-41); Mean Corp Hgb Conc 30.2 g/dL (32-36); Mean Corpuscular Hgb 28.1 pg (27.0-32.0); Mean Corpuscular Volume 92.9 fL (81-99); Mean Platelet Vol. 11.9 fl (6.2-12.0); Monocyte# 0.73 X10^3/uL; Monocyte% 10.3 % (0-10); NRBC Flagged by Analyzer 0 % (0-5); Neutrophil # 5.08 X10^3/uL (2.7-7.7); Neutrophil % 71.3 % (47-70); Platelet Count 188 K/mm3 (150-450); RBC Distribution Width CV 16.5 % (11.6-14.6); RBC Distribution Width SD 56.7 fl (35.1-43.9); Red Blood Count 3.81 M/mm3 (4.2-5.4); White Blood Count 7.1 K/mm3 (4.4-11.0)
[2024-05-26 16:23] LABS: International Normalized Ratio 2.5; Prothrombin Time (Protime)PT. 26.7 SECONDS (11.7-14.9)
[2024-05-26 16:29] LABS: Anion Gap 4 (5-15); BUN 14 mg/dL (7-18); BUN/Creat Ratio 15.4 RATIO (10-20); Calcium,Total 8.8 mg/dL (8.5-10.1); Chloride 105 mmol/L (98-107); Creatinine, Serum 0.91 mg/dL (0.55-1.02); EST Glomerular Filtration Rate 64 mL/min (>60); Est Glom Filt Rate - Afr Amer 78 mL/min (>60); Glucose 118 mg/dL (74-106); Potassium 3.6 mmol/L (3.5-5.1); Sodium Level 140 mmol/L (136-145); Troponin-I HS 9 pg/mL (3.0-54.0)
[2024-05-26 16:42] LABS: BNP,B-Type NATRIURETIC PEPTIDE 466.3 pg/mL (0-100)
--- NOTE | 2024-05-26 18:04 | PCM.HP.STD ---
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 She is having progressive shortness of breath with dyspnea on exertion and at rest with associated orthopnea and PND, with progressive leg swelling over the last 1 week. There are some associated spikes of temperature but no fever no, no chills, no nausea no vomiting. No recent sick contacts. She previously used to smoke but has quit smoking for the last few months. She has a history of severe pulmonary hypertension diagnosed in October 2019 with an ejection fraction of 55% and pulmonary systolic pressure of 56 mmHg. At the time of presentation in the ED, blood pressure 133/68, pulse 108, respiratory rate 26 oxygen saturation 95%, WBC 7.1, hemoglobin 10.7, platelet 188, INR 2.5, sodium 140, potassium 3.6, BUN 14, creatinine 0.9, glucose 118, BNP 466.3 [facility] Medical History Wears dentures Rash Injury of back Dietary restriction History of diverticulitis Gastric reflux Former smoker On home oxygen therapy CPAP (continuous positive airway pressure) dependence Sleep apnea Shortness of breath on exertion Hoarseness History of edema History of atrial fibrillation History of echocardiogram Cardiology follow-up encounter Nocturnal hypoxemia Chronic diastolic (congestive) heart failure 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 Thyrotoxicosis with diffuse goiter without thyrotoxic crisis or storm History of colon polyps Diverticulosis Non-rheumatic tricuspid valve insufficiency Secondary pulmonary arterial hypertension Longstanding persistent atrial fibrillation Essential (primary) hypertension Obesity (BMI 30-39.9) Anemia Lichen planus Chronic obstructive pulmonary disease Type II diabetes mellitus Home Medications ?Medication ?Instructions ?Recorded ?Last Taken ?Type oxygen-air delivery systems ##1 10/12/19 Unknown History budesonide-formoterol HFA 160 2 puff inhalation BID COPD 10/13/19 Unknown History mcg-4.5 mcg/actuation aerosol inhaler albuterol sulfate 2.5 mg/3 mL 2.5 mg continuous nebulization Q6H 05/22/21 04/07/23 04:00 History (0.083 %) solution for nebulization breathing warfarin 2.5 mg tablet 2.5 mg PO SUTUTHSA AFIB 05/22/21 04/01/23 History warfarin 5 mg tablet 5 mg PO MOWEFR BLOOD THINNER 05/22/21 04/01/23 History loratadine 10 mg tablet (Allergy 10 mg PO DAILY 03/31/23 Unknown History Relief (loratadine)) dupilumab 300 mg/2 mL subcutaneous 300 mg subcut Q2W 10/14/23 Unknown History pen injector (Dupixent) hydralazine 50 mg tablet 50 mg PO BID breathing #180 tabs 10/14/23 Unknown Rx carvedilol 12.5 mg tablet 12.5 mg PO BID breathing #180 01/15/24 Unknown Rx TABLETS furosemide 40 mg tablet 40 mg PO DAILY PRN Swelling 01/15/24 Unknown History Allergy/AdvReac Type Severity Reaction Status Date / Time albuterol Allergy Other Verified 05/26/24 15:10 doxycycline Allergy Unknown Verified 05/26/24 15:10 etodolac (Etodolac) Allergy Unknown Verified 05/26/24 15:10 guaifenesin (From Mucinex) Allergy Unknown Verified 05/26/24 15:10 nabumetone Allergy Unknown Verified 05/26/24 15:10 Penicillins Allergy Unknown Verified 05/26/24 15:10 sulfamethoxazole (From Allergy Hives Verified 05/26/24 15:10 Bactrim) trimethoprim (From Bactrim) Allergy Hives Verified 05/26/24 15:10 amlodipine (From Norvasc) AdvReac swelling Verified 05/26/24 15:10 spironolactone AdvReac rib pain Verified 05/26/24 15:10 Family History Father Myocardial infarction Sister Breast cancer Mother Asthma Surgical History History of left cataract extraction History of colonoscopy History of right and left heart catheterization (10/27/19) History of dilatation and curettage History of tubal ligation History of carpal tunnel release Social History Smoking Status: Former smoker quit date: 06/02/89 pack-years: 30 alcohol intake: never substance use type: does not use caffeine: Yes Type: coffee Number of servings: 1 ROS Review of Systems ROS Unobtainable: Denies due to encephalopathy, due to endotracheal tube, due to mental condition, due to mental status or other Constitutional Constitutional: Reports change in weight, fatigue and malaise Eyes Eyes: Denies blurry vision, change in eye color, change in vision, discharge from eye(s), double vision, erythema, eye pain, loss of vision or other ENT HEENT: Denies abnormal hearing, dysphagia, ear pain, epistaxis, headache(s), hearing loss, nasal congestion, nasal discharge, post nasal drip, sinus pressure, sore throat or other Cardiovascular Cardiovascular: Reports dyspnea on exertion, edema, orthopnea and palpitations Respiratory/Chest Respiratory/Chest: Denies cough, dyspnea, excessive phlegm production, hemoptysis, productive cough, shortness of breath at rest, shortness of breath with exertion, wheezing or other Gastrointestinal Gastrointestinal: Denies abdominal pain, coffee ground emesis, constipation, diarrhea, dyspepsia, hematemesis, hematochezia, loose stools, melena, nausea, vomiting or other Genitourinary Genitourinary: Denies burning urination, difficulty urinating, dysuria, hematuria, nocturia, urinary frequency, urinary hesitancy, urinary incontinence, urinary urgency or other Musculoskeletal Musculoskeletal: Denies arthralgias, back pain, joint pain, joint stiffness, joint swelling, myalgias, neck pain or other Neurologic Neurologic: Denies abnormal gait, abnormal speech, confusion, disequilibrium, dizziness, focal weakness, headache(s), numbness, paresthesias, seizure-like activity, seizures, syncope, tingling, tremor(s) or other Psychiatric Psychiatric: Denies anxiety, depression, homicidal ideation, suicidal ideation or other Endocrine Endocrinology: Denies change in body appearance, cold intolerance, excessive sweating, heat intolerance, polydipsia, polyuria or other Hematologic/Lymphatic Hematologic/Lymphatic: Denies anemia, easy bleeding, easy bruising, lymphadenopathy or other Allergic/Immunologic Allergic/Immunologic: Denies rhinitis, hives, eczemia, asthma or other Vital Signs Vital Signs Vital Signs: 05/26/24 15:10 05/26/24 15:10 05/26/24 15:46 Temperature 97 F L Temperature Source Temporal Pulse Rate 81 Respiratory Rate 22 H Respiratory Effort Blood Pressure 132/61 H Blood Pressure Mean 84 Pulse Ox 88 94 94 Oxygen Delivery Method Room Air Nasal Cannula Nasal Cannula Oxygen Flow Rate (L/min) 2 2 05/26/24 15:50 05/26/24 15:50 05/26/24 16:07 Temperature Temperature Source Pulse Rate 93 Respiratory Rate 18 Respiratory Effort Short of Breath Blood Pressure Blood Pressure Mean Pulse Ox 97 Oxygen Delivery Method Nasal Cannula Nasal Cannula Oxygen Flow Rate (L/min) 2 2 05/26/24 17:09 05/26/24 17:33 Temperature 98.9 F Temperature Source Pulse Rate 100 108 H Respiratory Rate 24 H 26 H Respiratory Effort Blood Pressure 110/70 133/68 H Blood Pressure Mean 83 89 Pulse Ox 97 95 Oxygen Delivery Method Nasal Cannula Oxygen Flow Rate (L/min) 2 Weight Weight: 178 lb 12.718 oz Body Mass Index (BMI) 32.7 Physical Exam Const alert and oriented x3 HEENT normocephalic Eyes PERRL Neck no lymphadenopathy Resp Resp Narrative: Decreased breath sounds on the left infrascapular region. No adventitious sounds present Cardio Cardio Narrative: Irregularly irregular heart GI normal to inspection, nondistended, normoactive bowel sounds Extremity Extremity Narrative: Bilateral pitting edema extending to the ankle Neuro oriented x3 Sensorium / Orientation: awake and alert Results Medical Records Data Attestation: I reviewed the patient's medical records Lab / Micro Data Attestation: I reviewed the patient's lab results. 05/26/24 15:52 05/26/24 15:52 Labs: Laboratory Results - last 24 hr 05/26/24 15:52: WBC 7.1, RBC 3.81 L, Hgb 10.7 L, Hct 35.4 L, MCV 92.9, MCH 28.1, MCHC 30.2 L, RDW Std Deviation 56.7 H, RDW Coeff of [place] 16.5 H, Plt Count 188, MPV 11.9, Immature Gran % (Auto) 0.300, Neut % (Auto) 71.3 H, Lymph % (Auto) 16.6 L, [place] % (Auto) 10.3 H, Eos % (Auto) 1.1, Baso % (Auto) 0.4, Absolute Neuts (auto) 5.1, Absolute Lymphs (auto) 1.18, Nucleated RBC % 0, PT 26.7 H, INR 2.5, Sodium 140, Potassium 3.6, Chloride 105, Carbon Dioxide 31.0, Anion Gap 4 L, BUN 14, Creatinine 0.91, Estim Creat Clear Calc 52.70, Est GFR (MDRD) Af Amer 78, Est GFR (MDRD) Non-Af 64, BUN/Creatinine Ratio 15.4, Glucose 118 H, Calcium 8.8, Troponin I High Sens 9, B-Natriuretic Peptide 466.3 H Micro: Microbiology 05/26/24 15:52 Mucosa - Nose SARS-CoV-2, Influenza & RSV (PCR) - Final Rhythm Strip Rhythm Strip: A-fib Rate: 98 Ectopy: PVC(s) Imaging Radiology Impression Chest X-Ray 05/26/24 16:00 IMPRESSION: Moderate left pleural effusion. Electronically Signed: Blair Pena MD at 16:24 EST , Assessment & Plan Assessment/Plan (1) History of COPD: PLAN: Plan 73-year-old female with history of COPD, A-fib, pulmonary hypertension, presents to the ED with concerns regarding progressive shortness of breath in the setting of left-sided pleural effusion, bilateral pedal edema. Given her presentation and elevated BNP levels there is a concern regarding acute on chronic heart failure, will reevaluate with echocardiogram and increase her Lasix to IV at this time and reevaluate her symptoms. #Shortness of breath #Severe pulmonary artery hypertension #Heart failure preserved ejection fraction -Likely acute on chronic heart failure, BNP 466.3 -Repeat echocardiogram to reevaluate present status -IV Lasix with salt restricted diet, hold off oral Lasix for now -Nutrition education for heart failure -Could be because of a viral infection, follow-up on the nasal swabs -Input output monitoring #Longstanding persistent atrial fibrillation -Continue home carvedilol regimen -Heart rate is well-controlled at this time -Continue warfarin, close monitoring of INR #Pleural effusion -Could be related to volume overload 2/2 heart failure -If there is no improvement with IV fluids, will consider thoracentesis and further fluid evaluation -Continue oxygen support #Acute on chronic respiratory failure #COPD -Continue home medication -Has a history of severe pulmonary hypertension and requires oxygen support at home if-continue to monitor closely, Target saturation greater than 92% #DAVID -Continue home medication #DVT prophylaxis -Continue warfarin, INR target is 2-3 -Encourage mobilization
[2024-05-26] MEDS: Furosemide 40 MG/4 ML Vial IV (18:42)
[2024-05-26] MEDS: guaiFENesin 10 ML UDC (200MG/10ML) 20 ML PO (20:07)
[2024-05-26] MEDS: Albuterol 2.5 MG/3 ML VIAL.NEB. INHALATION (20:11)
[2024-05-26] MEDS: hydrALAZINE 50 MG Tablet PO (21:30)
[2024-05-26] MEDS: Carvedilol 12.5 MG Tablet PO (21:30)
[2024-05-27] VITALS (15 sets, daily range): BP systolic 112–131; BP diastolic 46–62; PULSE 68–92; RESP 16–20; TEMP 36.5–36.9; O2SAT 88–98
[2024-05-27] MEDS: Albuterol 2.5 MG/3 ML VIAL.NEB. INHALATION ×2 (02:24→06:23)
[2024-05-27 06:27] LABS: Absolute Lymphocyte Count 1.01 X10^3/uL (0.83-4.51); Absolute Neutrophil Count 3.5 X10^3/uL (2.0-7.7); Basophil# 0.02 X10^3/uL; Basophil% 0.4 % (0-1); Eosinophil# 0.08 X10^3/uL; Eosinophils% 1.6 % (0-5); Hemoglobin 9.5 g/dL (12.0-15.0); Lymphocyte # 1.01 X10^3/ul (0.83-4.51); Lymphocyte % 19.6 % (19-41); Mean Corp Hgb Conc 30.6 g/dL (32-36); Mean Corpuscular Hgb 28.2 pg (27.0-32.0); Mean Platelet Vol. 12.2 fl (6.2-12.0); Monocyte# 0.55 X10^3/uL; Monocyte% 10.7 % (0-10); NRBC Flagged by Analyzer 0 % (0-5); Neutrophil # 3.49 X10^3/uL (2.7-7.7); Neutrophil % 67.5 % (47-70); Platelet Count 158 K/mm3 (150-450); RBC Distribution Width CV 16.2 % (11.6-14.6); RBC Distribution Width SD 54.5 fl (35.1-43.9); Red Blood Count 3.37 M/mm3 (4.2-5.4); White Blood Count 5.2 K/mm3 (4.4-11.0)
[2024-05-27 06:38] LABS: International Normalized Ratio 2.7; Prothrombin Time (Protime)PT. 28.1 SECONDS (11.7-14.9)
--- NOTE | 2024-05-27 06:43 | PN.HOSP_ITS ---
Reason for Visit Reason for Visit: Diagnoses Personal history of other diseases of the respiratory system (05/26/24) Subjective Subjective Patient with no acute events overnight since admission per self and per nursing report. Patient notes still dyspneic especially exertion and not markedly improved since initial presentation. Discussed plan of care with patient including initiation of scheduled and increased diuresis as well as potential future need for thoracentesis but uncertain at this time as dose not maximized of diuretic. She does note that the swelling in her legs does seem mildly improved. Patient denies fevers, chills, nausea, emesis, abdominal pain, chest pain. Objective Data Objective Data Vital Signs: Vital Signs Temp Pulse Resp BP Pulse Ox O2 Del Method O2 Flow Rate 97.7 F L 83 16 117/54 L 93 Nasal Cannula 2 05/27/24 03:15 05/27/24 06:24 05/27/24 06:24 05/27/24 03:15 05/27/24 06:24 05/27/24 06:24 05/27/24 06:24 Oxygen Flow Rate (L/min) 2 Oxygen Delivery Method Nasal Cannula Weight: 168 lb Body Mass Index (BMI) 30.7 Lab / Micro Data 05/27/24 05:55 05/27/24 05:55 Labs: Laboratory Results - last 24 hr 05/26/24 15:52: WBC 7.1, RBC 3.81 L, Hgb 10.7 L, Hct 35.4 L, MCV 92.9, MCH 28.1, MCHC 30.2 L, RDW Std Deviation 56.7 H, RDW Coeff of [place] 16.5 H, Plt Count 188, MPV 11.9, Immature Gran % (Auto) 0.300, Neut % (Auto) 71.3 H, Lymph % (Auto) 16.6 L, [place] % (Auto) 10.3 H, Eos % (Auto) 1.1, Baso % (Auto) 0.4, Absolute Neuts (auto) 5.1, Absolute Lymphs (auto) 1.18, Nucleated RBC % 0, PT 26.7 H, INR 2.5, Sodium 140, Potassium 3.6, Chloride 105, Carbon Dioxide 31.0, Anion Gap 4 L , BUN 14, Creatinine 0.91, Estim Creat Clear Calc 52.70, Est GFR (MDRD) Af Amer 78, Est GFR (MDRD) Non-Af 64, BUN/Creatinine Ratio 15.4, Glucose 118 H, Calcium 8.8, Troponin I High Sens 9, B-Natriuretic Peptide 466.3 H 05/27/24 05:55: WBC 5.2, RBC 3.37 L, Hgb 9.5 L, Hct 31.0 L, MCV 92.0, MCH 28.2, MCHC 30.6 L, RDW Std Deviation 54.5 H, RDW Coeff of [place] 16.2 H, Plt Count 158, M PV 12.2 H, Immature Gran % (Auto) 0.200, Neut % (Auto) 67.5, Lymph % (Auto) 19.6, [place] % (Auto) 10.7 H, Eos % (Auto) 1.6, Baso % (Auto) 0.4, Absolute Neuts (auto) 3.5, Absolute Lymphs (auto) 1.01, Nucleated RBC % 0, PT 28.1 H, INR 2.7 Micro: Microbiology 05/26/24 15:52 Mucosa - Nose SARS-CoV-2, Influenza & RSV (PCR) - Final Radiography Diagnostic Testing: Radiology Impression Chest X-Ray 05/26/24 16:00 IMPRESSION: Moderate left pleural effusion. Electronically Signed: Blair Pena MD at 16:24 EST , Rhythm Strip Rhythm Strip: A-fib Rate: 98 Ectopy: PVC(s) Assessment & Plan Assessment/Plan (1) CHF (congestive heart failure): PLAN: Plan The patient is a 73 y/o F w/ PMHx: GERD, Former tobacco use, HTN, HLD, DAVID on CPAP q HS, HFpEF, Chronic anemia, Chronic AF, COPD, Diabetes mellitus type II who presents to the [facility] ED on 05/26/2024 with significant shortness of breath, worsening especially exertion with concurrent wheezing and coughing with associated green sputum production with subjective chills ongoing for at least a week with no specific fever with mild increased swelling to her legs prompt eventual ED evaluation to be cautious. #1. Acute Hypoxia secondary to Acute Decompensated HFpEF complicated by underlying severe pulmonary artery hypertension with moderately L sided pleural effusion: Workup in the ED included T97, heart rate 81, BP 132/61, respiratory rate 22, initially 88% on room air with improvement to 94% on 2 L nasal cannula, CBC with WBC 7.1, hemoglobin 10.7, platelet 188 without marked shift, coags with INR 2.5, BMP with glucose 118 otherwise not marked appearing, troponin 9, BNP 466.3, chest x-ray with moderate left pleural effusion, EKG with atrial fibrillation with rate in the 90s with PVCs with no acute evidence of ischemia unchanged from prior. In the ED patient administered DuoNeb therapy. Admitted to PCU, maintain on cardiac telemetry, obtain cardiac enzyme series, obtain serial EKGs, continue IV lasix diuresis, monitor I/Os, maintain on intake restriction, continue medical therapy w/ asa, statin, BB, ACEI, aldosterone antagonists. TSH 0.8-1, mag 1.9. Most recent ECHO noted 08/11/23 with EF 55%, moderately enlarged LA, mildly enlarged RA, mild to moderate MVI, severe pulmonary hypertension. For now we will continue patient on Coumadin with INR trending however given moderate effusion may necessitate holding and consideration of thoracentesis. #2. Hypokalemia: Admission K+ 3.2, magnesium 1.9, supplementation given, repeat level in AM. #3. Chronic COPD: Will maintain on oxygen with wean as tolerated to room air, maintain on ATC duonebs, PRN albuterol, HOB, IS parameters. #4. Chronic normocytic anemia: Admission hemoglobin 10.7, MCV 92.9, baseline appears previously 03-12, 05/27/2024 hemoglobin 9.5, continue to trend. #5. Diabetes mellitus type II: Chart reported history, per current list did not appear to be on regimen, he will A1c requested to be cautious, in the interim maintain ADA diet, accu checks w/ ISS. #6. Hypertension: Continue home regimen including Coreg, hydralazine, pulse IV Lasix as noted, PRN hydralazine. #7. Hyperlipidemia: Per current list does not appear in any regimen, clarifying. #8. Former tobacco use: Encourage continued tobacco cessation. #9. Chronic atrial fibrillation: We will continue patient home Coreg with additionally Coumadin with INR trending. #10. GERD: We will continue patient on PPI. #11. DAVID: CPAP q HS. #12. DVT prophylaxis: Continue Coumadin with INR trending. #13. CODE status: Full Code. Charges/Coding Visit Charges Inpatient E&M: 71132 [facility] Hosp L3
[2024-05-27 07:04] LABS: ALB/GLOB Ratio 0.8 RATIO (0.9-2.4); AST(SGOT) 13 U/L (15-37); Alanine Aminotransfer ALT/SGPT 11 U/L (13-56); Albumin, Serum 2.8 g/dL (3.2-5.0); Alkaline Phosphatase 69 U/L (45-117); Anion Gap 4 (5-15); BUN 12 mg/dL (7-18); BUN/Creat Ratio 18.8 RATIO (10-20); Bilirubin, Direct 0.46 mg/dL (0.00-0.30); Calcium,Total 8.6 mg/dL (8.5-10.1); Chloride 102 mmol/L (98-107); Creatinine, Serum 0.64 mg/dL (0.55-1.02); EST Glomerular Filtration Rate 96 mL/min (>60); Est Glom Filt Rate - Afr Amer 116 mL/min (>60); Estimated Creatinine Clearance 58.07 ml/min; Globulin 3.3 g/dL (2.2-4.2); Glucose 86 mg/dL (74-106); Magnesium 1.9 mg/dL (1.6-2.6); Phosphorus 3.5 mg/dL (2.5-4.9); Potassium 3.2 mmol/L (3.5-5.1); Protein, Total 6.1 g/dL (6.4-8.2); Sodium Level 140 mmol/L (136-145); Thyroid Stim Hormone (TSH) 0.821 uIU/mL (0.358-3.740)
[2024-05-27 07:25] LABS: Bedside Glucose 80 mg/dL (74-106)
[2024-05-27 08:28] LABS: Troponin-I HS 13 pg/mL (3.0-54.0)
[2024-05-27 08:41] LABS: Troponin-I HS 13 pg/mL (3.0-54.0)
[2024-05-27] MEDS: Carvedilol 12.5 MG Tablet PO ×2 (09:07→22:49)
[2024-05-27] MEDS: hydrALAZINE 50 MG Tablet PO ×2 (09:07→22:49)
[2024-05-27] MEDS: 0.9% Saline Lock 10 ML Syringe IV (09:07)
[2024-05-27] MEDS: Potassium Chloride Oral Tablet 20 MEQ 40 MEQ PO (09:08)
[2024-05-27] MEDS: Furosemide 40 MG/4 ML Vial IV ×2 (09:08→18:25)
[2024-05-27] MEDS: Pantoprazole Sodium 40 MG Tablet PO (09:15)
[2024-05-27] MEDS: guaiFENesin 10 ML UDC (200MG/10ML) 20 ML PO (09:16)
[2024-05-27] MEDS: Magnesium Sulfate 1 GM in Dextrose 5%-Water (100mL Bag) 100 ML IV (09:23)
[2024-05-27] MEDS: Ipratropium/Albuterol Sulfate 3 ML AMPUL.NEB INHALATION ×3 (11:01→19:57)
[2024-05-27 12:26] LABS: Bedside Glucose 99 mg/dL (74-106)
[2024-05-27 12:29] LABS: Troponin-I HS 14 pg/mL (3.0-54.0)
[2024-05-27 12:59] LABS: Hemoglobin A1c 5.5 % (3.8-5.6)
--- NOTE | 2024-05-27 13:17 | CASEMGMT ---
BABITA BATISTA Assessment Face to Face with patient for initial transition planning/care coordination assessment. BABITA BATISTA introduced self and role at [facility], pt voices understanding. Pt is A&Ox4 and is resting comfortably in bed and is calm. Care providers, pharmacy, and demographics verified. Admitting dx: SOB LACE Strata: 2 PCP: Laurie Bonlila Specialists: KAYLAN (Cardio), Rashad (Pulmonary) Preferred Pharmacy: [facility] Insurance: [email or web address] [facility] Prescription Benefit: Yes LNOK: Bisi Hodges (Daughter), Nir Jaime (Daughter) Living Arrangements: Pt lives alone in a single story home with a basement and 5 steps to enter ADLs/IADLs: Ind Transportation: Self, daughter (Nir) DME: Home oxygen through [employer]. [employer] states that the pt current Rx states 2L continuous via [place]. Pt states that she has a CPAP but does not use. Pt also reports that she has a concentrator, portable tank that her daughter can bring in if needed, pulse ox, nebulizer, incentive spirometer, cane, and FWW. HHC/SNF: Denies hx or needs Pt?s goal: Home Plan: Home, follow for updated O2 Rx. There is no current 6-click or PT order. Pt states that she is independent and denies the need for additional therapy after DC. Pt states that she feels safe returning home alone once medically ready and denies further question or concerns at this time. Report given to FRONT OFFICE ATTENDANT CM. Jere Pierre RN, CM
[2024-05-27 17:57] LABS: Bedside Glucose 103 mg/dL (74-106)
[2024-05-28] VITALS (27 sets, daily range): BP systolic 102–120; BP diastolic 46–88; PULSE 57–93; RESP 16–20; TEMP 36.7–37; O2SAT 88–99
--- NOTE | 2024-05-28 | FLU_PTH ---
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 Teresa Loving MD : [id number] BED: 1 DIS: 05/30/2024 SPEC #: [id number] RECD: 05/28/24 12:29 STATUS: SOUJonny REQ #: [id number] HARLAN: 05/28/24 00:[address]: Teresa Loving DEPT: CYTOLOGY RECD BY: Alberto Woods ENTERED: 05/28/24 12:30 SP TYPE: Fluid OTHR DR: MD Dr. Laurie De Jesus MD Tissues: Pleural fluid, NOS Procedures: Special Stain Group II Surgery Specimen Level IV Cytospin Fluid HEADER OPERATION: US guided thoracentesis PRE-OP DIAGNOSIS: Left pleural effusion TISSUE SUBMITTED: US guided thoracentesis DIAGNOSIS CYTOLOGY Thoracentesis fluid for cytology (cytospins and cellblock): Negative for malignant cells. See comment. 05/31/2024 COMMENT Clinical correlation and appropriate follow up are necessary. CYTOLOGY STUDY Slides are reviewed. CYTOLOGY GROSS Received is 80 ml of cloudy light yellow fluid labeled with the patient's name and and designated per the requisition as thoracentesis. Submitted for cytology preparation including cell block. /Kwame 05/28/24 TC:5 CPT: 71223,04177
[2024-05-28] MEDS: Ipratropium/Albuterol Sulfate 3 ML AMPUL.NEB INHALATION ×5 (03:31→19:53)
[2024-05-28 04:05] LABS: Absolute Lymphocyte Count 0.98 X10^3/uL (0.83-4.51); Absolute Neutrophil Count 3.7 X10^3/uL (2.0-7.7); Basophil# 0.01 X10^3/uL; Basophil% 0.2 % (0-1); Eosinophil# 0.09 X10^3/uL; Eosinophils% 1.7 % (0-5); Hematocrit 30.5 % (37-47); Hemoglobin 9.6 g/dL (12.0-15.0); Lymphocyte # 0.98 X10^3/ul (0.83-4.51); Lymphocyte % 18.3 % (19-41); Mean Corp Hgb Conc 31.5 g/dL (32-36); Mean Corpuscular Hgb 28.7 pg (27.0-32.0); Mean Corpuscular Volume 91.3 fL (81-99); Mean Platelet Vol. 12.1 fl (6.2-12.0); Monocyte% 11.2 % (0-10); NRBC Flagged by Analyzer 0 % (0-5); Neutrophil # 3.65 X10^3/uL (2.7-7.7); Neutrophil % 68.2 % (47-70); Platelet Count 162 K/mm3 (150-450); RBC Distribution Width SD 53.5 fl (35.1-43.9); Red Blood Count 3.34 M/mm3 (4.2-5.4); White Blood Count 5.4 K/mm3 (4.4-11.0)
[2024-05-28 04:25] LABS: International Normalized Ratio 2.5; Prothrombin Time (Protime)PT. 26.9 SECONDS (11.7-14.9)
[2024-05-28 04:33] LABS: ALB/GLOB Ratio 0.9 RATIO (0.9-2.4); AST(SGOT) 14 U/L (15-37); Alanine Aminotransfer ALT/SGPT 11 U/L (13-56); Albumin, Serum 2.9 g/dL (3.2-5.0); Alkaline Phosphatase 72 U/L (45-117); Anion Gap 2 (5-15); BUN 13 mg/dL (7-18); BUN/Creat Ratio 17.2 RATIO (10-20); Calcium,Total 8.9 mg/dL (8.5-10.1); Chloride 99 mmol/L (98-107); Cholesterol 112 mg/dL (200); Creatinine, Serum 0.76 mg/dL (0.55-1.02); EST Glomerular Filtration Rate 79 mL/min (>60); Est Glom Filt Rate - Afr Amer 96 mL/min (>60); Estimated Creatinine Clearance 58.07 ml/min; Globulin 3.4 g/dL (2.2-4.2); Glucose 105 mg/dL (74-106); High Density Lipoprotein 35 mg/dL; Magnesium 1.8 mg/dL (1.6-2.6); Protein, Total 6.3 g/dL (6.4-8.2); Sodium Level 138 mmol/L (136-145); Triglycerides 67 mg/dL; Very Low Density Lipoprotein 13 mg/dL (5-40)
[2024-05-28] MEDS: Magnesium Sulfate 1 GM in Dextrose 5%-Water (100mL Bag) 100 ML IV (06:23)
--- NOTE | 2024-05-28 06:54 | PN.HOSP_ITS ---
Reason for Visit Reason for Visit: Diagnoses Heart failure, unspecified (05/26/24) Personal history of other diseases of the respiratory system (05/26/24) Subjective Subjective Patient with requent PVCs, asymptomatic in addition to short run VT again asymptomatic. Patient weight decreased by 10 lbs but remains on 2 L nasal cannula supplementation. Patient notes that she is breathing with greater ease and feels less fatigued but still some swelling to her legs and still dyspnea when she exerts herself. She does note that she has been having a cough and bringing up some mild sputum. Discussed plan of care which included thoracentesis today with study assessments and would also obtain sputum culture to be cautious. Patient denies fevers, chills, nausea, emesis, abdominal pain, chest pain. Objective Data Objective Data Vital Signs: Vital Signs Temp Pulse Resp BP Pulse Ox O2 Del Method O2 Flow Rate 98.6 F 93 18 115/59 L 93 Nasal Cannula 2 05/28/24 03:21 05/28/24 06:46 05/28/24 06:46 05/28/24 03:21 05/28/24 06:46 05/28/24 06:46 05/28/24 06:46 Oxygen Flow Rate (L/min) 2 Oxygen Delivery Method Nasal Cannula Weight: 168 lb Body Mass Index (BMI) 30.7 Intake & Output: Intake and Output for Last 24 Hours 05/26/24 05/27/24 05/28/24 23:59 23:59 23:59 Intake Total 972 / 972 Balance 972 / 972 Lab / Micro Data 05/28/24 03:15 05/28/24 03:15 Labs: Laboratory Results - last 24 hr 05/27/24 05:55: Sodium 140, Potassium 3.2 L, Chloride 102, Carbon Dioxide 34.0 H , Anion Gap 4 L, BUN 12, Creatinine 0.64, Estim Creat Clear Calc 58.07, Est GFR (MDRD) Af Amer 116, Est GFR (MDRD) Non-Af 96, BUN/Creatinine Ratio 18.8, Glucose 86, Calcium 8.6, Phosphorus 3.5, Magnesium 1.9, Total Bilirubin 1.00, Direct Bilirubin 0.46 H, AST 13 L, ALT 11 L, Alkaline Phosphatase 69, Troponin I High Sens 13, Total Protein 6.1 L, Albumin 2.8 L, Globulin 3.3, Albumin/Globulin Ratio 0.8 L, TSH 0.821 05/27/24 06:51: Hemoglobin A1c 5.5 05/27/24 07:06: POC Glucose 80 05/27/24 08:00: Troponin I High Sens 13 05/27/24 11:45: POC Glucose 99 05/27/24 11:54: Troponin I High Sens 14 05/27/24 16:54: POC Glucose 103 05/28/24 03:15: WBC 5.4, RBC 3.34 L, Hgb 9.6 L, Hct 30.5 L, MCV 91.3, MCH 28.7, MCHC 31.5 L, RDW Std Deviation 53.5 H, RDW Coeff of [place] 16.0 H, Plt Count 162, M PV 12.1 H, Immature Gran % (Auto) 0.400, Neut % (Auto) 68.2, Lymph % (Auto) 18.3 L, [place] % (Auto) 11.2 H, Eos % (Auto) 1.7, Baso % (Auto) 0.2, Absolute Neuts (auto) 3.7, Absolute Lymphs (auto) 0.98, Nucleated RBC % 0, PT 26.9 H, INR 2.5, Sodium 138, Potassium 3.0 L, Chloride 99, Carbon Dioxide 38.0 H, Anion Gap 2 L, BUN 13, Creatinine 0.76, Estim Creat Clear Calc 58.07, Est GFR (MDRD) Af Amer 96, Est GFR (MDRD) Non-Af 79, BUN/Creatinine Ratio 17.2, Glucose 105, Calcium 8.9, Magnesium 1.8, Total Bilirubin 0.90, AST 14 L, ALT 11 L, Alkaline Phosphatase 72, Total Protein 6.3 L, Albumin 2.9 L, Globulin 3.4, Albumin/Globulin Ratio 0.9, Triglycerides 67, Cholesterol 112, LDL Cholesterol 64, VLDL Cholesterol 13, HDL Cholesterol 35 L Micro: Microbiology 05/26/24 15:52 Mucosa - Nose SARS-CoV-2, Influenza & RSV (PCR) - Final Rhythm Strip Rhythm Strip: A-fib Rate: 98 Ectopy: PVC(s) Physical Exam Narrative Physical Examination: General: Awake, alert, oriented x 3 and cooperative, seated upright at the PCU bedside, notes feeling improved since day prior, less fatigued appearing. Skin: Normal color, normal turgor, no icterus, no cyanosis except occasional stage ecchymoses, mild bilateral lower extremity venous stasis skin changes HEENT: AT/NC, EOMI, PERRLA, MMM. Lungs: Diminished, greater bases, left greater than right, mild rales, no evidence of any respiratory distress. Heart: Irregular, rate controlled; no gallop, rub audible. Abdomen: Soft, obesity, NTTP, ND, normal BS. Extremities: No cyanosis, no clubbing, ankle to mid delatorre 1+ pitting edema, right mildly more so compared to left. Neurological: Patient awake, alert, oriented as noted, cognitive function intact; pupils equally reactive to light and accommodation, cranial nerves gross normal, moving all 4 extremities, no focal deficits, strength improving, moderately globally decreased. Psychiatric: Affect appears less fatigued, more interactive, no acute evidence of depressive or anxiety feelings. Assessment & Plan Assessment/Plan (1) CHF (congestive heart failure): PLAN: Plan The patient is a 73 y/o F w/ PMHx: GERD, Former tobacco use, HTN, HLD, DAVID on CPAP q HS, HFpEF, Chronic anemia, Chronic AF, COPD, Diabetes mellitus type II who presents to the [facility] ED on 05/26/2024 with significant shortness of breath, worsening especially exertion with concurrent wheezing and coughing with associated green sputum production with subjective chills ongoing for at least a week with no specific fever with mild increased swelling to her legs prompt eventual ED evaluation to be cautious. #1. Acute Hypoxia secondary to Acute Decompensated HFpEF complicated by underlying severe pulmonary artery hypertension with moderately L sided pleural effusion: Workup in the ED included T97, heart rate 81, BP 132/61, respiratory rate 22, initially 88% on room air with improvement to 94% on 2 L nasal cannula, CBC with WBC 7.1, hemoglobin 10.7, platelet 188 without marked shift, coags with INR 2.5, BMP with glucose 118 otherwise not marked appearing, troponin 9, BNP 466.3, chest x-ray with moderate left pleural effusion, EKG with atrial fibrillation with rate in the 90s with PVCs with no acute evidence of ischemia unchanged from prior. In the ED patient administered DuoNeb therapy. Admitted to PCU, maintain on cardiac telemetry, serial cardiac enzymes unremarkable, maintained on continue IV lasix diuresis, monitor I/Os, maintained on intake restriction, continued medical therapy. TSH 0.8-1, mag 1.9. Most recent ECHO noted 08/11/23 with EF 55%, moderately enlarged LA, mildly enlarged RA, mild to moderate MVI, severe pulmonary hypertension. 05/28/24 weight 178 lb 12.718 ox- >168 lb. 05/28/24 INR 2.5 and had planned FFP for thoracentesis but discussed with radiology 05/28/2024 and they noted given 2.5 INR level she would not need reversed. 05/28/2024 pending thoracentesis with study assessment request. 05/28/2024 sputum culture also requested given patient reported productive intermittent cough/mildly brown sputum. #2. Hypokalemia: Admission K+ 3.2, magnesium 1.9, supplementation given, 05/28/24 K 3.0, will give additional regimen, repeat level in AM. Adding K+ low dose 20 m equivalents BID given diuresis as noted #1. #3. Chronic COPD: Will maintain on oxygen with wean as tolerated to room air, maintain on ATC duonebs, PRN albuterol, HOB, IS parameters. #4. Chronic normocytic anemia: Admission hemoglobin 10.7, MCV 92.9, baseline appears previously -, 05/28/2024 hemoglobin 9.6, continue to trend. #5. Diabetes mellitus type II: Chart reported history, per current list did not appear to be on regimen, he will A1c requested to be cautious, in the interim maintain ADA diet, accu checks w/ ISS. #6. Hypertension: Continue home regimen including Coreg, hydralazine, pulse IV Lasix as noted, PRN hydralazine. #7. Hyperlipidemia: Per current list does not appear in any regimen, clarifying. #8. Former tobacco use: Encourage continued tobacco cessation. #9. Chronic atrial fibrillation: We will continue patient home Coreg with additionally Coumadin with INR trending. #10. GERD: We will continue patient on PPI. #11. DAVID: CPAP q HS. #12. DVT prophylaxis: Will hold Coumadin and trend INR for thoracentesis. If needed will administer FFP with repeat INR prior to intervention. #13. CODE status: Full Code. Charges/Coding Visit Charges Inpatient E&M: 53809 Subs Hosp L3
[2024-05-28] MEDS: Potassium Chloride Oral Tablet 20 MEQ PO ×2 (08:07→18:01)
[2024-05-28] MEDS: Potassium Chloride Oral Tablet 20 MEQ 40 MEQ PO (08:07)
[2024-05-28] MEDS: guaiFENesin 10 ML UDC (200MG/10ML) 20 ML PO ×2 (08:07→21:36)
[2024-05-28] MEDS: hydrALAZINE 50 MG Tablet PO ×2 (08:46→21:30)
[2024-05-28] MEDS: Carvedilol 12.5 MG Tablet PO ×2 (08:46→21:30)
[2024-05-28] MEDS: Furosemide 40 MG/4 ML Vial IV ×2 (08:46→18:00)
[2024-05-28] MEDS: Pantoprazole Sodium 40 MG Tablet PO (08:46)
[2024-05-28] MEDS: 0.9% Saline Lock 10 ML Syringe IV ×3 (08:47→21:32)
[2024-05-28] MEDS: Lidocaine 2% (20 ml mdv) 20 ML Vial INFILT (10:49)
--- NOTE | 2024-05-28 11:00 | RAD_ITS ---
STUDY: X-RAY CHEST REASON FOR EXAM: Female, 73 years old. Post thoracentesis TECHNIQUE: Inspiration and expiration AP portable views of the chest. COMPARISON: May 26, 2024. FINDINGS: There are monitoring devices. There is right perihilar consolidation. There is left lower lung atelectasis . There is small left pleural effusion, with improvement compared to the prior exam. There is no pneumothorax seen. There is moderate cardiac enlargement. Normal mediastinum and tiffany. Normal visualized pulmonary arteries. There is atherosclerotic calcification of the aortic arch with tortuosity. There is demineralization of the osseous structures. There is a levoscoliosis of the thoracic spine. There are diffuse degenerative changes of the visualized thoracic spine. Normal visualized ribs, clavicles, and shoulders. There is no demonstrated abnormality of the visualized soft tissue structures of the upper abdomen. RAD/Chest Insp/Exp 2 View IMPRESSION: Improvement of left pleural effusion. No pneumothorax seen. Cardiac enlargement. Right perihilar edema. Electronically Signed: Blake Lowe MD at 11:23 EST ,
[2024-05-28 11:13] LABS: Cytology, Body Fluid / CSF SEE PATHOLOGY REPORT
[2024-05-28 11:48] LABS: Body Fluid Mononuclear WBC # 0.401 10^3/uL; Body Fluid Mononuclear WBC % 92.6 %; Body Fluid Polynuclear WBC # 0.032 10^3/uL; Body Fluid Polynuclear WBC % 7.4 %; Body Fluid Total Cells Counted 0.499 10^3/ul; White Blood Count/Body Fluid 0.433 10^3/uL
[2024-05-28] MEDS: Acetaminophen 325 MG Tablet 650 MG PO ×3 (11:48→22:40)
[2024-05-28 12:19] LABS: Appearance/Body Fluid CLEAR; Auto B Fluid Analyzer BKGD Ct COUNTS W/IN LIMITS (W/IN LIMITS); Color/Body Fluid YELLOW
[2024-05-28 12:21] LABS: Red Cell Count/Body Fluid 535 /mm3
--- NOTE | 2024-05-28 12:48 | PCM.OPRPT ---
Multi Select Codes Radiology Radiology US Procedures: 67571 Thoracentesis Operative Report (Standard) Operative Information Date of Procedure: 05/28/24 Pre-Operative Diagnosis: Pleural effusion Post-Operative Diagnosis: Pleural effusion Surgery/Procedure Performed: Ultrasound-guided thoracentesis travel manager: No Type of Anesthesia: Local Procedure Start Time: 10:45 Procedure Stop Time: 10:58 Select all DRAINS/GRAFTS/IMPLANTS that apply: None Estimated Blood Loss: 0 Specimen collected: Yes Description of specimen(s) removed: 100 cc clear yellow drainage fluid to lab Description of surgery: PROCEDURE: Ultrasound Guided Thoracentesis ORDERING PROVIDER: Dr. Loving INDICATION: Female, 73 years old. Pleural effusion. PROVIDER: Saray Chu CNP PROCEDURE: The risks, benefits, and alternatives to the procedure were explained to the patient. The specific risks of bleeding, infection, and pneumothorax requiring chest tube insertion were discussed and accepted. Written informed consent was obtained. The patient was placed in the sitting, upright position. Ultrasonographic evaluation of the bilateral lower pleural spaces was carried out. An adequate pocket was identified in the left lower lobe posteriorly. The overlying skin was prepped with chlorhexidine and draped in sterile fashion. 2 % lidocaine was administered subcutaneously for local anesthesia. Under ultrasound guidance, a 5-Malay thoracentesis needle/catheter system was advanced into the left posterior lower pleural fluid collection. 410 ml of clear yellow colored fluid was drained. The catheter was removed, and a sterile dressing was applied. The patient tolerated the procedure well. A chest x-ray was ordered. IMPRESSION: Successful ultrasound guided thoracentesis of left pleural effusion. Surgical Findings: Uncomplicated Complications Complications: No
[2024-05-28 12:52] LABS: Glucose, Body Fluid 112 mg/dL (40-70); LDH,Body Fluid 52 Units/L (Not Establ.); Protein, Body Fluid 1.6 g/dL (Not Establ.)
[2024-05-28 13:22] LABS: Lymphocytes 34 %; Macrophages 48 %; Mesothelial Cells 3 %; Monocytes 2 %; Neutrophil (Segs) 10 %; Other Cell Type/BF 3 %
[2024-05-28 13:25] LABS: Source- Body Fluid PLEURAL FLUID
[2024-05-29] VITALS (13 sets, daily range): BP systolic 115–137; BP diastolic 51–70; PULSE 56–91; RESP 16–18; TEMP 36.4–36.8; O2SAT 96–98
[2024-05-29] MEDS: Albuterol 2.5 MG/3 ML VIAL.NEB. INHALATION (05:24)
--- NOTE | 2024-05-29 05:25 | CPS ---
Patient requesting Breathing TX
--- NOTE | 2024-05-29 06:29 | PCM.PN.HOSP ---
Reason for Visit Reason for Visit: Diagnoses Heart failure, unspecified (05/26/24) Personal history of other diseases of the respiratory system (05/26/24) Subjective Subjective Hemorrhage with no acute events overnight per self and per nursing report de-escalated down to 2 L nasal cannula oxygenating well but no oxygenation trial or attempt to wean at rest during the day. Patient notes feeling improved since initial ED arrival especially following thoracentesis. She denies any worsening dyspnea or chest discomfort. She notes she feels less swollen. Discussed that sputum culture is pending. Discussed plan of care which included oxygenation assessment to see how she does off oxygen and also with activity to which she is amenable. Patient is anxious about returning to home. Patient denies fevers, chills, nausea, emesis, abdominal pain. Objective Data Objective Data Vital Signs: Vital Signs Temp Pulse Resp BP Pulse Ox O2 Del Method O2 Flow Rate 97.6 F L 66 16 115/51 L 97 Nasal Cannula 2 05/29/24 03:30 05/29/24 05:24 05/29/24 05:24 05/29/24 03:30 05/29/24 05:24 05/29/24 05:24 05/29/24 05:24 Oxygen Flow Rate (L/min) 2 Oxygen Delivery Method Nasal Cannula Weight: 168 lb Body Mass Index (BMI) 30.7 Intake & Output: Intake and Output for Last 24 Hours 05/27/24 05/28/24 05/29/24 23:59 23:59 23:59 Intake Total 972 / 972 882 / 882 Output Total 2009 900 / 900 Balance 972 / 972 -1128 / -202 -900 / -900 Lab / Micro Data 05/29/24 05:58 05/29/24 05:58 Labs: Laboratory Results - last 24 hr 05/28/24 10:49: Fluid Source PLEURAL FLUID, Fluid Color YELLOW, Fluid Appearance CLEAR, Fluid WBC 0.433, Fluid RBC 535, Fluid Tot Cell Count 0.499 H, Fld Polynuclear WBCs # 0.032, Fld Polynuclear WBCs % 7.4, Fluid Mononuclear WBCs 0.401, Fld Mononuclear WBCs % 92.6, Fluid Neutrophils 10, Fluid Lymphocytes 34, Fluid Monocytes 2, Fluid Macrophages 48, Fld Mesothelial Cells 3, Fluid Other Cells 3, Fl Pathologist Comment May follow, Fluid Glucose 112 H, Fluid Total Protein 1.6, Fluid LDH 52, Fluid Comment 2 SEE COMMENT Micro: Microbiology 05/28/24 10:49 Fluid - Pleural (Lung) Gram Stain - Final 05/26/24 15:52 Mucosa - Nose SARS-CoV-2, Influenza & RSV (PCR) - Final Radiography Diagnostic Testing: Radiology Impression Chest X-Ray 05/28/24 11:00 IMPRESSION: Improvement of left pleural effusion. No pneumothorax seen. Cardiac enlargement. Right perihilar edema. Electronically Signed: Blake Lowe MD at 11:23 EST , Rhythm Strip Rhythm Strip: A-fib Rate: 98 Ectopy: PVC(s) Physical Exam Narrative Physical Examination: General: Awake, alert, oriented x 3 and cooperative, seated upright at the PCU bedside, notes feeling improved since day prior. Skin: Normal color, normal turgor, no icterus, no cyanosis except occasional stage ecchymoses, mild bilateral lower extremity venous stasis skin changes. HEENT: AT/NC, EOMI, PERRLA, MMM. Lungs: Diminished, greater bases, improved effort but still very diminished, no evidence of any respiratory distress. Heart: Irregular, rate controlled; no gallop, rub audible. Abdomen: Soft, obesity, NTTP, ND, normal BS. Extremities: No cyanosis, no clubbing, distal ankle to delatorre very mild edema is resolved currently. Neurological: Patient awake, alert, oriented as noted, cognitive function intact; pupils equally reactive to light and accommodation, cranial nerves gross normal, moving all 4 extremities, no focal deficits, strength improving, mildly to moderately globally decreased. Psychiatric: Affect appears normal, less fatigue, no acute evidence of depressive or anxiety feelings. Assessment & Plan Assessment/Plan (1) CHF (congestive heart failure): PLAN: Plan The patient is a 73 y/o F w/ PMHx: GERD, Former tobacco use, HTN, HLD, DAVID on CPAP q HS, HFpEF, Chronic anemia, Chronic AF, COPD, Diabetes mellitus type II who presents to the [facility] ED on 05/26/2024 with significant shortness of breath, worsening especially exertion with concurrent wheezing and coughing with associated green sputum production with subjective chills ongoing for at least a week with no specific fever with mild increased swelling to her legs prompt eventual ED evaluation to be cautious. #1. Acute Hypoxia secondary to Acute Decompensated HFpEF complicated by underlying severe pulmonary artery hypertension with moderately L sided pleural effusion: Workup in the ED included T97, heart rate 81, BP 132/61, respiratory rate 22, initially 88% on room air with improvement to 94% on 2 L nasal cannula, CBC with WBC 7.1, hemoglobin 10.7, platelet 188 without marked shift, coags with INR 2.5, BMP with glucose 118 otherwise not marked appearing, troponin 9, BNP 466.3, chest x-ray with moderate left pleural effusion, EKG with atrial fibrillation with rate in the 90s with PVCs with no acute evidence of ischemia unchanged from prior. In the ED patient administered DuoNeb therapy. Admitted to PCU, maintain on cardiac telemetry, serial cardiac enzymes unremarkable, maintained on continue IV lasix diuresis, monitor I/Os, maintained on intake restriction, continued medical therapy. TSH 0.8-1, mag 1.9. Most recent ECHO noted 08/11/23 with EF 55%, moderately enlarged LA, mildly enlarged RA, mild to moderate MVI, severe pulmonary hypertension. 05/27/24 weight 178 lb 12.718 ox->168 lb-> 05/29/2024 165 lbs. 05/28/24 successful L sided thoracentesis w/ removal of 410 ml of clear yellow colored fluid was drained with cultures and assessments pending w/ follow-up CXR w/ improvement of left effusion with cardiac enlargement, right sided perihilar edema. 05/28/2024 pending sputum culture. Will request oxygenation trial as suspect patient likely will be able to de-escalate off continuous oxygen supplementation. If significant work of breathing or significant increased oxygen requirements would continue treatment with IV Lasix with oral transition likely 05/30/2024 with possible discharge to home at that time pending response and ongoing evaluation. #2. Hypokalemia: Admission K+ 3.2, magnesium 1.9, supplementation given, 05/28/24 K 3.0, will give additional regimen, repeat level in AM. 05/28/2024 added K+ low dose 20 m equivalents BID given diuresis as noted #1. 05/29/2024 potassium 3.5. #3. Chronic COPD: Will maintain on oxygen with wean as tolerated to room air, maintain on ATC duonebs, PRN albuterol, HOB, IS parameters. #4. Chronic normocytic anemia: Admission hemoglobin 10.7, MCV 92.9, baseline appears previously 10-, 05/29/2024 hemoglobin 10.1, continue to trend. #5. Diabetes mellitus type II: Chart reported history, per current list did not appear to be on regimen, he will A1c requested to be cautious, in the interim maintain ADA diet, accu checks w/ ISS. #6. Hypertension: Continue home regimen including Coreg, hydralazine, pulse IV Lasix as noted, PRN hydralazine. #7. Hyperlipidemia: Per current list does not appear in any regimen, clarifying. #8. Former tobacco use: Encourage continued tobacco cessation. #9. Chronic atrial fibrillation: We will continue patient home Coreg with additionally Coumadin with INR trending. #10. GERD: We will continue patient on PPI. #11. DAVID: CPAP q HS but has been unable to tolerate and using 2 L nasal cannula nightly. #12. DVT prophylaxis: Continue Coumadin, 05/29/2024 INR 2.4. #13. CODE status: Full Code. Charges/Coding Visit Charges Inpatient E&M: 88477 Subs Hosp L2
[2024-05-29 06:48] LABS: Absolute Lymphocyte Count 1.13 X10^3/uL (0.83-4.51); Absolute Neutrophil Count 2.9 X10^3/uL (2.0-7.7); Basophil# 0.03 X10^3/uL; Basophil% 0.7 % (0-1); Eosinophils% 2.2 % (0-5); Hematocrit 32.5 % (37-47); Hemoglobin 10.1 g/dL (12.0-15.0); Lymphocyte # 1.13 X10^3/ul (0.83-4.51); Lymphocyte % 24.9 % (19-41); Mean Corp Hgb Conc 31.1 g/dL (32-36); Mean Corpuscular Hgb 28.5 pg (27.0-32.0); Mean Corpuscular Volume 91.8 fL (81-99); Mean Platelet Vol. 12.2 fl (6.2-12.0); Monocyte% 8.8 % (0-10); NRBC Flagged by Analyzer 0 % (0-5); Neutrophil # 2.85 X10^3/uL (2.7-7.7); Platelet Count 165 K/mm3 (150-450); RBC Distribution Width CV 15.9 % (11.6-14.6); RBC Distribution Width SD 53.3 fl (35.1-43.9); Red Blood Count 3.54 M/mm3 (4.2-5.4); White Blood Count 4.5 K/mm3 (4.4-11.0)
[2024-05-29 06:55] LABS: International Normalized Ratio 2.4; Prothrombin Time (Protime)PT. 25.6 SECONDS (11.7-14.9)
[2024-05-29] MEDS: Ipratropium/Albuterol Sulfate 3 ML AMPUL.NEB INHALATION ×4 (07:02→19:53)
[2024-05-29 07:11] LABS: Bedside Glucose 85 mg/dL (74-106)
[2024-05-29 07:17] LABS: ALB/GLOB Ratio 0.9 RATIO (0.9-2.4); AST(SGOT) 13 U/L (15-37); Alanine Aminotransfer ALT/SGPT 11 U/L (13-56); Albumin, Serum 3.1 g/dL (3.2-5.0); Alkaline Phosphatase 74 U/L (45-117); Anion Gap 2 (5-15); BUN 12 mg/dL (7-18); BUN/Creat Ratio 19.7 RATIO (10-20); Calcium,Total 9.2 mg/dL (8.5-10.1); Chloride 98 mmol/L (98-107); Creatinine, Serum 0.61 mg/dL (0.55-1.02); EST Glomerular Filtration Rate 102 mL/min (>60); Est Glom Filt Rate - Afr Amer 123 mL/min (>60); Estimated Creatinine Clearance 57.18 ml/min; Globulin 3.6 g/dL (2.2-4.2); Glucose 94 mg/dL (74-106); Potassium 3.5 mmol/L (3.5-5.1); Protein, Total 6.7 g/dL (6.4-8.2); Sodium Level 138 mmol/L (136-145)
[2024-05-29] MEDS: hydrALAZINE 50 MG Tablet PO ×2 (10:09→21:22)
[2024-05-29] MEDS: Potassium Chloride Oral Tablet 20 MEQ PO ×2 (10:09→17:44)
[2024-05-29] MEDS: Furosemide 40 MG/4 ML Vial IV ×2 (10:10→17:44)
[2024-05-29] MEDS: 0.9% Saline Lock 10 ML Syringe IV ×3 (10:10→21:26)
[2024-05-29] MEDS: Pantoprazole Sodium 40 MG Tablet PO (10:10)
[2024-05-29] MEDS: Carvedilol 12.5 MG Tablet PO ×2 (10:10→21:25)
[2024-05-29] MEDS: guaiFENesin 10 ML UDC (200MG/10ML) 20 ML PO (21:25)
[2024-05-29] MEDS: Acetaminophen 325 MG Tablet 650 MG PO (21:26)
[2024-05-30] VITALS (7 sets, daily range): BP systolic 109–126; BP diastolic 57–78; PULSE 73–82; RESP 16–20; TEMP 36.4–36.6; O2SAT 88–98
--- NOTE | 2024-05-30 05:32 | CPS ---
Pt unable to wear nightly cpap bc of throat surgery, needs to cleared by surgeon first.
--- NOTE | 2024-05-30 06:35 | DS.PCM_ITS ---
Providers Date of Admission: 05/26/24 Date of Discharge: 05/30/24 Primary Care Physician: Dr. Laurie Bonilla MD Reason For Visit: SHORTNESS OF BREATH Diagnosis Discharge Diagnosis (1) CHF (congestive heart failure): Status: Acute Code(s): I50.9 - Heart failure, unspecified Plan: DISCHARGE DIAGNOSES: #1. Acute Hypoxia secondary to Acute Decompensated HFpEF complicated by underlying severe pulmonary artery hypertension with moderately L sided pleural effusion #2. Hypokalemia, secondary to diuresis #3. Chronic COPD #4. Chronic normocytic anemia #5. Diabetes mellitus type II #6. Hypertension #7. Hyperlipidemia #8. Former tobacco use #9. Chronic atrial fibrillation #10. GERD #11. DAVID on CPAP q HS #12. CODE status: Full Code. Medications at Discharge Home Medications oxygen-air delivery systems ##1 10/12/19 albuterol sulfate 2.5 mg/3 mL (0.083 %) solution for nebulization 2.5 mg continuous nebulization Q6H breathing 05/22/21 warfarin 2.5 mg tablet 2.5 mg PO SUTUTHSA AFIB 05/22/21 warfarin 5 mg tablet 4 mg PO MOWEFR BLOOD THINNER 05/22/21 dupilumab 300 mg/2 mL subcutaneous pen injector (Dupixent) 300 mg subcut Q2W rash 10/14/23 hydralazine 50 mg tablet 50 mg PO BID breathing #180 tabs 10/14/23 carvedilol 12.5 mg tablet 12.5 mg PO BID breathing #180 TABLETS 01/15/24 ipratropium 0.5 mg-albuterol 3 mg (2.5 mg base)/3 mL nebulization soln 3 ml inhalation TID sob 05/26/24 omeprazole 40 mg capsule,delayed release 40 mg PO DAILY gerd 05/26/24 furosemide 20 mg tablet 20 mg PO DAILY 30 days #30 tabs 05/29/24 Hospital Course Operations None Procedures Blood transfusion and EKG Summary of Care Provided Minutes Spent on Discharge: 35 Hospital Course: The patient is a 74 y/o F w/ PMHx: GERD, Former tobacco use, HTN, HLD, DAVID on CPAP q HS, HFpEF, Chronic anemia, Chronic AF, COPD, Diabetes mellitus type II who presented to the [facility] ED on 05/26/2024 with significant shortness of breath, worsening especially exertion with concurrent wheezing and coughing with associated green sputum production with subjective chills ongoing for at least a week with no specific fever with mild increased swelling to her legs prompt eventual ED evaluation to be cautious. Workup in the ED included T97, heart rate 81, BP 132/61, respiratory rate 22, initially 88% on room air with improvement to 94% on 2 L nasal cannula, CBC with WBC 7.1, hemoglobin 10.7, platelet 188 without marked shift, coags with INR 2.5, BMP with glucose 118 otherwise not marked appearing, troponin 9, BNP 466.3, chest x-ray with moderate left pleural effusion, EKG with atrial fibrillation with rate in the 90s with PVCs with no acute evidence of ischemia unchanged from prior. In the ED patient administered DuoNeb therapy. Admitted to PCU, maintain on cardiac telemetry, serial cardiac enzymes unremarkable, maintained on continue IV lasix diuresis, monitor I/Os, maintained on intake restriction, continued medical therapy. TSH 0.8-1, mag 1.9. Most recent ECHO noted 08/11/23 with EF 55%, moderately enlarged LA, mildly enlarged RA, mild to moderate MVI, severe pulmonary hypertension. 05/27/24 weight 178 lb 12.718 ox->168 lb-> 05/29/2024 165 lbs. 05/28/24 successful L sided thoracentesis w/ removal of 410 ml of clear yellow colored fluid was drained with cultures and assessments pending w/ follow-up CXR w/ improvement of left effusion with cardiac enlargement, right sided perihilar edema. 05/28/2024 pending sputum culture. Oxygenation trial performed with patient noted to be 96% on room air at rest however desaturated down to 88% with ambulation with improvement to 90% on 2 L nasal cannula. Her oxygen testing was reviewed and patient qualifies for home equipment and portability as the patient is mobile in the home and community. 05/30/2024 patient was de-escalated to oral Lasix regimen which she had been using only as needed outpatient however encouraged this to be scheduled with plan for continued outpatient evaluation and follow- up. Encouraged weight diary and if there was any weight gain above 5 pounds to notify her physician immediately for potential burst dosing versus evaluation. Also recommended strongly ADA 1800/a low-salt diet compliance And if any future issues may need to consider also fluid restriction but allowed broadened at discharge. During the admission patient did have episodes of hypokalemia associated IV Lasix diuresis which was supplemented. Recommend follow-up BMP outpatient with primary care physician at follow-up and if potassium level is low again may require scheduled low-dose regimen daily. Given clinical improvement patient discharged to home with recommended follow-up with primary care physician on scheduled low-dose Lasix with follow-up with PCP within 3 to 5 days with planned repeat basic metabolic panel in addition to follow-up on pending thoracentesis cultures as well as pending sputum cultures on discharge. DAY OF DISCHARGE PROGRESS NOTE: Subjective: Patient without acute event overnight per self and nursing report. Patient denies fever, chills, nausea, emesis, abdominal pain, chest pain or dyspnea. Patient agreeable to discharge to home with plan for ongoing scheduled low-dose Lasix with follow-up with primary care physician for reassessment, repeat basic metabolic panel, evaluation of sputum culture/thoracentesis cultures pending at discharge. Patient will be discharged with follow-up with primary care physician within 3-5 days. Objective: T97.5, heart 73, BP 120/67, respiratory rate 16, 96% on 2 L with activity in the room. Physical Examination: General: Awake, alert, oriented x 3 and cooperative, initially walking around the PCU room, notes feeling significantly improved and eager for discharge. Skin: Normal color, normal turgor, no icterus, no cyanosis except occasional stage ecchymoses, mild bilateral lower extremity venous stasis skin changes but improved since diuresis. HEENT: AT/NC, EOMI, PERRLA, MMM. Lungs: Still mildly diminished, greater bases but markedly improved effort, no marked rales, rhonchi or wheezing. Heart: Irregular, rate controlled; no gallop, rub audible. Abdomen: Soft, obesity, NTTP, ND, normal BS. Extremities: No cyanosis, no clubbing, distal ankle to delatorre very mild edema is resolved currently. Neurological: Patient awake, alert, oriented as noted, cognitive function intact; pupils equally reactive to light and accommodation, cranial nerves gross normal, moving all 4 extremities, no focal deficits, strength improving, mildly globally decreased, walking in her room with greater ease. Psychiatric: Affect appears normal, no acute evidence of depressive or anxiety feelings. Assessment and Plan: Please see hospital summary above. Weight / BMI Weight Weight: 168 lb Body Mass Index (BMI) 30.7 ABG / Lab / Microbiology Data 05/30/24 06:50 05/30/24 06:50 Laboratory: Laboratory Results - last 24 hr 05/30/24 06:50: WBC 4.3 L, RBC 3.30 L, Hgb 9.4 L, Hct 30.1 L, MCV 91.2, MCH 28.5, MCHC 31.2 L, RDW Std Deviation 52.5 H, RDW Coeff of [place] 15.6 H, Plt Count 141 L, MPV 12.0, Immature Gran % (Auto) 0.200, Neut % (Auto) 61.8, Lymph % (Auto) 24.8, [place] % (Auto) 9.7, Eos % (Auto) 3.0, Baso % (Auto) 0.5, Absolute Neuts (auto) 2.7, Absolute Lymphs (auto) 1.07, Nucleated RBC % 0, PT 24.5 H, INR 2.2, Sodium 139, Potassium 3.4 L, Chloride 98, Carbon Dioxide 37.0 H, Anion Gap 5, BUN 14, Creatinine 0.64, Estim Creat Clear Calc 57.18, Est GFR (MDRD) Af Amer 117, Est GFR (MDRD) Non-Af 97, BUN/Creatinine Ratio 22.0 H, Glucose 92, Calcium 8.9, Total Bilirubin 0.70, AST 12 L, ALT 13, Alkaline Phosphatase 70, Total Protein 6.3 L, Albumin 2.8 L, Globulin 3.5, Albumin/Globulin Ratio 0.8 L Microbiology: Microbiology 05/28/24 10:49 Fluid - Pleural (Lung) Gram Stain - Final 05/28/24 10:49 Fluid - Pleural (Lung) Body Fluid Culture - Preliminary No growth-Final to follow 05/28/24 10:49 Fluid - Pleural (Lung) Anaerobic Culture - Preliminary No growth in 48 hours. 05/28/24 22:45 Sputum, Expectorated/Coughed Gram Stain - Final 05/28/24 22:45 Sputum, Expectorated/Coughed Respiratory Culture - Preliminary Streptococcus pneumoniae 05/26/24 15:52 Mucosa - Nose SARS-CoV-2, Influenza & RSV (PCR) - Final D/C Instructions DC O2, CPAP, BIPAP Needs RN Home O2 Qualification: Home O2 Qualification: Is the patient on home oxygen Yes 05/30/24 11:48 Home O2 Qualification: AT REST 1-Pulse Ox at rest 97 05/30/24 11:48 1- Oxygen flow rate at rest 0 05/30/24 11:48 Home O2 Qualification: WITH AMBULATION 1- Pulse Ox with ambulation 88 05/30/24 11:48 1- Oxygen Flow Rate with 0 05/30/24 11:48 ambulation 2- Pulse Ox with ambulation 90 05/30/24 11:48 2- Oxygen Flow Rate with 2 05/30/24 11:48 ambulation Home O2 Discharge instructions: Yes Type of respiratory needs?: Oxygen Oxygen frequency: Continuous Continuous oxygen liters per minute: 2 DC home with Oxygen: Yes Home O2 MD Review: I have reviewed the oxygen testing, and the patient qualifies for home oxygen equipment and portability. The patient is mobile in the home and the community. Meaningful Use Info Meaningful Use Meaningful Use Diagnoses (Choose all that apply): CHF CHF BOO/ARB ordered at discharge?: No Reason BOO/ARB not ordered?: Normal EF Documented LVEF (%): 55 Ischemic Stroke Statin Dosing Therapy Reference: STATIN DOSE THERAPY REFERENCE: * Patients > 75 years receive moderate or high dose statin therapy. * Patients 75 years or YOUNGER should receive HIGH intensity statin dose unless contraindicated. You will be required to document reason for non-treatment if statin daily dose does not meet guidelines. HIGH DOSE STATIN THERAPY DAILY Atorvastatin > than or = to 40 mg Rosuvastatin > than or = to 20 mg Amlodipine + Atorvastatin > than or = to 2.5/40 mg Ezetimibe + Simvastatin 10/80 mg Simvastatin 80mg Discharge Plan Admission Admit Date/Time: 05/26/24 17:37 Primary Reason for Your Visit: Hypoxia, Acute HF Exacerbation w/ L sided effusion Attending Provider: Teresa Lovign Primary Care Provider: Laurie Bonilla Consulting Providers: Mica Devi Instructions Patient Instructions: YOLANDA RN Thoracentesis Dc, Heart Failure Flare Up Signs, Traveling with Oxygen, Using Oxygen Safely, Using Oxygen at Home, Heart Failure Make Changes Diet, Heart Failure Dc Additional Instructions / Restrictions: ADDITIONAL DISCHARGE INSTRUCTIONS/INFORMATION: #1. Acute Hypoxia secondary to Acute Decompensated HFpEF complicated by underlying severe pulmonary artery hypertension with moderately L sided pleural effusion: --ED evaluation included CBC with WBC 7.1, hemoglobin 10.7, platelet 188 without marked shift, coags with INR 2.5, BMP with glucose 118 otherwise not marked appearing, troponin 9, BNP 466.3, chest x-ray with moderate left pleural effusion, EKG with atrial fibrillation with rate in the 90s with PVCs with no acute evidence of ischemia unchanged from prior. --You were initiated on IV lasix regimen eventually transitioned to oral lasix upon discharge. Please continue to monitor your weight and bring log to follow- up with primary care. You will need repeat basic metabolic panel at follow-up also to assure renal function has remained stable and your potassium is not decreased on this regimen. If your potassium decreases you may request low dose scheduled daily regimen. --Most recent ECHO noted 08/11/23 with EF 55%, moderately enlarged LA, mildly enlarged RA, mild to moderate MVI, severe pulmonary hypertension. --Weight trending during admission included 05/27/24 weight 178 lb 12.718 ox- >168 lb->05/29/2024 165 lbs. --05/28/24 successful L sided thoracentesis w/ removal of 410 ml of clear yellow colored fluid was drained with cultures and assessments pending at discharge w/ follow-up CXR w/ improvement of left effusion with cardiac enlargement, right sided perihilar edema. --At discharge your final thoracentesis cultures as well as sputum culture is pending but should be finalized in 3-4 days per lab report. Please follow-up with primary care physician to review this and if growth noted to start antibiotic regimen or alter treatment course. --We strongly encourage continued cardiac diet/low salt intake to avoid worsening fluid retention. --Please weight yourself daily and if you have > 5 lb weight gain please notify your physician office to see about potentially short term altering your diuretic therapy. --Continue oxygen supplementation arranged at discharge until re-evaluation per your primary care physician and appropriately weaned off continuous supplementation. --Please continue to trend your INR per your usual outpatient regimen as previously arranged. --Additional labs included TSH 0.821, mag 1.8. Discharge Orders/Prescriptions Prescriptions: New furosemide 20 mg Tablet 20 mg PO DAILY 30 Days Qty: 30 0RF Continued (DME) oxygen-air delivery systems Device See Rx Instructions .ROUTE .MEDSUPPLY Qty: 1 Rx Instructions: As directed albuterol sulfate 2.5 mg /3 mL (0.083 %) solution for nebulization 2.5 mg continuous nebulization Q6H Dupixent Pen 300 mg/2 mL pen injector 300 mg subcut Q2W hydralazine 50 mg tablet 50 mg PO BID Qty: 180 3RF carvedilol 12.5 mg tablet 12.5 mg PO BID Qty: 180 3RF warfarin 5 mg tablet 4 mg PO MOWEFR Patient Comments: PCP managing Rx Instructions: PCP managing warfarin 2.5 mg tablet 2.5 mg PO SUTUTHSA Patient Comments: PCP managing Rx Instructions: PCP managing ipratropium-albuterol 0.5 mg-3 mg(2.5 mg base)/3 mL solution for nebulization 3 ml inhalation TID omeprazole 40 mg capsule,delayed release(DR/EC) 40 mg PO DAILY Discontinued furosemide 40 mg tablet 20 mg PO DAILY PRN (Reason: Swelling) Referrals / Follow Up: Laurie Bonilla MD [Primary Care Provider] - (Follow-up within 3-5 days to review admission, interventions, medication changes/additions and follow-up on Sputum culture/thoracentesis cultures which was pending at discharge in case of possible treatment needs as well as have repeat basic metabolic panel.) Disposition Disposition (needs filled in before D/C Order can be placed): Home Health Service Charges/Coding Visit Charges Inpatient E&M: 45909 Disch Hosp >30min
[2024-05-30 07:20] LABS: Hematocrit 30.1 % (37-47); Hemoglobin 9.4 g/dL (12.0-15.0); Mean Corp Hgb Conc 31.2 g/dL (32-36); Mean Corpuscular Hgb 28.5 pg (27.0-32.0); Mean Corpuscular Volume 91.2 fL (81-99); Platelet Count 141 K/mm3 (150-450); RBC Distribution Width CV 15.6 % (11.6-14.6); RBC Distribution Width SD 52.5 fl (35.1-43.9); White Blood Count 4.3 K/mm3 (4.4-11.0)
[2024-05-30 07:21] LABS: Absolute Lymphocyte Count 1.07 X10^3/uL (0.83-4.51); Absolute Neutrophil Count 2.7 X10^3/uL (2.0-7.7); Basophil# 0.02 X10^3/uL; Basophil% 0.5 % (0-1); Eosinophil# 0.13 X10^3/uL; Lymphocyte # 1.07 X10^3/ul (0.83-4.51); Lymphocyte % 24.8 % (19-41); Monocyte# 0.42 X10^3/uL; Monocyte% 9.7 % (0-10); NRBC Flagged by Analyzer 0 % (0-5); Neutrophil # 2.66 X10^3/uL (2.7-7.7); Neutrophil % 61.8 % (47-70)
[2024-05-30 07:36] LABS: International Normalized Ratio 2.2; Prothrombin Time (Protime)PT. 24.5 SECONDS (11.7-14.9)
[2024-05-30] MEDS: Ipratropium/Albuterol Sulfate 3 ML AMPUL.NEB INHALATION ×2 (07:42→11:30)
[2024-05-30 07:53] LABS: ALB/GLOB Ratio 0.8 RATIO (0.9-2.4); AST(SGOT) 12 U/L (15-37); Alanine Aminotransfer ALT/SGPT 13 U/L (13-56); Albumin, Serum 2.8 g/dL (3.2-5.0); Alkaline Phosphatase 70 U/L (45-117); Anion Gap 5 (5-15); BUN 14 mg/dL (7-18); Calcium,Total 8.9 mg/dL (8.5-10.1); Chloride 98 mmol/L (98-107); Creatinine, Serum 0.64 mg/dL (0.55-1.02); EST Glomerular Filtration Rate 97 mL/min (>60); Est Glom Filt Rate - Afr Amer 117 mL/min (>60); Estimated Creatinine Clearance 57.18 ml/min; Globulin 3.5 g/dL (2.2-4.2); Glucose 92 mg/dL (74-106); Potassium 3.4 mmol/L (3.5-5.1); Protein, Total 6.3 g/dL (6.4-8.2); Sodium Level 139 mmol/L (136-145)
[2024-05-30] MEDS: hydrALAZINE 50 MG Tablet PO (09:11)
[2024-05-30] MEDS: Carvedilol 12.5 MG Tablet PO (09:11)
[2024-05-30] MEDS: Potassium Chloride Oral Tablet 20 MEQ PO (09:11)
[2024-05-30] MEDS: Furosemide 20 MG Tablet PO (09:12)
[2024-05-30] MEDS: Pantoprazole Sodium 40 MG Tablet PO (09:13)
--- NOTE | 2024-05-30 11:19 | DCINST_ITS ---
Discharge Instructions Diet Discharge Diet: Low fat / Low cholesterol, 2000 Calorie Control Diet and - (Currently we have not maintained a fluid restriction at discharge; however, if your weight trends upward we may need to institute this chronically. Please continue evaluations outpatient as noted.) DC O2, CPAP, BIPAP needs RN Home O2 Qualification: Home O2 Qualification: Is the patient on home oxygen Yes 05/29/24 08:36 Home O2 Qualification: AT REST 1-Pulse Ox at rest 97 05/29/24 08:36 1- Oxygen flow rate at rest 2 05/29/24 08:36 Home O2 Qualification: WITH AMBULATION 1- Pulse Ox with ambulation 96 05/29/24 08:36 1- Oxygen Flow Rate with 2 05/29/24 08:36 ambulation Home O2 Discharge instructions: Yes Type of respiratory needs?: Oxygen Oxygen frequency: Continuous Continuous oxygen liters per minute: 2 Dressing / Incision Discharge Activity: - (Encourage routine activity in the home. Avoid > moderate activity until reevaluation per primary care.) May resume sexual activity in: 10-14 days Weight Bearing Status: Weight bearing as tolerated Dressing / Incision Call your doctor if you observe: Fever of 101 or Higher, Shortness of breath, Dizziness, Swelling in the ankles, Chest pain, Increased palpitations (irregular heartbeat), Calf discomfort, Uncontrolled pain and - (> 5 pound weight gain.) Follow Up Care Test Results: Test results from this visit will be discussed in further detail at your follow- up appointment, if applicable. Discharge Plan Admission Admit Date/Time: 05/26/24 17:37 Primary Reason for Your Visit: Hypoxia, Acute HF Exacerbation w/ L sided effusion Attending Provider: Teresa Loving Primary Care Provider: Laurie Bonilla Consulting Providers: Mica Devi Instructions Patient Instructions: YOLANDA RN Thoracentesis Dc, Heart Failure Flare Up Signs, Traveling with Oxygen, Using Oxygen Safely, Using Oxygen at Home, Heart Failure Make Changes Diet, Heart Failure Dc Additional Instructions / Restrictions: ADDITIONAL DISCHARGE INSTRUCTIONS/INFORMATION: #1. Acute Hypoxia secondary to Acute Decompensated HFpEF complicated by underlying severe pulmonary artery hypertension with moderately L sided pleural effusion: --ED evaluation included CBC with WBC 7.1, hemoglobin 10.7, platelet 188 without marked shift, coags with INR 2.5, BMP with glucose 118 otherwise not marked appearing, troponin 9, BNP 466.3, chest x-ray with moderate left pleural effusion, EKG with atrial fibrillation with rate in the 90s with PVCs with no acute evidence of ischemia unchanged from prior. --You were initiated on IV lasix regimen eventually transitioned to oral lasix upon discharge. Please continue to monitor your weight and bring log to follow- up with primary care. You will need repeat basic metabolic panel at follow-up also to assure renal function has remained stable and your potassium is not decreased on this regimen. If your potassium decreases you may request low dose scheduled daily regimen. --Most recent ECHO noted 08/11/23 with EF 55%, moderately enlarged LA, mildly enlarged RA, mild to moderate MVI, severe pulmonary hypertension. --Weight trending during admission included 05/27/24 weight 178 lb 12.718 ox- >168 lb->05/29/2024 165 lbs. --05/28/24 successful L sided thoracentesis w/ removal of 410 ml of clear yellow colored fluid was drained with cultures and assessments pending at discharge w/ follow-up CXR w/ improvement of left effusion with cardiac enlargement, right sided perihilar edema. --At discharge your final thoracentesis cultures as well as sputum culture is pending but should be finalized in 3-4 days per lab report. Please follow-up with primary care physician to review this and if growth noted to start antibiotic regimen or alter treatment course. --We strongly encourage continued cardiac diet/low salt intake to avoid worsening fluid retention. --Please weight yourself daily and if you have > 5 lb weight gain please notify your physician office to see about potentially short term altering your diuretic therapy. --Continue oxygen supplementation arranged at discharge until re-evaluation per your primary care physician and appropriately weaned off continuous supplementation. --Please continue to trend your INR per your usual outpatient regimen as previously arranged. --Additional labs included TSH 0.821, mag 1.8. Discharge Orders/Prescriptions Prescriptions: New furosemide 20 mg Tablet 20 mg PO DAILY 30 Days Qty: 30 0RF Continued (DME) oxygen-air delivery systems Device See Rx Instructions .ROUTE .MEDSUPPLY Qty: 1 Rx Instructions: As directed albuterol sulfate 2.5 mg /3 mL (0.083 %) solution for nebulization 2.5 mg continuous nebulization Q6H Dupixent Pen 300 mg/2 mL pen injector 300 mg subcut Q2W hydralazine 50 mg tablet 50 mg PO BID Qty: 180 3RF carvedilol 12.5 mg tablet 12.5 mg PO BID Qty: 180 3RF warfarin 5 mg tablet 4 mg PO MOWEFR Patient Comments: PCP managing Rx Instructions: PCP managing warfarin 2.5 mg tablet 2.5 mg PO SUTUTHSA Patient Comments: PCP managing Rx Instructions: PCP managing ipratropium-albuterol 0.5 mg-3 mg(2.5 mg base)/3 mL solution for nebulization 3 ml inhalation TID omeprazole 40 mg capsule,delayed release(DR/EC) 40 mg PO DAILY Discontinued furosemide 40 mg tablet 20 mg PO DAILY PRN (Reason: Swelling) Referrals / Follow Up: Laurie Bonilla MD [Primary Care Provider] - (Follow-up within 3-5 days to review admission, interventions, medication changes/additions and follow-up on Sputum culture/thoracentesis cultures which was pending at discharge in case of possible treatment needs as well as have repeat basic metabolic panel.) Disposition Disposition (needs filled in before D/C Order can be placed): Home Health Service
[2024-05-31 11:07] LABS: Amylase Body Fluid 29 U/L (.); pH, Body Fluid 11254 7.4 (Not Estab.)
[2024-05-31 15:28] LABS: Pathologist Comment/Body Fluid Reviewed
== END 2024-05-30 12:20 | disposition home health service (06) | DRG 291 ==
LOC: ED 17:09 → PCU 17:38
PROVIDERS: Admitting Provider Internal Medicine; Emergency Provider Emergency Medicine; PCP Internal Medicine; Visit Provider Family Medicine
DX: I11.0 Hypertensive heart disease with heart failure (principal); I50.33 Acute on chronic diastolic (congestive) heart failure; J96.21 Acute and chronic respiratory failure with hypoxia; J91.8 Pleural effusion in other conditions classified elsewhere; I48.11 Longstanding persistent atrial fibrillation; I27.21 Secondary pulmonary arterial hypertension; E11.9 Type 2 diabetes mellitus without complications; D64.9 Anemia, unspecified; J44.9 Chronic obstructive pulmonary disease, unspecified; E66.9 Obesity, unspecified; E78.5 Hyperlipidemia, unspecified; G47.33 Obstructive sleep apnea (adult) (pediatric); K21.9 Gastro-esophageal reflux disease without esophagitis; E87.6 Hypokalemia; I87.8 Other specified disorders of veins; Z79.01 Long term (current) use of anticoagulants; I49.3 Ventricular premature depolarization; T50.1X5A Adverse effect of loop [high-ceiling] diuretics, initial encounter; Y92.239 Unspecified place in hospital as the place of occurrence of the external cause; Z88.1 Allergy status to other antibiotic agents; Z88.2 Allergy status to sulfonamides; Z88.0 Allergy status to penicillin; Z87.891 Personal history of nicotine dependence; Z79.899 Other long term (current) drug therapy; Z68.30 Body mass index [BMI] 30.0-30.9, adult
CPT/HCPCS: 32555; 36415; 71046; 80048; 80053; 80061; 82150; 82248; 82945; 82962; 83036; 83615; 83735; 83880; 83986; 84100; 84157; 84443; 84484; 85025; 85610; 87070; 87075; 87077; 87186; 87205; 87631; 88108; 88305; 88313; 89050; 93005; 94640; 97802; 99285; A4216; J1940

== ENCOUNTER 2024-07-03 09:06 | Inpatient (IN) | payer MEDICARE, SELFPAY ==
[2024-07-03] VITALS (18 sets, daily range): BP systolic 104–149; BP diastolic 54–102; PULSE 54–107; RESP 12–27; TEMP 36.2–36.8; O2SAT 91–98; BMI 29.3
--- NOTE | 2024-07-03 09:38 | EKG12_ITS ---
Test Reason : SOB Blood Pressure : */* mmHG Vent. Rate : 107 BPM Atrial Rate : * BPM P-R Int : * ms QRS Dur : 78 ms QT Int : 318 ms P-R-T Axes : * 58 -77 degrees QTcB Int : 424 ms Atrial fibrillation with rapid ventricular response with premature ventricular or aberrantly conducted complexes Nonspecific ST and T wave abnormality Abnormal ECG Confirmed by DEBRA HOGUE, EBENEZER ([id number]), editor department VALERI FELICIANO ([id number]) on 07/05/2024 8:17:13 AM Referred By: Confirmed By: EBENEZER RICHARDSON MD
--- NOTE | 2024-07-03 09:39 | ED.VIS.DYS ---
HPI History of Present Illness Chief Complaint: Shortness of Breath Informant: patient and family Narrative Narrative: 74-year-old female presenting to the emergency room for the evaluation of dyspnea. Patient typically wears 2 L nasal cannula. She states for the past 3 days she has been had increased shortness of breath. She chronically sleeps in a chair. She notes her legs are more swollen. She states that she has been consistently coughing and feeling short of breath with exertion. No reported fever. She has significant medical history of persistent A-fib, severe pulmonary hypertension, diastolic CHF with preserved heart action fraction COPD and is on Coumadin. She states that she typically takes 20 mg of Lasix twice daily. She saw her doctor yesterday and they performed a chest x-ray but do not know the results. Family notes that she was admitted into the hospital in May and underwent a thoracentesis of a persistent pleural effusion on the right. During the hospitalization she was diuresed. She states that yesterday she weighed 160 pounds. Today my bed is weighing in at 168. She states most days she weighs 155. 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 Thyrotoxicosis with diffuse goiter without thyrotoxic crisis or storm History of colon polyps Diverticulosis Non-rheumatic tricuspid valve insufficiency Secondary pulmonary arterial hypertension Longstanding persistent atrial fibrillation Essential (primary) hypertension Obesity (BMI 30-39.9) Anemia Lichen planus Chronic obstructive pulmonary disease Type II diabetes mellitus Home Medications ?Medication ?Instructions ?Recorded ?Last Taken ?Type oxygen-air delivery systems ##1 10/12/19 Unknown History albuterol sulfate 2.5 mg/3 mL 2.5 mg continuous nebulization Q6H 05/22/21 07/02/24 History (0.083 %) solution for nebulization breathing warfarin 2.5 mg tablet 2.5 mg PO SUTUTHSA AFIB 05/22/21 07/01/24 History dupilumab 300 mg/2 mL subcutaneous 300 mg subcut Q2W rash 10/14/23 06/28/24 History pen injector (Dupixent) hydralazine 50 mg tablet 50 mg PO BID breathing #180 tabs 10/14/23 07/02/24 Rx carvedilol 12.5 mg tablet 12.5 mg PO BID breathing #180 01/15/24 07/03/24 Rx TABLETS omeprazole 40 mg capsule,delayed 40 mg PO DAILY gerd 05/26/24 07/02/24 History release budesonide-formoterol HFA 80 2 puff inhalation Q12H 07/03/24 07/02/24 History mcg-4.5 mcg/actuation aerosol inhaler (Symbicort) ferrous sulfate 325 mg (65 mg 325 mg PO DAILY 07/03/24 07/02/24 History iron) tablet (Feosol) furosemide 20 mg tablet 20 mg PO BID 07/03/24 07/02/24 History potassium chloride 10 mEq 10 meq PO 4XD 07/03/24 Unknown History tablet,extended release warfarin 3 mg tablet (Jantoven) 3 mg PO MOWEFR 07/03/24 07/02/24 History Allergy/AdvReac Type Severity Reaction Status Date / Time albuterol Allergy Other Verified 07/03/24 09:08 doxycycline Allergy Unknown Verified 07/03/24 09:08 etodolac (Etodolac) Allergy Unknown Verified 07/03/24 09:08 guaifenesin (From Mucinex) Allergy Unknown Verified 07/03/24 09:08 nabumetone Allergy Unknown Verified 07/03/24 09:08 Penicillins Allergy Unknown Verified 07/03/24 09:08 sulfamethoxazole (From Allergy Hives Verified 07/03/24 09:08 Bactrim) trimethoprim (From Bactrim) Allergy Hives Verified 05/26/24 15:10 amlodipine (From Norvasc) AdvReac swelling Verified 07/03/24 09:08 spironolactone AdvReac rib pain Verified 07/03/24 09:08 Family History Father Myocardial infarction Sister Breast cancer Mother Asthma Surgical History History of thyroplasty History of left cataract extraction History of colonoscopy History of right and left heart catheterization (10/27/19) History of dilatation and curettage History of tubal ligation History of carpal tunnel release Social History Smoking Status: Former smoker quit date: 06/02/89 pack-years: 30 alcohol intake: never substance use type: does not use caffeine: Yes Type: coffee Number of servings: 1 ROS ROS ED Constitutional Constitutional ED: Denies chills, fever(s) or weight loss Eyes Eyes: Denies change in vision or diplopia ENT ENT ED: Denies ear pain, rhinorrhea or sore throat Cardiovascular Cardiovascular: Reports orthopnea and other Details: Lower extremity swelling ; Denies chest pain, palpitations or racing heartbeat Respiratory/Chest Respiratory/Chest: Reports cough, dyspnea, dyspnea on exertion, orthopnea and sputum Gastrointestinal Gastrointestinal: Denies abdominal pain, diarrhea, nausea or vomiting Genitourinary Genitourinary ED: Denies dysuria, hematuria or urinary frequency Musculoskeletal Musculoskeletal: Denies arthralgias or myalgias Integumentary Denies abscess or rash Neurologic Neurologic: Denies headache(s) or weakness Psychiatric Psychiatric: Denies anxiety, depression, suicidal ideation or suicidal thoughts Endocrine Endocrinology: Denies polydipsia, polyphagia or polyuria Allergic/Immunologic Allergic/Immunologic ED: Denies mouth swelling, tongue swelling or urticaria EXAM Physical Exam Const Vital Signs: 07/03/24 09:07 07/03/24 09:08 07/03/24 09:25 Temperature 97.8 F 97.6 F L Temperature Source Temporal Temporal Pulse Rate 65 107 H Respiratory Rate 22 H 20 H Respiratory Effort Short of Breath Pursed Lip Respiratory Depth Shallow Blood Pressure 139/93 H 116/66 Blood Pressure Mean 108 82 Pulse Ox 95 93 Oxygen Delivery Method Nasal Cannula Nasal Cannula Oxygen Flow Rate (L/min) 2 Fraction of Inspired Oxygen (FIO2) 07/03/24 09:44 07/03/24 10:06 07/03/24 10:08 Temperature 97.8 F Temperature Source Temporal Pulse Rate 107 H 104 H Respiratory Rate 27 H 25 H Respiratory Effort Respiratory Depth Blood Pressure 149/102 H 134/76 H Blood Pressure Mean 117 95 Pulse Ox 93 98 Oxygen Delivery Method Nasal Cannula Nasal Cannula Nasal Cannula Oxygen Flow Rate (L/min) Fraction of Inspired Oxygen (FIO2) 07/03/24 10:50 07/03/24 11:00 Temperature 98 F Temperature Source Temporal Pulse Rate 100 94 Respiratory Rate 22 H 20 H Respiratory Effort Respiratory Depth Blood Pressure 124/87 H Blood Pressure Mean 99 Pulse Ox 95 98 Oxygen Delivery Method Bi-pap Oxygen Flow Rate (L/min) Fraction of Inspired Oxygen (FIO2) 30 Positive well nourished and well developed General Appearance ED: well developed HEENT Reports normocephalic, head/scalp atraumatic and moist mucous membranes Eyes PERRL and EOMs intact bilaterally Neck no lymphadenopathy, supple and no JVD Resp Resp Narrative: Rhonchorous lung sounds with cough. Lung auscultation reveals Rales decreased lung sounds left base she is noticeably dyspneic with conversation Cardio no murmurs Rate: tachycardic Rhythm: abnormal rhythm irregularly irregular GI normal to inspection, nondistended, normoactive bowel sounds and non-tender Palpation: soft Back/Spine no CVA tenderness and normal ROM Extremity General Extremety ED: Yes edema General Extremity: edema bilateral lower extremity (1+ mid delatorre pitting edema) Neuro oriented x3 and CN's II-XII intact bilaterally Sensorium / Orientation: alert Motor Exam: strength 5/5 throughout Psych mental status grossly normal Mood & Affect: Negative for depressed or tearful Skin no rashes or lesions noted and no wounds MDM MDM MDM Narrative Medical decision making narrative: Differential diagnosis includes but not limited to CHF COPD exacerbation cardiac dysrhythmia dehydration electrolyte abnormalities supratherapeutic and subtherapeutic INR pleural effusion Management interpretation of the chest x-ray is chronic changes. No reaccumulation of the pleural effusion. White count is 6 hemoglobin 10.5 platelet count of 137. INR therapeutic at 2.5 creatinine 0.78 glucose 110. Troponin is 12 BNP 580.4. Patient is also influenza A positive. Patient had been receiving supplemental oxygen and we also gave 60 mg of Lasix. Patient continues to have dyspnea and we are going to trial her on BiPAP for comfort. Plan of care will be admission to the hospital for decompensated diastolic CHF History & Record Review Discussion w/independent historian: Patient and Family Additional record(s) reviewed:: Prior inpatient record, Prior ED visit and Prior labs Lab Data Labs: Laboratory Results - last 24 hr 07/03/24 07/03/24 09:20 10:30 WBC 6.0 RBC 3.67 L Hgb 10.5 L Hct 33.2 L MCV 90.5 MCH 28.6 MCHC 31.6 L RDW Std Deviation 53.4 H RDW Coeff of [place] 16.1 H Plt Count 137 L MPV 12.6 H Immature Gran % (Auto) 0.500 Neut % (Auto) 76.9 H Lymph % (Auto) 10.4 L [place] % (Auto) 11.4 H Eos % (Auto) 0.3 Baso % (Auto) 0.5 Absolute Neuts (auto) 4.6 Absolute Lymphs (auto) 0.63 L Nucleated RBC % 0 PT 27.8 H INR 2.5 Sodium 138 Potassium 3.6 Chloride 102 Carbon Dioxide 30.0 Anion Gap 6 BUN 19 H Creatinine 0.78 Est GFR (MDRD) Af Amer 92 Est GFR (MDRD) Non-Af 76 BUN/Creatinine Ratio 24.2 H Glucose 110 H Calcium 8.7 Total Bilirubin 1.00 Direct Bilirubin 0.52 H AST 15 ALT 11 L Alkaline Phosphatase 75 Troponin I High Sens 12 B-Natriuretic Peptide 580.4 H Total Protein 7.2 Albumin 3.4 Globulin 3.8 Urine Color Yellow Urine Clarity Clear Urine pH 5.0 Ur Specific [place] 1.020 Urine Protein 30 H Urine Glucose (UA) Normal Urine Ketones Negative Urine Occult Blood Negative Urine Nitrite Negative Urine Bilirubin Negative Urine Urobilinogen Normal Ur Leukocyte Esterase Negative Urine RBC 0 SEEN Urine WBC 0-5 SEEN Ur Squamous Epith Cells 0-5 SEEN Urine Bacteria 0 SEEN Urine Mucus 1+ Radiography Diagnostic Testing: Clinical Impression(s) from Imaging Studies Chest X-Ray 07/03/24 09:55 IMPRESSION: Stable abnormal imaging findings compared to prior exams. Reading Location: [facility] EKG Initial EKG: Attestation: I personally reviewed and interpreted this EKG as follows: Comments: Atrial fibrillation with ventricular rate of 107 bpm. PVCs noted. Management Discussion w/another healthcare provider: Hospitalist Discharge Plan Dx/Rx/DC Orders Clinical Impression: Essential (primary) hypertension, Longstanding persistent atrial fibrillation, [facility] current use of anticoagulant, Acute on chronic diastolic (congestive) heart failure, Acute dyspnea, Influenza A Disposition Disposition: Acute Care Hospital [facility]
[2024-07-03 09:48] LABS: Absolute Lymphocyte Count 0.63 X10^3/uL (0.83-4.51); Absolute Neutrophil Count 4.6 X10^3/uL (2.0-7.7); Basophil# 0.03 X10^3/uL; Basophil% 0.5 % (0-1); Eosinophil# 0.02 X10^3/uL; Eosinophils% 0.3 % (0-5); Hematocrit 33.2 % (37-47); Hemoglobin 10.5 g/dL (12.0-15.0); Lymphocyte # 0.63 X10^3/ul (0.83-4.51); Lymphocyte % 10.4 % (19-41); Mean Corp Hgb Conc 31.6 g/dL (32-36); Mean Corpuscular Hgb 28.6 pg (27.0-32.0); Mean Corpuscular Volume 90.5 fL (81-99); Mean Platelet Vol. 12.6 fl (6.2-12.0); Monocyte# 0.69 X10^3/uL; Monocyte% 11.4 % (0-10); NRBC Flagged by Analyzer 0 % (0-5); Neutrophil # 4.63 X10^3/uL (2.7-7.7); Neutrophil % 76.9 % (47-70); Platelet Count 137 K/mm3 (150-450); RBC Distribution Width CV 16.1 % (11.6-14.6); RBC Distribution Width SD 53.4 fl (35.1-43.9); Red Blood Count 3.67 M/mm3 (4.2-5.4)
--- NOTE | 2024-07-03 09:55 | RAD_ITS ---
PROCEDURE: CHEST 1 VIEW (PORTABLE) REASON FOR EXAM: Heart failure TECHNIQUE: Single frontal image including the chest and abdomen. COMPARISON: Reviewed. FINDINGS: Heart size enlarged but stable. Stable left pleural effusion with adjacent airspace disease. Right lung grossly clear. No pneumothorax. RAD/Chest 1 View (Portable) IMPRESSION: Stable abnormal imaging findings compared to prior exams. Reading Location: [facility]
[2024-07-03 09:56] LABS: International Normalized Ratio 2.5; Prothrombin Time (Protime)PT. 27.8 SECONDS (11.7-14.9)
[2024-07-03] MEDS: Furosemide 100 MG/10 ML Vial 60 MG IV (10:02)
[2024-07-03 10:25] LABS: BNP,B-Type NATRIURETIC PEPTIDE 580.4 pg/mL (0-100)
[2024-07-03 10:27] LABS: AST(SGOT) 15 U/L (15-37); Alanine Aminotransfer ALT/SGPT 11 U/L (13-56); Albumin, Serum 3.4 g/dL (3.2-5.0); Alkaline Phosphatase 75 U/L (45-117); Anion Gap 6 (5-15); BUN 19 mg/dL (7-18); BUN/Creat Ratio 24.2 RATIO (10-20); Bilirubin, Direct 0.52 mg/dL (0.00-0.30); Calcium,Total 8.7 mg/dL (8.5-10.1); Chloride 102 mmol/L (98-107); Creatinine, Serum 0.78 mg/dL (0.55-1.02); EST Glomerular Filtration Rate 76 mL/min (>60); Est Glom Filt Rate - Afr Amer 92 mL/min (>60); Globulin 3.8 g/dL (2.2-4.2); Glucose 110 mg/dL (74-106); Potassium 3.6 mmol/L (3.5-5.1); Protein, Total 7.2 g/dL (6.4-8.2); Sodium Level 138 mmol/L (136-145); Troponin-I HS 12 pg/mL (3.0-54.0)
[2024-07-03 10:36] LABS: Bacteria 0 SEEN /hpf (None Seen); Red Blood Cells-Urine 0 SEEN /hpf (0-5)
[2024-07-03 10:41] LABS: Color, Urine Yellow (Yellow); Glucose, Dipstick Normal (Normal); Ketone-Dipstick Negative (Negative); Leukocyte Esterase-Dipstick Negative /ul (Negative); Nitrite-Dipstick Negative (Negative); Occult Blood-Urine Negative /ul (Negative); Protein-Dipstick 30 mg/dl (Negative); Urine Bilirubin Dipstick Negative (Negative); Urine Clarity Clear (Clear); Urine Urobilinogen Normal (Normal)
[2024-07-03 11:02] LABS: Mucous, Urine 1+ /hpf (<or=2+)
[2024-07-03 11:03] LABS: Squamous Epithelial Cells - UA 0-5 SEEN /hpf (5-10); White Blood Cells 0-5 SEEN /hpf (0-5)
--- NOTE | 2024-07-03 12:21 | HP.PCM.HOS_ITS ---
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 Patient is oxygen dependent at baseline for COPD and typically wears 2 L nasal cannula. Patient reported that for about 3 days now she has had worsening shortness of breath and a dry hacking cough. No sputum production. She denies any fever but states she has had chills. She denies myalgias, nausea, vomiting, or diarrhea. She has been generally weak and has decreased p.o. intake. She has a history of severe pulmonary hypertension with PA pressures on her last echocardiogram between 80 and 90 mmHg. She is on Lasix 20 mg p.o. twice daily and is compliant. She has noted increased swelling in her lower extremities and states that her weight is up about 5 to 10 pounds overall. Vital signs on presentation showed a temperature of 97.8, heart rate 65, respiratory 22, blood pressure was 139/93 and pulse ox was 95% on 2 L nasal cannula. She seemed to be in respiratory distress with a tachypnea and pursed lip breathing with shallow breaths so she was placed on BiPAP for comfort by the emergency department. CBC showed a chronic stable normocytic anemia and a left shift with a 76.9% neutrophilia and a 11.4% monocytosis. Coags showed an elevated INR 2.5 the patient does take Coumadin at baseline. Chemistry panel was over all unremarkable. Liver function was unremarkable. Her BNP was elevated at 508.4. UA was not suggestive of infection. I did asked that a blood gas be obtained and she had a pH of 7.36 with a pCO2 of 67 and a pCO2 of 54.9. We have no recent ABGs for comparison. Chest x-ray showed no changes from previous with a small stable left pleural effusion that does not appear big enough for thoracentesis at this time. COVID/flu/RSV PCR was performed and she was positive for influenza A. 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 Thyrotoxicosis with diffuse goiter without thyrotoxic crisis or storm History of colon polyps Diverticulosis Non-rheumatic tricuspid valve insufficiency Secondary pulmonary arterial hypertension Longstanding persistent atrial fibrillation Essential (primary) hypertension Obesity (BMI 30-39.9) Anemia Lichen planus Chronic obstructive pulmonary disease Type II diabetes mellitus Home Medications ?Medication ?Instructions ?Recorded ?Last Taken ?Type oxygen-air delivery systems ##1 10/12/19 Unknown Histo ry albuterol sulfate 2.5 mg/3 mL 2.5 mg continuous nebuli zation Q6H 05/22/21 07/02/24 History (0.083 %) solution for nebulization breathing warfarin 2.5 mg tablet 2.5 mg PO SUTUTHSA AFIB 05/0307/01/24 History dupilumab 300 mg/2 mL subcutaneous 300 mg subcut Q2W r lauryn 10/14/23 06/28/24 History pen injector (Dupixent) hydralazine 50 mg tablet 50 mg PO BID breathing #180 tabs 10/14/23 07/02/24 Rx carvedilol 12.5 mg tablet 12.5 mg PO BID breathing #18 0 01/15/24 07/03/24 Rx TABLETS omeprazole 40 mg capsule,delayed 40 mg PO DAILY gerd 1 07/27/23 07/02/24 History release budesonide-formoterol HFA 80 2 puff inhalation Q12H 07/02/24 History mcg-4.5 mcg/actuation aerosol inhaler (Symbicort) ferrous sulfate 325 mg (65 mg 325 mg PO DAILY 07/03/24 07/02/24 History iron) tablet (Feosol) furosemide 20 mg tablet 20 mg PO BID 07/03/24 History potassium chloride 10 mEq 10 meq PO 4XD 07/03/24 Unkno wn History tablet,extended release warfarin 3 mg tablet (Jantoven) 3 mg PO MOWEFR 5 07/02/24 History Allergy/AdvReac Type Severity Reaction Status Date / Time albuterol Allergy Other Verified 07/03/24 09:08 doxycycline Allergy Unknown Verified 07/03/24 09:08 etodolac (Etodolac) Allergy Unknown Verified 07/03/24 09:08 guaifenesin (From Mucinex) Allergy Unknown Verified 07/03/24 09:08 nabumetone Allergy Unknown Verified 07/03/24 09:08 Penicillins Allergy Unknown Verified 07/03/24 09:08 sulfamethoxazole (From Allergy Hives Verified 07/03/24 09:08 Bactrim) trimethoprim (From Bactrim) Allergy Hives Verified 05/26/24 15:10 amlodipine (From Norvasc) AdvReac swelling Verified 07/03/24 09:08 spironolactone AdvReac rib pain Verified 07/03/24 09:08 Family History Father Myocardial infarction Sister Breast cancer Mother Asthma Surgical History History of thyroplasty History of left cataract extraction History of colonoscopy History of right and left heart catheterization (10/27/19) History of dilatation and curettage History of tubal ligation History of carpal tunnel release Social History Smoking Status: Former smoker quit date: 06/02/89 pack-years: 30 alcohol intake: never substance use type: does not use caffeine: Yes Type: coffee Number of servings: 1 ROS Constitutional Constitutional: Reports fatigue, malaise, weakness and other Details: Decreased appetite ; Denies anorexia, change in weight, chills, fever(s) or night sweats Eyes Eyes: Denies blurry vision, change in eye color, change in vision, discharge from eye(s), double vision, erythema, eye pain, loss of vision or other ENT HEENT: Denies abnormal hearing, dysphagia, ear pain, epistaxis, headache(s), hearing loss, nasal congestion, nasal discharge, post nasal drip, sinus pressure, sore throat or other Cardiovascular Cardiovascular: Reports dyspnea on exertion; Denies chest pain, claudication, edema, lightheadedness, orthopnea, palpitations, paroxysmal nocturnal dyspnea, rapid heart rate, syncope or other Respiratory/Chest Respiratory/Chest: Reports cough, shortness of breath at rest and shortness of breath with exertion; Denies dyspnea, excessive phlegm production, hemoptysis, productive cough, wheezing or other Gastrointestinal Gastrointestinal: Denies abdominal pain, coffee ground emesis, constipation, diarrhea, dyspepsia, hematemesis, hematochezia, loose stools, melena, nausea, vomiting or other Genitourinary Genitourinary: Denies burning urination, difficulty urinating, dysuria, hematuria, nocturia, urinary frequency, urinary hesitancy, urinary incontinence, urinary urgency or other Musculoskeletal Musculoskeletal: Denies arthralgias, back pain, joint pain, joint stiffness, joint swelling, myalgias, neck pain or other Neurologic Neurologic: Denies abnormal gait, abnormal speech, confusion, disequilibrium, dizziness, focal weakness, headache(s), numbness, paresthesias, seizure-like activity, seizures, syncope, tingling, tremor(s) or other Psychiatric Psychiatric: Denies anxiety, depression, homicidal ideation, suicidal ideation or other Endocrine Endocrinology: Denies change in body appearance, cold intolerance, excessive sweating, heat intolerance, polydipsia, polyuria or other Hematologic/Lymphatic Hematologic/Lymphatic: Denies anemia, easy bleeding, easy bruising, lymphadenopathy or other Allergic/Immunologic Allergic/Immunologic: Denies rhinitis, hives, eczemia, asthma or other Vital Signs Vital Signs Vital Signs: 07/03/24 09:07 07/03/24 09:08 07/03/24 09:25 Temperature 97.8 F 97.6 F L Temperature Source Temporal Temporal Pulse Rate 65 107 H Respiratory Rate 22 H 20 H Respiratory Effort Short of Breath Pursed Lip Respiratory Depth Shallow Blood Pressure 139/93 H 116/66 Blood Pressure Mean 108 82 Pulse Ox 95 93 Oxygen Delivery Method Nasal Cannula Nasal Cannula Oxygen Flow Rate (L/min) 2 Fraction of Inspired Oxygen (FIO2) 07/03/24 09:44 07/03/24 10:06 07/03/24 10:08 Temperature 97.8 F Temperature Source Temporal Pulse Rate 107 H 104 H Respiratory Rate 27 H 25 H Respiratory Effort Respiratory Depth Blood Pressure 149/102 H 134/76 H Blood Pressure Mean 117 95 Pulse Ox 93 98 Oxygen Delivery Method Nasal Cannula Nasal Cannula Nasal Cannula Oxygen Flow Rate (L/min) Fraction of Inspired Oxygen (FIO2) 07/03/24 10:50 07/03/24 11:00 07/03/24 11:48 Temperature 98 F 98 F Temperature Source Temporal Pulse Rate 100 94 94 Respiratory Rate 22 H 20 H 20 H Respiratory Effort Respiratory Depth Blood Pressure 124/87 H 124/87 H Blood Pressure Mean 99 99 Pulse Ox 95 98 98 Oxygen Delivery Method Bi-pap Oxygen Flow Rate (L/min) Fraction of Inspired Oxygen (FIO2) 30 07/03/24 12:00 Temperature 97.6 F L Temperature Source Temporal Pulse Rate 90 Respiratory Rate 18 Respiratory Effort Respiratory Depth Blood Pressure 104/75 Blood Pressure Mean 84 Pulse Ox 94 Oxygen Delivery Method Bi-pap Oxygen Flow Rate (L/min) Fraction of Inspired Oxygen (FIO2) Physical Exam Const alert, oriented x3, no apparent distress and well nourished; Negative for average body habitus or healthy appearing Constitutional Narrative: Overweight, elderly, white female, sitting up in bed on BiPAP, family at bedside, patient appears comfortable on BiPAP, nontoxic, able to interact appropriately General Appearance: cooperative HEENT normocephalic, head/scalp atraumatic and hearing grossly normal bilaterally HEENT Narrative: BiPAP in place covering mouth Eyes EOMs intact bilaterally and conjunctivae normal Eyes Narrative: No scleral icterus Neck supple Neck Narrative: Trachea midline Resp no retractions and no use of accessory muscles Resp Narrative: Diffuse inspiratory and expiratory wheezes, crackles in the right base Auscultation: crackles and wheezes; Negative for rhonchi Cardio regular rate, S1 normal heart sound, S2 normal heart sound, no murmurs, no rub, no gallops and no clicks Cardio Narrative: Irregularly irregular rhythm with regular rate GI normal to inspection, nondistended, normoactive bowel sounds, soft to palpation and non-tender Extremity Extremity Narrative: 1+ bilateral lower extremity pitting edema from mid calf to feet, pedal pulses are 2+, no cyanosis or clubbing Neuro oriented x3, moves all extremities and no focal motor deficits Neuro Narrative: Patient on BiPAP so unable to assess speech Psych Psych Narrative: Appears calm, interacts appropriately and tries to answer questions as able on BiPAP Results Lab / Micro Data 07/03/24 09:20 07/03/24 09:20 Labs: Laboratory Results - last 24 hr 07/03/24 09:20: WBC 6.0, RBC 3.67 L, Hgb 10.5 L, Hct 33.2 L, MCV 90.5, MCH 28.6, MCHC 31.6 L, RDW Std Deviation 53.4 H, RDW Coeff of [place] 16.1 H, Plt Count 137 L, MPV 12.6 H, Immature Gran % (Auto) 0.500, Neut % (Auto) 76.9 H, Lymph % (Auto) 10.4 L, [place] % (Auto) 11.4 H, Eos % (Auto) 0.3, Baso % (Auto) 0.5, Absolute Neuts (auto) 4.6, Absolute Lymphs (auto) 0.63 L, Nucleated RBC % 0, PT 27.8 H, INR 2.5, Sodium 138, Potassium 3.6, Chloride 102, Carbon Dioxide 30.0, Anion Gap 6, BUN 19 H, Creatinine 0.78, Est GFR (MDRD) Af Amer 92, Est GFR (MDRD) Non-Af 76, BUN/Creatinine Ratio 24.2 H, Glucose 110 H, Calcium 8.7, Total Bilirubin 1.00, Direct Bilirubin 0.52 H, AST 15, ALT 11 L, Alkaline Phosphatase 75, Troponin I High Sens 12, B-Natriuretic Peptide 580.4 H, Total Protein 7.2, Albumin 3.4, Globulin 3.8 07/03/24 10:30: Urine Color Yellow, Urine Clarity Clear, Urine pH 5.0, Ur Specific [place] 1.020, Urine Protein 30 H, Urine Glucose (UA) Normal, Urine Ketones Negative, Urine Occult Blood Negative, Urine Nitrite Negative, Urine Bilirubin Negative, Urine Urobilinogen Normal, Ur Leukocyte Esterase Negative, Urine RBC 0 SEEN, Urine WBC 0-5 SEEN, Ur Squamous Epith Cells 0-5 SEEN, Urine Bacteria 0 SEEN, Urine Mucus 1+ Micro: Microbiology 07/03/24 09:47 Mucosa - Nose SARS-CoV-2, Influenza & RSV (PCR) - Final Influenzae A Imaging Radiology Impression Chest X-Ray 07/03/24 09:55 IMPRESSION: Stable abnormal imaging findings compared to prior exams. Reading Location: [facility] Assessment & Plan Assessment/Plan (1) Influenza A: (2) Acute dyspnea: (3) Acute on chronic respiratory failure with hypoxia and hypercapnia: (4) Acute on chronic diastolic (congestive) heart failure: PLAN: Plan Acute on chronic hypoxic and hypercapnic respiratory failure-multifactorial -Acute on chronic heart failure with preserved ejection fraction/pulmonary hypertension-severe/influenza A -Currently on BiPAP -Wean as able but would leave on at night and with naps -Wears 2 L of oxygen at baseline [id number] -Will need ambulatory pulse ox prior to discharge -Lasix 40 mg IV push twice daily -Fluid restricted at 1750 cc daily -Sodium restricted diet -Tamiflu 75 mg p.o. twice daily -Methylprednisolone 40 every 8 -Scheduled and as needed DuoNebs -I-S/Acapella Acute on chronic heart failure with preserved ejection fraction/pulmonary hypertension-severe -Treatment as above -Continue heart failure medications as appropriate -Last echocardiogram from 08/11/2023 showed an EF of 55%, moderate left atrial enlargement, mild right atrial enlargement, mild to moderate mitral valve insufficiency and severe pulmonary artery hypertension with a right ventricular systolic pressure of 85 to 90 mmHg Mitral valve insufficiency -Continue outpatient follow-up DAVID -Diagnosed patient is noncompliant at this time -Will utilize while she is here to avoid complications especially since she does have a diagnosis with influenza Essential hypertension/persistent atrial fibrillation -Continue home carvedilol 12.5 mg p.o. twice daily -Continue hydralazine 50 mg p.o. twice daily -Continue warfarin 3 mg Friday, Friday, Friday, 2.5 mg Friday, Friday, , Friday next-INR on admission is 2.5 -Repeat INR in a.m. History of GERD -Continue home PPI Chronic anemia -Normocytic -Continue home supplemental iron -Counts are stable and seem to run between 9 and 11 at baseline DVT prophylaxis -Continue home Coumadin -currently therapeutic Code Status -Full Code--> verified with patient on admission Charges/Coding Visit Charges Inpatient E&M: 49418 Init Hosp L3
--- NOTE | 2024-07-03 12:35 | CASEMGMT ---
Care Management Face to Face with patient for initial transition planning/care coordination assessment in the ED.? This senior mortgage underwriter introduced self and role at [facility]. Patient alert and oriented. Patient willing to participate in assessment and is able to answer all questions appropriately however due to receiving oxygen at the time of the assessment, patient?s daughter Nir responded to the questions.? Care providers, pharmacy, and demographics verified. Admitting Diagnosis: Acute Dyspnea Other diagnosis history: Including but not limited to: COPD, CHF, A-fib, HTN, Yomi 2 DM. PCP: Dr. 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 Patient?s daughter stated patient has a lot of specialists but didn?t know all and didn?t know names.? Patient unable to provide due to oxygen treatment. ?? Preferred Pharmacy: [facility] Insurance: Yes; [employer]/Medicare Prescription Benefit:?Yes Living Will/HPOA: No and not interested. LNOK: Patient has 3 children, daughters Nir and Bisi and son Ezequiel. All are local and able to help patient when needed. Living Arrangements: Patient currently lives alone in a house. Patient?s daughter denied any environmental barriers. Transportation: Patient drives DME: O2, CPAP, grab bars and a shower chair. No identified needs at this time. HHC: None previously and none needed at this time. SNF/Rehab: No history of SNF or rehab. Community Resources: None at this time. Behavioral Health History: Denied. Patient goals: Patient wishes to discharge home when medically ready, and denies need for home health care at this time. Patient states she has no further needs or concerns at this time. Disposition Plan: admission to acute; RN CM/SW to follow for discharge planning needs that may arise. Christina Mcdaniel, TECHNICAL ASST, COMMUNICATIONS OPERATOR
[2024-07-03 12:44] LABS: Allen Test Positive; Base Excess 6 mmol/L (-2 to +2); Blood Gas Specimen Type ART; Mode Not entered; O2 Delivery Device BiPAP; PEEP 6; PO2 67 mmHG (75-100); SITE L Radial; SO2 92 % (95-99); Total Carbon Dioxide 33 mmol/L; pCO2 54.9 mmHg (35-45); pH 7.36 (7.35-7.45)
--- NOTE | 2024-07-03 13:57 | CPS ---
this RT placed pt back on bipap at this time. PT states she is SOB
[2024-07-03] MEDS: Oseltamivir Phosphate 75 MG Capsule PO (15:30)
[2024-07-03] MEDS: Albuterol 2.5 MG/3 ML VIAL.NEB. INHALATION (15:47)
[2024-07-03] MEDS: Carvedilol 12.5 MG Tablet PO (16:18)
[2024-07-03] MEDS: Furosemide 40 MG/4 ML Vial IV (18:02)
[2024-07-03] MEDS: Ipratropium/Albuterol Sulfate 3 ML AMPUL.NEB INHALATION (19:06)
[2024-07-03] MEDS: Oseltamivir Phosphate 30 MG Capsule PO (22:24)
[2024-07-03] MEDS: hydrALAZINE 50 MG Tablet PO (22:24)
[2024-07-04] VITALS (14 sets, daily range): BP systolic 99–118; BP diastolic 51–67; PULSE 60–98; RESP 12–22; TEMP 36.1–36.6; O2SAT 92–97
[2024-07-04 06:34] LABS: Absolute Lymphocyte Count 0.54 X10^3/uL (0.83-4.51); Absolute Neutrophil Count 2.4 X10^3/uL (2.0-7.7); Hematocrit 30.3 % (37-47); Hemoglobin 9.6 g/dL (12.0-15.0); Lymphocyte # 0.54 X10^3/ul (0.83-4.51); Lymphocyte % 17.6 % (19-41); Mean Corp Hgb Conc 31.7 g/dL (32-36); Mean Corpuscular Hgb 28.7 pg (27.0-32.0); Mean Corpuscular Volume 90.7 fL (81-99); Mean Platelet Vol. 12.7 fl (6.2-12.0); Monocyte# 0.09 X10^3/uL; Monocyte% 2.9 % (0-10); NRBC Flagged by Analyzer 0 % (0-5); Neutrophil # 2.43 X10^3/uL (2.7-7.7); Neutrophil % 79.2 % (47-70); POSITIVE DIFFERENTIAL YES; Platelet Count 137 K/mm3 (150-450); RBC Distribution Width CV 16.1 % (11.6-14.6); RBC Distribution Width SD 53.5 fl (35.1-43.9); Red Blood Count 3.34 M/mm3 (4.2-5.4); White Blood Count 3.1 K/mm3 (4.4-11.0)
[2024-07-04 06:36] LABS: International Normalized Ratio 2.6; Prothrombin Time (Protime)PT. 28.4 SECONDS (11.7-14.9)
[2024-07-04] MEDS: Acetaminophen 325 MG Tablet 650 MG PO ×2 (06:46→16:51)
[2024-07-04] MEDS: Benzonatate 100 MG Capsule PO (06:46)
[2024-07-04] MEDS: Ipratropium/Albuterol Sulfate 3 ML AMPUL.NEB INHALATION ×3 (07:16→19:10)
[2024-07-04 07:19] LABS: ALB/GLOB Ratio 0.8 RATIO (0.9-2.4); AST(SGOT) 23 U/L (15-37); Alanine Aminotransfer ALT/SGPT 11 U/L (13-56); Alkaline Phosphatase 70 U/L (45-117); Anion Gap 7 (5-15); BUN 25 mg/dL (7-18); BUN/Creat Ratio 35.1 RATIO (10-20); Calcium,Total 8.6 mg/dL (8.5-10.1); Chloride 99 mmol/L (98-107); Creatinine, Serum 0.71 mg/dL (0.55-1.02); EST Glomerular Filtration Rate 85 mL/min (>60); Est Glom Filt Rate - Afr Amer 102 mL/min (>60); Estimated Creatinine Clearance 55.89 ml/min; Globulin 3.8 g/dL (2.2-4.2); Glucose 125 mg/dL (74-106); Phosphorus 4.5 mg/dL (2.5-4.9); Potassium 3.2 mmol/L (3.5-5.1); Protein, Total 6.8 g/dL (6.4-8.2); Sodium Level 139 mmol/L (136-145)
[2024-07-04] MEDS: Potassium Chloride Oral Tablet 20 MEQ 60 MEQ PO (08:46)
[2024-07-04] MEDS: Carvedilol 12.5 MG Tablet PO ×2 (08:47→16:47)
[2024-07-04 08:53] LABS: T4 Free Direct 1.48 ng/dL (0.76-1.46)
[2024-07-04] MEDS: hydrALAZINE 50 MG Tablet PO (09:21)
[2024-07-04] MEDS: Pantoprazole Sodium 40 MG Tablet PO (09:22)
[2024-07-04] MEDS: Furosemide 40 MG/4 ML Vial IV ×2 (09:22→18:22)
[2024-07-04] MEDS: Oseltamivir Phosphate 30 MG Capsule PO ×2 (09:22→21:42)
[2024-07-04] MEDS: Ferrous Sulfate 325 MG Tablet PO (13:05)
--- NOTE | 2024-07-04 16:51 | PCM.PN.HOSP ---
Reason for Visit Reason for Visit: Shortness of breath Subjective Subjective Patient states she is feeling better today. Not yet back to baseline. Feels that her legs are much better with regards to the swelling. No acute complaints at this time. Has been on and off BiPAP per her request. Clinically much more stable from a respiratory standpoint. Objective Data Objective Data Vital Signs: Vital Signs Temp Pulse Resp BP Pulse Ox O2 Del Method O2 Flow Rate 97.8 F 91 18 116/62 95 Nasal Cannula 2 07/04/24 14:41 07/04/24 14:41 07/04/24 14:41 07/04/24 14:41 07/04/24 14:41 07/04/24 14:47 07/04/24 14:47 FiO2 35 07/04/24 01:38 Oxygen Flow Rate (L/min) 2 Oxygen Delivery Method Nasal Cannula Weight: 72.8 kg Body Mass Index (BMI) 29.3 Intake & Output: Intake and Output for Last 24 Hours 07/02/24 07/03/24 07/04/24 23:59 23:59 23:59 Intake Total 300 / 300 240 / 240 Output Total 500 / 500 190 / 190 Balance -200 / -200 50 / 50 Lab / Micro Data 07/04/24 05:39 07/04/24 05:39 Labs: Laboratory Results - last 24 hr 07/04/24 05:39: WBC 3.1 L, RBC 3.34 L, Hgb 9.6 L, Hct 30.3 L, MCV 90.7, MCH 28.7, MCHC 31.7 L, RDW Std Deviation 53.5 H, RDW Coeff of [place] 16.1 H, Plt Count 137 L, MPV 12.7 H, Immature Gran % (Auto) 0.300, Neut % (Auto) 79.2 H, Lymph % (Auto) 17.6 L, [place] % (Auto) 2.9, Eos % (Auto) 0.0, Baso % (Auto) 0.0, Absolute Neuts (auto) 2.4, Absolute Lymphs (auto) 0.54 L, Nucleated RBC % 0, PT 28.4 H, INR 2.6, Sodium 139, Potassium 3.2 L, Chloride 99, Carbon Dioxide 33.0 H, Anion Gap 7, BUN 25 H, Creatinine 0.71, Estim Creat Clear Calc 55.89, Est GFR (MDRD) Af Amer 102, Est GFR (MDRD) Non-Af 85, BUN/Creatinine Ratio 35.1 H, Glucose 125 H, Calcium 8.6, Phosphorus 4.5, Magnesium 2.0, Total Bilirubin 0.90, AST 23, ALT 11 L, Alkaline Phosphatase 70, Total Protein 6.8, Albumin 3.0 L, Globulin 3.8, Albumin/Globulin Ratio 0.8 L, TSH 0.210 L 07/04/24 06:23: Free T4 1.48 H Micro: Microbiology 07/03/24 09:47 Mucosa - Nose SARS-CoV-2, Influenza & RSV (PCR) - Final Influenzae A Physical Exam Const alert, oriented x3, no apparent distress and well nourished; Negative for average body habitus or healthy appearing Constitutional Narrative: Overweight, elderly, white female, lying in bed on BiPAP currently, appears comfortable, nontoxic, has come on and off BiPAP General Appearance: cooperative HEENT normocephalic, head/scalp atraumatic and hearing grossly normal bilaterally HEENT Narrative: Mallampati is 2-3, no thrush Eyes Eyes Narrative: No scleral icterus Resp no retractions and no use of accessory muscles Resp Narrative: Diffuse inspiratory and expiratory wheezes, crackles in the right base--> less coarse today than yesterday Auscultation: crackles and wheezes; Negative for rhonchi Cardio regular rate, S1 normal heart sound, S2 normal heart sound, no murmurs, no rub, no gallops and no clicks Cardio Narrative: Irregularly irregular rhythm with regular rate GI normal to inspection, nondistended, normoactive bowel sounds, soft to palpation and non-tender Extremity Extremity Narrative: Trace bilateral lower extremity pitting edema from mid calf to feet, pedal pulses are 2+, no cyanosis or clubbing, wrinkles noted in distal lower extremities from where swelling was before Neuro oriented x3, moves all extremities and no focal motor deficits Psych Psych Narrative: Remains calm, affect is normal, interacts appropriately Assessment & Plan Assessment/Plan (1) Influenza A: (2) Acute dyspnea: (3) Acute on chronic respiratory failure with hypoxia and hypercapnia: (4) Acute on chronic diastolic (congestive) heart failure: PLAN: Plan Acute on chronic hypoxic and hypercapnic respiratory failure-multifactorial -Acute on chronic heart failure with preserved ejection fraction/pulmonary hypertension-severe/influenza A -Still intermittently requiring BiPAP -Has been weaned back to her baseline of 2 L nasal cannula -Wears 2 L of oxygen at baseline [id number] at home -Will need ambulatory pulse ox prior to discharge -Continue Lasix 40 mg IV push twice daily -Fluid restricted at 1750 cc daily -Sodium restricted diet -Continue Tamiflu 75 mg p.o. twice daily -Continue methylprednisolone 40 every 8 -Continue scheduled and as needed DuoNebs -Continue I-S/Acapella Hypokalemia -Replace potassium with 40 mill equivalents of p.o. potassium -Recheck in a.m. -magnesium is within normal limits Abnormal thyroid function studies -TSH was low and free T4 was slightly high -Discussed with Dr. Tapia and she feels that this is related to her acute illness -Recommend repeat TSH in 6 weeks Acute on chronic heart failure with preserved ejection fraction/pulmonary hypertension-severe -Treatment as above -Continue heart failure medications as appropriate -Last echocardiogram from 08/11/2023 showed an EF of 55%, moderate left atrial enlargement, mild right atrial enlargement, mild to moderate mitral valve insufficiency and severe pulmonary artery hypertension with a right ventricular systolic pressure of 85 to 90 mmHg Mitral valve insufficiency -Continue outpatient follow-up DAVID -Diagnosed patient is noncompliant at this time -Will utilize while she is here to avoid complications especially since she does have a diagnosis with influenza Essential hypertension/persistent atrial fibrillation -Continue home carvedilol 12.5 mg p.o. twice daily -Continue hydralazine 50 mg p.o. twice daily -Continue warfarin 3 mg Friday, Friday, Friday, 2.5 mg Friday, Friday, , Friday -INR on admission is 2.6 -Repeat INR in a.m. History of GERD -Continue home PPI Chronic anemia -Normocytic -Counts are relatively stable -Continue home supplemental iron -Counts are stable and seem to run between 9 and 11 at baseline Mild thrombocytopenia -Likely related to acute illness -Will monitor Leukopenia -Like related to viral illness -continue to monitor DVT prophylaxis -Continue home Coumadin -currently therapeutic INR Code Status -Full Code--> verified with patient on admission Charges/Coding Visit Charges Inpatient E&M: 53562 Subs Hosp L2
[2024-07-04] MEDS: Senna/Docusate Sodium 1 Tablet 2 TABLET PO (16:52)
[2024-07-05] VITALS (15 sets, daily range): BP systolic 102–127; BP diastolic 58–78; PULSE 71–103; RESP 12–28; TEMP 36.2–36.6; O2SAT 88–96
[2024-07-05] MEDS: Ipratropium/Albuterol Sulfate 3 ML AMPUL.NEB INHALATION ×3 (07:16→19:35)
[2024-07-05 08:01] LABS: Absolute Lymphocyte Count 0.56 X10^3/uL (0.83-4.51); Absolute Neutrophil Count 8.2 X10^3/uL (2.0-7.7); Basophil# 0.01 X10^3/uL; Basophil% 0.1 % (0-1); Hematocrit 33.6 % (37-47); Hemoglobin 10.1 g/dL (12.0-15.0); Lymphocyte # 0.56 X10^3/ul (0.83-4.51); Lymphocyte % 6.1 % (19-41); Mean Corp Hgb Conc 30.1 g/dL (32-36); Mean Corpuscular Hgb 27.2 pg (27.0-32.0); Mean Corpuscular Volume 90.6 fL (81-99); Mean Platelet Vol. 12.3 fl (6.2-12.0); Monocyte# 0.42 X10^3/uL; Monocyte% 4.6 % (0-10); NRBC Flagged by Analyzer 0 % (0-5); Neutrophil # 8.16 X10^3/uL (2.7-7.7); Neutrophil % 88.7 % (47-70); POSITIVE DIFFERENTIAL YES; Platelet Count 149 K/mm3 (150-450); RBC Distribution Width SD 53.4 fl (35.1-43.9); Red Blood Count 3.71 M/mm3 (4.2-5.4); White Blood Count 9.2 K/mm3 (4.4-11.0)
[2024-07-05 08:33] LABS: Anion Gap 6 (5-15); BUN 34 mg/dL (7-18); Calcium,Total 8.7 mg/dL (8.5-10.1); Chloride 100 mmol/L (98-107); Creatinine, Serum 0.81 mg/dL (0.55-1.02); EST Glomerular Filtration Rate 73 mL/min (>60); Est Glom Filt Rate - Afr Amer 89 mL/min (>60); Glucose 147 mg/dL (74-106); Potassium 3.3 mmol/L (3.5-5.1); Sodium Level 141 mmol/L (136-145)
[2024-07-05] MEDS: Acetaminophen 325 MG Tablet 650 MG PO ×2 (08:39→21:12)
[2024-07-05] MEDS: Benzonatate 100 MG Capsule PO (08:39)
[2024-07-05] MEDS: Senna/Docusate Sodium 1 Tablet 2 TABLET PO (08:39)
[2024-07-05] MEDS: hydrALAZINE 50 MG Tablet PO ×2 (08:44→21:12)
[2024-07-05] MEDS: Pantoprazole Sodium 40 MG Tablet PO (08:44)
[2024-07-05] MEDS: Carvedilol 12.5 MG Tablet PO ×2 (08:44→16:08)
[2024-07-05] MEDS: Furosemide 40 MG/4 ML Vial IV ×3 (08:45→21:16)
[2024-07-05 08:52] LABS: International Normalized Ratio 3.2; Prothrombin Time (Protime)PT. 33.7 SECONDS (11.7-14.9)
[2024-07-05] MEDS: Oseltamivir Phosphate 30 MG Capsule PO ×2 (10:56→21:12)
[2024-07-05] MEDS: Potassium Chloride Oral Tablet 20 MEQ 40 MEQ PO (10:56)
[2024-07-05] MEDS: Ferrous Sulfate 325 MG Tablet PO (10:57)
--- NOTE | 2024-07-05 10:57 | EKG12_ITS ---
Test Reason : CP Blood Pressure : */* mmHG Vent. Rate : 91 BPM Atrial Rate : * BPM P-R Int : * ms QRS Dur : 82 ms QT Int : 368 ms P-R-T Axes : * 61 -71 degrees QTcB Int : 452 ms Atrial fibrillation with premature ventricular or aberrantly conducted complexes Nonspecific ST and T wave abnormality Abnormal ECG When compared with ECG of 03-Jul-2024 09:47, No significant change was found Confirmed by DEBRA HOGUE, EBENEZER ([id number]), editorial assistant VALERI FELICIANO ([id number]) on 07/05/2024 1:57:15 PM Referred By: JAXSON Confirmed By: EBENEZER RICHARDSON MD
--- NOTE | 2024-07-05 11:07 | PCM.PN.HOSP ---
Reason for Visit Reason for Visit: Diagnoses Acute on chronic diastolic (congestive) heart failure (07/03/24) Influenza due to other identified influenza virus with other respiratory manifestations (07/03/24) Acute and chronic respiratory failure with hypoxia (07/03/24) Acute and chronic respiratory failure with hypercapnia (07/03/24) Dyspnea, unspecified (07/03/24) Subjective Subjective Patient is a 74-year-old lady with history of chronic hypoxic respiratory failure secondary to pulmonary hypertension, congestive heart failure who presented to the emergency department with progressive shortness of breath. Patient was found to have acute influenza A. Admitted to a monitored bed for subsequent management Objective Data Objective Data Vital Signs: Vital Signs Temp Pulse Resp BP Pulse Ox O2 Del Method O2 Flow Rate 97.6 F L 79 18 121/59 H 95 Nasal Cannula 2 07/05/24 08:36 07/05/24 11:04 07/05/24 11:04 07/05/24 11:04 07/05/24 11:04 07/05/24 11:04 07/05/24 11:04 FiO2 40 07/05/24 03:37 Oxygen Flow Rate (L/min) 2 Oxygen Delivery Method Nasal Cannula Weight: 72.8 kg Body Mass Index (BMI) 29.3 Intake & Output: Intake and Output for Last 24 Hours 07/03/24 07/04/24 07/05/24 23:59 23:59 23:59 Intake Total 300 / 300 600 / 600 Output Total 500 / 500 550 / 550 Balance -200 / -200 50 / 50 Lab / Micro Data 07/05/24 07:31 07/05/24 07:31 Labs: Laboratory Results - last 24 hr 07/05/24 07:31: WBC 9.2, RBC 3.71 L, Hgb 10.1 L, Hct 33.6 L, MCV 90.6, MCH 27.2, MCHC 30.1 L D, RDW Std Deviation 53.4 H, RDW Coeff of [place] 16.0 H, Plt Count 149 L, MPV 12.3 H, Immature Gran % (Auto) 0.500, Neut % (Auto) 88.7 H, Lymph % (Auto) 6.1 L, [place] % (Auto) 4.6, Eos % (Auto) 0.0, Baso % (Auto) 0.1, Absolute Neuts (auto) 8.2 H, Absolute Lymphs (auto) 0.56 L, Nucleated RBC % 0, PT 33.7 H, INR 3.2, Sodium 141, Potassium 3.3 L, Chloride 100, Carbon Dioxide 34.0 H, Anion Gap 6, BUN 34 H, Creatinine 0.81, Estim Creat Clear Calc 55.20, Est GFR (MDRD) Af Amer 89, Est GFR (MDRD) Non-Af 73, BUN/Creatinine Ratio 42.0 H, Glucose 147 H, Calcium 8.7 Micro: Microbiology 07/03/24 09:47 Mucosa - Nose SARS-CoV-2, Influenza & RSV (PCR) - Final Influenzae A Physical Exam Narrative GENERAL: cooperative HEENT: Atraumatic; normocephalic EYES; Anicteric, Normal Conjunctiva NECK; supple, normal thyroid, RESPIRATORY: Diminished to auscultation CARDIOVASCULAR: Regular S1 S2, GI: soft, normoactive bowel sounds, : No Renal angle tenderness; EXTREMITIES: No edema, no clubbing, MUSCULOSKELETAL: no muscle wasting NEURO: Awake; no lateralizing signs. SKIN: No Rash PSYCH; Flat affect Assessment & Plan Assessment/Plan (1) Influenza A: (2) Acute dyspnea: (3) Acute on chronic respiratory failure with hypoxia and hypercapnia: (4) Acute on chronic diastolic (congestive) heart failure: PLAN: Plan Patient is a 74-year-old lady with history of chronic hypoxic respiratory failure secondary to pulmonary hypertension, congestive heart failure who presented to the emergency department with progressive shortness of breath. Patient was found to have acute influenza A. Admitted to a monitored bed for subsequent management 1. Acute on chronic hypoxic and hypercapnic respiratory failure ? Due to combination of factors including acute influenza A infection, chronic congestive heart failure with preserved ejection fraction, pulmonary hypertension. In view of patient persistent dyspnea ordered CTA which demonstrated No pulmonary embolism is identified. Some of the distal pulmonary arteries cannot be evaluated due to suboptimal opacification. Right lower lobe atelectasis or pneumonia. Bilateral pleural effusion with compressive atelectasis of the left. 2. Acute on chronic congestive heart failure with preserved ejection fraction ? Patient managed with strict input and output, daily weight, low-sodium diet, fluid restriction as well as furosemide 3. Acute influenza A infection ? Patient managed with Tamiflu 4. COPD with acute exacerbation ? Management steroid as well as bronchodilator treatment in addition to supplemental oxygen 5. Hypokalemia -Corrected per protocol 6. Frequent PVCs ? Patient is on continuous telemetry ordered 2D echo 7. Abnormal thyroid function test ? Suspected to be secondary to euthyroid syndrome. Plan is for patient to have repeat TSH in 6 weeks when she is at her baseline 8. Obstructive sleep apnea ? Consistent use of PAP therapy encouraged 9. Persistent A-fib ? Rate controlled on systemic anticoagulation with warfarin with therapeutic INR 10. Anemia ? Secondary to chronic disorder monitoring H&H and transfuse if patient becomes symptomatic or hemoglobin falls below 7 #11. Hypertension ? Blood pressure controlled, home medications continued with dose adjustment as needed 12. Mild thrombocytopenia ? Will monitor 13. Chest pain ? Ordered EKG which was normal diagnostic no evidence of ST-T segment elevation [place] patient was found to have frequent PVCs. 14. Obstructive sleep apnea ? Consistent use of PAP therapy encouraged 15. Hypokalemia ? Corrected for protocol 16. DVT prophylaxis ? Patient is on Coumadin Time spent in the patient's overall evaluation,decision-making process, review of diagnostic data, adjustment of management, discussion with other providers, nursing nursing and ancillary staff involved in patient's care documentation, 52 minutes Charges/Coding Visit Charges Inpatient E&M: 59746 Subs Hosp L3
--- NOTE | 2024-07-05 11:16 | CT_ITS ---
EXAM: CT Angiography Chest Without and With Intravenous Contrast CLINICAL INDICATION: TECHNIQUE: Axial computed tomographic angiography images of the chest without and with intravenous contrast. This CT exam was performed using one or more of the following dose reduction techniques: automated exposure control, adjustment of the mA and/or kV according to patient size, and/or use of iterative reconstruction technique. MIP reconstructed images were created and reviewed. COMPARISON: No relevant prior studies available. FINDINGS: LIMITATIONS: Suboptimal opacification of the pulmonary arteries. PULMONARY ARTERIES: No pulmonary embolism is identified. Some of the distal pulmonary arteries cannot be evaluated due to suboptimal opacification. AORTA: No acute findings. No thoracic aortic aneurysm. LUNGS AND PLEURAL SPACES: Right lower lobe atelectasis or pneumonia. Lung emphysema. Bilateral pleural effusion with compressive atelectasis of the left. No mass. HEART: Unremarkable. No cardiomegaly. No significant pericardial effusion. No evidence of RV dysfunction. BONES/JOINTS: No acute fracture. No dislocation. SOFT TISSUES: Unremarkable. LYMPH NODES: Unremarkable. No enlarged lymph nodes. INTRAPERITONEAL SPACE: Partially visualized ascites. CT/CTA Chest W/WO Contrast IMPRESSION: 1. No pulmonary embolism is identified. Some of the distal pulmonary arteries cannot be evaluated due to suboptimal opacification. 2. Right lower lobe atelectasis or pneumonia. 3. Bilateral pleural effusion with compressive atelectasis of the left. Reading [facility]
[2024-07-05] MEDS: Nitroglycerin (INPATIENT USE) 0.4 MG TAB.SUBL SL (11:30)
[2024-07-05] MEDS: Morphine 4 MG/ML Syringe IV (11:36)
--- NOTE | 2024-07-05 11:39 | NURSING ---
c/o cp in chair md seen patient orders recieved. evidence technician was asisting to bed then patient wanted to go to bathroom waiting pt had bp still c/o cp 9 pressure no radiation assisted back to bed nitro given had to -9-10 nitro given brought it down to 6. morphine given and taken down for ct labs were drawn prior
[2024-07-05 11:56] LABS: Troponin-I HS 17 pg/mL (3.0-54.0)
[2024-07-05 14:44] LABS: Troponin-I HS 14 pg/mL (3.0-54.0)
[2024-07-05] MEDS: levoFLOXacin 750 MG Tablet PO (16:08)
[2024-07-05] MEDS: Warfarin (BKC) 3 MG Tablet PO (16:08)
[2024-07-05 17:53] LABS: Troponin-I HS 15 pg/mL (3.0-54.0)
[2024-07-05] MEDS: 0.9% Saline Lock 10 ML Syringe IV (21:25)
[2024-07-05 22:34] LABS: Bedside Glucose 132 mg/dL (74-106)
[2024-07-06] VITALS (14 sets, daily range): BP systolic 110–156; BP diastolic 61–74; PULSE 67–98; RESP 12–20; TEMP 36–36.6; O2SAT 91–99
[2024-07-06] MEDS: Morphine 4 MG/ML Syringe IV (02:34)
[2024-07-06] MEDS: 0.9% Saline Lock 10 ML Syringe IV ×4 (02:34→22:10)
--- NOTE | 2024-07-06 04:24 | CPS ---
Pt declined use of hospital bipap this pm.
[2024-07-06] MEDS: levoFLOXacin 750 MG Tablet PO (05:32)
[2024-07-06] MEDS: Furosemide 40 MG/4 ML Vial IV ×3 (05:36→22:10)
[2024-07-06 06:20] LABS: Absolute Lymphocyte Count 0.52 X10^3/uL (0.83-4.51); Absolute Neutrophil Count 7.6 X10^3/uL (2.0-7.7); Basophil# 0.01 X10^3/uL; Basophil% 0.1 % (0-1); Hematocrit 32.6 % (37-47); Hemoglobin 9.8 g/dL (12.0-15.0); Lymphocyte # 0.52 X10^3/ul (0.83-4.51); Lymphocyte % 6.2 % (19-41); Mean Corp Hgb Conc 30.1 g/dL (32-36); Mean Corpuscular Hgb 27.7 pg (27.0-32.0); Mean Corpuscular Volume 92.1 fL (81-99); Mean Platelet Vol. 12.4 fl (6.2-12.0); Monocyte# 0.26 X10^3/uL; Monocyte% 3.1 % (0-10); NRBC Flagged by Analyzer 0 % (0-5); POSITIVE DIFFERENTIAL YES; Platelet Count 126 K/mm3 (150-450); RBC Distribution Width SD 54.2 fl (35.1-43.9); Red Blood Count 3.54 M/mm3 (4.2-5.4); White Blood Count 8.4 K/mm3 (4.4-11.0)
[2024-07-06 06:40] LABS: Prothrombin Time (Protime)PT. 45.6 SECONDS (11.7-14.9)
[2024-07-06 06:42] LABS: Anion Gap 6 (5-15); BUN 29 mg/dL (7-18); BUN/Creat Ratio 40.1 RATIO (10-20); Calcium,Total 8.6 mg/dL (8.5-10.1); Chloride 99 mmol/L (98-107); Creatinine, Serum 0.72 mg/dL (0.55-1.02); EST Glomerular Filtration Rate 83 mL/min (>60); Est Glom Filt Rate - Afr Amer 101 mL/min (>60); Estimated Creatinine Clearance 55.89 ml/min; Glucose 136 mg/dL (74-106); Phosphorus 2.7 mg/dL (2.5-4.9); Sodium Level 143 mmol/L (136-145)
[2024-07-06 06:44] LABS: International Normalized Ratio 4.7
[2024-07-06] MEDS: Ipratropium/Albuterol Sulfate 3 ML AMPUL.NEB INHALATION ×3 (07:44→20:00)
[2024-07-06] MEDS: hydrALAZINE 50 MG Tablet PO ×2 (09:38→22:09)
[2024-07-06] MEDS: Carvedilol 12.5 MG Tablet PO ×2 (09:38→16:53)
[2024-07-06] MEDS: Oseltamivir Phosphate 30 MG Capsule PO ×2 (09:38→22:09)
[2024-07-06] MEDS: Pantoprazole Sodium 40 MG Tablet PO (09:38)
--- NOTE | 2024-07-06 09:43 | PCM.PN.HOSP ---
Reason for Visit Reason for Visit: Diagnoses Acute on chronic diastolic (congestive) heart failure (07/03/24) Influenza due to other identified influenza virus with other respiratory manifestations (07/03/24) Acute and chronic respiratory failure with hypoxia (07/03/24) Acute and chronic respiratory failure with hypercapnia (07/03/24) Dyspnea, unspecified (07/03/24) Subjective Subjective Patient seen, diagnostic data reviewed significant for potassium of 3.0 INR of 4.7. CTA obtained the day prior did not show any pulmonary embolism patient was found to have right lower lobe pneumonia as well as bilateral effusion with compressive atelectasis on the left Objective Data Objective Data Vital Signs: Vital Signs Temp Pulse Resp BP Pulse Ox O2 Del Method O2 Flow Rate 97.5 F L 78 18 128/67 H 94 Nasal Cannula 2 07/06/24 09:34 07/06/24 09:38 07/06/24 09:34 07/06/24 09:34 07/06/24 09:34 07/06/24 09:35 07/06/24 09:35 FiO2 40 07/05/24 20:26 Oxygen Flow Rate (L/min) 2 Oxygen Delivery Method Nasal Cannula Weight: 72.8 kg Body Mass Index (BMI) 29.3 Intake & Output: Intake and Output for Last 24 Hours 07/04/24 07/05/24 07/06/24 23:59 23:59 23:59 Intake Total 600 / 600 750 / 750 120 / 120 Output Total 550 / 550 800 / 800 1400 / 1400 Balance 50 / 50 -50 / -50 -1280 / -1280 Lab / Micro Data 07/06/24 05:35 07/06/24 05:35 Labs: Laboratory Results - last 24 hr 07/05/24 07:31: D-Dimer Quant (PE/DVT) 2.80 H* 07/05/24 11:30: Troponin I High Sens 17 07/05/24 13:44: Troponin I High Sens 14 07/05/24 17:26: Troponin I High Sens 15 07/05/24 21:18: POC Glucose 132 H 07/06/24 05:35: WBC 8.4, RBC 3.54 L, Hgb 9.8 L, Hct 32.6 L, MCV 92.1, MCH 27.7, MCHC 30.1 L, RDW Std Deviation 54.2 H, RDW Coeff of [place] 16.0 H, Plt Count 126 L, MPV 12.4 H, Immature Gran % (Auto) 0.600, Neut % (Auto) 90.0 H, Lymph % (Auto) 6.2 L, [place] % (Auto) 3.1, Eos % (Auto) 0.0, Baso % (Auto) 0.1, Absolute Neuts (auto) 7.6, Absolute Lymphs (auto) 0.52 L, Nucleated RBC % 0, PT 45.6 H, INR 4.7 H*, Sodium 143, Potassium 3.0 L, Chloride 99, Carbon Dioxide 38.0 H, Anion Gap 6, BUN 29 H, Creatinine 0.72, Estim Creat Clear Calc 55.89, Est GFR (MDRD) Af Amer 101, Est GFR (MDRD) Non-Af 83, BUN/Creatinine Ratio 40.1 H, Glucose 136 H, Calcium 8.6, Phosphorus 2.7, Magnesium 2.0 Micro: Microbiology 07/04/24 07:45 Sputum, Expectorated/Coughed Gram Stain - Final 07/04/24 07:45 Sputum, Expectorated/Coughed Respiratory Culture - Preliminary Klebsiella pneumoniae sp pneum 07/03/24 09:47 Mucosa - Nose SARS-CoV-2, Influenza & RSV (PCR) - Final Influenzae A Radiography Diagnostic Testing: Radiology Impression Chest CTA 07/05/24 11:16 IMPRESSION: 1. No pulmonary embolism is identified. Some of the distal pulmonary arteries cannot be evaluated due to suboptimal opacification. 2. Right lower lobe atelectasis or pneumonia. 3. Bilateral pleural effusion with compressive atelectasis of the left. Reading Location: [facility] Physical Exam Narrative GENERAL: cooperative HEENT: Atraumatic; normocephalic EYES; Anicteric, Normal Conjunctiva NECK; supple, normal thyroid, RESPIRATORY: Diminished to auscultation CARDIOVASCULAR: Regular S1 S2, GI: soft, normoactive bowel sounds, : No Renal angle tenderness; EXTREMITIES: No edema, no clubbing, MUSCULOSKELETAL: no muscle wasting NEURO: Awake; no lateralizing signs. SKIN: No Rash PSYCH; Flat affect Assessment & Plan Assessment/Plan (1) Influenza A: (2) Acute dyspnea: (3) Acute on chronic respiratory failure with hypoxia and hypercapnia: (4) Acute on chronic diastolic (congestive) heart failure: PLAN: Plan Patient is a 74-year-old lady with history of chronic hypoxic respiratory failure secondary to pulmonary hypertension, congestive heart failure who presented to the emergency department with progressive shortness of breath. Patient was found to have acute influenza A. Admitted to a monitored bed for subsequent management 1. Acute on chronic hypoxic and hypercapnic respiratory failure ? Due to combination of factors including acute influenza A infection, chronic congestive heart failure with preserved ejection fraction, pulmonary hypertension. In view of patient persistent dyspnea ordered CTA which demonstrated No pulmonary embolism is identified. Some of the distal pulmonary arteries cannot be evaluated due to suboptimal opacification. Right lower lobe atelectasis or pneumonia. Bilateral pleural effusion with compressive atelectasis of the left. ? 07/2023; 2. Acute on chronic congestive heart failure with preserved ejection fraction ? Patient managed with strict input and output, daily weight, low-sodium diet, fluid restriction as well as furosemide 3. Acute influenza A infection ? Patient managed with Tamiflu 4. COPD with acute exacerbation ? Management steroid as well as bronchodilator treatment in addition to supplemental oxygen 5. Pneumonia - Suspected to be secondary to streptococcal pneumonia superimposed on patient's influenza A infection. Patient started on antibiotics with levofloxacin in addition to supplemental oxygen titrated to keep pulse ox greater than 90 6. Frequent PVCs ? Patient is on continuous telemetry ordered 2D echo 7. Abnormal thyroid function test ? Suspected to be secondary to euthyroid syndrome. Plan is for patient to have repeat TSH in 6 weeks when she is at her baseline 8. Obstructive sleep apnea ? Consistent use of PAP therapy encouraged 9. Persistent A-fib ? Rate controlled on systemic anticoagulation with warfarin with therapeutic INR ? 07/06/2024; INR up to 4.5 plan is to hold Coumadin for today 10. Anemia ? Secondary to chronic disorder monitoring H&H and transfuse if patient becomes symptomatic or hemoglobin falls below 7 11. Hypertension ? Blood pressure controlled, home medications continued with dose adjustment as needed 12. Mild thrombocytopenia ? Will monitor 13. Chest pain ? Ordered EKG which was normal diagnostic no evidence of ST-T segment elevation [place] patient was found to have frequent PVCs. 14. Obstructive sleep apnea ? Consistent use of PAP therapy encouraged 15. Hypokalemia ? Corrected for protocol ?07/06/2024; patient potassium remains low despite aggressive correction this is secondary to patient being on furosemide additional potassium given 16. DVT prophylaxis ? Patient is on Coumadin Time spent in the patient's overall evaluation,decision-making process, review of diagnostic data, adjustment of management, discussion with other providers, nursing nursing and ancillary staff involved in patient's care documentation, 50 minutes Charges/Coding Visit Charges Inpatient E&M: 03540 Subs Hosp L3
[2024-07-06] MEDS: Potassium Chloride Oral Tablet 20 MEQ 40 MEQ PO (10:25)
[2024-07-06] MEDS: Albuterol 2.5 MG/3 ML VIAL.NEB. INHALATION (10:52)
--- NOTE | 2024-07-06 12:53 | NURSING ---
Daughter called and was sgiven an update on how pt is doing and informed she is staying another night.
[2024-07-06] MEDS: Ferrous Sulfate 325 MG Tablet PO (12:57)
[2024-07-06] MEDS: Methocarbamol 750 MG Tablet PO (16:52)
[2024-07-06] MEDS: Potassium Chloride Oral Tablet 20 MEQ PO (16:53)
[2024-07-06] MEDS: MELATONIN 3 MG TABLET PO (22:09)
[2024-07-06] MEDS: Acetaminophen 500 MG Tablet 1000 MG PO (22:09)
[2024-07-07] VITALS (12 sets, daily range): BP systolic 119–144; BP diastolic 44–71; PULSE 69–93; RESP 12–20; TEMP 36.4–36.7; O2SAT 92–97
[2024-07-07 04:59] LABS: Absolute Lymphocyte Count 0.52 X10^3/uL (0.83-4.51); Absolute Neutrophil Count 4.8 X10^3/uL (2.0-7.7); Hematocrit 34.8 % (37-47); Hemoglobin 10.4 g/dL (12.0-15.0); Lymphocyte # 0.52 X10^3/ul (0.83-4.51); Lymphocyte % 9.4 % (19-41); Mean Corp Hgb Conc 29.9 g/dL (32-36); Mean Corpuscular Hgb 27.7 pg (27.0-32.0); Mean Corpuscular Volume 92.8 fL (81-99); Mean Platelet Vol. 12.5 fl (6.2-12.0); Monocyte# 0.17 X10^3/uL; Monocyte% 3.1 % (0-10); NRBC Flagged by Analyzer 0 % (0-5); Neutrophil # 4.77 X10^3/uL (2.7-7.7); Neutrophil % 86.6 % (47-70); POSITIVE DIFFERENTIAL YES; Platelet Count 120 K/mm3 (150-450); RBC Distribution Width CV 15.9 % (11.6-14.6); RBC Distribution Width SD 54.1 fl (35.1-43.9); Red Blood Count 3.75 M/mm3 (4.2-5.4); White Blood Count 5.5 K/mm3 (4.4-11.0)
[2024-07-07 05:02] LABS: Prothrombin Time (Protime)PT. 63.2 SECONDS (11.7-14.9)
[2024-07-07 05:15] LABS: International Normalized Ratio 7.2
[2024-07-07 05:31] LABS: Anion Gap 7 (5-15); BUN 27 mg/dL (7-18); BUN/Creat Ratio 35.5 RATIO (10-20); Chloride 94 mmol/L (98-107); Creatinine, Serum 0.76 mg/dL (0.55-1.02); EST Glomerular Filtration Rate 79 mL/min (>60); Est Glom Filt Rate - Afr Amer 95 mL/min (>60); Estimated Creatinine Clearance 55.89 ml/min; Glucose 141 mg/dL (74-106); Potassium 2.7 mmol/L (3.5-5.1); Sodium Level 142 mmol/L (136-145)
--- NOTE | 2024-07-07 06:34 | PCM.HOSP.N ---
Hospitalist Note K 2.7, supplementation ordered as well as mag level requested.
[2024-07-07] MEDS: Ipratropium/Albuterol Sulfate 3 ML AMPUL.NEB INHALATION ×3 (07:08→20:12)
[2024-07-07 07:10] LABS: Magnesium 1.9 mg/dL (1.6-2.6)
[2024-07-07] MEDS: Potassium Chloride Oral Tablet 20 MEQ 40 MEQ PO ×2 (08:01→13:33)
[2024-07-07] MEDS: Oseltamivir Phosphate 30 MG Capsule PO ×2 (08:01→22:31)
[2024-07-07] MEDS: Acetaminophen 500 MG Tablet 1000 MG PO ×3 (08:01→22:31)
[2024-07-07] MEDS: Furosemide 40 MG/4 ML Vial IV ×3 (08:01→22:31)
[2024-07-07] MEDS: Potassium Chloride Oral Tablet 20 MEQ PO (08:01)
[2024-07-07] MEDS: Pantoprazole Sodium 40 MG Tablet PO (08:02)
[2024-07-07] MEDS: Carvedilol 12.5 MG Tablet PO ×2 (08:02→16:41)
[2024-07-07] MEDS: levoFLOXacin 750 MG Tablet PO (08:02)
[2024-07-07] MEDS: Ferrous Sulfate 325 MG Tablet PO (10:46)
[2024-07-07] MEDS: hydrALAZINE 50 MG Tablet PO ×2 (10:46→22:31)
--- NOTE | 2024-07-07 10:53 | PCM.PN.HOSP ---
Reason for Visit Reason for Visit: Diagnoses Acute on chronic diastolic (congestive) heart failure (07/03/24) Influenza due to other identified influenza virus with other respiratory manifestations (07/03/24) Acute and chronic respiratory failure with hypoxia (07/03/24) Acute and chronic respiratory failure with hypercapnia (07/03/24) Dyspnea, unspecified (07/03/24) Subjective Subjective Patient seen still complains of left-sided pleuritic chest pain. Has a productive cough. Potassium this a.m. is 2.7 INR is 7 Objective Data Objective Data Vital Signs: Vital Signs Temp Pulse Resp BP Pulse Ox O2 Del Method O2 Flow Rate 97.6 F L 78 20 H 119/44 L 93 Nasal Cannula 3 07/07/24 10:44 07/07/24 10:44 07/07/24 10:44 07/07/24 10:44 07/07/24 10:44 07/07/24 10:44 07/07/24 10:44 FiO2 40 07/07/24 03:30 Oxygen Flow Rate (L/min) 3 Oxygen Delivery Method Nasal Cannula Weight: 72.8 kg Body Mass Index (BMI) 29.3 Intake & Output: Intake and Output for Last 24 Hours 07/05/24 07/06/24 07/07/24 23:59 23:59 23:59 Intake Total 750 / 750 240 / 240 Output Total 800 / 800 1900 / 1900 Balance -50 / -50 -1660 / -1660 Lab / Micro Data 07/07/24 04:29 07/07/24 04:29 Labs: Laboratory Results - last 24 hr 07/07/24 04:29: WBC 5.5, RBC 3.75 L, Hgb 10.4 L, Hct 34.8 L, MCV 92.8, MCH 27.7, MCHC 29.9 L, RDW Std Deviation 54.1 H, RDW Coeff of [place] 15.9 H, Plt Count 120 L, MPV 12.5 H, Immature Gran % (Auto) 0.900, Neut % (Auto) 86.6 H, Lymph % (Auto) 9.4 L, [place] % (Auto) 3.1, Eos % (Auto) 0.0, Baso % (Auto) 0.0, Absolute Neuts (auto) 4.8, Absolute Lymphs (auto) 0.52 L, Nucleated RBC % 0, PT 63.2 H, INR 7.2 H*, Sodium 142, Potassium 2.7 L*, Chloride 94 L, Carbon Dioxide 41.0 H, Anion Gap 7, BUN 27 H, Creatinine 0.76, Estim Creat Clear Calc 55.89, Est GFR (MDRD) Af Amer 95, Est GFR (MDRD) Non-Af 79, BUN/Creatinine Ratio 35.5 H, Glucose 141 H, Calcium 9.0, Magnesium 1.9 Micro: Microbiology 07/04/24 07:45 Sputum, Expectorated/Coughed Gram Stain - Final 07/04/24 07:45 Sputum, Expectorated/Coughed Respiratory Culture - Final Mixed normal respiratory matthias. No Streptococcus pneumoniae, beta-hemolytic Streptococcus or Staphylococcus aureus isolated. 07/03/24 09:47 Mucosa - Nose SARS-CoV-2, Influenza & RSV (PCR) - Final Influenzae A Physical Exam Narrative GENERAL: cooperative HEENT: Atraumatic; normocephalic EYES; Anicteric, Normal Conjunctiva NECK; supple, normal thyroid, RESPIRATORY: Diminished to auscultation CARDIOVASCULAR: Regular S1 S2, GI: soft, normoactive bowel sounds, : No Renal angle tenderness; EXTREMITIES: No edema, no clubbing, MUSCULOSKELETAL: no muscle wasting NEURO: Awake; no lateralizing signs. SKIN: No Rash PSYCH; Flat affect Assessment & Plan Assessment/Plan (1) Influenza A: (2) Acute dyspnea: (3) Acute on chronic respiratory failure with hypoxia and hypercapnia: (4) Acute on chronic diastolic (congestive) heart failure: PLAN: Plan Patient is a 74-year-old lady with history of chronic hypoxic respiratory failure secondary to pulmonary hypertension, congestive heart failure who presented to the emergency department with progressive shortness of breath. Patient was found to have acute influenza A. Admitted to a monitored bed for subsequent management 1. Acute on chronic hypoxic and hypercapnic respiratory failure ? Due to combination of factors including acute influenza A infection, chronic congestive heart failure with preserved ejection fraction, pulmonary hypertension. In view of patient persistent dyspnea ordered CTA which demonstrated No pulmonary embolism is identified. Some of the distal pulmonary arteries cannot be evaluated due to suboptimal opacification. Right lower lobe atelectasis or pneumonia. Bilateral pleural effusion with compressive atelectasis of the left. ? 07/07/2023; patient still remains on supplemental oxygen currently 3 L at baseline patient is on 2 L 2. Acute on chronic congestive heart failure with preserved ejection fraction ? Patient managed with strict input and output, daily weight, low-sodium diet, fluid restriction as well as furosemide 3. Acute influenza A infection ? Patient managed with Tamiflu 4. COPD with acute exacerbation ? Management steroid as well as bronchodilator treatment in addition to supplemental oxygen 5. Pneumonia - Suspected to be secondary to streptococcal pneumonia superimposed on patient's influenza A infection. Patient started on antibiotics with levofloxacin in addition to supplemental oxygen titrated to keep pulse ox greater than 90 6. Frequent PVCs ? Patient is on continuous telemetry ordered 2D echo 7. Abnormal thyroid function test ? Suspected to be secondary to euthyroid syndrome. Plan is for patient to have repeat TSH in 6 weeks when she is at her baseline 8. Obstructive sleep apnea ? Consistent use of PAP therapy encouraged 9. Persistent A-fib ? Rate controlled on systemic anticoagulation with warfarin with therapeutic INR ? 07/06/2024; INR up to 4.5 plan is to hold Coumadin for today ? 07/07/2024; INR up to 7.2 held Coumadin and order was given for vitamin K 5 mg 10. Anemia ? Secondary to chronic disorder monitoring H&H and transfuse if patient becomes symptomatic or hemoglobin falls below 7 11. Hypertension ? Blood pressure controlled, home medications continued with dose adjustment as needed 12. Mild thrombocytopenia ? Will monitor 13. Chest pain ? Ordered EKG which was normal diagnostic no evidence of ST-T segment elevation [place] patient was found to have frequent PVCs. 14. Obstructive sleep apnea ? Consistent use of PAP therapy encouraged 15. Hypokalemia ? Corrected for protocol ?07/06/2024; patient potassium remains low despite aggressive correction this is secondary to patient being on furosemide additional potassium given ? 07/07/2024 potassium down to 2.5 despite aggressive replacement additional potassium given 16. DVT prophylaxis ? Patient is on Coumadin Time spent in the patient's overall evaluation,decision-making process, review of diagnostic data, adjustment of management, discussion with other providers, nursing nursing and ancillary staff involved in patient's care documentation, 52 minutes Charges/Coding Visit Charges Inpatient E&M: 92651 [facility] L3
[2024-07-07] MEDS: Phytonadione (Vit K1) 5 MG TABLET PO (13:33)
[2024-07-07] MEDS: 0.9% Saline Lock 10 ML Syringe IV ×2 (14:52→22:32)
[2024-07-08] VITALS (15 sets, daily range): BP systolic 130–134; BP diastolic 46–66; PULSE 54–109; RESP 12–22; TEMP 36.2–36.9; O2SAT 92–96
[2024-07-08] MEDS: Acetaminophen 500 MG Tablet 1000 MG PO ×3 (05:58→21:19)
[2024-07-08] MEDS: levoFLOXacin 750 MG Tablet PO (05:58)
[2024-07-08] MEDS: 0.9% Saline Lock 10 ML Syringe IV ×3 (05:59→21:20)
[2024-07-08] MEDS: Furosemide 40 MG/4 ML Vial IV ×3 (05:59→21:18)
[2024-07-08] MEDS: Ipratropium/Albuterol Sulfate 3 ML AMPUL.NEB INHALATION ×3 (07:17→19:23)
[2024-07-08 07:47] LABS: Absolute Lymphocyte Count 0.67 X10^3/uL (0.83-4.51); Absolute Neutrophil Count 6.4 X10^3/uL (2.0-7.7); Hematocrit 35.3 % (37-47); Hemoglobin 10.9 g/dL (12.0-15.0); Lymphocyte # 0.67 X10^3/ul (0.83-4.51); Lymphocyte % 9.1 % (19-41); Mean Corp Hgb Conc 30.9 g/dL (32-36); Mean Corpuscular Hgb 27.9 pg (27.0-32.0); Mean Corpuscular Volume 90.5 fL (81-99); Mean Platelet Vol. 12.7 fl (6.2-12.0); Monocyte% 4.1 % (0-10); NRBC Flagged by Analyzer 0 % (0-5); Neutrophil # 6.38 X10^3/uL (2.7-7.7); Neutrophil % 86.1 % (47-70); Platelet Count 144 K/mm3 (150-450); RBC Distribution Width CV 15.9 % (11.6-14.6); White Blood Count 7.4 K/mm3 (4.4-11.0)
[2024-07-08 07:55] LABS: Anion Gap 7 (5-15); BUN 29 mg/dL (7-18); BUN/Creat Ratio 35.9 RATIO (10-20); Calcium,Total 9.4 mg/dL (8.5-10.1); Chloride 93 mmol/L (98-107); Creatinine, Serum 0.81 mg/dL (0.55-1.02); EST Glomerular Filtration Rate 73 mL/min (>60); Est Glom Filt Rate - Afr Amer 89 mL/min (>60); Glucose 145 mg/dL (74-106); Potassium 3.1 mmol/L (3.5-5.1); Sodium Level 142 mmol/L (136-145)
[2024-07-08 07:58] LABS: International Normalized Ratio 7.4; Prothrombin Time (Protime)PT. 64.7 SECONDS (11.7-14.9)
[2024-07-08] MEDS: Carvedilol 12.5 MG Tablet PO ×2 (08:32→16:39)
[2024-07-08] MEDS: Pantoprazole Sodium 40 MG Tablet PO (08:32)
[2024-07-08] MEDS: hydrALAZINE 50 MG Tablet PO ×2 (08:32→21:17)
[2024-07-08] MEDS: Potassium Chloride Oral Tablet 20 MEQ 40 MEQ PO ×3 (08:32→16:40)
[2024-07-08] MEDS: Phytonadione (Vit K1) 5 MG TABLET PO (10:25)
--- NOTE | 2024-07-08 11:57 | PN.HOSP_ITS ---
Reason for Visit Reason for Visit: Diagnoses Acute on chronic diastolic (congestive) heart failure (07/03/24) Influenza due to other identified influenza virus with other respiratory manifestations (07/03/24) Acute and chronic respiratory failure with hypoxia (07/03/24) Acute and chronic respiratory failure with hypercapnia (07/03/24) Dyspnea, unspecified (07/03/24) Subjective Subjective Patient seen finally admitted some improvement in her overall clinical condition. Her left-sided pleuritic chest pain under much better control.. Patient INR remains elevated at 7.4, potassium 3.1 Objective Data Objective Data Vital Signs: Vital Signs Temp Pulse Resp BP Pulse Ox O2 Del Method O2 Flow Rate 97.2 F L 67 18 132/46 H 92 Nasal Cannula 3 07/08/24 08:25 07/08/24 08:32 07/08/24 08:25 07/08/24 08:25 07/08/24 08:25 07/08/24 08:25 07/08/24 08:25 FiO2 40 07/08/24 00:48 Oxygen Flow Rate (L/min) 3 Oxygen Delivery Method Nasal Cannula Weight: 72.8 kg Body Mass Index (BMI) 29.3 Intake & Output: Intake and Output for Last 24 Hours 07/06/24 07/07/24 07/08/24 23:59 23:59 23:59 Intake Total 240 / 240 1480 / 1480 240 / 240 Output Total 1900 / 1900 1000 / 1000 Balance -1660 / -1660 480 / 480 240 / 240 Lab / Micro Data 07/08/24 06:56 07/08/24 06:56 Labs: Laboratory Results - last 24 hr 07/08/24 06:56: WBC 7.4, RBC 3.90 L, Hgb 10.9 L, Hct 35.3 L, MCV 90.5, MCH 27.9, MCHC 30.9 L, RDW Std Deviation 52.0 H, RDW Coeff of [place] 15.9 H, Plt Count 144 L, MPV 12.7 H, Immature Gran % (Auto) 0.700, Neut % (Auto) 86.1 H, Lymph % (Auto) 9.1 L, [place] % (Auto) 4.1, Eos % (Auto) 0.0, Baso % (Auto) 0.0, Absolute Neuts (auto) 6.4, Absolute Lymphs (auto) 0.67 L, Nucleated RBC % 0, PT 64.7 H, INR 7.4 H*, Sodium 142, Potassium 3.1 L, Chloride 93 L, Carbon Dioxide 42.0 H, Anion Gap 7, BUN 29 H, Creatinine 0.81, Estim Creat Clear Calc 55.20, Est GFR (MDRD) Af Amer 89, Est GFR (MDRD) Non-Af 73, BUN/Creatinine Ratio 35.9 H, Glucose 145 H, Calcium 9.4 Micro: Microbiology 07/04/24 07:45 Sputum, Expectorated/Coughed Gram Stain - Final 07/04/24 07:45 Sputum, Expectorated/Coughed Respiratory Culture - Final Klebsiella pneumoniae sp pneum 07/03/24 09:47 Mucosa - Nose SARS-CoV-2, Influenza & RSV (PCR) - Final Influenzae A Physical Exam Narrative GENERAL: cooperative HEENT: Atraumatic; normocephalic EYES; Anicteric, Normal Conjunctiva NECK; supple, normal thyroid, RESPIRATORY: Diminished to auscultation CARDIOVASCULAR: Regular S1 S2, GI: soft, normoactive bowel sounds, : No Renal angle tenderness; EXTREMITIES: No edema, no clubbing, MUSCULOSKELETAL: no muscle wasting NEURO: Awake; no lateralizing signs. SKIN: No Rash PSYCH; Flat affect Const alert, oriented x3, no apparent distress and well nourished; Negative for average body habitus or healthy appearing Constitutional Narrative: Overweight, elderly, white female, lying in bed on BiPAP currently, appears comfortable, nontoxic, has come on and off BiPAP General Appearance: cooperative HEENT normocephalic, head/scalp atraumatic and hearing grossly normal bilaterally Eyes EOMs intact bilaterally and conjunctivae normal Eyes Narrative: No scleral icterus Neck supple Neck Narrative: Trachea midline Resp no retractions and no use of accessory muscles Resp Narrative: Diffuse inspiratory and expiratory wheezes, crackles in the right base--> less coarse today than yesterday Auscultation: crackles and wheezes; Negative for rhonchi Cardio regular rate, regular rhythm, S1 normal heart sound, S2 normal heart sound, no murmurs, no rub, no gallops and no clicks Cardio Narrative: Irregularly irregular rhythm with regular rate GI normal to inspection, nondistended, normoactive bowel sounds, soft to palpation and non-tender Extremity Extremity Narrative: Trace bilateral lower extremity pitting edema from mid calf to feet, pedal pulses are 2+, no cyanosis or clubbing, wrinkles noted in distal lower extremities from where swelling was before Neuro oriented x3, moves all extremities and no focal motor deficits Neuro Narrative: Patient on BiPAP so unable to assess speech Psych Psych Narrative: Remains calm, affect is normal, interacts appropriately Assessment & Plan Assessment/Plan (1) Influenza A: (2) Acute dyspnea: (3) Acute on chronic respiratory failure with hypoxia and hypercapnia: (4) Acute on chronic diastolic (congestive) heart failure: PLAN: Plan Patient is a 74-year-old lady with history of chronic hypoxic respiratory failure secondary to pulmonary hypertension, congestive heart failure who presented to the emergency department with progressive shortness of breath. Patient was found to have acute influenza A. Admitted to a monitored bed for subsequent management 1. Acute on chronic hypoxic and hypercapnic respiratory failure ? Due to combination of factors including acute influenza A infection, chronic congestive heart failure with preserved ejection fraction, pulmonary hypertension. In view of patient persistent dyspnea ordered CTA which demonstrated No pulmonary embolism is identified. Some of the distal pulmonary arteries cannot be evaluated due to suboptimal opacification. Right lower lobe atelectasis or pneumonia. Bilateral pleural effusion with compressive atelectasis of the left. ? 07/07/2023; patient still remains on supplemental oxygen currently 3 L at baseline patient is on 2 L ? 07/08/2024; patient remains on 3 L/min flow of oxygen 2. Acute on chronic congestive heart failure with preserved ejection fraction ? Patient managed with strict input and output, daily weight, low-sodium diet, fluid restriction as well as furosemide 3. Acute influenza A infection ? Patient managed with Tamiflu 4. COPD with acute exacerbation ? Management steroid as well as bronchodilator treatment in addition to supplemental oxygen 5. Pneumonia - Suspected to be secondary to streptococcal pneumonia superimposed on patient's influenza A infection. Patient started on antibiotics with levofloxacin in addition to supplemental oxygen titrated to keep pulse ox greater than 90 6. Frequent PVCs ? Patient is on continuous telemetry ordered 2D echo 7. Abnormal thyroid function test ? Suspected to be secondary to euthyroid syndrome. Plan is for patient to have repeat TSH in 6 weeks when she is at her baseline 8. Obstructive sleep apnea ? Consistent use of PAP therapy encouraged 9. Persistent A-fib ? Rate controlled on systemic anticoagulation with warfarin with therapeutic INR ? 07/06/2024; INR up to 4.5 plan is to hold Coumadin for today ? 07/07/2024; INR up to 7.2 held Coumadin and order was given for vitamin K 5 mg ? 07/08/2024; INR elevated at 7.4 additional 5 mg of vitamin K given 10. Anemia ? Secondary to chronic disorder monitoring H&H and transfuse if patient becomes symptomatic or hemoglobin falls below 7 11. Hypertension ? Blood pressure controlled, home medications continued with dose adjustment as needed 12. Mild thrombocytopenia ? Will monitor 13. Chest pain ? Ordered EKG which was normal diagnostic no evidence of ST-T segment elevation [place] patient was found to have frequent PVCs. 14. Obstructive sleep apnea ? Consistent use of PAP therapy encouraged 15. Hypokalemia ? Corrected for protocol ?07/06/2024; patient potassium remains low despite aggressive correction this is secondary to patient being on furosemide additional potassium given ? 07/07/2024 potassium down to 2.5 despite aggressive replacement additional potassium given ? 07/08/2024; potassium up to 3.1, additional potassium given 16. DVT prophylaxis ? Patient is on Coumadin Time spent in the patient's overall evaluation,decision-making process, review of diagnostic data, adjustment of management, discussion with other providers, nursing nursing and ancillary staff involved in patient's care documentation, 50 minutes Charges/Coding Visit Charges Inpatient E&M: 38138 [facility] Hosp L3
[2024-07-08] MEDS: Benzonatate 100 MG Capsule PO (14:24)
[2024-07-09 02:31] VITALS: BP 126/71; PULSE 86; RESP 16; TEMP 36.6; O2SAT 97
[2024-07-09] MEDS: levoFLOXacin 750 MG Tablet PO (05:11)
[2024-07-09] MEDS: 0.9% Saline Lock 10 ML Syringe IV (05:11)
[2024-07-09] MEDS: Acetaminophen 500 MG Tablet 1000 MG PO (05:11)
[2024-07-09] MEDS: Furosemide 40 MG/4 ML Vial IV (05:12)
[2024-07-09 05:20] LABS: Absolute Lymphocyte Count 0.45 X10^3/uL (0.83-4.51); Absolute Neutrophil Count 4.5 X10^3/uL (2.0-7.7); Basophil# 0.01 X10^3/uL; Basophil% 0.2 % (0-1); Hematocrit 33.7 % (37-47); Hemoglobin 10.5 g/dL (12.0-15.0); Lymphocyte # 0.45 X10^3/ul (0.83-4.51); Lymphocyte % 8.6 % (19-41); Mean Corp Hgb Conc 31.2 g/dL (32-36); Mean Corpuscular Hgb 27.9 pg (27.0-32.0); Mean Corpuscular Volume 89.6 fL (81-99); Mean Platelet Vol. 12.4 fl (6.2-12.0); Monocyte# 0.25 X10^3/uL; Monocyte% 4.8 % (0-10); NRBC Flagged by Analyzer 0 % (0-5); Neutrophil # 4.51 X10^3/uL (2.7-7.7); Neutrophil % 85.8 % (47-70); POSITIVE DIFFERENTIAL YES; Platelet Count 137 K/mm3 (150-450); RBC Distribution Width CV 15.9 % (11.6-14.6); RBC Distribution Width SD 52.1 fl (35.1-43.9); Red Blood Count 3.76 M/mm3 (4.2-5.4); White Blood Count 5.3 K/mm3 (4.4-11.0)
[2024-07-09 05:26] LABS: International Normalized Ratio 2.1; Prothrombin Time (Protime)PT. 23.6 SECONDS (11.7-14.9)
[2024-07-09 05:44] LABS: Anion Gap 5 (5-15); BUN 29 mg/dL (7-18); BUN/Creat Ratio 39.4 RATIO (10-20); Calcium,Total 9.2 mg/dL (8.5-10.1); Chloride 94 mmol/L (98-107); Creatinine, Serum 0.74 mg/dL (0.55-1.02); EST Glomerular Filtration Rate 82 mL/min (>60); Est Glom Filt Rate - Afr Amer 99 mL/min (>60); Estimated Creatinine Clearance 55.89 ml/min; Glucose 145 mg/dL (74-106); Magnesium 1.9 mg/dL (1.6-2.6); Potassium 3.2 mmol/L (3.5-5.1); Sodium Level 142 mmol/L (136-145)
[2024-07-09 06:59] VITALS: PULSE 98; RESP 20; O2SAT 94
[2024-07-09] MEDS: Ipratropium/Albuterol Sulfate 3 ML AMPUL.NEB INHALATION (06:59)
[2024-07-09 08:18] VITALS: BP 133/62; PULSE 79; RESP 20; TEMP 36.5; O2SAT 92
[2024-07-09 08:21] VITALS: PULSE 79
[2024-07-09] MEDS: Carvedilol 12.5 MG Tablet PO (08:21)
[2024-07-09] MEDS: hydrALAZINE 50 MG Tablet PO (08:21)
[2024-07-09] MEDS: Potassium Chloride Oral Tablet 20 MEQ 40 MEQ PO (08:21)
[2024-07-09] MEDS: Pantoprazole Sodium 40 MG Tablet PO (08:22)
--- NOTE | 2024-07-09 09:50 | PCM.DC.SUM ---
Providers Date of Admission: 07/03/24 Date of Discharge: 07/09/24 Primary Care Physician: Dr. Laurie Bonilla MD Reason For Visit: ACUTE HYPOXIC AND HYPERCAPNIC RESPIRATORY FAILURE Diagnosis Discharge Diagnosis (1) Influenza A: Status: Acute Code(s): J10.1 - Influenza due to other identified influenza virus with other respiratory manifestations (2) Acute dyspnea: Status: Acute Code(s): R06.00 - Dyspnea, unspecified (3) Acute on chronic respiratory failure with hypoxia and hypercapnia: Status: Chronic Code(s): J96.21 - Acute and chronic respiratory failure with hypoxia; J96.22 - Acute and chronic respiratory failure with hypercapnia (4) Acute on chronic diastolic (congestive) heart failure: Status: Chronic Code(s): I50.33 - Acute on chronic diastolic (congestive) heart failure Plan Patient is a 74-year-old lady with history of chronic hypoxic respiratory failure secondary to pulmonary hypertension, congestive heart failure who presented to the emergency department with progressive shortness of breath. Patient was found to have acute influenza A. Admitted to a monitored bed for subsequent management 1. Acute on chronic hypoxic and hypercapnic respiratory failure ? Due to combination of factors including acute influenza A infection, chronic congestive heart failure with preserved ejection fraction, pulmonary hypertension. In view of patient persistent dyspnea ordered CTA which demonstrated No pulmonary embolism is identified. Some of the distal pulmonary arteries cannot be evaluated due to suboptimal opacification. Right lower lobe atelectasis or pneumonia. Bilateral pleural effusion with compressive atelectasis of the left. ? 07/07/2023; patient still remains on supplemental oxygen currently 3 L at baseline patient is on 2 L ? 07/08/2024; patient remains on 3 L/min flow of oxygen ? 07/09/2024; patient was reassessed for home oxygen prior to being 2. Acute on chronic congestive heart failure with preserved ejection fraction ? Patient managed with strict input and output, daily weight, low-sodium diet, fluid restriction as well as furosemide 3. Acute influenza A infection ? Patient managed with Tamiflu 4. COPD with acute exacerbation ? Management steroid as well as bronchodilator treatment in addition to supplemental oxygen 5. Pneumonia - Suspected to be secondary to streptococcal pneumonia superimposed on patient's influenza A infection. Patient started on antibiotics with levofloxacin in addition to supplemental oxygen titrated to keep pulse ox greater than 90 6. Frequent PVCs ? Patient is on continuous telemetry ordered 2D echo 7. Abnormal thyroid function test ? Suspected to be secondary to euthyroid syndrome. Plan is for patient to have repeat TSH in 6 weeks when she is at her baseline 8. Obstructive sleep apnea ? Consistent use of PAP therapy encouraged 9. Persistent A-fib ? Rate controlled on systemic anticoagulation with warfarin with therapeutic INR ? 07/06/2024; INR up to 4.5 plan is to hold Coumadin for today ? 07/07/2024; INR up to 7.2 held Coumadin and order was given for vitamin K 5 mg ? 07/08/2024; INR elevated at 7.4 additional 5 mg of vitamin K given ? 07/09/2024; INR on discharge was 2.1 10. Anemia ? Secondary to chronic disorder monitoring H&H and transfuse if patient becomes symptomatic or hemoglobin falls below 7 11. Hypertension ? Blood pressure controlled, home medications continued with dose adjustment as needed 12. Mild thrombocytopenia ? Will monitor 13. Chest pain ? Ordered EKG which was normal diagnostic no evidence of ST-T segment elevation [place] patient was found to have frequent PVCs. 14. Obstructive sleep apnea ? Consistent use of PAP therapy encouraged 15. Hypokalemia ? Corrected for protocol ?07/06/2024; patient potassium remains low despite aggressive correction this is secondary to patient being on furosemide additional potassium given ? 07/07/2024 potassium down to 2.5 despite aggressive replacement additional potassium given ? 07/08/2024; potassium up to 3.1, additional potassium given 16. DVT prophylaxis ? Patient is on Coumadin Time spent in the patient's overall evaluation,decision-making process, review of diagnostic data, adjustment of management, discussion with other providers, nursing nursing and ancillary staff involved in patient's care documentation, 40 minutes Medications at Discharge Home Medications oxygen-air delivery systems ##1 10/12/19 albuterol sulfate 2.5 mg/3 mL (0.083 %) solution for nebulization 2.5 mg continuous nebulization Q6H breathing 05/22/21 warfarin 2.5 mg tablet 2.5 mg PO SUTUTHSA AFIB 05/22/21 dupilumab 300 mg/2 mL subcutaneous pen injector (Dupixent) 300 mg subcut Q2W rash 10/14/23 hydralazine 50 mg tablet 50 mg PO BID breathing #180 tabs 10/14/23 carvedilol 12.5 mg tablet 12.5 mg PO BID breathing #180 TABLETS 01/15/24 omeprazole 40 mg capsule,delayed release 40 mg PO DAILY gerd 05/26/24 budesonide-formoterol HFA 80 mcg-4.5 mcg/actuation aerosol inhaler (Symbicort) 2 puff inhalation Q12H 07/03/24 ferrous sulfate 325 mg (65 mg iron) tablet (Feosol) 325 mg PO DAILY 07/03/24 furosemide 20 mg tablet 20 mg PO BID 07/03/24 potassium chloride 10 mEq tablet,extended release 10 meq PO 4XD 07/03/24 warfarin 3 mg tablet (Jantoven) 3 mg PO MOWEFR 07/03/24 acetaminophen 500 mg tablet 1,000 mg (2 x 500 mg) PO Q8 #0 tabs 07/09/24 benzonatate 100 mg capsule 100 mg PO TID PRN PRN Cough #30 caps 07/09/24 methocarbamol 750 mg tablet 750 mg PO Q6H PRN PRN spasms/musculoskeletal pain #20 tabs 07/09/24 potassium chloride 20 mEq tablet,extended release(part/cryst) 40 meq (2 x 20 mEq) PO DAILY #30 tabs 07/09/24 prednisone 20 mg tablet 20 mg PO BID #10 tabs 07/09/24 Physical Exam Narrative GENERAL: cooperative HEENT: Atraumatic; normocephalic EYES; Anicteric, Normal Conjunctiva NECK; supple, normal thyroid, RESPIRATORY: Diminished to auscultation CARDIOVASCULAR: Regular S1 S2, GI: soft, normoactive bowel sounds, : No Renal angle tenderness; EXTREMITIES: No edema, no clubbing, MUSCULOSKELETAL: no muscle wasting NEURO: Awake; no lateralizing signs. SKIN: No Rash PSYCH; Flat affect Weight / BMI Weight Weight: 72.8 kg Body Mass Index (BMI) 29.3 ABG / Lab / Microbiology Data 07/09/24 04:50 07/09/24 04:50 Laboratory: Laboratory Results - last 24 hr 07/09/24 04:50: WBC 5.3, RBC 3.76 L, Hgb 10.5 L, Hct 33.7 L, MCV 89.6, MCH 27.9, MCHC 31.2 L, RDW Std Deviation 52.1 H, RDW Coeff of [place] 15.9 H, Plt Count 137 L, MPV 12.4 H, Immature Gran % (Auto) 0.600, Neut % (Auto) 85.8 H, Lymph % (Auto) 8.6 L, [place] % (Auto) 4.8, Eos % (Auto) 0.0, Baso % (Auto) 0.2, Absolute Neuts (auto) 4.5, Absolute Lymphs (auto) 0.45 L, Nucleated RBC % 0, PT 23.6 H, INR 2.1, Sodium 142, Potassium 3.2 L, Chloride 94 L, Carbon Dioxide 43.0 H, Anion Gap 5, BUN 29 H, Creatinine 0.74, Estim Creat Clear Calc 55.89, Est GFR (MDRD) Af Amer 99, Est GFR (MDRD) Non-Af 82, BUN/Creatinine Ratio 39.4 H, Glucose 145 H, Calcium 9.2, Phosphorus 3.0, Magnesium 1.9 Microbiology: Microbiology 07/04/24 07:45 Sputum, Expectorated/Coughed Gram Stain - Final 07/04/24 07:45 Sputum, Expectorated/Coughed Respiratory Culture - Final Klebsiella pneumoniae sp pneum 07/03/24 09:47 Mucosa - Nose SARS-CoV-2, Influenza & RSV (PCR) - Final Influenzae A D/C Instructions Discharge Diet: No restrictions Discharge Activity: Return to Normal Activity Call your doctor if you observe: Fever of 101 or Higher, Shortness of breath, Fainting spells and Chest pain DC O2, CPAP, BIPAP Needs RN Home O2 Qualification: Home O2 Qualification: Is the patient on home oxygen Yes 07/09/24 10:36 Home O2 Qualification: AT REST 1-Pulse Ox at rest 90 07/09/24 10:36 1- Oxygen flow rate at rest 2 07/09/24 10:36 Home O2 Qualification: WITH AMBULATION 1- Pulse Ox with ambulation 88 07/09/24 10:36 1- Oxygen Flow Rate with 2 07/09/24 10:36 ambulation 2- Pulse Ox with ambulation 89 07/09/24 10:36 2- Oxygen Flow Rate with 3 07/09/24 10:36 ambulation PSN CPAP & BiPAP: BiPAP & CPAP Settings per PSN Mode BiPAP 07/08/24 23:25 Bipap Delivery Device Face Mask 07/08/24 23:25 BiPAP Inspiratory Pressure 14 07/08/24 23:25 BiPAP Expiratory Pressure 8 07/08/24 23:25 BiPAP Rate 12 07/08/24 23:25 Fraction of Inspired Oxygen ( 40 07/08/24 23:25 FIO2) Home O2 Discharge instructions: Yes Type of respiratory needs?: Oxygen Oxygen frequency: With Ambulation Oxygen liters per minute during Ambulation: 3 and Other (REST) Other oxygen liters per minute: 2 Other oxygen frequency: Continuous DC home with Oxygen: Yes Home O2 MD Review: I have reviewed the oxygen testing, and the patient qualifies for home oxygen equipment and portability. The patient is mobile in the home and the community. Meaningful Use Info Meaningful Use Meaningful Use Diagnoses (Choose all that apply): CHF CHF BOO/ARB ordered at discharge?: No Reason BOO/ARB not ordered?: Not indicated Documented LVEF (%): 55 Ischemic Stroke Statin Dosing Therapy Reference: STATIN DOSE THERAPY REFERENCE: * Patients > 75 years receive moderate or high dose statin therapy. * Patients 75 years or YOUNGER should receive HIGH intensity statin dose unless contraindicated. You will be required to document reason for non-treatment if statin daily dose does not meet guidelines. HIGH DOSE STATIN THERAPY DAILY Atorvastatin > than or = to 40 mg Rosuvastatin > than or = to 20 mg Amlodipine + Atorvastatin > than or = to 2.5/40 mg Ezetimibe + Simvastatin 10/80 mg Simvastatin 80mg Discharge Plan Admission Admit Date/Time: 07/03/24 13:15 Attending Provider: Mike Fonseca Primary Care Provider: Laurie Bonilla Consulting Providers: Sherry Helton Discharge Orders/Prescriptions Prescriptions: New methocarbamol 750 mg Tablet 750 mg PO Q6H PRN PRN (Reason: spasms/musculoskeletal pain) Qty: 20 0RF benzonatate 100 mg Capsule 100 mg PO TID PRN PRN (Reason: Cough) Qty: 30 0RF potassium chloride 20 mEq Tablet,Er Particles/Crystals 40 meq PO DAILY Qty: 30 0RF acetaminophen 500 mg Tablet 1,000 mg PO Q8 Qty: 0 0RF prednisone 20 mg tablet 20 mg PO BID Qty: 10 0RF Continued (DME) oxygen-air delivery systems Device See Rx Instructions .ROUTE .MEDSUPPLY Qty: 1 Rx Instructions: As directed albuterol sulfate 2.5 mg /3 mL (0.083 %) solution for nebulization 2.5 mg continuous nebulization Q6H Dupixent Pen 300 mg/2 mL pen injector 300 mg subcut Q2W hydralazine 50 mg tablet 50 mg PO BID Qty: 180 3RF carvedilol 12.5 mg tablet 12.5 mg PO BID Qty: 180 3RF warfarin 2.5 mg tablet 2.5 mg PO [facility] Patient Comments: PCP managing Rx Instructions: PCP managing omeprazole 40 mg capsule,delayed release(DR/EC) 40 mg PO DAILY warfarin [Jantoven] 3 mg tablet 3 mg PO MOWEFR budesonide-formoterol [Symbicort] 80-4.5 mcg/actuation HFA aerosol inhaler 2 puff INHALATION Q12H Patient Comments: [NO ORIGINAL SIG] potassium chloride 10 mEq tablet extended release 10 meq PO 4XD Patient Comments: PT GOT RX ON 07/02/24 AND HASNT STARTED YET ferrous sulfate [Feosol] 325 mg (65 mg iron) tablet 325 mg PO DAILY furosemide 20 mg Tablet 20 mg PO BID Referrals / Follow Up: Laurie Bonilla MD [Primary Care Provider] - 07/12/24 3:20 am (Will be checking iron and potassium levels) Disposition Disposition (needs filled in before D/C Order can be placed): Home, Self Care Charges/Coding Visit Charges Inpatient E&M: 60306 Disch Hosp >30min
[2024-07-09 10:36] VITALS: O2SAT 88; O2SAT 89; O2SAT 90
--- NOTE | 2024-07-09 11:27 | CASEMGMT ---
Patient has order for discharge. Patient requires increase in home oxygen, script received and update sent to Julia via [employer]. BABITA CM in to discuss needs at discharge. Patient states she has tank for at discharge. Patient denies need for HHC at discharge but would like exercises for at discharge, BABITA BATISTA provided handout from therapy. Patient inquired about meals through insurance, BABITA BATISTA provided Meal Delivery Handout. Patient states she has no further needs or concerns. Patient had no further questions. BABITA BATISTA updated discharge plan.
== END 2024-07-09 12:55 | disposition home or self-care (01) | DRG 871 ==
LOC: ED 10:53 → PCU 13:28
PROVIDERS: Family Medicine; Admitting Provider Internal Medicine; Emergency Provider Emergency Medicine; PCP Internal Medicine; Visit Provider Internal Medicine
DX: A41.59 Other Gram-negative sepsis (principal); J96.21 Acute and chronic respiratory failure with hypoxia; J96.22 Acute and chronic respiratory failure with hypercapnia; I50.33 Acute on chronic diastolic (congestive) heart failure; J15.4 Pneumonia due to other streptococci; J18.9 Pneumonia, unspecified organism; J44.0 Chronic obstructive pulmonary disease with (acute) lower respiratory infection; I48.11 Longstanding persistent atrial fibrillation; J44.1 Chronic obstructive pulmonary disease with (acute) exacerbation; J98.11 Atelectasis; I27.20 Pulmonary hypertension, unspecified; E11.9 Type 2 diabetes mellitus without complications; I11.0 Hypertensive heart disease with heart failure; D64.9 Anemia, unspecified; I34.0 Nonrheumatic mitral (valve) insufficiency; D69.6 Thrombocytopenia, unspecified; J10.1 Influenza due to other identified influenza virus with other respiratory manifestations; D72.819 Decreased white blood cell count, unspecified; E87.6 Hypokalemia; G47.33 Obstructive sleep apnea (adult) (pediatric); K21.9 Gastro-esophageal reflux disease without esophagitis; Z79.01 Long term (current) use of anticoagulants; Z79.51 Long term (current) use of inhaled steroids; Z79.52 Long term (current) use of systemic steroids; Z87.891 Personal history of nicotine dependence; I49.3 Ventricular premature depolarization; R79.1 Abnormal coagulation profile; R94.6 Abnormal results of thyroid function studies; E07.81 Sick-euthyroid syndrome
CPT/HCPCS: 36415; 36600; 71045; 71275; 80048; 80053; 80076; 81001; 82803; 82962; 83735; 83880; 84100; 84439; 84443; 84484; 85025; 85379; 85610; 87070; 87077; 87186; 87205; 87631; 93005; 94002; 94003; 94640; 94667; 94668; 94762; 97116; 97162; 97530; 97802; 99284; Q9967; A4216; J1940

== ENCOUNTER 2024-07-18 05:48 | Emergency (ER) | payer MEDICARE, SELFPAY ==
[2024-07-18] VITALS (32 sets, daily range): BP systolic 53–106; BP diastolic 31–62; PULSE 104–145; RESP 14–33; TEMP 35.9–38.1; O2SAT 81–97; BMI 23.9
--- NOTE | 2024-07-18 06:15 | CT_ITS ---
PROCEDURE: CT of the abdomen/pelvis with IV contrast. REASON FOR EXAM: Incarcerated umbilical hernia causing small bowel obstruction TECHNIQUE: After IV iodinated contrast administration, contiguous axial CT images were obtained through the abdomen/pelvis. Sagittal and coronal reformats were created. COMPARISON: No prior abdominal/pelvic CT. CTA chest 07/05/2024 FINDINGS: Bones are osteopenic. The included proximal femurs are intact. Mild degenerative changes in the hip joints. Moderate rightward convex curvature mid lumbar spine on the coronal images. Heart size at the upper limits of normal. No sizable pericardial effusion. Mild coronary artery calcifications. There are patchy areas of consolidation in the lower lobes and right middle lobe. Resolved left pleural effusion compared to the prior chest CT. The abdominal aorta is normal in caliber with a moderate to heavy amount of atherosclerotic calcification. There is a [id number] amount of fluid density in the stomach. No calcified gallstones or abnormal dilation of the biliary tree. Portal vein is patent. No discrete liver lesion. The adrenal glands, spleen, and pancreas show no specific abnormality. Kidneys are symmetric in size and enhancement. No solid renal mass or obstructive uropathy. Small amount of low-attenuation abdominal/pelvic ascites. The uterus is present. The urinary bladder is not well distended. No dominant adnexal lesion. No abdominal/pelvic adenopathy. No abnormally dilated colonic segments or free intraperitoneal air. There is some fluid density in the ascending colon/cecum. Visualized appendix is unremarkable. Tiny fat containing umbilical hernia. No herniated bowel segments. There are several mildly dilated fluid-filled small bowel segments in the abdomen/pelvis, some of which are dilated up to 3.5 cm. No pneumatosis intestinalis or portal venous gas. There is a tiny fat containing umbilical hernia with possible small bowel caliber transition point near the anterior abdominal wall on images 82-84 of the axial data set. CT/Abdomen/Pelvis W IV Cont ONLY IMPRESSION: Multiple fluid-filled mildly dilated small bowel segments in the abdomen/pelvis , concerning for small bowel obstruction. There is a possible transition point in small bowel caliber near a tiny fat containin g umbilical hernia, although no definite herniated small bowel segment at this location. No free intraperitoneal air is demonstra cipriano. Small amount of abdominal/pelvic ascites. There is a moderate amount of fluid density in the stomach. The patient may be nefit from a nasogastric tube. Patchy areas of consolidation in the lower lobes and right middle lobe, partial ly included, concerning for multifocal pneumonia. Recommend continued radiologic follow-up to document resolution. Left pleural effusion on the prior chest CT has resolved. No obstructive uropathy or acute appendicitis. One or more dose reduction techniques were used (e.g., Automated exposure contr ol, adjustment of the mA and/or kV according to patient size, use of iterative reconstruction technique). Reading Location: [id number]
[2024-07-18 06:24] LABS: Absolute Lymphocyte Count 0.82 X10^3/uL (0.83-4.51); Absolute Neutrophil Count 26.6 X10^3/uL (2.0-7.7); Basophil# 0.12 X10^3/uL; Basophil% 0.4 % (0-1); Eosinophil# 0.05 X10^3/uL; Eosinophils% 0.2 % (0-5); Hematocrit 43.4 % (37-47); Hemoglobin 13.9 g/dL (12.0-15.0); Lymphocyte # 0.82 X10^3/ul (0.83-4.51); Lymphocyte % 2.8 % (19-41); Mean Corpuscular Volume 87.3 fL (81-99); Mean Platelet Vol. 12.6 fl (6.2-12.0); Monocyte% 3.1 % (0-10); NRBC Flagged by Analyzer 0 % (0-5); Neutrophil # 26.62 X10^3/uL (2.7-7.7); Neutrophil % 92.6 % (47-70); POSITIVE DIFFERENTIAL YES; Platelet Count 192 K/mm3 (150-450); RBC Distribution Width CV 15.9 % (11.6-14.6); RBC Distribution Width SD 50.1 fl (35.1-43.9); Red Blood Count 4.97 M/mm3 (4.2-5.4); White Blood Count 28.8 K/mm3 (4.4-11.0)
[2024-07-18] MEDS: Ondansetron 4 MG/2 ML Vial IV (06:29)
[2024-07-18] MEDS: 0.9% Normal Saline (1000mL) 1,000 ML 999 ML IV ×2 (06:29→07:25)
[2024-07-18] MEDS: Morphine 4 MG/ML Syringe IV (06:29)
[2024-07-18 06:31] LABS: Differential Indicated SCAN CRITERIA MET
[2024-07-18 06:41] LABS: AST(SGOT) 19 U/L (15-37); Alanine Aminotransfer ALT/SGPT 17 U/L (13-56); Albumin, Serum 2.9 g/dL (3.2-5.0); Alkaline Phosphatase 83 U/L (45-117); Anion Gap 9 (5-15); BUN 33 mg/dL (7-18); BUN/Creat Ratio 35.6 RATIO (10-20); Calcium,Total 9.3 mg/dL (8.5-10.1); Chloride 99 mmol/L (98-107); Creatinine, Serum 0.93 mg/dL (0.55-1.02); EST Glomerular Filtration Rate 62 mL/min (>60); Est Glom Filt Rate - Afr Amer 76 mL/min (>60); Globulin 3.9 g/dL (2.2-4.2); Glucose 138 mg/dL (74-106); Lipase < 10 U/L (73-393); Potassium 3.8 mmol/L (3.5-5.1); Protein, Total 6.8 g/dL (6.4-8.2); Sodium Level 136 mmol/L (136-145)
[2024-07-18 06:44] LABS: International Normalized Ratio 4.8
[2024-07-18 07:19] LABS: Lactic Acid 2.4 mmol/L (0.4-1.9)
[2024-07-18] MEDS: metroNIDAZOLE 500 MG/100 ML BAG 100 MG IV (07:25)
--- NOTE | 2024-07-18 07:30 | ED.RN ---
bp responding to fluid bolus
--- NOTE | 2024-07-18 07:30 | ED.RN ---
sepsis fluids already initated. dr bonner pt samir. sepsis screening tool not funtioning properly on computer but all appropriate actions still being intiated.
--- NOTE | 2024-07-18 08:04 | RAD_ITS ---
PROCEDURE: ABDOMEN SINGLE VIEW (PORTABLE) REASON FOR EXAM: 74-year-old female, status post gastric tube placement. TECHNIQUE: Single view abdomen. COMPARISON: CT abdomen pelvis earlier same day. FINDINGS: Gastric tube placement with side hole at the approximate level of the diaphragm, and tip overlying the gastric bubble. Stable dilation of the visualized small bowel loops within the upper abdomen. Patchy bibasilar airspace opacities, seen better on same-day CT, and most compatible with multifocal pneumonia. Degenerative disease of the thoracic spine. No suspicious calcifications. RAD/Abdomen Single View (Portable) IMPRESSION: Interval gastric tube placement as described. Partially visualized bibasilar a irspace opacities, compatible with multifocal pneumonia. Reading Location: [id number]
--- NOTE | 2024-07-18 08:30 | EDS_ITS ---
HPI History of Present Illness Chief Complaint: Abd Pain Informant: patient and family Narrative Narrative: Patient is a 74-year-old female with past medical history of chronic/persistent atrial fibrillation on Coumadin as well as COPD on chronic nasal cannula oxygen pulmonary hypertension and heart failure. She was recently admitted to the hospital secondary to influenza with acute on chronic respiratory failure and CHF. She was discharged home on July 09. According to patient and family essentially the next day but she began complaining of abdominal discomfort and had poor oral intake. In the last 2 days she has had increasing abdominal pain and bouts of nausea and vomiting. Secondary to the worsening symptoms she was brought back in for reevaluation [facility] Medical History Umbilical hernia History of COPD History of diabetes mellitus CHF (congestive heart failure) A-fib Pleural effusion on left Chronic anticoagulation Wears dentures Rash Injury of back Dietary restriction History of diverticulitis Gastric reflux Former smoker On home oxygen therapy CPAP (continuous positive airway pressure) dependence Sleep apnea Shortness of breath on exertion Hoarseness History of edema History of atrial fibrillation History of echocardiogram Cardiology follow-up encounter Nocturnal hypoxemia Chronic diastolic (congestive) heart failure intermediate current use of anticoagulant Thyrotoxicosis with diffuse goiter without thyrotoxic crisis or storm History of colon polyps Diverticulosis Non-rheumatic tricuspid valve insufficiency Secondary pulmonary arterial hypertension Longstanding persistent atrial fibrillation Essential (primary) hypertension Obesity (BMI 30-39.9) Anemia Lichen planus Chronic obstructive pulmonary disease Type II diabetes mellitus Home Medications ?Medication ?Instructions ?Recorded ?Last Taken ?Type oxygen-air delivery systems ##1 10/12/19 Unknown Histo ry albuterol sulfate 2.5 mg/3 mL 2.5 mg continuous nebuli zation Q6H 05/22/21 07/02/24 History (0.083 %) solution for nebulization breathing warfarin 2.5 mg tablet 2.5 mg PO SUTUTHSA blood thi nner 05/22/21 07/01/24 History dupilumab 300 mg/2 mL subcutaneous 300 mg subcut Q2W r lauryn 10/14/23 06/28/24 History pen injector (Dupixent) hydralazine 50 mg tablet 50 mg PO BID blood pressure #180 10/14/23 07/02/24 Rx tabs carvedilol 12.5 mg tablet 12.5 mg PO BID heart/blood 0 8/15/24 02/01/25 Rx pressure #180 TABLETS omeprazole 40 mg capsule,delayed 40 mg PO DAILY gerd 1 07/27/23 07/02/24 History release ferrous sulfate 325 mg (65 mg 325 mg PO DAILY suppleme nt 07/03/24 07/02/24 History iron) tablet (Feosol) furosemide 20 mg tablet 20 mg PO BID water pill /06/2607/02/24 History warfarin 3 mg tablet (Jantoven) 3 mg PO MOWEFR blood t hinner 07/03/24 07/02/24 History acetaminophen 500 mg tablet 1,000 mg (2 x 500 mg) PO Q 8 #0 tabs 07/09/24 Unknown Rx benzonatate 100 mg capsule 100 mg PO TID PRN PRN Cough #30 07/09/24 Unknown Rx caps methocarbamol 750 mg tablet 750 mg PO Q6H PRN PRN 12/24 Unknown Rx spasms/musculoskeletal pain #20 tabs prednisone 20 mg tablet 20 mg PO BID #10 tabs Unknown Rx spironolactone 25 mg tablet 12.5 mg (1/2 x 25 mg) PO Q DAY #30 07/16/24 Unknown Rx tabs tramadol 50 mg tablet 50 mg PO Q8H PRN pain Unknown History Allergy/AdvReac Type Severity Reaction Status Date / Time albuterol Allergy Other Verified 07/16/24 13:02 doxycycline Allergy Unknown Verified 07/16/24 13:02 etodolac (Etodolac) Allergy Unknown Verified 07/16/24 13:02 guaifenesin (From Mucinex) Allergy Unknown Verified 07/16/24 13:02 nabumetone Allergy Unknown Verified 07/16/24 13:02 Penicillins Allergy Unknown Verified 07/16/24 13:02 sulfamethoxazole (From Allergy Hives Verified 07/16/24 13:02 Bactrim) trimethoprim (From Bactrim) Allergy Hives Verified 07/16/24 13:02 amlodipine (From Norvasc) AdvReac swelling Verified 07/16/24 13:02 spironolactone AdvReac rib pain Verified 07/16/24 13:02 Family History Father Myocardial infarction Sister Breast cancer Mother Asthma Surgical History History of thyroplasty History of left cataract extraction History of colonoscopy History of right and left heart catheterization (10/27/19) History of dilatation and curettage History of tubal ligation History of carpal tunnel release Social History Smoking Status: Former smoker quit date: 06/02/89 pack-years: 30 alcohol intake: never substance use type: does not use caffeine: Yes Type: coffee Number of servings: 1 ROS ROS ED Constitutional Constitutional ED: Denies chills or fever(s) Eyes Eyes: Denies change in vision ENT ENT ED: Reports rhinorrhea and sore throat Cardiovascular Cardiovascular: Reports racing heartbeat; Denies chest pain Respiratory/Chest Respiratory/Chest: Reports cough and dyspnea Gastrointestinal Gastrointestinal: Reports abdominal pain, constipation, nausea and vomiting; Denies diarrhea Genitourinary Genitourinary ED: Denies dysuria Musculoskeletal Musculoskeletal: Denies myalgias Integumentary Denies rash Neurologic Neurologic: Denies headache(s) Hematologic/Lymphatic Hematologic/Lymphatic: Reports easy bleeding and easy bruising EXAM Physical Exam Const Vital Signs: 07/18/24 05:49 07/18/24 05:49 07/18/24 07:27 Temperature 97.7 F L 97.7 F L Temperature Source Oral Oral Pulse Rate 131 H 131 H 111 H Respiratory Rate 33 H 33 H 19 H Blood Pressure 106/58 L 106/58 L 97/39 L Blood Pressure Mean 74 74 58 Pulse Ox 89 89 92 Oxygen Delivery Method Nasal Cannula Nasal Cannula Nasal Cannula Oxygen Flow Rate (L/min) 4 4 2 Fraction of Inspired Oxygen (FIO2) 07/18/24 07:45 07/18/24 08:00 07/18/24 08:37 Temperature 97.8 F 96.8 F L Temperature Source Temporal Temporal Pulse Rate 116 H 108 H 114 H Respiratory Rate 14 20 H 19 H Blood Pressure 91/53 L 88/47 L 88/47 L Blood Pressure Mean 65 60 60 Pulse Ox 90 92 84 Oxygen Delivery Method Nasal Cannula Airvo Oxygen Flow Rate (L/min) 4 Fraction of Inspired Oxygen (FIO2) 07/18/24 08:46 07/18/24 08:50 07/18/24 09:00 Temperature 96.9 F L Temperature Source Temporal Pulse Rate 114 H 119 H Respiratory Rate 20 H 20 H Blood Pressure 94/41 L 87/60 L Blood Pressure Mean 58 69 Pulse Ox 91 93 Oxygen Delivery Method Airvo Airvo Oxygen Flow Rate (L/min) 60 Fraction of Inspired Oxygen (FIO2) 90 93 Positive well nourished and well developed General Appearance ED: well developed and pallor HEENT Reports dry mucous membranes HEENT Narrative: Cobblestoning is noted in the posterior pharynx consistent with sinus drainage without airway edema or compromise No secondary findings in the posterior pharynx to suggest infection Mouth ED: Yes dry mucous membranes Mouth: dry mucous membranes Eyes PERRL and EOMs intact bilaterally General Eye ED: Negative for scleral icterus Neck supple and no JVD Neck Narrative: No nuchal rigidity or meningeal signs noted Resp Resp Narrative: Patient is tachypneic with accessory muscle use. Breath sounds are diminished throughout with diffuse expiratory wheeze and rhonchi noted in the bilateral lower lobes greatest on the right. Cardio Rate: tachycardic and other Other Details: Irregularly irregular rhythm with tachycardic rate consistent with history of atrial fibrillation GI GI Narrative: Abdomen is distended with hypoactive bowel sounds. There is diffuse pain with palpation. Patient has a umbilicus hernia that feels incarcerated in nature. There is increased tympany as well. No pulsatile mass. Extremity normal to inspection Extremity Narrative: No asymmetric edema no pitting edema negative Homans' sign bilaterally Neuro oriented x3, CN's II-XII intact bilaterally and no sensory deficits noted Sensorium / Orientation: alert Motor Exam: strength 5/5 throughout Psych Psych Narrative: Patient has a depressed/flat affect Skin no rashes or lesions noted General Skin Exam: pallor; Negative for jaundice MDM MDM MDM Narrative Medical decision making narrative: Patient arrived to the ER tachycardic and has a history of persistent atrial fibrillation. With this she is also tachypneic with mild respiratory distress. She was just recently admitted for influenza and respiratory issues however today main complaint is more abdominal pain with nausea and vomiting. On exam she has an plical hernia that feels incarcerated in nature and this is most likely leading to small bowel obstruction. Secondary to this basic labs were obtained as well as a CT scan with IV. Labs showed leukocytosis at 28.8 with neutrophilia at 26.6 and mild lactic acidosis at 2.4 concerning for intestinal infection or potential strangulation and intestinal necrosis from the incarcerated hernia. Secondary to this blood cultures were ordered and patient was given ciprofloxacin and Flagyl for potential secondary infection. Blood pressure was initially decent with a systolic of 106 however after morphine the pressure now became hypotensive and with concerning for development of sepsis she was given 30 mL/kg fluid bolus which is approximately 2 L. With this she did have improvement of her blood pressure to systolic of 90-100. The CT scan did show changes consistent with small bowel obstruction but no obvious perforation or signs of ischemia/necrosis. The case was discussed with the general surgeon Dr. Sanchez and she feels that the patient will most likely need surgery based on her SBO and lab findings concerning for infection but based on her complex medical history of COPD influenza pulmonary pretension heart failure and persistent A-fib on blood thinners that this would require higher level of care. The plan of care was discussed with the patient and family and they are agreeable to transfer and therefore we will reach out to [facility] for potential transfer. Upon arrival the patient had ice packs placed over top the umbilicus as physical exam is consistent with incarcerated umbilical hernia. After receiving pain medication manual pressure was placed over top the hernia and there was apparent reduction to the incarcerated umbilical hernia. Patient tolerated this procedure well without complication Due to the small bowel obstruction and NG tube was placed. After placement there was return of gastric contents indicating the tube is in proper position. This was confirmed with KUB. Patient tolerated this procedure without complication Secondary to her elevated INR with need for potential surgery and the fact she is receiving antibiotics which will most likely elevate the INR further she was given 10 mg of IV vitamin K After fluids finished infusion the patient's blood pressure began to drop/become hypotensive once again. Therefore I decided to place a central line and start her on vasopressors as documented below. Patient had the right neck prepped in sterile fashion and cleaned with chlorhexidine. An ultrasound was used to visualize the right internal jugular vein. The vein was cannulated and there was return of dark red nonpulsatile blood. The guidewire was threaded without difficulty. The triple-lumen central line was then threaded over top the guidewire to a depth of 15 cm. There was return of dark red nonpulsatile blood from each port and each port flushed well. Patient tolerated procedure well without complication. At this time I have not received consult back from [facility] general surgery or alarm technician. The patient's plan of care is still transfer to an outside facility that is a higher level of care where she can undergo potential surgery secondary to her small bowel obstruction and concern for potential necrosis or infection. The plan of care will be signed out to the day physician Dr. Reina to complete the transfer. History & Record Review Discussion w/independent historian: Patient and Family Lab Data Attestation: I reviewed the patient's lab results. Labs: Laboratory Results - last 24 hr 07/18/24 07/18/24 06:00 06:32 WBC 28.8 H RBC 4.97 Hgb 13.9 Hct 43.4 MCV 87.3 MCH 28.0 MCHC 32.0 RDW Std Deviation 50.1 H RDW Coeff of Tano 15.9 H Plt Count 192 MPV 12.6 H Immature Gran % (Auto) 0.900 Neut % (Auto) 92.6 H Lymph % (Auto) 2.8 L Bland % (Auto) 3.1 Eos % (Auto) 0.2 Baso % (Auto) 0.4 Absolute Neuts (auto) 26.6 H Absolute Lymphs (auto) 0.82 L Nucleated RBC % 0 PT 46.0 H INR 4.8 H* Sodium 136 Potassium 3.8 Chloride 99 Carbon Dioxide 28.0 Anion Gap 9 BUN 33 H Creatinine 0.93 Estim Creat Clear Calc 40.70 Est GFR (MDRD) Af Amer 76 Est GFR (MDRD) Non-Af 62 BUN/Creatinine Ratio 35.6 H Glucose 138 H Lactic Acid 2.4 H* Calcium 9.3 Total Bilirubin 2.00 H Direct Bilirubin 1.10 H AST 19 ALT 17 Alkaline Phosphatase 83 Total Protein 6.8 Albumin 2.9 L Globulin 3.9 Lipase < 10 L ABG Data ABG results: ABG 07/18/24 08:59 Specimen Type ART Sample Site L Brach pH 7.32 L Bicarbonate Actual 26.1 H Total CO2 28 Base Excess 0 O2 Saturation 86 L O2 % 90.0 ABG pCO2 50.2 H ABG pO2 57 L Darin Test Positive O2 Delivery Device Not entered Vent Mode airvo Radiography Diagnostic Testing: Clinical Impression(s) from Imaging Studies Abdomen/Pelvis CT 07/18/24 06:15 IMPRESSION: Multiple fluid-filled mildly dilated small bowel segments in the abdomen/pelvis, concerning for small bowel obstruction. There is a possible transition point in small bowel caliber near a tiny fat containing umbilical hernia, although no definite herniated small bowel segment at this location. No free intraperitoneal air is demonstrated. Small amount of abdominal/pelvic ascites. There is a moderate amount of fluid density in the stomach. The patient may benefit from a nasogastric tube. Patchy areas of consolidation in the lower lobes and right middle lobe, partially included, concerning for multifocal pneumonia. Recommend continued radiologic follow-up to document resolution. Left pleural effusion on the prior chest CT has resolved. No obstructive uropathy or acute appendicitis. One or more dose reduction techniques were used (e.g., Automated exposure control, adjustment of the mA and/or kV according to patient size, use of iterative reconstruction technique). [facility] 07/18/24 08:04 IMPRESSION: Interval gastric tube placement as described. Partially visualized bibasilar a irspace opacities, compatible with multifocal pneumonia. Reading Location: [id number] KUB as interpreted by the emergency medicine physician reveals NG tube to be within the body of the stomach Management Discussion w/another healthcare provider: Relief Salesperson Discharge Plan Triage Chief Complaint: Abd Pain ED Provider: Luc Mejias Dx/Rx/DC Orders Clinical Impression: Incarcerated umbilical hernia, Chronic diastolic heart failure, Small bowel obstruction, COPD (chronic obstructive pulmonary disease), Pulmonary hypertension, Atrial fibrillation, persistent, Current use of halfway anticoagulation Prescriptions: No Action (DME) oxygen-air delivery systems Device See Rx Instructions .ROUTE .MEDSUPPLY Qty: 1 Rx Instructions: As directed albuterol sulfate 2.5 mg /3 mL (0.083 %) solution for nebulization 2.5 mg continuous nebulization Q6H Dupixent Pen 300 mg/2 mL pen injector 300 mg subcut Q2W hydralazine 50 mg tablet 50 mg PO BID Qty: 180 3RF carvedilol 12.5 mg tablet 12.5 mg PO BID Qty: 180 3RF tramadol 50 mg tablet 50 mg PO Q8H PRN (Reason: pain) spironolactone 25 mg tablet 12.5 mg PO QDAY Qty: 30 0RF warfarin 2.5 mg tablet 2.5 mg PO [facility] Patient Comments: PCP managing Rx Instructions: PCP managing omeprazole 40 mg capsule,delayed release(DR/EC) 40 mg PO DAILY warfarin [Jantoven] 3 mg tablet 3 mg PO MOWEFR ferrous sulfate [Feosol] 325 mg (65 mg iron) tablet 325 mg PO DAILY furosemide 20 mg Tablet 20 mg PO BID methocarbamol 750 mg Tablet 750 mg PO Q6H PRN PRN (Reason: spasms/musculoskeletal pain) Qty: 20 0RF benzonatate 100 mg Capsule 100 mg PO TID PRN PRN (Reason: Cough) Qty: 30 0RF acetaminophen 500 mg Tablet 1,000 mg PO Q8 Qty: 0 0RF prednisone 20 mg tablet 20 mg PO BID Qty: 10 0RF Primary Care Provider: Laurie Bonilla Referrals: Laurie Bonilla MD [Primary Care Provider] - Print Language: New Zealander
--- NOTE | 2024-07-18 08:30 | ED.RN ---
dr notifed of continued low sats and bp. setting up for central line.
[2024-07-18] MEDS: Phytonadione (Vit K) 10 MG in 0.9% Normal Saline (50mL Bag) 50 ML 150 MG IV (08:35)
--- NOTE | 2024-07-18 08:38 | ED.RN ---
respiratory working with pt oxygen sats in 80's
[2024-07-18] MEDS: Ciprofloxacin 400 MG/200 ML BAG 200 MG IV (08:52)
[2024-07-18 09:03] LABS: Allen Test Positive; Base Excess 0 mmol/L (-2 to +2); Bicarbonate 26.1 mmol/L (22-26); Blood Gas Specimen Type ART; Mode airvo; O2 Delivery Device Not entered; PO2 57 mmHG (75-100); SITE L Brach; SO2 86 % (95-99); Total Carbon Dioxide 28 mmol/L; pCO2 50.2 mmHg (35-45); pH 7.32 (7.35-7.45)
--- NOTE | 2024-07-18 09:30 | RAD_ITS ---
PROCEDURE: CHEST 1 VIEW (PORTABLE) REASON FOR EXAM: 74-year-old female, status post central line placement. TECHNIQUE: Frontal view of the chest. COMPARISON: Same day abdominal radiograph, CT abdomen pelvis 07/17/2024, CTA chest 07/05/2024. FINDINGS: Interval right IJ central line placement with catheter tip overlying the expected region of the SVC/right atrial junction. Stable gastric tube with side hole in the distal esophagus and tip overlying the gastric bubble. The heart size is normal. Low lung volumes bilaterally. Patchy bibasilar airspace opacities, better evaluated on recent CT abdomen pelvis in compatible with multifocal pneumonia. The bones are unremarkable. RAD/Chest 1 View (Portable) IMPRESSION: 1. Interval right IJ central line placement as described. Stable gastric tube. 2. Patchy bibasilar airspace opacities, compatible with multifocal pneumonia. Reading Location: [id number]
[2024-07-18] MEDS: Norepinephrine 8 MG in 0.9% Normal Saline (250mL Bag) 242 ML 9.4 MG CONT INF (09:43)
--- NOTE | 2024-07-18 09:44 | ED.RN ---
dr malloy verified cxray for central line.confirmed. levophed intiated.
[2024-07-18 10:36] LABS: Reflex Lactate? Y
--- NOTE | 2024-07-18 10:39 | ED.RN ---
respiratory continues to adjust airvo, pt sats dropping as she falls asleep. 87%
--- NOTE | 2024-07-18 10:57 | ED.RN ---
dr garcia aware pt sats 83-84% on 85%, 60 liters airvo. respiratory consulted with dr. parmar.
--- NOTE | 2024-07-18 11:17 | ED.RN ---
dr aware current bp and map
[2024-07-18 11:21] LABS: Lactic Acid 2.6 mmol/L (0.4-1.9)
--- NOTE | 2024-07-18 11:30 | ED.RN ---
at bedside discussing intubation with pt. agreeable and setting up for it at present.
--- NOTE | 2024-07-18 11:30 | ED.RN ---
ACCEPTED AT [facility]. [facility]ANS ETA [phone]
[2024-07-18] MEDS: Etomidate 20 MG/10 ML Vial 18 MG IV (11:44)
[2024-07-18] MEDS: Rocuronium Bromide 50 MG/5 ML Vial IV (11:45)
--- NOTE | 2024-07-18 12:02 | RAD_ITS ---
PROCEDURE: CHEST 1 VIEW (PORTABLE) REASON FOR EXAM: 74-year-old female, intubation. TECHNIQUE: Frontal view of the chest. COMPARISON: Chest radiograph earlier same day. FINDINGS: Interval endotracheal tube placement with tip approximately 2 cm above the level of the balta. Stable central venous catheter and gastric tube. The cardiomediastinal silhouette is obscured. Near-complete opacification of the left lower lung. Increased patchy airspace opacities within the right middle lung, which may be secondary to increased visualization due to improved aeration. Degenerative changes are identified within the thoracic spine. RAD/Chest 1 View (Portable) IMPRESSION: 1. Endotracheal tube placement as described. 2. Near-complete opacification of the left lower lobe, which may be combination of atelectasis and pleural effusion. Reading Location: [id number]
[2024-07-18] MEDS: fentaNYL drip 100 ML 5 MCG CONT INF (12:12)
[2024-07-18] MEDS: dexMEDEtomidine 400 MCG in 0.9% Normal Saline (100mL Bag) 96 ML 7.4 MCG CONT INF (12:21)
[2024-07-18] MEDS: VIAFLEX IV (12:25)
[2024-07-18] MEDS: HUM PROTHROMBIN CPLX LANS IV (12:25)
[2024-07-18] MEDS: Phenylephrine 10 MG in 0.9% Normal Saline (250mL Bag) 249 ML 15 MG CONT INF (12:30)
--- NOTE | 2024-07-18 13:00 | ED.RN ---
notified of each increase in pressers ans results. sats continue in low 80's
[2024-07-18 13:04] LABS: Base Excess -2 mmol/L (-2 to +2); Bicarbonate 24.4 mmol/L (22-26); Blood Gas Specimen Type ART; Mode AC; O2 Delivery Device Not entered; PEEP 8; PO2 63 mmHG (75-100); RR 16; SITE L Brach; SO2 90 % (95-99); Total Carbon Dioxide 26 mmol/L; pCO2 46.9 mmHg (35-45); pH 7.33 (7.35-7.45)
--- NOTE | 2024-07-18 13:15 | ED.RN ---
dr garcia at bedside. talking with family regarding prognosis and care, daughter from [facility] on speaker discussion resulted in make her comfortable per daughters
--- NOTE | 2024-07-18 13:20 | ED.RN ---
sats decreasing suctioned via midline vent. respiratory at bedside.
--- NOTE | 2024-07-18 14:05 | ED.RN ---
levophed paused per dr garcia verbal order
--- NOTE | 2024-07-18 14:25 | CM.ED ---
Social Work: Date of referral: 07/18/24 Reason for referral: Support for patient's family needed as patient is dying. Referred by: ED doctor abrasive worker arrived to patient's room and patient was surrounded by 3 females, all very tearful. Patient actively dying. Family from [place] and [place] not yet arrived. Family declined support at this time by neonatal social worker or on-call Housing Inspector. Family requesting to be alone to grieve with patient. Graduate Engineer on stand-by if needed. Christina Mcdaniel, HYDRAULIC PILE HAMMER OPERATOR, COMMERCIAL FRONT LOAD DRIVER
--- NOTE | 2024-07-18 14:36 | ED.RN ---
PT PRONOUNCED PER DR GLOVER AT [id number]. ALL PUMPS STOPPED
--- NOTE | 2024-07-18 16:35 | ED.RN ---
pt to [facility]
== END 2024-07-18 16:37 ==
PROVIDERS: Emergency Medicine; Emergency Provider Emergency Medicine; PCP Internal Medicine; Visit Provider Emergency Medicine
DX: K42.0 Umbilical hernia with obstruction, without gangrene (principal); I11.0 Hypertensive heart disease with heart failure; I27.20 Pulmonary hypertension, unspecified; I50.32 Chronic diastolic (congestive) heart failure; K56.609 Unspecified intestinal obstruction, unspecified as to partial versus complete obstruction; J44.9 Chronic obstructive pulmonary disease, unspecified; I48.11 Longstanding persistent atrial fibrillation; E11.9 Type 2 diabetes mellitus without complications; Z79.01 Long term (current) use of anticoagulants; R79.1 Abnormal coagulation profile; Z87.891 Personal history of nicotine dependence; G47.30 Sleep apnea, unspecified; Z99.89 Dependence on other enabling machines and devices; Z79.899 Other long term (current) drug therapy; K21.9 Gastro-esophageal reflux disease without esophagitis; Z98.42 Cataract extraction status, left eye; Z98.51 Tubal ligation status; I95.9 Hypotension, unspecified
CPT/HCPCS: 31500; 36600; 51702; 71045; 74018; 74177; 80048; 80076; 82803; 83605; 83690; 85025; 85610; 87040; 87070; 87077; 87186; 87205; 93005; 94002; 94660; 96361; 96365; 96368; 96375; 99252; 99284; Q9967; A4216; G0463; J0744; J2405; J7165